=== PATIENT | male | born 1970 | race Caucasian/White ===

== ENCOUNTER 2020-08-22 08:51 | Day surgery (SDC) | payer OTHER ==
[2020-08-20 12:16] VITALS: BMI 21.6
[~2020-08-22 08:51] MED LIST: LACTATED RINGERS 1,000 ML IV SCH
[2020-08-22 09:30] VITALS: TEMP 97.8
[2020-08-22] MEDS ORDERED: LIDOCAINE 1% (10MG/ML) FOR IV START INTRADERMA ONE (09:32)
--- NOTE | 2020-08-22 10:37 | P.GSHP ---
History of Present Illness H&P Date: 08/22/20 Chief Complaint: Change in bowel habits, screening colonoscopy This a 49-year-old male who's had change in bowel habits was increased conservation. He presents today for screening colonoscopy. Past Medical History Past Medical History: Cancer, COPD, CVA/TIA, Seizure Disorder Additional Past Medical History / Comment(s): TIA summer 2019-no residual effects, lung cancer 2019-had radiation & chemo which is finished, immunotherapy every 2 weeks, last seizure approx. 8 months ago History of Any Multi-Drug Resistant Organisms: None Reported Additional Past Surgical History / Comment(s): mediport left side, brain surg. for dermoid cysts >20 yrs. ago Past Anesthesia/Blood Transfusion Reactions: No Reported Reaction Smoking Status: Current every day smoker Past Alcohol Use History: Heavy Additional Past Alcohol Use History / Comment(s): used to drink heavily, hasn't since November 2018, 1ppd down from 3ppd since teens Past Drug Use History: Marijuana Additional Drug Use History / Comment(s): edibles Medications and Allergies Home Medications Medication Instructions Recorded Confirmed Type Aspirin 81 mg PO DAILY 08/20/20 08/20/20 History Atorvastatin [Lipitor] 40 mg PO DAILY 08/20/20 08/20/20 History Cholecalciferol [Vitamin D3 (25 25 mcg PO DAILY 08/20/20 08/20/20 History Mcg = 1000 Iu)] Fluticasone/Salmeterol [Advair 1 inhalation PO BID 08/20/20 08/20/20 History 250-50 Diskus] Lacosamide [Vimpat] 150 mg PO BID 08/20/20 08/20/20 History Multivitamins, Thera [Multivitamin 1 tab PO DAILY 08/20/20 08/20/20 History (formulary)] levETIRAcetam [Keppra] 1,000 mg PO HS 08/20/20 08/20/20 History levETIRAcetam [Keppra] 750 mg PO QAM 08/20/20 08/20/20 History Allergies Allergy/AdvReac Type Severity Reaction Status Date / Time No Known Allergies Allergy Verified 08/20/20 10:45 Surgical - Exam Vital Signs Temp Pulse Resp BP Pulse Ox 97.8 F 78 20 128/70 96 08/22/20 09:29 08/22/20 09:29 08/22/20 09:29 08/22/20 09:29 08/22/20 09:29 - General well developed, well nourished, no distress - Eyes PERRL - ENT normal pinna - Neck no masses - Respiratory normal expansion - Cardiovascular Rhythm: regular - Abdomen Abdomen: soft, non tender Assessment and Plan Assessment: We'll perform screening colonoscopy.
[2020-08-22] MEDS ORDERED: PROPOFOL 10 MG/ML 20 ML VIAL IV ONE (10:46)
--- NOTE | 2020-08-22 10:59 | P.OP ---
Date of Procedure: 08/22/20 Preoperative Diagnosis: Screening colonoscopy Postoperative Diagnosis: Normal colon Procedure(s) Performed: Colonoscopy Anesthesia: MAC Surgeon: Ulises Osborne Pathology: none sent Condition: stable Disposition: PACU Description of Procedure: PROCEDURE: The patient was placed on the endoscopy table in the lateral position. Digital rectal examination was performed which revealed no abnormalities. The prostate was symmetrical without nodules. Flexible colonoscope was then placed in the patient's anus and passed throughout the entire colon. The ileocecal valve was visualized. The cecum, ascending, transverse, descending and sigmoid colon were normal. The rectum was normal as well. There were no masses, polyps or diverticula noted in the entire colon. SUMMARY OF FINDINGS: Normal colonoscopy.
[2020-08-22 11:09] VITALS: RESP 18
[2020-08-22 11:21] VITALS: BP 115/79; PULSE 68
== END 2020-08-22 12:02 | disposition home or self-care (01) ==
LOC: ORWHC2ENDO 08:51
PROVIDERS: ATTEND Surgery
DX: R19.4 Change in bowel habit (principal); J44.9 Chronic obstructive pulmonary disease, unspecified; Z86.73 Personal history of transient ischemic attack (TIA), and cerebral infarction without residual deficits; G40.909 Epilepsy, unspecified, not intractable, without status epilepticus; Z85.118 Personal history of other malignant neoplasm of bronchus and lung; Z92.3 Personal history of irradiation; Z92.21 Personal history of antineoplastic chemotherapy; Z79.899 Other long term (current) drug therapy; Z95.828 Presence of other vascular implants and grafts; Z98.890 Other specified postprocedural states; Z97.2 Presence of dental prosthetic device (complete) (partial); F17.210 Nicotine dependence, cigarettes, uncomplicated; Z79.82 Long term (current) use of aspirin; Z79.51 Long term (current) use of inhaled steroids
CPT/HCPCS: 45378; J2704

== ENCOUNTER 2023-04-16 17:27 | Emergency (ER) | payer OTHER ==
[2023-04-16 17:47] VITALS: RESP 18
[2023-04-16] MEDS ORDERED: levETIRAcetam 500 MG TAB PO STA (18:24)
[2023-04-16] MEDS ORDERED: SODIUM CHLORIDE 0.9% 1,000 ML IV STA (18:24)
[2023-04-16] MEDS ORDERED: LACOSAMIDE 150 MG TABLET PO STA (18:35)
[2023-04-16 19:21] LABS: Basophils % (A) 0 %; Eosinophils # (A) 0.1 k/uL (0-0.7); Eosinophils % (A) 3 %; HCT 31.3 % (39.0-53.0); HGB 10.8 gm/dL (13.0-17.5); Lymphocytes # (A) 0.3 k/uL (1.0-4.8); Lymphocytes % (A) 8 %; MCH 30.2 pg (25.0-35.0); MCHC 34.6 g/dL (31.0-37.0); MCV 87.3 fL (80.0-100.0); Monocytes # (A) 0.3 k/uL (0-1.0); Monocytes % (A) 7 %; Neutrophils # (A) 3.1 k/uL (1.3-7.7); Neutrophils % (A) 80 %; Platelet Count 118 k/uL (150-450); RBC 3.59 m/uL (4.30-5.90); RDW 14.5 % (11.5-15.5); WBC 3.9 k/uL (3.8-10.6)
[2023-04-16 19:27] LABS: ALT 21 U/L (4-49); AST 21 U/L (17-59); African American GFR (CKD) >90 (>60 ml/min/1.73 sqM); Albumin 3.6 g/dL (3.5-5.0); Alcohol <10 mg/dL; Alkaline Phosphatase 71 U/L (38-126); Anion Gap 9 mmol/L; Blood Urea Nitrogen 14 mg/dL (9-20); Calcium 8.7 mg/dL (8.4-10.2); Carbon Dioxide 27 mmol/L (22-30); Chloride 98 mmol/L (98-107); Glucose 89 mg/dL (74-99); Magnesium 1.6 mg/dL (1.6-2.3); Non-African American GFR(CKD) >90 (>60 ml/min/1.73 sqM); Potassium 4.3 mmol/L (3.5-5.1); Sodium 134 mmol/L (137-145); Total Bilirubin 0.5 mg/dL (0.2-1.3); Total Protein 6.4 g/dL (6.3-8.2)
[2023-04-16] MEDS ORDERED: ACETAMINOPHEN TAB 500 MG TAB PO STA (19:55)
--- NOTE | 2023-04-16 19:55 | ED ---
Seizure HPI - General Chief Complaint: Seizure Stated Complaint: seizure Time Seen by Provider: 04/16/23 17:40 Source: patient, EMS Mode of arrival: EMS - History of Present Illness Initial Comments: 52-year-old male with past medical history of seizure disorder, TIA who presents emergency Department after having a seizure. Patient takes Vimpat and Keppra. Apparently the patient did not take his home dose of his medications this morning. Patient ended up having a seizure this morning lasting approximately 90 seconds. He was in a chair and therefore the patient did not sustain any trauma. He reports that he does have breakthrough seizures even on his medications however he has not had one in a while. He does admit to mild headache. He is currently undergoing chemo and radiation for throat and lung cancer. Patient denies any visual changes. No unilateral numbness or weakness. No other alleviating, precipitating or modifying factors - Related Data Home Medications Medication Instructions Recorded Confirmed Aspirin 81 mg PO DAILY 08/20/20 08/20/20 Atorvastatin [Lipitor] 40 mg PO DAILY 08/20/20 08/20/20 Cholecalciferol [Vitamin D3 (25 25 mcg PO DAILY 08/20/20 08/20/20 Mcg = 1000 Iu)] Fluticasone Propion/Salmeterol 1 inhalation PO BID 08/20/20 08/20/20 [Advair 250-50 Diskus] Lacosamide [Vimpat] 150 mg PO BID 08/20/20 08/20/20 Multivitamins, Thera [Multivitamin 1 tab PO DAILY 08/20/20 08/20/20 (formulary)] levETIRAcetam [Keppra] 1,000 mg PO HS 08/20/20 08/20/20 levETIRAcetam [Keppra] 750 mg PO QAM 08/20/20 08/20/20 Allergies Allergy/AdvReac Type Severity Reaction Status Date / Time No Known Allergies Allergy Verified 04/16/23 17:44 Review of Systems ROS Statement: Those systems with pertinent positive or pertinent negative responses have been documented in the HPI. ROS Other: All systems not noted in ROS Statement are negative. Past Medical History Past Medical History: Cancer, COPD, CVA/TIA, Seizure Disorder Additional Past Medical History / Comment(s): TIA summer 2019-no residual effects, lung cancer 2019-had radiation & chemo which is finished, immunotherapy every 2 weeks, last seizure approx. 8 months ago History of Any Multi-Drug Resistant Organisms: None Reported Additional Past Surgical History / Comment(s): mediport left side, brain surg. for dermoid cysts >20 yrs. ago, throat cancer, lung cancer, seizure disorder Past Anesthesia/Blood Transfusion Reactions: No Reported Reaction Smoking Status: Current every day smoker Past Alcohol Use History: Heavy Past Drug Use History: Marijuana General Exam General appearance: alert, in no apparent distress Head exam: Present: atraumatic, normocephalic, normal inspection Eye exam: Present: normal appearance, PERRL, EOMI. Absent: scleral icterus, conjunctival injection, periorbital swelling ENT exam: Present: normal exam, mucous membranes moist Neck exam: Present: normal inspection. Absent: tenderness, meningismus, lymphadenopathy Respiratory exam: Present: normal lung sounds bilaterally. Absent: respiratory distress, wheezes, rales, rhonchi, stridor Cardiovascular Exam: Present: regular rate, normal rhythm, normal heart sounds. Absent: systolic murmur, diastolic murmur, rubs, gallop, clicks GI/Abdominal exam: Present: soft, normal bowel sounds. Absent: distended, tende rness, guarding, rebound, rigid Extremities exam: Present: normal inspection, full ROM, normal capillary refill. Absent: tenderness, pedal edema, joint swelling, calf tenderness Back exam: Present: normal inspection Neurological exam: Present: alert, oriented X3, CN II-XII intact Psychiatric exam: Present: normal affect, normal mood Skin exam: Present: warm, dry, intact, normal color. Absent: rash Course Vital Signs 04/16/23 04/16/23 04/16/23 17:36 19:00 20:00 Temperature 99.1 F Pulse Rate 83 84 80 Respiratory 18 18 18 Rate Blood Pressure 96/69 108/69 105/73 O2 Sat by Pulse 95 95 96 Oximetry 04/16/23 20:50 Temperature 98.4 F Pulse Rate 70 Respiratory 18 Rate Blood Pressure 105/70 O2 Sat by Pulse 95 Oximetry Medical Decision Making - Medical Decision Making Was pt. sent in by a medical professional or institution (, PA, DIRECTOR PRODUCT, urgent care, hospital, or usp...) When possible be specific @ -No Did you speak to anyone other than the patient for history (EMS, parent, family, police, friend...)? What history was obtained from this source @ -EMS Did you review nursing and triage notes (agree or disagree)? Why? @ -I reviewed and agree with nursing and triage notes Were old charts reviewed (outside hosp., previous admission, EMS record, old EKG, old radiological studies, urgent care reports/EKG's, usp records)? Report findings @ -No old charts were reviewed Differential Diagnosis (chest pain, altered mental status, abdominal pain women, abdominal pain men, vaginal bleeding, weakness, fever, dyspnea, syncope, headache, dizziness, GI bleed, back pain, seizure, CVA, palpatations, mental health, musculoskeletal)? @ -Differential Seizure: Recurrent seizure disorder, febrile seizure, alcohol withdrawal, stimulants, meningitis, encephalitis, intercranial hemorrhage, intracranial tumor, stroke, eclampsia, thyrotoxicosis, hypocalcemia, hyponatremia, hypernatremia, hypomagnesemia, psychogenic, this is not meant to be an all-inclusive list. EKG interpreted by me (3pts min.). @ -Yes and demonstrates sinus rhythm with a rate of 75. MS interval 187. QRS 101. QTC 384. No acute ST segment elevations or depressions X-rays interpreted by me (1pt min.). @ -None done CT interpreted by me (1pt min.). @ -None done U/S interpreted by me (1pt. min.). @ -None done What testing was considered but not performed or refused? (CT, X-rays, U/S, labs)? Why? @ -None What meds were considered but not given or refused? Why? @ -None Did you discuss the management of the patient with other professionals (professionals i.e. , PA, DIRECTOR PRODUCT, lab, RT, psych nurse, dialysis social worker, material planning analyst, teacher, business development officer, patient case manager)? Give summary @ -No Was smoking cessation discussed for >3mins.? @ -No Was critical care preformed (if so, how long)? @ -No Were there social determinants of health that impacted care today? How? (Homelessness, low income, unemployed, alcoholism, drug addiction, transportation, low edu. Level, literacy, decrease access to med. care, [facility], rehab)? @ -No Was there de-escalation of care discussed even if they declined (Discuss DNR or withdrawal of care, Hospice)? DNR status @ -No What co-morbidities impacted this encounter? (DM, HTN, Smoking, COPD, CAD, Cancer, CVA, ARF, Chemo, Hep., AIDS, mental health diagnosis, sleep apnea, morbid obesity)? @ -Seizure disorder Was patient admitted / discharged? Hospital course, mention meds given and route, prescriptions, significant lab abnormalities, going to OR and other pertinent info. @ -Discharged. Upon arrival patient was placed into room 25. Thorough history and physical exam was performed. He was dosed his morning medications. Labor atory studies were conducted. Patient is observed in the emergency department for 2 hours of seizure activity. He does feel comfortable being discharged home. He is instructed to continue taking his prescribed medications as directed. Follow up with his neurologist and return for any new or worsening symptoms. Patient agreeable plan he was discharged in stable condition Undiagnosed new problem with uncertain prognosis? @ -No Drug Therapy requiring intensive monitoring for toxicity (Heparin, Nitro, Insulin, Cardizem)? @ -No Were any procedures done? @ -No Diagnosis/symptom? @ -Acute breakthrough seizure, history of seizure disorder Acute, or Chronic, or Acute on Chronic? @ -acute Uncomplicated (without systemic symptoms) or Complicated (systemic symptoms)? @ -Complicated Side effects of treatment? @ -No Exacerbation, Progression, or Severe Exacerbation? @ -No Poses a threat to life or bodily function? How? (Chest pain, [place], [place], pneumonia, PE, COPD, DKA, ARF, appy, cholecystitis, CVA, Diverticulitis, Homicidal, Suicidal, threat to staff... and all critical care pts) @ -No - Lab Data Result diagrams: 04/16/23 19:08 04/16/23 19:08 Lab Results 04/16/23 04/16/23 Range/Units 19:08 19:08 WBC 3.9 (3.8-10.6) k/uL RBC 3.59 L (4.30-5.90) m/uL Hgb 10.8 L (13.0-17.5) gm/dL Hct 31.3 L (39.0-53.0) % MCV 87.3 (80.0-100.0) fL MCH 30.2 (25.0-35.0) pg MCHC 34.6 (31.0-37.0) g/dL RDW 14.5 (11.5-15.5) % Plt Count 118 L (150-450) k/uL MPV 7.0 Neutrophils % 80 % Lymphocytes % 8 % Monocytes % 7 % Eosinophils % 3 % Basophils % 0 % Neutrophils # 3.1 (1.3-7.7) k/uL Lymphocytes # 0.3 L (1.0-4.8) k/uL Monocytes # 0.3 (0-1.0) k/uL Eosinophils # 0.1 (0-0.7) k/uL Basophils # 0.0 (0-0.2) k/uL Sodium 134 L (137-145) mmol/L Potassium 4.3 (3.5-5.1) mmol/L Chloride 98 (98-107) mmol/L Carbon Dioxide 27 (22-30) mmol/L Anion Gap 9 mmol/L BUN 14 (9-20) mg/dL Creatinine 0.57 L (0.66-1.25) mg/dL Est GFR (CKD-EPI)AfAm >90 (>60 ml/min/1.73 sqM) Est GFR (CKD-EPI)NonAf >90 (>60 ml/min/1.73 sqM) Glucose 89 (74-99) mg/dL Calcium 8.7 (8.4-10.2) mg/dL Magnesium 1.6 (1.6-2.3) mg/dL Total Bilirubin 0.5 (0.2-1.3) mg/dL AST 21 (17-59) U/L ALT 21 (4-49) U/L Alkaline Phosphatase 71 (38-126) U/L Total Protein 6.4 (6.3-8.2) g/dL Albumin 3.6 (3.5-5.0) g/dL Serum Alcohol <10 mg/dL Disposition Clinical Impression: Breakthrough seizure Disposition: HOME SELF-CARE Condition: Stable Instructions (If sedation given, give patient instructions): Seizure/Epilepsy Discharge Instructions & Follow-Up, Recurrent Seizures in Adults (ED) Additional Instructions: Follow-up with your neurologist and return for any new or worsening symptoms Is patient prescribed a controlled substance at d/c from ED?: No Referrals: None,Stated [Primary Care Provider] - 1-2 days Time of Disposition: 20:04
[2023-04-16 21:01] VITALS: BP 105/70; PULSE 70; TEMP 98.4
== END 2023-04-16 20:57 | disposition home or self-care (01) ==
LOC: EC 17:27
DX: G40.509 Epileptic seizures related to external causes, not intractable, without status epilepticus (principal); J44.9 Chronic obstructive pulmonary disease, unspecified; F12.90 Cannabis use, unspecified, uncomplicated; F17.200 Nicotine dependence, unspecified, uncomplicated; Z79.51 Long term (current) use of inhaled steroids; Z79.82 Long term (current) use of aspirin; Z79.899 Other long term (current) drug therapy
CPT/HCPCS: 36415; 93005; 80053; 83735; 85025; 99284; 96360; G0480; 80320

== ENCOUNTER 2023-04-28 08:36 | Inpatient (IN) | payer OTHER ==
[2023-04-28] MEDS ORDERED: SODIUM CHLORIDE 0.9% 1,000 ML IV STA (08:59)
[2023-04-28] MEDS ORDERED: ALBUTEROL NEBULIZED 2.5 MG/3 ML INHALATION STA (08:59)
[2023-04-28] MEDS ORDERED: IPRATROPIUM 0.5 MG/2.5 ML NEBU INHALATION STA (08:59)
[2023-04-28] MEDS ORDERED: methylPREDNISolone SOD SUCCI 125 MG/2 ML VIAL IV STA (08:59)
[2023-04-28] MEDS ORDERED: ALBUTEROL HFA INHALER INHALATION STA (09:13)
[2023-04-28] MEDS ORDERED: TIOTROPIUM 2.5 MCG INHALER INHALATION STA (09:14)
[2023-04-28] MEDS ORDERED: LIDOCAINE 2% GLYDO JELLY 11 ML APPL PO ONE (10:27)
--- NOTE | 2023-04-28 10:30 | ED ---
General Adult HPI - General Chief complaint: Shortness of Breath Stated complaint: SOB Time Seen by Provider: 04/28/23 08:40 Source: patient, RN notes reviewed, old records reviewed Mode of arrival: ambulatory Limitations: no limitations - History of Present Illness Initial comments: This is a 52-year-old male with a 35 year pack history of smoking. Patient states continues to smoke. Patient comes to the emergency department today because he said a 4 day history of worsening difficulty breathing. Patient states he is coughing only a little more than his baseline. Patient states occasionally does cough something up. Patient denies any fever chills per patient denies any chest pain or palpitations. Patient denies abdominal pain patient denies any nausea or vomiting. Patient denies being lightheaded. Patient denies any numbness weakness that is focal in nature. Patient does complain of a sore throat. - Related Data Home Medications Medication Instructions Recorded Confirmed Aspirin 81 mg PO DAILY 08/20/20 08/20/20 Atorvastatin [Lipitor] 40 mg PO DAILY 08/20/20 08/20/20 Cholecalciferol [Vitamin D3 (25 25 mcg PO DAILY 08/20/20 08/20/20 Mcg = 1000 Iu)] Fluticasone Propion/Salmeterol 1 inhalation PO BID 08/20/20 08/20/20 [Advair 250-50 Diskus] Lacosamide [Vimpat] 150 mg PO BID 08/20/20 08/20/20 Multivitamins, Thera [Multivitamin 1 tab PO DAILY 08/20/20 08/20/20 (formulary)] levETIRAcetam [Keppra] 1,000 mg PO HS 08/20/20 08/20/20 levETIRAcetam [Keppra] 750 mg PO QAM 08/20/20 08/20/20 Allergies Allergy/AdvReac Type Severity Reaction Status Date / Time No Known Allergies Allergy Verified 04/28/23 08:40 Review of Systems ROS Statement: Those systems with pertinent positive or pertinent negative responses have been documented in the HPI. ROS Other: All systems not noted in ROS Statement are negative. Past Medical History Past Medical History: Cancer, COPD, CVA/TIA, Seizure Disorder Additional Past Medical History / Comment(s): TIA summer 2019-no residual effects, lung cancer 2019-had radiation & chemo which is finished, immunotherapy every 2 weeks, last seizure approx. 8 months ago History of Any Multi-Drug Resistant Organisms: None Reported Additional Past Surgical History / Comment(s): mediport left side, brain surg. for dermoid cysts >20 yrs. ago, throat cancer, lung cancer, seizure disorder Past Anesthesia/Blood Transfusion Reactions: No Reported Reaction Smoking Status: Current every day smoker Past Alcohol Use History: Heavy Past Drug Use History: Marijuana General Exam - General Exam Comments Initial Comments: GENERAL: Patient is well-developed and well-nourished. Patient is nontoxic and well- hydrated and is in mild distress. ENT: Neck is soft and supple. No significant lymphadenopathy is noted. Oropharynx is clear. Moist mucous membranes. Neck has full range of motion without eliciting any pain. EYES: The sclera were anicteric and conjunctiva were pink and moist. Extraocular movements were intact and pupils were equal round and reactive to light. Eyelids were unremarkable. PULMONARY: She has expiratory wheezing diffusely. CARDIOVASCULAR: There is a regular rate and rhythm without any murmurs gallops or rubs. ABDOMEN: Soft and nontender with normal bowel sounds. SKIN: Skin is clear with no lesions or rashes and otherwise unremarkable. NEUROLOGIC: Patient is alert and oriented x3. Cranial nerves II through XII are grossly intact. Motor and sensory are also intact. Normal speech, volume and content. Symmetrical smile. MUSCULOSKELETAL: Normal extremities with adequate strength and full range of motion. No lower extremity swelling or edema. No calf tenderness. LYMPHATICS: No significant lymphadenopathy is noted PSYCHIATRIC: Normal psychiatric evaluation. Limitations: no limitations Course Vital Signs 04/28/23 08:38 Temperature 98 F Pulse Rate 98 Respiratory 20 Rate Blood Pressure 93/68 O2 Sat by Pulse 91 L Oximetry Medical Decision Making - Medical Decision Making EKG is interpreted by myself. EKG shows a sinus rhythm at 99 bpm PA interval 168 QRSs 110 QT interval 344 QTC is 400. Patient's EKG shows no ST segment elevation or depression. Was pt. sent in by a medical professional or institution (, PA, TUMOR REGISTRAR, urgent care, hospital, or [facility]...) When possible be specific @ -No Did you speak to anyone other than the patient for history (EMS, parent, family, police, friend...)? What history was obtained from this source @ -No Did you review nursing and triage notes (agree or disagree)? Why? @ -I reviewed and agree with nursing and triage notes Were old charts reviewed (outside hosp., previous admission, EMS record, old EKG, old radiological studies, urgent care reports/EKG's, [facility] records)? Report findings @ -No old charts were reviewed Differential Diagnosis (chest pain, altered mental status, abdominal pain women, abdominal pain men, vaginal bleeding, weakness, fever, dyspnea, syncope, headache, dizziness, GI bleed, back pain, seizure, CVA, palpatations, mental health, musculoskeletal)? @ -Differential Dyspnea: Coronary syndrome, arrhythmia, tamponade, asthma, COPD, pulmonary embolism, pneumonia, pneumothorax, pulmonary effusion, anaphylaxis, diabetic ketoacidosis, flailed chest, pulmonary contusion, diaphragmatic rupture, anemia, neuromuscular, this is not meant to be an all-inclusive list. EKG interpreted by me (3pts min.). @ -As above X-rays interpreted by me (1pt min.). @ -Chest x-ray shows no acute abnormality CT interpreted by me (1pt min.). @ -None done U/S interpreted by me (1pt. min.). @ -None done What testing was considered but not performed or refused? (CT, X-rays, U/S, labs)? Why? @ -None What meds were considered but not given or refused? Why? @ -None Did you discuss the management of the patient with other professionals (professionals i.e. , PA, TUMOR REGISTRAR, lab, RT, psych nurse, social work nurse, heavy equipment service manager, teacher, sewage reticulation drafting officer, rn case manager)? Give summary @ -I spoke with the [facility] see agreed to admit the patient admitted the patient I wrote admitting orders Was smoking cessation discussed for >3mins.? @ -No Was critical care preformed (if so, how long)? @ -No Were there social determinants of health that impacted care today? How? (Homelessness, low income, unemployed, alcoholism, drug addiction, transportation, low edu. Level, literacy, decrease access to med. care, penitentiary, rehab)? @ -No Was there de-escalation of care discussed even if they declined (Discuss DNR or withdrawal of care, Hospice)? DNR status @ -No What co-morbidities impacted this encounter? (DM, HTN, Smoking, COPD, CAD, Cancer, CVA, ARF, Chemo, Hep., AIDS, mental health diagnosis, sleep apnea, morbid obesity)? @ -None Was patient admitted / discharged? Hospital course, mention meds given and route, prescriptions, significant lab abnormalities, going to OR and other pertinent info. @ -Patient was given a couple breathing treatments and steroids because he was wheezing. He did seem to feel as though that didn't improve things. Patient also was tested positive for cocaine and RSV patient's magnesium was low sodium was low those will be replaced. Patient also had a low white count low hemoglobin and low platelets. Patient will be admitted for all the above. I spoke with [facility] hospitalist and they agreed to admit the patient Undiagnosed new problem with uncertain prognosis? @ -No Drug Therapy requiring intensive monitoring for toxicity (Heparin, Nitro, Insulin, Cardizem)? @ -No Were any procedures done? @ -No Diagnosis/symptom? @ -COVID Acute, or Chronic, or Acute on Chronic? @ -Acute Uncomplicated (without systemic symptoms) or Complicated (systemic symptoms)? @ -Complicated Side effects of treatment? @ -No Exacerbation, Progression, or Severe Exacerbation? @ -No Poses a threat to life or bodily function? How? (Chest pain, USA, VT, pneumonia, PE, COPD, DKA, ARF, appy, cholecystitis, CVA, Diverticulitis, Homicidal, Suicidal, threat to staff... and all critical care pts) @ -No Diagnosis/symptom? @ -Exacerbation of COPD Acute, or Chronic, or Acute on Chronic? @ -Acute Uncomplicated (without systemic symptoms) or Complicated (systemic symptoms)? @ -Complicated Side effects of treatment? @ -none Exacerbation, Progression, or Severe Exacerbation] @ -no Poses a threat to life or bodily function? @ -Yes this could lead to hypoxia and end organ dysfunction Diagnosis/symptom? @ -RSV Acute, or Chronic, or Acute on Chronic? @ -Acute Uncomplicated (without systemic symptoms) or Complicated (systemic symptoms)? @ -Complicated Side effects of treatment? @ -none Exacerbation, Progression, or Severe Exacerbation] @ -no Poses a threat to life or bodily function? @ -Yes this could lead to hypoxia and end organ dysfunction Diagnosis/symptom? @ -Hyponatremia Acute, or Chronic, or Acute on Chronic? @ -Acute Uncomplicated (without systemic symptoms) or Complicated (systemic symptoms)? @ -Complicated Side effects of treatment? @ -none Exacerbation, Progression, or Severe Exacerbation] @ -no Poses a threat to life or bodily function? @ -no Diagnosis/symptom? @ -Pancytopenia Acute, or Chronic, or Acute on Chronic? @ -Acute Uncomplicated (without systemic symptoms) or Complicated (systemic symptoms)? @ -Complicated Side effects of treatment? @ -none Exacerbation, Progression, or Severe Exacerbation] @ -no Poses a threat to life or bodily function? @ -no Diagnosis/symptom? @ -Hypomagnesemia Acute, or Chronic, or Acute on Chronic? @ -Acute Uncomplicated (without systemic symptoms) or Complicated (systemic symptoms)? @ -Uncomplicated Side effects of treatment? @ -none Exacerbation, Progression, or Severe Exacerbation] @ -no Poses a threat to life or bodily function? @ -no - Lab Data Result diagrams: 04/28/23 09:34 04/28/23 09:34 Lab Results 04/28/23 04/28/23 04/28/23 Range/Units 09:34 09:34 09:34 WBC 1.7 L (3.8-10.6) k/uL RBC 3.11 L (4.30-5.90) m/uL Hgb 9.7 L (13.0-17.5) gm/dL Hct 27.1 L (39.0-53.0) % MCV 86.9 (80.0-100.0) fL MCH 31.1 (25.0-35.0) pg MCHC 35.8 (31.0-37.0) g/dL RDW 16.1 H (11.5-15.5) % Plt Count 102 L (150-450) k/uL MPV 7.2 Neutrophils % (Manual) 69 % Band Neuts % (Manual) 2 % Lymphocytes % (Manual) 10 % Monocytes % (Manual) 15 % Eosinophils % (Manual) 3 % Basophils % (Manual) 1 % Neutrophils # (Manual) 1.20 L (1.3-7.7) k/uL Lymphocytes # (Manual) 0.17 L (1.0-4.8) k/uL Monocytes # (Manual) 0.26 (0-1.0) k/uL Eosinophils # (Manual) 0.05 (0-0.7) k/uL Basophils # (Manual) 0.02 (0-0.2) k/uL Nucleated RBCs 0 (0-0) /100 WBC Manual Slide Review Performed Anisocytosis Slight PT 11.0 (10.0-12.5) sec INR 1.0 (<1.2) APTT 31.1 H (22.0-30.0) sec Sodium 127 L (137-145) mmol/L Potassium 3.6 (3.5-5.1) mmol/L Chloride 90 L (98-107) mmol/L Carbon Dioxide 23 (22-30) mmol/L Anion Gap 14 mmol/L BUN 16 (9-20) mg/dL Creatinine 0.59 L (0.66-1.25) mg/dL Est GFR (CKD-EPI)AfAm >90 (>60 ml/min/1.73 sqM) Est GFR (CKD-EPI)NonAf >90 (>60 ml/min/1.73 sqM) Glucose 95 (74-99) mg/dL Plasma Lactic Acid [place] (0.7-2.0) mmol/L Calcium 8.1 L (8.4-10.2) mg/dL Magnesium 1.5 L (1.6-2.3) mg/dL Total Bilirubin 0.6 (0.2-1.3) mg/dL AST 31 (17-59) U/L ALT 22 (4-49) U/L Alkaline Phosphatase 73 (38-126) U/L Troponin I (0.000-0.034) ng/mL Total Protein 6.3 (6.3-8.2) g/dL Albumin 3.3 L (3.5-5.0) g/dL Influenza Type A (PCR) (Not Detectd) Influenza Type B (PCR) (Not Detectd) RSV (PCR) (Not Detectd) SARS-CoV-2 (PCR) (Not Detectd) 04/28/23 04/28/23 04/28/23 Range/Units 09:34 09:34 09:34 WBC (3.8-10.6) k/uL RBC (4.30-5.90) m/uL Hgb (13.0-17.5) gm/dL Hct (39.0-53.0) % MCV (80.0-100.0) fL MCH (25.0-35.0) pg MCHC (31.0-37.0) g/dL RDW (11.5-15.5) % Plt Count (150-450) k/uL MPV Neutrophils % (Manual) % Band Neuts % (Manual) % Lymphocytes % (Manual) % Monocytes % (Manual) % Eosinophils % (Manual) % Basophils % (Manual) % Neutrophils # (Manual) (1.3-7.7) k/uL Lymphocytes # (Manual) (1.0-4.8) k/uL Monocytes # (Manual) (0-1.0) k/uL Eosinophils # (Manual) (0-0.7) k/uL Basophils # (Manual) (0-0.2) k/uL Nucleated RBCs (0-0) /100 WBC Manual Slide Review Anisocytosis PT (10.0-12.5) sec INR (<1.2) APTT (22.0-30.0) sec Sodium (137-145) mmol/L Potassium (3.5-5.1) mmol/L Chloride (98-107) mmol/L Carbon Dioxide (22-30) mmol/L Anion Gap mmol/L BUN (9-20) mg/dL Creatinine (0.66-1.25) mg/dL Est GFR (CKD-EPI)AfAm (>60 ml/min/1.73 sqM) Est GFR (CKD-EPI)NonAf (>60 ml/min/1.73 sqM) Glucose (74-99) mg/dL Plasma Lactic Acid Carlton 0.8 (0.7-2.0) mmol/L Calcium (8.4-10.2) mg/dL Magnesium (1.6-2.3) mg/dL Total Bilirubin (0.2-1.3) mg/dL AST (17-59) U/L ALT (4-49) U/L Alkaline Phosphatase (38-126) U/L Troponin I <0.012 (0.000-0.034) ng/mL Total Protein (6.3-8.2) g/dL Albumin (3.5-5.0) g/dL Influenza Type A (PCR) Not Detected (Not Detectd) Influenza Type B (PCR) Not Detected (Not Detectd) RSV (PCR) Detected A (Not Detectd) SARS-CoV-2 (PCR) Detected A (Not Detectd) Disposition Clinical Impression: Hypomagnesemia, COPD exacerbation, Hyponatremia, COVID, RSV (acute bronchiolitis due to respiratory syncytial virus), Pancytopenia Disposition: ADMITTED IP TO THIS HOSP Referrals: None,Stated [Primary Care Provider] - 1-2 days Time of Disposition: 11:54
[2023-04-28 10:50] LABS: ALT 22 U/L (4-49); AST 31 U/L (17-59); African American GFR (CKD) >90 (>60 ml/min/1.73 sqM); Albumin 3.3 g/dL (3.5-5.0); Alkaline Phosphatase 73 U/L (38-126); Anion Gap 14 mmol/L; Blood Urea Nitrogen 16 mg/dL (9-20); Calcium 8.1 mg/dL (8.4-10.2); Carbon Dioxide 23 mmol/L (22-30); Chloride 90 mmol/L (98-107); Glucose 95 mg/dL (74-99); Magnesium 1.5 mg/dL (1.6-2.3); Non-African American GFR(CKD) >90 (>60 ml/min/1.73 sqM); Potassium 3.6 mmol/L (3.5-5.1); Sodium 127 mmol/L (137-145); Total Bilirubin 0.6 mg/dL (0.2-1.3); Total Protein 6.3 g/dL (6.3-8.2)
[2023-04-28 10:54] LABS: Partial Thromboplastin Time 31.1 sec (22.0-30.0)
[2023-04-28 10:58] LABS: Anisocytosis Slight; HCT 27.1 % (39.0-53.0); HGB 9.7 gm/dL (13.0-17.5); MCH 31.1 pg (25.0-35.0); MCHC 35.8 g/dL (31.0-37.0); MCV 86.9 fL (80.0-100.0); Mean Platelet Volume 7.2; Platelet Count 102 k/uL (150-450); RBC 3.11 m/uL (4.30-5.90); RDW 16.1 % (11.5-15.5); WBC 1.7 k/uL (3.8-10.6)
[2023-04-28 11:41] LABS: Band Neutrophils % 2 %; Basophils # (M) 0.02 k/uL (0-0.2); Eosinophils # (M) 0.05 k/uL (0-0.7); Lymphocytes # (M) 0.17 k/uL (1.0-4.8); Monocytes # (M) 0.26 k/uL (0-1.0); Neutrophils % (M) 69 %; Nucleated Red Blood Cells 0 /100 WBC (0-0); Total Cells Counted 100
--- NOTE | 2023-04-28 11:48 | XR ---
EXAMINATION TYPE: XR chest 2V DATE OF EXAM: 04/28/2023 COMPARISON: Correlation PET/CT 02/02/2023 HISTORY: 52 year-old male shortness of breath, difficulty breathing TECHNIQUE: AP and lateral views FINDINGS: Heart and lungs are normal in size. Left anterior chest wall injection port with subclavian access an d catheter tip at the expected brachiocephalic vein confluence. Suspect previous right-sided thoracot kelin. Hyperinflation. Diffuse interstitial density. Patchy interstitial changes mid and lower lungs. IMPRESSION: COPD with suggestion of patchy interstitial infiltrates mid and lower lungs. Correlate for possible a spiration or atypical pneumonias.
[2023-04-28] MEDS ORDERED: NALOXONE 0.4 MG/ML 1 ML VIAL IVP PRN (11:55)
[2023-04-28] MEDS ORDERED: MAGNESIUM SULFATE-D5W PMX 1 GM in DEXTROSE/WATER 1 100ML.BAG IVPB ONE (11:56)
[2023-04-28] MEDS ORDERED: IPRATROPIUM-ALBUTEROL 3 ML NEB INHALATION SCH (12:00)
[2023-04-28] MEDS ORDERED: cefTRIAXone IN SWFI 1,000 MG/10 ML SYRINGE IVP STA (13:21)
[2023-04-28] MEDS: methylPREDNISolone SOD SUCCI 125 MG/2 ML VIAL IV SCH ×3 (13:46→23:31)
[2023-04-28] MEDS: SODIUM CHLORIDE 0.9% 1,000 ML IV SCH ×2 (14:11→23:32)
[2023-04-28] MEDS ORDERED: HYDROcodone/APAP 10-325MG 1 EACH TAB PO PRN (15:55)
[2023-04-28] MEDS ORDERED: FLUTICASONE 50MCG/SPRAY NASAL 16GM EA NOSTRIL PRN (15:55)
[2023-04-28] MEDS ORDERED: DEXTROSE 50% SYRINGE 50 ML IVP PRN ×2 (16:03)
[2023-04-28] MEDS: ALBUTEROL HFA INHALER INHALATION SCH ×2 (16:16→19:38)
[2023-04-28] MEDS: INSULIN ASPART (NovoLOG) 100 UNIT/ML VIAL SQ SCH ×2 (17:48→21:46)
[2023-04-28 17:49] LABS: Glucose,Whole Blood 139 mg/dL (70-110)
[2023-04-28 17:54] LABS: C Reactive Protein 32.9 mg/dL (<1.0)
[2023-04-28] MEDS: SYMBICORT 160-4.5 MCG INHALER INHALATION SCH (21:04)
[2023-04-28] MEDS: levETIRAcetam 500 MG TAB PO SCH (21:05)
--- NOTE | 2023-04-28 22:20 | P.HPIM ---
History of Present Illness H&P Date: 04/28/23 This is a 52 year old male with medical history of lung cancer s/p chemoradiation, hypertension, COPD and current smoker. Presents with 3 day history of shortness of breath. Denies any fever or chills at home. No chest pain. He does not wear home oxygen. Admits to smoking about 1 pack per day. No PCP but does follow with Dr. Rehman and Dr. Moore for the lung cancer. Chest xray done reveals COPD with suggestion of patchy interstitial infiltrates mid and lower lungs. Correlate for possible aspiration or atypical pneumonias. EKG on admission showing sinus rhythm with heart rate of 99. No ST or T wave changes. Initial blood work reveals white blood cell count of 1.7, hemoglobin 9.7, platelet count 102, sodium 127, potassium 3.6, BUN 16, creatinine 0.59. Magnesium 1.5. Troponin negative. Was found to be positive for RSV and covid by PCR. Influenza negative. Patient was admitted to the hospital under medicine. He has been started on IV solumedrol as well as IV fluids and supportive care. REVIEW OF SYSTEMS: CONSTITUTIONAL: No fever, no malaise, no fatigue. HEENT: No recent visual problems or hearing problems. Denied any sore throat. CARDIOVASCULAR: No chest pain, orthopnea, PND, no palpitations, no syncope. PULMONARY: Reports shortness of breath and cough, no hemoptysis. GASTROINTESTINAL: No diarrhea, no nausea, no vomiting, no abdominal pain. NEUROLOGICAL: No headaches, no weakness, no numbness. HEMATOLOGICAL: Denies any bleeding or petechiae. GENITOURINARY: Denies any burning micturition, frequency, or urgency. MUSCULOSKELETAL/RHEUMATOLOGICAL: Denies any joint pain, swelling, or any muscle pain. ENDOCRINE: Denies any polyuria or polydipsia. The rest of the 14-point review of systems is negative. PHYSICAL EXAMINATION: GENERAL: The patient is alert and oriented x3, not in any acute distress. Well developed, well nourished. On 3L of oxygen. HEENT: Pupils are round and equally reacting to light. EOMI. No scleral icterus. No conjunctival pallor. Normocephalic, atraumatic. No pharyngeal erythema. No thyromegaly. CARDIOVASCULAR: S1 and S2 present. No murmurs, rubs, or gallops. PULMONARY: Diminished ABDOMEN: Soft, nontender, nondistended, normoactive bowel sounds. No palpable organomegaly. MUSCULOSKELETAL: No joint swelling or deformity. EXTREMITIES: No cyanosis, clubbing, or pedal edema. NEUROLOGICAL: Gross neurological examination did not reveal any focal deficits. SKIN: No rashes. Assessment and Plan -Acute hypoxemic respiratory failure secondary to acute COPD exacerbation and acute covid/rsv infection with sepsis -Hyponatremia hypovolemic due to poor oral intake patient will be started on IV normal saline at 75 mls/hr recommend to repeat sodium level in the AM -Acute covid and RSV infection check procalcitonin level rule out underlying bacterial infection. -Hypomagnesemia will be supplemented and repeat level in the AM -Pancytopenia with white count of 1.7, hgb 9.7, platelet count 102. Neutropenia appears new will repeat CBC in the AM and consider hematology consultation. This could be due to underlying infection vs. MDS. -Hx of lung cancer with chemoradiation per patient in remission. Follows with oncology -Hx of seizure disorder maintained on keppra and vimpat which have been resumed -Hx of COPD with acute exacerbation on IV steroids and resumed on trelegy in [facility] [place] -Hx of alcohol abuse quit back in 2019 -Chronic and ongoing nicotine use counseled on cessation and offered nicotine patch patient has refused at this time. GI prophylaxis DVT prophylaxis The impression and plan of care has been dictated by Marva Mcghee, Nurse Practitioner as directed. Dr. Betina MD I have performed a history and physical examination and medical decision making of this patient, discussed the same with the dictator, and agree with the dictators assessment and plan as written, documented as a scribe. Based on total visit time, I have performed more than 50% of this visit. Past Medical History Past Medical History: Cancer, COPD, CVA/TIA, Seizure Disorder Additional Past Medical History / Comment(s): TIA summer 2019-no residual effects, lung cancer 2019-had radiation & chemo which is finished, immunotherapy every 2 weeks, last seizure approx. 8 months ago History of Any Multi-Drug Resistant Organisms: None Reported Additional Past Surgical History / Comment(s): mediport left side, brain surg. for dermoid cysts >20 yrs. ago, throat cancer, lung cancer, seizure disorder Past Anesthesia/Blood Transfusion Reactions: No Reported Reaction Smoking Status: Current every day smoker Past Alcohol Use History: Heavy Past Drug Use History: Marijuana Medications and Allergies Home Medications Medication Instructions Recorded Confirmed Type Lacosamide [Vimpat] 150 mg PO BID 08/20/20 04/28/23 History levETIRAcetam [Keppra] 1,000 mg PO HS 08/20/20 04/28/23 History levETIRAcetam [Keppra] 750 mg PO DAILY 08/20/20 04/28/23 History Atorvastatin Calcium [Lipitor] 40 mg PO DAILY 04/28/23 04/28/23 History Fluticasone Nasal [place] [Flonase 1 spray EA NOSTRIL BID PRN 04/28/23 04/28/23 History Nasal [place]] Fluticasone/Umeclidin/Vilanter 1 puff INHALATION RT-DAILY 04/28/23 04/28/23 History [Trelegy Ellipta 100-62.5-25] HYDROcodone/APAP 10-325MG [[place] 1 tab PO Q4HR PRN 04/28/23 04/28/23 History 10-325] Ibuprofen [Motrin] 800 mg PO BID PRN 04/28/23 04/28/23 History Allergies Allergy/AdvReac Type Severity Reaction Status Date / Time No Known Allergies Allergy Verified 04/28/23 08:40 Physical Exam Vitals: Vital Signs Temp Pulse Resp BP Pulse Ox 04/28/23 12:40 95 20 108/70 98 04/28/23 08:38 98 F 98 20 93/68 91 L Intake and Output 04/28/23 04/28/23 04/28/23 06:59 14:59 22:59 Other: Weight 65.771 kg Results CBC & Chem 7: 04/28/23 09:34 04/28/23 09:34 Labs: Abnormal Lab Results - Last 24 Hours (Table) 04/28/23 04/28/23 04/28/23 Range/Units 09:34 09:34 09:34 WBC 1.7 L (3.8-10.6) k/uL RBC 3.11 L (4.30-5.90) m/uL Hgb 9.7 L (13.0-17.5) gm/dL Hct 27.1 L (39.0-53.0) % RDW 16.1 H (11.5-15.5) % Plt Count 102 L (150-450) k/uL Neutrophils # (Manual) 1.20 L (1.3-7.7) k/uL Lymphocytes # (Manual) 0.17 L (1.0-4.8) k/uL APTT 31.1 H (22.0-30.0) sec Sodium 127 L (137-145) mmol/L Chloride 90 L (98-107) mmol/L Creatinine 0.59 L (0.66-1.25) mg/dL Calcium 8.1 L (8.4-10.2) mg/dL Magnesium 1.5 L (1.6-2.3) mg/dL Albumin 3.3 L (3.5-5.0) g/dL RSV (PCR) (Not Detectd) SARS-CoV-2 (PCR) (Not Detectd) 04/28/23 Range/Units 09:34 WBC (3.8-10.6) k/uL RBC (4.30-5.90) m/uL Hgb (13.0-17.5) gm/dL Hct (39.0-53.0) % RDW (11.5-15.5) % Plt Count (150-450) k/uL Neutrophils # (Manual) (1.3-7.7) k/uL Lymphocytes # (Manual) (1.0-4.8) k/uL APTT (22.0-30.0) sec Sodium (137-145) mmol/L Chloride (98-107) mmol/L Creatinine (0.66-1.25) mg/dL Calcium (8.4-10.2) mg/dL Magnesium (1.6-2.3) mg/dL Albumin (3.5-5.0) g/dL RSV (PCR) Detected A (Not Detectd) SARS-CoV-2 (PCR) Detected A (Not Detectd) Assessment and Plan Time with Patient: Less than 30
[2023-04-28] MEDS: LACOSAMIDE 150 MG TABLET PO SCH (23:30)
[2023-04-29] MEDS: methylPREDNISolone SOD SUCCI 125 MG/2 ML VIAL IV SCH ×3 (06:06→17:42)
[2023-04-29 06:10] LABS: Glucose,Whole Blood 153 mg/dL (70-110)
[2023-04-29] MEDS: INSULIN ASPART (NovoLOG) 100 UNIT/ML VIAL SQ SCH ×4 (06:24→21:32)
[2023-04-29] MEDS: SODIUM CHLORIDE 0.9% 1,000 ML IV SCH (07:52)
[2023-04-29] MEDS: ATORVASTATIN 40 MG TAB PO SCH (07:53)
[2023-04-29] MEDS: LACOSAMIDE 150 MG TABLET PO SCH ×2 (07:53→21:33)
[2023-04-29] MEDS: SYMBICORT 160-4.5 MCG INHALER INHALATION SCH ×2 (09:17→21:27)
[2023-04-29] MEDS: TIOTROPIUM 2.5 MCG INHALER INHALATION SCH (09:17)
[2023-04-29] MEDS: ALBUTEROL HFA INHALER INHALATION SCH ×4 (09:17→21:27)
[2023-04-29 11:35] LABS: Glucose,Whole Blood 187 mg/dL (70-110)
[2023-04-29 11:46] LABS: Blood Urea Nitrogen 13.5 mg/dL (9.0-27.0); Calcium 8.7 mg/dL (8.7-10.3); Carbon Dioxide 25.4 mmol/L (21.6-31.8); Chloride 96 mmol/L (96-109); Glucose 140 mg/dL (70-110); Magnesium 1.8 mg/dL (1.5-2.4); Potassium 4.2 mmol/L (3.5-5.5); Sodium 132 mmol/L (135-145)
--- NOTE | 2023-04-29 15:33 | P.CNPUL ---
History of Present Illness Consult date: 04/29/23 Requesting physician: Josiane Moffett Reason for consult: dyspnea, abnormal CXR/CT Chief complaint: Shortness of breath History of present illness: This is a very pleasant 52-year-old male patient with a known history of hyperlipidemia, seizure disorder, chronic obstructive pulmonary disease, previous heavy alcohol use quit in 2018, marijuana use, chronic and ongoing tobacco dependence, lung cancer in 2020 with previous chemoradiation and subsequent throat cancer currently undergoing radiation therapy. He has a three-day history of increasing shortness of breath, cough and congestion. He presented to the emergency room yesterday. Chest x-ray shows evidence of COPD with patchy interstitial infiltrates in the mid and lower lungs. Possible aspiration or atypical pneumonias. White count 1.7. Hemoglobin 9.7. Platelets 102. Sodium 132. Potassium 4.2. Bicarb 25. BUN 14. Creatinine 0.6. Glucose 140. Pro-calcitonin 0.42. C-reactive protein 32.9. RSV screen positive. COVI D-19 screen positive. Influenza screen negative. He is seen today in consultation on the regular medical floor. He is up ambulating in his room. Awake and alert in no acute distress. Feeling a bit better today compared to yesterday. He didn't initiated on albuterol, Symbicort, Spiriva, Solu-Medrol. Normal saline at 75 ML's per hour. Antibiotics in the form of ceftriaxone. Review of Systems REVIEW OF SYSTEMS: CONSTITUTIONAL: Denies any recent significant weight loss or weight gain. EYES: Denies change in vision. EARS, NOSE, MOUTH, THROAT: Denies headaches, denies sore throat. CARDIOVASCULAR: Denies chest pain, palpitations or syncopal episodes. RESPIRATORY: Positive for shortness of breath, cough, congestion no hemoptysis. GASTROINTESTINAL: Denies change in appetite, denies abdominal pain GENITOURINARY: Denies hematuria, denies infections. MUSKULOSKELETAL: Denies pain, denies swelling. INTEGUMENTARY: Denies rash, denies eczema. NEUROLOGICAL: Denies recent memory loss, no recent seizure activity. PSYCHIATRIC: Denies anxiety, denies depression. HEMATOLOGIC/LYMPHATIC: Denies anemia, denies enlarged lymph nodes. Past Medical History Past Medical History: Cancer, COPD, CVA/TIA, Seizure Disorder Additional Past Medical History / Comment(s): TIA summer 2019-no residual effects, lung cancer 2019-had radiation & chemo which is finished, immunotherapy every 2 weeks, last seizure approx. 8 months ago History of Any Multi-Drug Resistant Organisms: None Reported Additional Past Surgical History / Comment(s): mediport left side, brain surg. for dermoid cysts >20 yrs. ago, throat cancer, lung cancer, seizure disorder Past Anesthesia/Blood Transfusion Reactions: No Reported Reaction Smoking Status: Current every day smoker Past Alcohol Use History: Heavy Past Drug Use History: Marijuana Medications and Allergies Home Medications Medication Instructions Recorded Confirmed Type Lacosamide [Vimpat] 150 mg PO BID 08/20/20 04/28/23 History levETIRAcetam [Keppra] 1,000 mg PO HS 08/20/20 04/28/23 History levETIRAcetam [Keppra] 750 mg PO DAILY 08/20/20 04/28/23 History Atorvastatin Calcium [Lipitor] 40 mg PO DAILY 04/28/23 04/28/23 History Fluticasone Nasal [place] [Flonase 1 spray EA NOSTRIL BID PRN 04/28/23 04/28/23 History Nasal [place]] Fluticasone/Umeclidin/Vilanter 1 puff INHALATION RT-DAILY 04/28/23 04/28/23 History [Trelegy Ellipta 100-62.5-25] HYDROcodone/APAP 10-325MG [[place] 1 tab PO Q4HR PRN 04/28/23 04/28/23 History 10-325] Ibuprofen [Motrin] 800 mg PO BID PRN 04/28/23 04/28/23 History Allergies Allergy/AdvReac Type Severity Reaction Status Date / Time No Known Allergies Allergy Verified 04/28/23 08:40 Physical Exam Vitals: Vital Signs Temp Pulse Pulse Resp BP BP Pulse Ox 04/29/23 08:00 97.6 F 78 18 112/73 93 L 04/29/23 00:00 98.0 F 80 18 97/61 92 L 04/28/23 19:36 84 16 103/79 96 04/28/23 19:00 98.1 F 84 18 100/65 95 04/28/23 17:56 91 18 106/72 96 Intake and Output 04/29/23 04/29/23 04/29/23 06:59 14:59 22:59 Intake Total 200 Balance 200 Intake: Oral 200 Other: # Voids 0 GENERAL EXAM: Alert, thin 52-year-old male, appears older than stated age, 2 L nasal cannula, comfortable in no apparent distress. HEAD: Normocephalic. EYES: Normal reaction of pupils, equal size. NOSE: Clear with pink turbinates. THROAT: No erythema or exudates. NECK: No masses, no JVD. CHEST: No chest wall deformity. Left subclavian MediPort in place LUNGS: Equal air entry with scattered rhonchi, end expiratory wheeze, diminished. CVS: S1 and S2 normal with no audible murmur, regular rhythm. ABDOMEN: No hepatosplenomegaly, normal bowel sounds, no guarding or rigidity. SPINE: No scoliosis or deformity SKIN: No rashes CENTRAL NERVOUS SYSTEM: No focal deficits, tone is normal in all 4 extremities. EXTREMITIES: There is no peripheral edema. No clubbing, no cyanosis. Peripheral pulses are intact. Results - Laboratory Findings CBC and BMP: 04/28/23 09:34 04/29/23 06:02 PT/INR, D-dimer PT 11.0 sec (10.0-12.5) 04/28/23 09:34 INR 1.0 (<1.2) 04/28/23 09:34 Abnormal lab findings: Abnormal Labs 04/28/23 04/28/23 04/28/23 09:34 09:34 09:34 WBC 1.7 L RBC 3.11 L Hgb 9.7 L Hct 27.1 L RDW 16.1 H Plt Count 102 L Neutrophils # (Manual) 1.20 L Lymphocytes # (Manual) 0.17 L APTT 31.1 H Sodium 127 L Chloride 90 L Creatinine 0.59 L BUN/Creatinine Ratio Glucose POC Glucose (mg/dL) Hemoglobin A1c Calcium 8.1 L Magnesium 1.5 L C-Reactive Protein Albumin 3.3 L Procalcitonin RSV (PCR) SARS-CoV-2 (PCR) 04/28/23 04/28/23 04/28/23 09:34 09:34 09:34 WBC RBC Hgb Hct RDW Plt Count Neutrophils # (Manual) Lymphocytes # (Manual) APTT Sodium Chloride Creatinine BUN/Creatinine Ratio Glucose POC Glucose (mg/dL) Hemoglobin A1c Calcium Magnesium C-Reactive Protein 32.9 H Albumin Procalcitonin 0.42 H RSV (PCR) Detected A SARS-CoV-2 (PCR) Detected A 04/28/23 04/29/23 04/29/23 17:48 06:02 06:02 WBC RBC Hgb Hct RDW Plt Count Neutrophils # (Manual) Lymphocytes # (Manual) APTT Sodium 132 L Chloride Creatinine BUN/Creatinine Ratio 22.50 H Glucose 140 H POC Glucose (mg/dL) 139 H Hemoglobin A1c 6.4 H Calcium Magnesium C-Reactive Protein Albumin Procalcitonin RSV (PCR) SARS-CoV-2 (PCR) 04/29/23 04/29/23 06:09 11:33 WBC RBC Hgb Hct RDW Plt Count Neutrophils # (Manual) Lymphocytes # (Manual) APTT Sodium Chloride Creatinine BUN/Creatinine Ratio Glucose POC Glucose (mg/dL) 153 H 187 H Hemoglobin A1c Calcium Magnesium C-Reactive Protein Albumin Procalcitonin RSV (PCR) SARS-CoV-2 (PCR) - Diagnostic Findings Chest x-ray: image reviewed Assessment and Plan Assessment: Acute hypoxemic respiratory failure secondary to an acute exacerbation of chronic obstructive pulmonary disease complicated by RSV and COVID-19 infection, cannot rule out aspiration. Pro-calcitonin 0.42 RSV infection COVID-19 infection, symptoms began 3 days prior to arrival, initiated on Re mdesivir Laryngeal cancer currently receiving radiation History of lung cancer in 2020 with previous chemoradiation Chronic and ongoing tobacco dependence Seizure disorder History of TIA Previous history of heavy alcohol use Hyperlipidemia Plan: The patient was seen and evaluated Chest x-ray, labs and medications reviewed Continue bronchodilators, steroids We will initiate Remdesivir Continue antibiotics Titrate the FiO2 as tolerated Educated regarding the importance of complete smoking cessation NicoDerm patch was offered We will continue to follow and make further recommendations based on his clinical status I have personally seen and examined the patient, performed the documentation and the assessment and plan as written. Number of minutes spent on the visit: 20.
[2023-04-29] MEDS ORDERED: REMDESIVIR 200 MG in SODIUM CHLORIDE 0.9% 250 ML IVPB ONE (16:00)
[2023-04-29 16:35] LABS: Glucose,Whole Blood 154 mg/dL (70-110)
[2023-04-29 21:17] LABS: Glucose,Whole Blood 173 mg/dL (70-110)
[2023-04-29] MEDS: INSULIN DETEMIR (LEVEMIR) 100 UNIT/ML SYR SQ SCH (21:32)
[2023-04-29] MEDS: levETIRAcetam 500 MG TAB PO SCH (21:33)
--- NOTE | 2023-04-29 22:38 | P.PN ---
Subjective Progress Note Date: 04/29/23 This is a 52 year old male with medical history of lung cancer s/p chemoradiation, hypertension, COPD and current smoker. Presents with 3 day history of shortness of breath. Denies any fever or chills at home. No chest pain. He does not wear home oxygen. Admits to smoking about 1 pack per day. No PCP but does follow with Dr. Rehman and Dr. Moore for the lung cancer. Chest xray done reveals COPD with suggestion of patchy interstitial infiltrates mid and lower lungs. Correlate for possible aspiration or atypical pneumonias. EKG on admission showing sinus rhythm with heart rate of 99. No ST or T wave changes. Initial blood work reveals white blood cell count of 1.7, hemoglobin 9.7, platelet count 102, sodium 127, potassium 3.6, BUN 16, creatinine 0.59. Magnesium 1.5. Troponin negative. Was found to be positive for RSV and covid by PCR. Influenza negative. Patient was admitted to the hospital under medicine. He has been started on IV solumedrol as well as IV fluids and supportive care. 04/29/2023 Patient evaluated today on the medical floor. Remains on oxygen support. Less wheezy today and feels less short of breath with activity however states that he does continue to have a hard time recovering after activity. He remains on inhaled and systemic steroids. Pulmonary will be consulted. REVIEW OF SYSTEMS: CONSTITUTIONAL: No fever, no malaise, no fatigue. HEENT: No recent visual problems or hearing problems. Denied any sore throat. CARDIOVASCULAR: No chest pain, orthopnea, PND, no palpitations, no syncope. PULMONARY: Reports shortness of breath and cough, no hemoptysis. GASTROINTESTINAL: No diarrhea, no nausea, no vomiting, no abdominal pain. NEUROLOGICAL: No headaches, no weakness, no numbness. PHYSICAL EXAMINATION: GENERAL: The patient is alert and oriented x3, not in any acute distress. Well developed, well nourished. On 3L of oxygen. HEENT: Pupils are round and equally reacting to light. EOMI. No scleral icterus. No conjunctival pallor. Normocephalic, atraumatic. No pharyngeal erythema. No thyromegaly. CARDIOVASCULAR: S1 and S2 present. No murmurs, rubs, or gallops. PULMONARY: Diminished ABDOMEN: Soft, nontender, nondistended, normoactive bowel sounds. No palpable organomegaly. MUSCULOSKELETAL: No joint swelling or deformity. EXTREMITIES: No cyanosis, clubbing, or pedal edema. NEUROLOGICAL: Gross neurological examination did not reveal any focal deficits. SKIN: No rashes. Assessment and Plan -Acute hypoxemic respiratory failure secondary to acute COPD exacerbation and acute covid/rsv infection with sepsis; continues on inhaled and systemic steroids and pulmonary will be consulted for evaluation. -Hyponatremia hypovolemic due to poor oral intake continue on normal saline sodium has improved to 132 and will repeat BMP In the AM. -Acute covid and RSV infection mild elevation in procalcitonin will continue on IV ceftriaxone empirically. -Hypomagnesemia will be supplemented and repeat level in the AM -Pancytopenia with white count of 1.7, hgb 9.7, platelet count 102. Neutropenia appears new will repeat CBC in the AM and consider hematology consultation. This could be due to underlying infection vs. MDS. -Hx of lung cancer with chemoradiation per patient in remission. Follows with oncology -Hx of seizure disorder maintained on keppra and vimpat -Hx of COPD with acute exacerbation on IV steroids and resumed on trelegy in [place] -Hx of alcohol abuse quit back in 2019 -Chronic and ongoing nicotine use counseled on cessation and offered nicotine patch patient has refused at this time. GI prophylaxis DVT prophylaxis The impression and plan of care has been dictated by Marva Mcghee, Nurse Practitioner as directed. Dr. Betina MD I have performed a history and physical examination and medical decision making of this patient, discussed the same with the dictator, and agree with the dictators assessment and plan as written, documented as a scribe. Based on total visit time, I have performed more than 50% of this visit. Objective - Vital Signs Vital signs: Vital Signs Temp 97.6 F 04/29/23 08:00 Pulse 78 04/29/23 08:00 Resp 18 04/29/23 08:00 BP 112/73 04/29/23 08:00 Pulse Ox 93 L 04/29/23 08:00 FiO2 Intake & Output 04/28/23 04/29/23 04/29/23 18:59 06:59 18:59 Intake Total 200 Balance 200 Weight 65.771 kg 65.771 kg Intake: Oral 200 Other: # Voids 0 - Labs CBC & Chem 7: 04/28/23 09:34 04/29/23 06:02 Labs: Abnormal Lab Results - Last 24 Hours (Table) 04/28/23 04/28/23 04/28/23 Range/Units 09:34 09:34 17:48 Sodium (135-145) mmol/L BUN/Creatinine Ratio (12.00-20.00) Ratio Glucose (70-110) mg/dL POC Glucose (mg/dL) 139 H (70-110) mg/dL Hemoglobin A1c (<=6.0) % C-Reactive Protein 32.9 H (<1.0) mg/dL Procalcitonin 0.42 H (0.02-0.09) ng/mL 04/29/23 04/29/23 04/29/23 Range/Units 06:02 06:02 06:09 Sodium 132 L (135-145) mmol/L BUN/Creatinine Ratio 22.50 H (12.00-20.00) Ratio Glucose 140 H (70-110) mg/dL POC Glucose (mg/dL) 153 H (70-110) mg/dL Hemoglobin A1c 6.4 H (<=6.0) % C-Reactive Protein (<1.0) mg/dL Procalcitonin (0.02-0.09) ng/mL 04/29/23 Range/Units 11:33 Sodium (135-145) mmol/L BUN/Creatinine Ratio (12.00-20.00) Ratio Glucose (70-110) mg/dL POC Glucose (mg/dL) 187 H (70-110) mg/dL Hemoglobin A1c (<=6.0) % C-Reactive Protein (<1.0) mg/dL Procalcitonin (0.02-0.09) ng/mL Assessment and Plan Time with Patient: Less than 30
[2023-04-30] MEDS: methylPREDNISolone SOD SUCCI 125 MG/2 ML VIAL IV SCH ×4 (00:53→17:48)
[2023-04-30 05:09] LABS: Glucose,Whole Blood 126 mg/dL (70-110)
[2023-04-30] MEDS: SODIUM CHLORIDE 0.9% 1,000 ML IV SCH ×2 (05:39→17:55)
[2023-04-30] MEDS: INSULIN ASPART (NovoLOG) 100 UNIT/ML VIAL SQ SCH ×4 (06:38→20:34)
[2023-04-30] MEDS: ALBUTEROL HFA INHALER INHALATION SCH ×4 (08:21→21:18)
[2023-04-30] MEDS: TIOTROPIUM 2.5 MCG INHALER INHALATION SCH (08:21)
[2023-04-30] MEDS: SYMBICORT 160-4.5 MCG INHALER INHALATION SCH ×2 (08:21→21:19)
[2023-04-30] MEDS: ATORVASTATIN 40 MG TAB PO SCH (08:27)
[2023-04-30] MEDS: LACOSAMIDE 150 MG TABLET PO SCH ×2 (08:27→20:42)
[2023-04-30] MEDS: MAGNESIUM OXIDE 400 MG TAB PO SCH (08:27)
[2023-04-30] MEDS: ENOXAPARIN 40 MG/0.4 ML SYRINGE SQ SCH (08:27)
[2023-04-30 10:17] LABS: HCT 24.9 % (39.6-50.0); HGB 8.6 g/dL (13.0-17.0); MCH 29.8 pg (27.0-32.0); MCHC 34.5 g/dL (32.0-37.0); MCV 86.2 FL (80.0-97.0); Mean Platelet Volume 9.7 FL (9.5-12.2); NRBC Per 100 WBC 0 X 10*3/uL (0.00-0.01); Platelet Count 115 X 10*3/uL (140-440); RBC 2.89 X 10*6/uL (4.40-5.60); RDW 15.9 % (11.5-14.5); WBC 2.45 X 10*3/uL (4.50-10.00)
[2023-04-30 10:19] LABS: Blood Urea Nitrogen 16.6 mg/dL (9.0-27.0); Glucose 120 mg/dL (70-110)
[2023-04-30 10:20] LABS: Calcium 8.6 mg/dL (8.7-10.3); Carbon Dioxide 25.3 mmol/L (21.6-31.8); Chloride 100 mmol/L (96-109); Potassium 3.7 mmol/L (3.5-5.5); Sodium 136 mmol/L (135-145)
[2023-04-30 11:08] LABS: Basophils # (A) 0 X 10*3/uL (0.00-0.10); Basophils % (A) 0 %; Eosinophils # (A) 0 X 10*3/uL (0.04-0.35); Eosinophils % (A) 0 %; Lymphocytes # (A) 0.21 X 10*3/uL (0.90-5.00); Lymphocytes % (A) 8.6 %; Monocytes # (A) 0.23 X 10*3/uL (0.20-1.00); Monocytes % (A) 9.4 %; Neutrophils # (A) 1.99 X 10*3/uL (1.80-7.70); Neutrophils % (A) 81.2 %; RBC Morphology Normal (Normal)
[2023-04-30 12:28] LABS: Glucose,Whole Blood 131 mg/dL (70-110)
--- NOTE | 2023-04-30 12:31 | P.PN ---
Subjective Progress Note Date: 04/30/23 This is a very pleasant 52-year-old male patient with a known history of hyperlipidemia, seizure disorder, chronic obstructive pulmonary disease, previous heavy alcohol use quit in 2018, marijuana use, chronic and ongoing tobacco dependence, lung cancer in 2020 with previous chemoradiation and subsequent throat cancer currently undergoing radiation therapy. He has a three-day history of increasing shortness of breath, cough and congestion. He presented to the emergency room yesterday. Chest x-ray shows evidence of COPD with patchy interstitial infiltrates in the mid and lower lungs. Possible asp iration or atypical pneumonias. White count 1.7. Hemoglobin 9.7. Platelets 102. Sodium 132. Potassium 4.2. Bicarb 25. BUN 14. Creatinine 0.6. Glucose 140. Pro-calcitonin 0.42. C-reactive protein 32.9. RSV screen positive. COVID-19 screen positive. Influenza screen negative. He is seen today in consultation on the regular medical floor. He is up ambulating in his room. Awake and alert in no acute distress. Feeling a bit better today compared to yesterday. He didn't initiated on albuterol, Symbicort, Spiriva, Solu-Medrol. Normal saline at 75 ML's per hour. Antibiotics in the form of ceftriaxone. The patient is seen today 04/30/2023 in follow-up on the regular medical floor. He is currently resting comfortably in bed. Awake and alert in no acute distress. Breathing a bit easier today compared to yesterday. Currently maintaining O2 saturations in the 90s on room air. He has normal saline at 75 ML's per hour. His pro calcitonin was 0.42. He is continued on Symbicort, albuterol, Spiriva. Antibody eczema form of ceftriaxone. This is day #2 of Remdesivir. White count 2.45. Hemoglobin 8.6. Platelets 115. Sodium 136. Potassium 3.7. Bicarb 25. BUN 17. Creatinine 0.5. Glucose 120. Objective - Vital Signs Vital signs: Vital Signs Temp 98 F 04/30/23 07:35 Pulse 74 04/30/23 07:35 Resp 16 04/30/23 07:35 BP 104/76 04/30/23 07:35 Pulse Ox 93 L 04/30/23 08:22 FiO2 Intake & Output 04/29/23 04/30/23 04/30/23 18:59 06:59 18:59 Intake Total 200 Balance 200 Intake: Oral 200 Other: # Voids 2 2 - Exam GENERAL EXAM: Alert, thin 52-year-old male, on room air, comfortable in no apparent distress. HEAD: Normocephalic. EYES: Normal reaction of pupils, equal size. NOSE: Clear with pink turbinates. THROAT: No erythema or exudates. NECK: No masses, no JVD. CHEST: No chest wall deformity. Left subclavian MediPort in place LUNGS: Equal air entry with scattered rhonchi, end expiratory wheeze, d iminished. CVS: S1 and S2 normal with no audible murmur, regular rhythm. ABDOMEN: No hepatosplenomegaly, normal bowel sounds, no guarding or rigidity. SPINE: No scoliosis or deformity SKIN: No rashes CENTRAL NERVOUS SYSTEM: No focal deficits, tone is normal in all 4 extremities. EXTREMITIES: There is no peripheral edema. No clubbing, no cyanosis. Peripheral pulses are intact. - Labs CBC & Chem 7: 04/30/23 05:44 04/30/23 05:44 Labs: Abnormal Lab Results - Last 24 Hours (Table) 04/29/23 04/29/23 04/30/23 Range/Units 16:34 21:16 05:07 WBC (4.50-10.00) X 10*3/uL RBC (4.40-5.60) X 10*6/uL Hgb (13.0-17.0) g/dL Hct (39.6-50.0) % RDW (11.5-14.5) % Plt Count (140-440) X 10*3/uL Lymphocytes # (0.90-5.00) X 10*3/uL Eosinophils # (0.04-0.35) X 10*3/uL Creatinine (0.6-1.5) mg/dL BUN/Creatinine Ratio (12.00-20.00) Ratio Glucose (70-110) mg/dL POC Glucose (mg/dL) 154 H 173 H 126 H (70-110) mg/dL Calcium (8.7-10.3) mg/dL 04/30/23 04/30/23 Range/Units 05:44 05:44 WBC 2.45 L (4.50-10.00) X 10*3/uL RBC 2.89 L (4.40-5.60) X 10*6/uL Hgb 8.6 L (13.0-17.0) g/dL Hct 24.9 L (39.6-50.0) % RDW 15.9 H (11.5-14.5) % Plt Count 115 L (140-440) X 10*3/uL Lymphocytes # 0.21 L (0.90-5.00) X 10*3/uL Eosinophils # 0 L (0.04-0.35) X 10*3/uL Creatinine 0.5 L (0.6-1.5) mg/dL BUN/Creatinine Ratio 33.20 H (12.00-20.00) Ratio Glucose 120 H (70-110) mg/dL POC Glucose (mg/dL) (70-110) mg/dL Calcium 8.6 L (8.7-10.3) mg/dL Microbiology - Last 24 Hours (Table) 04/28/23 10:00 Blood Culture - Preliminary Blood 04/28/23 09:45 Blood Culture - Preliminary Blood Assessment and Plan Assessment: Acute hypoxemic respiratory failure secondary to an acute exacerbation of chronic obstructive pulmonary disease complicated by RSV and COVID-19 infection, cannot rule out aspiration. Pro-calcitonin 0.42 RSV infection COVID-19 infection, symptoms began 3 days prior to arrival, initiated on Remdesivir Laryngeal cancer currently receiving radiation History of lung cancer in 2019 with previous chemoradiation Chronic and ongoing tobacco dependence Seizure disorder History of TIA Previous history of heavy alcohol use Hyperlipidemia Plan: The patient was seen and evaluated Labs and medications reviewed Improved today compared to yesterday Continue the current treatment plan Follow-up chest x-ray in a.m. We will continue to follow I have personally seen and examined the patient, performed the documentation and the assessment and plan as written. Number of minutes spent on the visit: 10.
--- NOTE | 2023-04-30 14:44 | P.PN ---
Subjective Progress Note Date: 04/30/23 52 year old male with medical history of lung cancer s/p chemoradiation, hypertension, COPD and current smoker. Presents with 3 day history of shortness of breath. Denies any fever or chills at home. No chest pain. He does not wear home oxygen. Admits to smoking about 1 pack per day. No PCP but does follow with Dr. Rehman and Dr. Moore for the lung cancer. Chest xray done reveals COPD with suggestion of patchy interstitial infiltrates mid and lower lungs. Correlate for possible aspiration or atypical pneumonias. EKG on admission showing sinus rhythm with heart rate of 99. No ST or T wave changes. Initial blood work reveals white blood cell count of 1.7, hemoglobin 9.7, platelet count 102, sodium 127, potassium 3.6, BUN 16, creatinine 0.59. Magnesium 1.5. Troponin negative. Was found to be positive for RSV and covid by PCR. Influenza negative. Patient was admitted to the hospital under medicine. He has been started on IV solumedrol as well as IV fluids and supportive care. 04/29/2023 Patient evaluated today on the medical floor. Remains on oxygen support. Less wheezy today and feels less short of breath with activity however states that he does continue to have a hard time recovering after activity. He remains on inhaled and systemic steroids. Pulmonary will be consulted. 04/30/2023: Patient seen and evaluated bedside, patient says his breathing has improved, cough is improved as well. Pulmonary medicine following appreciate recommendations, denies fever, chills, chest pain PHYSICAL EXAMINATION: GENERAL: The patient is alert and oriented x3, ill appearance, pale HEENT: Pupils are round and equally reacting to light. EOMI. CARDIOVASCULAR: S1 and S2 present. No murmurs, rubs, or gallops. PULMONARY: Chest is clear to auscultation, no wheezing or crackles. ABDOMEN: Soft, nontender, nondistended, normoactive bowel sounds. No palpable organomegaly. MUSCULOSKELETAL: No joint swelling or deformity. EXTREMITIES: No cyanosis, clubbing, or pedal edema. NEUROLOGICAL: Gross neurological examination did not reveal any focal deficits. SKIN: No rashes. Objective - Vital Signs Vital signs: Vital Signs Temp 98 F 04/30/23 07:35 Pulse 74 04/30/23 07:35 Resp 16 04/30/23 07:35 BP 104/76 04/30/23 07:35 Pulse Ox 93 L 04/30/23 08:22 FiO2 Intake & Output 04/29/23 04/30/23 04/30/23 18:59 06:59 18:59 Intake Total 200 Balance 200 Intake: Oral 200 Other: # Voids 2 2 - Labs CBC & Chem 7: 04/30/23 05:44 04/30/23 05:44 Labs: Abnormal Lab Results - Last 24 Hours (Table) 04/29/23 04/29/23 04/30/23 Range/Units 16:34 21:16 05:07 WBC (4.50-10.00) X 10*3/uL RBC (4.40-5.60) X 10*6/uL Hgb (13.0-17.0) g/dL Hct (39.6-50.0) % RDW (11.5-14.5) % Plt Count (140-440) X 10*3/uL Lymphocytes # (0.90-5.00) X 10*3/uL Eosinophils # (0.04-0.35) X 10*3/uL Creatinine (0.6-1.5) mg/dL BUN/Creatinine Ratio (12.00-20.00) Ratio Glucose (70-110) mg/dL POC Glucose (mg/dL) 154 H 173 H 126 H (70-110) mg/dL Calcium (8.7-10.3) mg/dL 04/30/23 04/30/23 04/30/23 Range/Units 05:44 05:44 12:26 WBC 2.45 L (4.50-10.00) X 10*3/uL RBC 2.89 L (4.40-5.60) X 10*6/uL Hgb 8.6 L (13.0-17.0) g/dL Hct 24.9 L (39.6-50.0) % RDW 15.9 H (11.5-14.5) % Plt Count 115 L (140-440) X 10*3/uL Lymphocytes # 0.21 L (0.90-5.00) X 10*3/uL Eosinophils # 0 L (0.04-0.35) X 10*3/uL Creatinine 0.5 L (0.6-1.5) mg/dL BUN/Creatinine Ratio 33.20 H (12.00-20.00) Ratio Glucose 120 H (70-110) mg/dL POC Glucose (mg/dL) 131 H (70-110) mg/dL Calcium 8.6 L (8.7-10.3) mg/dL Microbiology - Last 24 Hours (Table) 04/28/23 10:00 Blood Culture - Preliminary Blood 04/28/23 09:45 Blood Culture - Preliminary Blood Assessment and Plan Assessment: Assessment and Plan * Acute hypoxemic respiratory failure secondary to acute COPD exacerbation and acute covid/rsv infection with sepsis * Acute covid and RSV infection * Superimposed bacterial pneumonia * Pancytopenia * Hx of lung cancer with chemoradiation per patient in remission. Follows with oncology * Hx of seizure disorder maintained on keppra and vimpat * Hx of COPD with acute exacerbation on IV steroids and resumed on trelegy in [facility] * Hx of alcohol abuse quit back in 2018 * In regards to respiratory failure continue patient on current medical regimen, receiving albuterol, Symbicort, Flonase, IV Solu-Medrol and MGUS severe * In regards to his superimposed bacterial infection pro-calcitonin elevated at 0.4 to continue IV Rocephin * In regards to pancytopenia multifactorial underlying viral infection causing bone marrow suppression continue to monitor cell count * In regards to history of seizure disorder, continue patient on Keppra and Vimpat * In regards to COPD exacerbation continue steroids and breathing treatment * Appreciate input from pulmonary medicine Time with Patient: Greater than 30
[2023-04-30] MEDS: REMDESIVIR 100 MG in SODIUM CHLORIDE 0.9% 250 ML IVPB SCH (16:44)
[2023-04-30 16:57] LABS: Glucose,Whole Blood 173 mg/dL (70-110)
[2023-04-30 20:04] LABS: Glucose,Whole Blood 140 mg/dL (70-110)
[2023-04-30] MEDS: levETIRAcetam 500 MG TAB PO SCH (20:42)
[2023-04-30] MEDS: INSULIN DETEMIR (LEVEMIR) 100 UNIT/ML SYR SQ SCH (20:42)
[2023-05-01 05:04] LABS: Glucose,Whole Blood 125 mg/dL (70-110)
[2023-05-01] MEDS: methylPREDNISolone SOD SUCCI 125 MG/2 ML VIAL IV SCH ×5 (05:17→23:36)
[2023-05-01] MEDS: INSULIN ASPART (NovoLOG) 100 UNIT/ML VIAL SQ SCH ×4 (06:50→20:41)
[2023-05-01] MEDS: SODIUM CHLORIDE 0.9% 1,000 ML IV SCH ×2 (06:50→22:55)
--- NOTE | 2023-05-01 07:53 | XR ---
EXAMINATION TYPE: XR chest 1V portable DATE OF EXAM: 05/01/2023 COMPARISON: 04/28/2023 INDICATION: Covid, RSV TECHNIQUE: Single frontal view of the chest is obtained. FINDINGS: The heart size is normal. The pulmonary vasculature is normal. Minimal left pleural effusion is present. Port is present on the left tip in the superior vena cava region. Medullary infarct in the right proximal diaphyseal humerus is present IMPRESSION: 1. Minimal left pleural effusion.
[2023-05-01] MEDS: ALBUTEROL HFA INHALER INHALATION SCH ×4 (08:23→18:21)
[2023-05-01] MEDS: SYMBICORT 160-4.5 MCG INHALER INHALATION SCH ×2 (08:23→18:22)
[2023-05-01] MEDS: TIOTROPIUM 2.5 MCG INHALER INHALATION SCH (08:23)
[2023-05-01] MEDS: MAGNESIUM OXIDE 400 MG TAB PO SCH (08:35)
[2023-05-01] MEDS: LACOSAMIDE 150 MG TABLET PO SCH ×2 (08:35→20:42)
[2023-05-01] MEDS: ENOXAPARIN 40 MG/0.4 ML SYRINGE SQ SCH (08:35)
[2023-05-01] MEDS: ATORVASTATIN 40 MG TAB PO SCH (08:35)
[2023-05-01 10:05] LABS: HCT 25.7 % (39.6-50.0); HGB 8.8 g/dL (13.0-17.0); MCH 29.4 pg (27.0-32.0); MCHC 34.2 g/dL (32.0-37.0); Mean Platelet Volume 9.3 FL (9.5-12.2); NRBC Per 100 WBC 0 X 10*3/uL (0.00-0.01); Platelet Count 126 X 10*3/uL (140-440); RBC 2.99 X 10*6/uL (4.40-5.60); RDW 15.8 % (11.5-14.5); WBC 1.82 X 10*3/uL (4.50-10.00)
[2023-05-01 10:13] LABS: BUN/Creat Ratio 25.67 Ratio (12.00-20.00); Blood Urea Nitrogen 15.4 mg/dL (9.0-27.0); Calcium 8.7 mg/dL (8.7-10.3); Carbon Dioxide 26.3 mmol/L (21.6-31.8); Chloride 100 mmol/L (96-109); Glucose 123 mg/dL (70-110); Potassium 3.7 mmol/L (3.5-5.5); Sodium 136 mmol/L (135-145)
[2023-05-01 11:35] LABS: Glucose,Whole Blood 146 mg/dL (70-110)
--- NOTE | 2023-05-01 14:04 | P.PN ---
Subjective Progress Note Date: 05/01/23 52 year old male with medical history of lung cancer s/p chemoradiation, hypertension, COPD and current smoker. Presents with 3 day history of shortness of breath. Denies any fever or chills at home. No chest pain. He does not wear home oxygen. Admits to smoking about 1 pack per day. No PCP but does follow with Dr. Rehman and Dr. Moore for the lung cancer. Chest xray done reveals COPD with suggestion of patchy interstitial infiltrates mid and lower lungs. Correlate for possible aspiration or atypical pneumonias. EKG on admission showing sinus rhythm with heart rate of 99. No ST or T wave changes. Initial blood work reveals white blood cell count of 1.7, hemoglobin 9.7, platelet count 102, sodium 127, potassium 3.6, BUN 16, creatinine 0.59. Magnesium 1.5. Troponin negative. Was found to be positive for RSV and covid by PCR. Influenza negative. Patient was admitted to the hospital under medicine. He has been started on IV solumedrol as well as IV fluids and supportive care. 04/29/2023 Patient evaluated today on the medical floor. Remains on oxygen support. Less wheezy today and feels less short of breath with activity however states that he does continue to have a hard time recovering after activity. He remains on inhaled and systemic steroids. Pulmonary will be consulted. 04/30/2023: Patient seen and evaluated bedside, patient says his breathing has improved, cough is improved as well. Pulmonary medicine following appreciate recommendations, denies fever, chills, chest pain 05/01/2023: Patient seen and evaluated bedside, patient remains on room air, CRP trending down around 5, been treated for both RSV and Covid. Significant improvement noted a little bit for pulmonary medicine clearance. Continue patient on IV antibiotic receiving Rocephin day 3, continue breathing treatments and Solu-Medrol PHYSICAL EXAMINATION: GENERAL: The patient is alert and oriented x3, ill appearance, pale HEENT: Pupils are round and equally reacting to light. EOMI. CARDIOVASCULAR: S1 and S2 present. No murmurs, rubs, or gallops. PULMONARY: Chest is clear to auscultation, no wheezing or crackles. ABDOMEN: Soft, nontender, nondistended, normoactive bowel sounds. No palpable organomegaly. MUSCULOSKELETAL: No joint swelling or deformity. EXTREMITIES: No cyanosis, clubbing, or pedal edema. NEUROLOGICAL: Gross neurological examination did not reveal any focal deficits. SKIN: No rashes. Objective - Vital Signs Vital signs: Vital Signs Temp 97.4 F L 05/01/23 14:00 Pulse 71 05/01/23 14:00 Resp 20 05/01/23 14:00 BP 111/70 05/01/23 14:00 Pulse Ox 99 05/01/23 14:00 FiO2 Intake & Output 04/30/23 05/01/23 05/01/23 18:59 06:59 18:59 Output Total 2 Balance -2 Output: Urine 2 Other: # Voids 2 - Labs CBC & Chem 7: 05/01/23 05:38 05/01/23 05:38 Labs: Abnormal Lab Results - Last 24 Hours (Table) 04/30/23 04/30/23 05/01/23 Range/Units 16:55 20:03 05:03 WBC (4.50-10.00) X 10*3/uL RBC (4.40-5.60) X 10*6/uL Hgb (13.0-17.0) g/dL Hct (39.6-50.0) % RDW (11.5-14.5) % Plt Count (140-440) X 10*3/uL MPV (9.5-12.2) FL BUN/Creatinine Ratio (12.00-20.00) Ratio Glucose (70-110) mg/dL POC Glucose (mg/dL) 173 H 140 H 125 H (70-110) mg/dL C-Reactive Protein (0.00-0.80) mg/dL 05/01/23 05/01/23 05/01/23 Range/Units 05:38 05:38 11:34 WBC 1.82 L (4.50-10.00) X 10*3/uL RBC 2.99 L (4.40-5.60) X 10*6/uL Hgb 8.8 L (13.0-17.0) g/dL Hct 25.7 L (39.6-50.0) % RDW 15.8 H (11.5-14.5) % Plt Count 126 L (140-440) X 10*3/uL MPV 9.3 L (9.5-12.2) FL BUN/Creatinine Ratio 25.67 H (12.00-20.00) Ratio Glucose 123 H (70-110) mg/dL POC Glucose (mg/dL) 146 H (70-110) mg/dL C-Reactive Protein 5.40 H (0.00-0.80) mg/dL Microbiology - Last 24 Hours (Table) 04/28/23 10:00 Blood Culture - Preliminary Blood 04/28/23 09:45 Blood Culture - Preliminary Blood Assessment and Plan Assessment: Assessment and Plan * Acute hypoxemic respiratory failure secondary to acute COPD exacerbation and acute covid/rsv infection with sepsis * Acute covid and RSV infection * Superimposed bacterial pneumonia * Pancytopenia * Hx of lung cancer with chemoradiation per patient in remission. Follows with oncology * Hx of seizure disorder maintained on keppra and vimpat * Hx of COPD with acute exacerbation on IV steroids and resumed on trelegy in [facility] * Hx of alcohol abuse quit back in 2018 * In regards to respiratory failure continue patient on current medical regimen, receiving albuterol, Symbicort, Flonase, IV Solu-Medrol * In regards to his superimposed bacterial infection pro-calcitonin elevated at 0.4 to continue IV Rocephin 3 * In regards to pancytopenia multifactorial underlying viral infection causing bone marrow suppression continue to monitor cell count * In regards to history of seizure disorder, continue patient on Keppra and Vimpat * In regards to COPD exacerbation continue steroids and breathing treatment * Appreciate input from pulmonary medicine
--- NOTE | 2023-05-01 14:26 | P.PN ---
Subjective Progress Note Date: 05/01/23 This is a very pleasant 52-year-old male patient with a known history of hyperlipidemia, seizure disorder, chronic obstructive pulmonary disease, previous heavy alcohol use quit in 2019, marijuana use, chronic and ongoing tobacco dependence, lung cancer in 2020 with previous chemoradiation and subsequent throat cancer currently undergoing radiation therapy. He has a three-day history of increasing shortness of breath, cough and congestion. He presented to the emergency room yesterday. Chest x-ray shows evidence of COPD with patchy interstitial infiltrates in the mid and lower lungs. Possible asp iration or atypical pneumonias. White count 1.7. Hemoglobin 9.7. Platelets 102. Sodium 132. Potassium 4.2. Bicarb 25. BUN 14. Creatinine 0.6. Glucose 140. Pro-calcitonin 0.42. C-reactive protein 32.9. RSV screen positive. COVID-19 screen positive. Influenza screen negative. He is seen today in consultation on the regular medical floor. He is up ambulating in his room. Awake and alert in no acute distress. Feeling a bit better today compared to yesterday. He didn't initiated on albuterol, Symbicort, Spiriva, Solu-Medrol. Normal saline at 75 ML's per hour. Antibiotics in the form of ceftriaxone. The patient is seen today 04/30/2023 in follow-up on the regular medical floor. He is currently resting comfortably in bed. Awake and alert in no acute distress. Breathing a bit easier today compared to yesterday. Currently maintaining O2 saturations in the 90s on room air. He has normal saline at 75 ML's per hour. His pro calcitonin was 0.42. He is continued on Symbicort, albuterol, Spiriva. Antibody eczema form of ceftriaxone. This is day #2 of Remdesivir. White count 2.45. Hemoglobin 8.6. Platelets 115. Sodium 136. Potassium 3.7. Bicarb 25. BUN 17. Creatinine 0.5. Glucose 120. The patient is seen today 05/01/2023 in follow-up on the regular medical floor. He is currently laying flat in bed. Awake and alert in no acute distress. He states he is breathing easier today compared to yesterday. He is maintaining O2 saturations in the 90s on 3 L/m per nasal cannula. He is on normal saline at 75 ML's per hour. This is Remdesivir day #3. He is on Symbicort, Spiriva, Medrol, albuterol. Remains on antibiotics in the form of ceftriaxone. Lonox for DVT prophylaxis. Follow up chest x-ray today reveals minimal left pleural effusion. Blood cultures revealed no growth. White count 1.82. Hemoglobin 8.8. Platelets 126. Sodium 136. Potassium 3.7. Bicarb 26. BUN 15. Creatinine 0.6. Glucose 123. Objective - Vital Signs Vital signs: Vital Signs Temp 97.4 F L 05/01/23 14:00 Pulse 71 05/01/23 14:00 Resp 20 05/01/23 14:00 BP 111/70 05/01/23 14:00 Pulse Ox 99 05/01/23 14:00 FiO2 Intake & Output 04/30/23 05/01/23 05/01/23 18:59 06:59 18:59 Output Total 2 Balance -2 Output: Urine 2 Other: # Voids 2 - Exam GENERAL EXAM: Alert, pleasant 52-year-old male, on room air, comfortable in no apparent distress. HEAD: Normocephalic. EYES: Normal reaction of pupils, equal size. NOSE: Clear with pink turbinates. THROAT: No erythema or exudates. NECK: No masses, no JVD. CHEST: No chest wall deformity. Left subclavian MediPort in place LUNGS: Equal air entry with scattered rhonchi, end expiratory wheeze, diminished. CVS: S1 and S2 normal with no audible murmur, regular rhythm. ABDOMEN: No hepatosplenomegaly, normal bowel sounds, no guarding or rigidity. SPINE: No scoliosis or deformity SKIN: No rashes CENTRAL NERVOUS SYSTEM: No focal deficits, tone is normal in all 4 extremities. EXTREMITIES: There is no peripheral edema. No clubbing, no cyanosis. Peripheral pulses are intact. - Labs CBC & Chem 7: 05/01/23 05:38 05/01/23 05:38 Labs: Abnormal Lab Results - Last 24 Hours (Table) 04/30/23 04/30/23 05/01/23 Range/Units 16:55 20:03 05:03 WBC (4.50-10.00) X 10*3/uL RBC (4.40-5.60) X 10*6/uL Hgb (13.0-17.0) g/dL Hct (39.6-50.0) % RDW (11.5-14.5) % Plt Count (140-440) X 10*3/uL MPV (9.5-12.2) FL BUN/Creatinine Ratio (12.00-20.00) Ratio Glucose (70-110) mg/dL POC Glucose (mg/dL) 173 H 140 H 125 H (70-110) mg/dL C-Reactive Protein (0.00-0.80) mg/dL 05/01/23 05/01/23 05/01/23 Range/Units 05:38 05:38 11:34 WBC 1.82 L (4.50-10.00) X 10*3/uL RBC 2.99 L (4.40-5.60) X 10*6/uL Hgb 8.8 L (13.0-17.0) g/dL Hct 25.7 L (39.6-50.0) % RDW 15.8 H (11.5-14.5) % Plt Count 126 L (140-440) X 10*3/uL MPV 9.3 L (9.5-12.2) FL BUN/Creatinine Ratio 25.67 H (12.00-20.00) Ratio Glucose 123 H (70-110) mg/dL POC Glucose (mg/dL) 146 H (70-110) mg/dL C-Reactive Protein 5.40 H (0.00-0.80) mg/dL Microbiology - Last 24 Hours (Table) 04/28/23 10:00 Blood Culture - Preliminary Blood 04/28/23 09:45 Blood Culture - Preliminary Blood Assessment and Plan Assessment: Acute hypoxemic respiratory failure secondary to an acute exacerbation of chronic obstructive pulmonary disease complicated by RSV and COVID-19 infection, cannot rule out aspiration. Pro-calcitonin 0.42 RSV infection COVID-19 infection, symptoms began 3 days prior to arrival, initiated on R emdesivir Laryngeal cancer currently receiving radiation History of lung cancer in 2019 with previous chemoradiation Chronic and ongoing tobacco dependence Seizure disorder History of TIA Previous history of heavy alcohol use Hyperlipidemia Plan: The patient was seen and evaluated Chest x-ray, labs and medications reviewed Remdesivir day #3 Continue bronchodilators, steroids Continue ceftriaxone Lovenox for DVT prophylaxis We will continue to follow I have personally seen and examined the patient, performed the documentation and the assessment and plan as written. Number of minutes spent on the visit: 10.
[2023-05-01 16:21] LABS: Glucose,Whole Blood 198 mg/dL (70-110)
[2023-05-01] MEDS: REMDESIVIR 100 MG in SODIUM CHLORIDE 0.9% 250 ML IVPB SCH (16:28)
[2023-05-01 19:55] LABS: Glucose,Whole Blood 177 mg/dL (70-110)
[2023-05-01] MEDS: INSULIN DETEMIR (LEVEMIR) 100 UNIT/ML SYR SQ SCH (20:41)
[2023-05-01] MEDS: levETIRAcetam 500 MG TAB PO SCH (20:42)
[2023-05-02 05:45] LABS: Glucose,Whole Blood 115 mg/dL (70-110)
[2023-05-02] MEDS: INSULIN ASPART (NovoLOG) 100 UNIT/ML VIAL SQ SCH ×4 (06:11→21:20)
[2023-05-02] MEDS: methylPREDNISolone SOD SUCCI 125 MG/2 ML VIAL IV SCH ×3 (06:46→17:03)
[2023-05-02] MEDS: ATORVASTATIN 40 MG TAB PO SCH (08:20)
[2023-05-02] MEDS: MAGNESIUM OXIDE 400 MG TAB PO SCH (08:20)
[2023-05-02] MEDS: ENOXAPARIN 40 MG/0.4 ML SYRINGE SQ SCH (08:20)
[2023-05-02] MEDS: LACOSAMIDE 150 MG TABLET PO SCH ×2 (08:20→21:20)
[2023-05-02] MEDS: SODIUM CHLORIDE 0.9% 1,000 ML IV SCH ×2 (08:26→21:21)
[2023-05-02 08:54] LABS: Blood Urea Nitrogen 13.7 mg/dL (9.0-27.0); Calcium 8.4 mg/dL (8.7-10.3); Carbon Dioxide 26.8 mmol/L (21.6-31.8); Chloride 98 mmol/L (96-109); Glucose 112 mg/dL (70-110); Potassium 3.7 mmol/L (3.5-5.5); Sodium 135 mmol/L (135-145)
[2023-05-02] MEDS: TIOTROPIUM 2.5 MCG INHALER INHALATION SCH (09:07)
[2023-05-02] MEDS: ALBUTEROL HFA INHALER INHALATION SCH ×4 (09:07→20:42)
[2023-05-02] MEDS: SYMBICORT 160-4.5 MCG INHALER INHALATION SCH ×2 (09:07→20:42)
[2023-05-02 09:30] LABS: HGB 9.5 g/dL (13.0-17.0); MCH 29.2 pg (27.0-32.0); MCHC 33.9 g/dL (32.0-37.0); MCV 86.2 FL (80.0-97.0); Mean Platelet Volume 9.5 FL (9.5-12.2); NRBC Per 100 WBC 0 X 10*3/uL (0.00-0.01); Platelet Count 165 X 10*3/uL (140-440); RBC 3.25 X 10*6/uL (4.40-5.60); RDW 15.9 % (11.5-14.5); WBC 1.76 X 10*3/uL (4.50-10.00)
[2023-05-02 11:43] LABS: Glucose,Whole Blood 157 mg/dL (70-110)
--- NOTE | 2023-05-02 11:55 | P.PN ---
Subjective Progress Note Date: 05/02/23 On 05/02/2023, I am seeing the patient for a follow-up. Patient was hospitalized for an acute hypoxic respiratory failure secondary to COPD exacerbation complicated by infection, RSV and COVID-19. Procalcitonin level was at 0.42. The patient has history of laryngeal cancer receiving radiation therapy and he has a previous history of lung cancer. He is a chronic smoker and has multiple other comorbidities. The patient including seizure disorder, hyperlipidemia. Patient presented to us with worsening shortness of breath. Chest x-ray shows a small left-sided pleural effusion. Otherwise no other acute cardiopulmonary abnormalities. Labs were noted. The patient has pancytopenia, normal renal function, CRP was at 5.4. Renal function was stable. Patient is currently on empiric antibiotics with IV Rocephin. The patient is on IV Solu-Medrol and remdesivir was also added per protocol regarding COVID-19 infection. The patient is on normal saline at rate of 75 cc an hour. In terms of inhalers, the patient on a combination of Spiriva and Symbicort and albuterol HFA as needed. Patient is currently on room air oxygen. Patient states that he is gradually improving. He has no other new complaints otherwise for now. No nausea. No vomiting. No altered mentation. He remains on room air oxygen. His leukopenia and his white cell count. Objective - Vital Signs Vital signs: Vital Signs Temp 97.8 F 05/02/23 08:00 Pulse 56 L 05/02/23 08:00 Resp 17 05/02/23 08:20 BP 111/73 05/02/23 08:00 Pulse Ox 97 05/02/23 00:45 FiO2 Intake & Output 05/01/23 05/02/23 05/02/23 18:59 06:59 18:59 Other: # Voids 4 2 - Exam GENERAL EXAM: Alert, pleasant 52-year-old male, on room air, comfortable in no apparent distress. HEAD: Normocephalic. EYES: Normal reaction of pupils, equal size. NOSE: Clear with pink turbinates. THROAT: No erythema or exudates. NECK: No masses, no JVD. CHEST: No chest wall deformity. Left subclavian MediPort in place LUNGS: Equal air entry with scattered rhonchi, end expiratory wheeze, diminished. CVS: S1 and S2 normal with no audible murmur, regular rhythm. ABDOMEN: No hepatosplenomegaly, normal bowel sounds, no guarding or rigidity. SPINE: No scoliosis or deformity SKIN: No rashes CENTRAL NERVOUS SYSTEM: No focal deficits, tone is normal in all 4 extremities. EXTREMITIES: There is no peripheral edema. No clubbing, no cyanosis. Peripheral pulses are intact. - Labs CBC & Chem 7: 05/02/23 04:50 05/02/23 04:50 Labs: Abnormal Lab Results - Last 24 Hours (Table) 05/01/23 05/01/23 05/02/23 Range/Units 16:20 19:54 04:50 WBC 1.76 L (4.50-10.00) X 10*3/uL RBC 3.25 L (4.40-5.60) X 10*6/uL Hgb 9.5 L (13.0-17.0) g/dL Hct 28.0 L (39.6-50.0) % RDW 15.9 H (11.5-14.5) % Creatinine (0.6-1.5) mg/dL BUN/Creatinine Ratio (12.00-20.00) Ratio Glucose (70-110) mg/dL POC Glucose (mg/dL) 198 H 177 H (70-110) mg/dL Calcium (8.7-10.3) mg/dL 05/02/23 05/02/23 05/02/23 Range/Units 04:50 05:43 11:39 WBC (4.50-10.00) X 10*3/uL RBC (4.40-5.60) X 10*6/uL Hgb (13.0-17.0) g/dL Hct (39.6-50.0) % RDW (11.5-14.5) % Creatinine 0.5 L (0.6-1.5) mg/dL BUN/Creatinine Ratio 27.40 H (12.00-20.00) Ratio Glucose 112 H (70-110) mg/dL POC Glucose (mg/dL) 115 H 157 H (70-110) mg/dL Calcium 8.4 L (8.7-10.3) mg/dL Microbiology - Last 24 Hours (Table) 04/28/23 10:00 Blood Culture - Preliminary Blood 04/28/23 09:45 Blood Culture - Preliminary Blood Assessment and Plan Plan: Assessment Acute hypoxic respiratory failure improved currently on room air oxygen. Acute COVID-19 infection, currently on day 4 of remdesivir and the patient is also on IV Solu-Medrol, clinically improving Acute RSV, infection, improving Laryngeal cancer, postradiation therapy is in progress for now. The patient completed his chemotherapy. History of lung cancer 2019, post chemotherapy and radiation therapy history no was so [facility] in [facility]. Chronic smoker Seizure disorder Previous history of alcoholism Hyperlipidemia Pancytopenia Plan Continue IV Solu-Medrol Continue remdesivir day #4 Continue Spiriva and Symbicort and albuterol HFA [id number] Oxygenation is improving and the patient is currently on oxygen
--- NOTE | 2023-05-02 13:17 | P.PN ---
Subjective Progress Note Date: 05/02/23 52 year old male with medical history of lung cancer s/p chemoradiation, hypertension, COPD and current smoker. Presents with 3 day history of shortness of breath. Denies any fever or chills at home. No chest pain. He does not wear home oxygen. Admits to smoking about 1 pack per day. No PCP but does follow with Dr. Rehman and Dr. Moore for the lung cancer. Chest xray done reveals COPD with suggestion of patchy interstitial infiltrates mid and lower lungs. Correlate for possible aspiration or atypical pneumonias. EKG on admission showing sinus rhythm with heart rate of 99. No ST or T wave changes. Initial blood work reveals white blood cell count of 1.7, hemoglobin 9.7, platelet count 102, sodium 127, potassium 3.6, BUN 16, creatinine 0.59. Magnesium 1.5. Troponin negative. Was found to be positive for RSV and covid by PCR. Influenza negative. Patient was admitted to the hospital under medicine. He has been started on IV solumedrol as well as IV fluids and supportive care. 04/29/2023 Patient evaluated today on the medical floor. Remains on oxygen support. Less wheezy today and feels less short of breath with activity however states that he does continue to have a hard time recovering after activity. He remains on inhaled and systemic steroids. Pulmonary will be consulted. 04/30/2023: Patient seen and evaluated bedside, patient says his breathing has improved, cough is improved as well. Pulmonary medicine following appreciate recommendations, denies fever, chills, chest pain 05/01/2023: Patient seen and evaluated bedside, patient remains on room air, CRP trending down around 5, been treated for both RSV and Covid. Significant improvement noted a little bit for pulmonary medicine clearance. Continue patient on IV antibiotic receiving Rocephin day 3, continue breathing treatments and Solu-Medrol 05/02/2023: Patient seen and evaluated bedside, patient says breathing has improved. Patient would like to stay another 24 hours before patient discharged home. Only medicine following. Patient is receiving Solu-Medrol and lambda 7, day 4 of from the severe will need dressing walking pulse ox meter prior to discharge potential discharge in the next 24 hours PHYSICAL EXAMINATION: GENERAL: The patient is alert and oriented x3, ill appearance, pale HEENT: Pupils are round and equally reacting to light. EOMI. CARDIOVASCULAR: S1 and S2 present. No murmurs, rubs, or gallops. PULMONARY: Chest is clear to auscultation, no wheezing or crackles. ABDOMEN: Soft, nontender, nondistended, normoactive bowel sounds. No palpable organomegaly. MUSCULOSKELETAL: No joint swelling or deformity. EXTREMITIES: No cyanosis, clubbing, or pedal edema. NEUROLOGICAL: Gross neurological examination did not reveal any focal deficits. SKIN: No rashes. Objective - Vital Signs Vital signs: Vital Signs Temp 97.8 F 05/02/23 08:00 Pulse 56 L 05/02/23 08:00 Resp 17 05/02/23 08:20 BP 111/73 05/02/23 08:00 Pulse Ox 97 05/02/23 00:45 FiO2 Intake & Output 05/01/23 05/02/23 05/02/23 18:59 06:59 18:59 Other: # Voids 4 2 - Labs CBC & Chem 7: 05/02/23 04:50 05/02/23 04:50 Labs: Abnormal Lab Results - Last 24 Hours (Table) 05/01/23 05/01/23 05/02/23 Range/Units 16:20 19:54 04:50 WBC 1.76 L (4.50-10.00) X 10*3/uL RBC 3.25 L (4.40-5.60) X 10*6/uL Hgb 9.5 L (13.0-17.0) g/dL Hct 28.0 L (39.6-50.0) % RDW 15.9 H (11.5-14.5) % Creatinine (0.6-1.5) mg/dL BUN/Creatinine Ratio (12.00-20.00) Ratio Glucose (70-110) mg/dL POC Glucose (mg/dL) 198 H 177 H (70-110) mg/dL Calcium (8.7-10.3) mg/dL 05/02/23 05/02/23 05/02/23 Range/Units 04:50 05:43 11:39 WBC (4.50-10.00) X 10*3/uL RBC (4.40-5.60) X 10*6/uL Hgb (13.0-17.0) g/dL Hct (39.6-50.0) % RDW (11.5-14.5) % Creatinine 0.5 L (0.6-1.5) mg/dL BUN/Creatinine Ratio 27.40 H (12.00-20.00) Ratio Glucose 112 H (70-110) mg/dL POC Glucose (mg/dL) 115 H 157 H (70-110) mg/dL Calcium 8.4 L (8.7-10.3) mg/dL Microbiology - Last 24 Hours (Table) 04/28/23 10:00 Blood Culture - Preliminary Blood 04/28/23 09:45 Blood Culture - Preliminary Blood Assessment and Plan Assessment: Assessment and Plan * Acute hypoxemic respiratory failure secondary to acute COPD exacerbation and acute covid/rsv infection with sepsis * Acute covid and RSV infection * Superimposed bacterial pneumonia * Pancytopenia * Hx of lung cancer with chemoradiation per patient in remission. Follows with oncology * Hx of seizure disorder maintained on keppra and vimpat * Hx of COPD with acute exacerbation on IV steroids and resumed on trelegy in [facility] * Hx of alcohol abuse quit back in 2018 * In regards to respiratory failure continue patient on current medical regimen, receiving albuterol, Symbicort, Flonase, IV Solu-Medrol , Remdisivir * In regards to his superimposed bacterial infection pro-calcitonin elevated at 0.4 to continue IV Rocephin /5, * In regards to pancytopenia multifactorial underlying viral infection causing bone marrow suppression continue to monitor cell count * In regards to history of seizure disorder, continue patient on Keppra and Vimpat * In regards to COPD exacerbation continue steroids and breathing treatment * Appreciate input from pulmonary medicine Time with Patient: Greater than 30
[2023-05-02] MEDS: REMDESIVIR 100 MG in SODIUM CHLORIDE 0.9% 250 ML IVPB SCH (16:21)
[2023-05-02 16:42] LABS: Glucose,Whole Blood 208 mg/dL (70-110)
[2023-05-02 20:42] LABS: Glucose,Whole Blood 171 mg/dL (70-110)
[2023-05-02] MEDS: levETIRAcetam 500 MG TAB PO SCH (21:20)
[2023-05-02] MEDS: INSULIN DETEMIR (LEVEMIR) 100 UNIT/ML SYR SQ SCH (21:21)
[2023-05-03] MEDS: methylPREDNISolone SOD SUCCI 125 MG/2 ML VIAL IV SCH ×3 (00:12→12:16)
[2023-05-03 06:10] LABS: Glucose,Whole Blood 108 mg/dL (70-110)
[2023-05-03] MEDS: INSULIN ASPART (NovoLOG) 100 UNIT/ML VIAL SQ SCH ×2 (06:24→13:58)
[2023-05-03] MEDS: LACOSAMIDE 150 MG TABLET PO SCH (08:05)
[2023-05-03] MEDS: ATORVASTATIN 40 MG TAB PO SCH (08:05)
[2023-05-03] MEDS: ENOXAPARIN 40 MG/0.4 ML SYRINGE SQ SCH (08:05)
[2023-05-03] MEDS: MAGNESIUM OXIDE 400 MG TAB PO SCH (08:05)
[2023-05-03] MEDS ORDERED: AMOXIC-POT CLAV 875-125MG 1 EACH TAB PO SCH (09:30)
[2023-05-03] MEDS: SYMBICORT 160-4.5 MCG INHALER INHALATION SCH (09:32)
[2023-05-03] MEDS: ALBUTEROL HFA INHALER INHALATION SCH ×3 (09:32→16:17)
[2023-05-03] MEDS: TIOTROPIUM 2.5 MCG INHALER INHALATION SCH (09:32)
[2023-05-03 11:40] LABS: Glucose,Whole Blood 114 mg/dL (70-110)
--- NOTE | 2023-05-03 12:44 | P.DS ---
Providers Date of admission: 04/28/23 11:55 Expected date of discharge: 05/03/23 Attending physician: Josiane Moffett Consults: 04/29/23 11:52 Consult Physician Routine Consulting Provider: Alan Fowler Reason/Comments: resp. fx, covid and rsv pos Do you want consulting provider notified?: Yes Primary care physician: Stated None Hospital Course: * 52 year old male with medical history of lung cancer s/p chemoradiation, hypertension, COPD and current smoker. Presents with 3 day history of shortness of breath. Denies any fever or chills at home. No chest pain. He does not wear home oxygen. Admits to smoking about 1 pack per day. No PCP but does follow with Dr. Rehman and Dr. Moore for the lung cancer. Chest xray done reveals COPD with suggestion of patchy interstitial infiltrates mid and lower lungs. Correlate for possible aspiration or atypical pneumonias. EKG on admission showing sinus rhythm with heart rate of 99. No ST or T wave changes. Initial blood work reveals white blood cell count of 1.7, hemoglobin 9.7, platelet count 102, sodium 127, potassium 3.6, BUN 16, creatinine 0.59. Magnesium 1.5. Troponin negative. Was found to be positive for RSV and covid by PCR. Influenza negative. Patient was admitted to the hospital under medicine. He has been started on IV solumedrol as well as IV fluids and supportive care. 04/29/2023 Patient evaluated today on the medical floor. Remains on oxygen support. Less wheezy today and feels less short of breath with activity however states that he does continue to have a hard time recovering after activity. He remains on inhaled and systemic steroids. Pulmonary will be consulted. 04/30/2023: Patient seen and evaluated bedside, patient says his breathing has improved, cough is improved as well. Pulmonary medicine following appreciate recommendations, denies fever, chills, chest pain 05/01/2023: Patient seen and evaluated bedside, patient remains on room air, CRP trending down around 5, been treated for both RSV and Covid. Significant improvement noted a little bit for pulmonary medicine clearance. Continue patient on IV antibiotic receiving Rocephin day 3, continue breathing treatments and Solu-Medrol 05/02/2023: Patient seen and evaluated bedside, patient says breathing has improved. Patient would like to stay another 24 hours before patient discharged home. Only medicine following. Patient is receiving Solu-Medrol and lambda 7, day 4 of from the severe will need dressing walking pulse ox meter prior to discharge potential discharge in the next 24 hours 05/03/2023: Patient seen and evaluated bedside, patient seen by pulm Medicine, resting walking pulse ox meter and reactive. Patient transitioned to oral prednisone, discharge home on inhalers. Patient remains stable on room air hemodynamically stable for discharge PHYSICAL EXAMINATION: GENERAL: The patient is alert and oriented x3, HEENT: Pupils are round and equally reacting to light. EOMI. CARDIOVASCULAR: S1 and S2 present. No murmurs, rubs, or gallops. PULMONARY: Chest is clear to auscultation, no wheezing or crackles. ABDOMEN: Soft, nontender, nondistended, normoactive bowel sounds. No palpable organomegaly. MUSCULOSKELETAL: No joint swelling or deformity. EXTREMITIES: No cyanosis, clubbing, or pedal edema. NEUROLOGICAL: Gross neurological examination did not reveal any focal deficits. SKIN: No rashes. Assessment: Assessment and Plan * Acute hypoxemic respiratory failure secondary to acute COPD exacerbation and acute covid/rsv infection with sepsis * Acute covid and RSV infection * Superimposed bacterial pneumonia * Pancytopenia * Hx of lung cancer with chemoradiation per patient in remission. Follows with oncology * Hx of seizure disorder maintained on keppra and vimpat * Hx of COPD with acute exacerbation on IV steroids and resumed on trelegy in [facility] * Hx of alcohol abuse quit back in 2018 * In regards to respiratory failure, on prednisone, albuterol, Symbicort, Spiriva, oxygen * In regards to his superimposed bacterial infection pro-calcitonin elevated at 0.4 , patient was receiving Rocephin inpatient transition to oral Augmentin * In regards to pancytopenia multifactorial underlying viral infection causing bone marrow suppression continue to monitor cell count * In regards to history of seizure disorder, continue patient on Keppra and Vimpat * In regards to COPD exacerbation continue steroids and breathing treatment, upon discharge as ordered * Appreciate input from pulmonary medicine Patient Condition at Discharge: Fair Plan - Discharge Summary New Discharge Prescriptions: New predniSONE [Deltasone] 20 mg PO DAILY 3 Days #3 tab Budesonide-Formot 160-4.5 Mcg [Symbicort 160-4.5 Mcg Inhaler] 2 puff INHALATION RT-BID 30 Days #1 each Albuterol Inhaler [Ventolin Hfa Inhaler] 2 puff INHALATION RT-QID 30 Days #1 each Amoxic-Pot Clav 875-125Mg [Augmentin 875-125] 1 each PO Q12HR 3 Days #6 tab Tiotropium 2.5 Mcg/Puff [Spiriva Respimat 2.5 Mcg] 2 puff INHALATION DAILY 30 Days #1 each Continue Lacosamide [Vimpat] 150 mg PO BID Ibuprofen [Motrin] 800 mg PO BID PRN PRN Reason: Pain HYDROcodone/APAP 10-325MG [[place] 10-325] 1 tab PO Q4HR PRN PRN Reason: Pain Fluticasone/Umeclidin/Vilanter [Trelegy Ellipta 100-62.5-25] 1 puff INHALATION RT-DAILY levETIRAcetam [Keppra] 1,000 mg PO HS levETIRAcetam [Keppra] 750 mg PO DAILY Fluticasone Nasal [place] [Flonase Nasal [place]] 1 spray EA NOSTRIL BID PRN PRN Reason: Allergy Symptoms Atorvastatin Calcium [Lipitor] 40 mg PO DAILY Discharge Medication List Lacosamide [Vimpat] 150 mg PO BID 08/20/20 [History] levETIRAcetam [Keppra] 1,000 mg PO HS 08/20/20 [History] levETIRAcetam [Keppra] 750 mg PO DAILY 08/20/20 [History] Atorvastatin Calcium [Lipitor] 40 mg PO DAILY 04/28/23 [History] Fluticasone Nasal [place] [Flonase Nasal [place]] 1 spray EA NOSTRIL BID PRN 04/28/23 [History] Fluticasone/Umeclidin/Vilanter [Trelegy Ellipta 100-62.5-25] 1 puff INHALATION RT-DAILY 04/28/23 [History] HYDROcodone/APAP 10-325MG [[place] 10-325] 1 tab PO Q4HR PRN 04/28/23 [History] Ibuprofen [Motrin] 800 mg PO BID PRN 04/28/23 [History] Albuterol Inhaler [Ventolin Hfa Inhaler] 2 puff INHALATION RT-QID 30 Days #1 each 05/03/23 [Rx] Amoxic-Pot Clav 875-125Mg [Augmentin 875-125] 1 each PO Q12HR 3 Days #6 tab 05/03/23 [Rx] Budesonide-Formot 160-4.5 Mcg [Symbicort 160-4.5 Mcg Inhaler] 2 puff INHALATION RT-BID 30 Days #1 each 05/03/23 [Rx] Tiotropium 2.5 Mcg/Puff [Spiriva Respimat 2.5 Mcg] 2 puff INHALATION DAILY 30 Days #1 each 05/03/23 [Rx] predniSONE [Deltasone] 20 mg PO DAILY 3 Days #3 tab 05/03/23 [Rx] Follow up Appointment(s)/Referral(s): [facility] [NON-STAFF] - 1 Week (Call [facility] when you get home and they will deliver your concentratior. ) Alan Fowler DO [Doctor of Osteopathic Medicine] - 2 Weeks None,Stated [Primary Care Provider] - 1-2 days Discharge/Stand Alone Forms: Area PCPs Discharge Disposition: HOME WITH HOME HEALTH SERVICES
--- NOTE | 2023-05-03 13:10 | P.PN ---
Subjective Progress Note Date: 05/03/23 On 05/02/2023, I am seeing the patient for a follow-up. Patient was hospitalized for an acute hypoxic respiratory failure secondary to COPD exacerbation complicated by infection, RSV and COVID-19. Procalcitonin level was at 0.42. The patient has history of laryngeal cancer receiving radiation therapy and he has a previous history of lung cancer. He is a chronic smoker and has multiple other comorbidities. The patient including seizure disorder, hyperlipidemia. Patient presented to us with worsening shortness of breath. Chest x-ray shows a small left-sided pleural effusion. Otherwise no other acute cardiopulmonary abnormalities. Labs were noted. The patient has pancytopenia, normal renal function, CRP was at 5.4. Renal function was stable. Patient is currently on empiric antibiotics with IV Rocephin. The patient is on IV Solu-Medrol and remdesivir was also added per protocol regarding COVID-19 infection. The patient is on normal saline at rate of 75 cc an hour. In terms of inhalers, the patient on a combination of Spiriva and Symbicort and albuterol HFA as needed. Patient is currently on room air oxygen. Patient states that he is gradually improving. He has no other new complaints otherwise for now. No nausea. No vomiting. No altered mentation. He remains on room air oxygen. His leukopenia and his white cell count. On today's evaluation of 05/03/2023, the patient is being seen for a follow-up. Patient is doing better as is recovering from his acute COPD exacerbation. Noted the patient a combination of RSV and Covid 19 infection. Home O2 evaluation was done and the patient will likely need home O2 as the patient is desaturating with activity. Note that the patient has completed a course of Remdesivir and he received a total of 5 day course. He remains on steroids and the patient remains on IV Solu Medrol 60 mg daily 6 hours. He is on Symbicort a nd is also completing course of Augmentin. Albuterol HFA on an as-needed basis. No other significant events overnight. Objective - Vital Signs Vital signs: Vital Signs Temp 97.8 F 05/03/23 07:19 Pulse 60 05/03/23 07:19 Resp 18 05/03/23 07:19 BP 112/71 05/03/23 07:19 Pulse Ox 94 L 05/03/23 07:19 FiO2 Intake & Output 05/02/23 05/03/23 05/03/23 18:59 06:59 18:59 Other: # Voids 3 - Exam GENERAL EXAM: Alert, pleasant 52-year-old male, on room air, comfortable in no apparent distress. HEAD: Normocephalic. EYES: Normal reaction of pupils, equal size. NOSE: Clear with pink turbinates. THROAT: No erythema or exudates. NECK: No masses, no JVD. CHEST: No chest wall deformity. Left subclavian MediPort in place LUNGS: Equal air entry with scattered rhonchi, end expiratory wheeze, diminished. CVS: S1 and S2 normal with no audible murmur, regular rhythm. ABDOMEN: No hepatosplenomegaly, normal bowel sounds, no guarding or rigidity. SPINE: No scoliosis or deformity SKIN: No rashes CENTRAL NERVOUS SYSTEM: No focal deficits, tone is normal in all 4 extremities. EXTREMITIES: There is no peripheral edema. No clubbing, no cyanosis. Peripheral pulses are intact. - Labs CBC & Chem 7: 05/02/23 04:50 05/02/23 04:50 Labs: Abnormal Lab Results - Last 24 Hours (Table) 05/02/23 05/02/23 05/02/23 Range/Units 11:39 16:41 20:40 POC Glucose (mg/dL) 157 H 208 H 171 H (70-110) mg/dL Assessment and Plan Plan: Assessment Acute hypoxic respiratory failure improved currently on room air oxygen. Nevertheless, the patient continues to demonstrate exertional desaturation and the patient would benefit from home O2. Acute COVID-19 infection, currently on day #5 of remdesivir and the patient is also on IV Solu-Medrol, clinically improving Acute RSV, infection, improving Laryngeal cancer, postradiation therapy is in progress for now. The patient completed his chemotherapy. History of lung cancer 2020, post chemotherapy and radiation therapy history no was [facility] in [facility]. Chronic smoker Seizure disorder Previous history of alcoholism Hyperlipidemia Pancytopenia Plan The patient will be switched to prednisone burst taper Arrange home O2 Completed remdesivir day # 5 Continue Spiriva and Symbicort and albuterol HFA [id number] Completed a course of Augmentin no patient basis Likely will get discharged home to be followed up on outpatient basis.
[2023-05-03] MEDS ORDERED: HEPARIN SODIUM 1,000 UN/ML (10ML VL) IVP ONE (14:32)
[2023-05-03 14:35] VITALS: BP 115/78; PULSE 74; RESP 19; TEMP 97.6
[2023-05-03] MEDS ORDERED: HEPARIN SODIUM,PORCINE 100 UNIT/ML 5 ML VIAL IV STA (14:37)
[2023-05-03] MEDS: REMDESIVIR 100 MG in SODIUM CHLORIDE 0.9% 250 ML IVPB SCH (16:02)
[2023-05-03] MEDS: SODIUM CHLORIDE 0.9% 1,000 ML IV SCH (16:02)
== END 2023-05-03 16:10 | disposition home health service (06) | DRG 720 ==
LOC: EC 08:36 → 4SSUR 11:55
PROVIDERS: ADMIT Internal Medicine; ATTEND Internal Medicine
PROC: XW043E5 Introduction of Remdesivir Anti-infective into Central Vein, Percutaneous Approach, New Technology Group 5 (ICD-10-PCS; principal; 2023-04-29)
DX: A41.9 Sepsis, unspecified organism (principal); C32.9 Malignant neoplasm of larynx, unspecified; D61.818 Other pancytopenia; E78.5 Hyperlipidemia, unspecified; E83.42 Hypomagnesemia; E86.1 Hypovolemia; E87.1 Hypo-osmolality and hyponatremia; F17.210 Nicotine dependence, cigarettes, uncomplicated; Z71.6 Tobacco abuse counseling; F10.11 Alcohol abuse, in remission; D47.2 Monoclonal gammopathy; G40.909 Epilepsy, unspecified, not intractable, without status epilepticus; I10 Essential (primary) hypertension; U07.1 COVID-19; J15.9 Unspecified bacterial pneumonia; J96.01 Acute respiratory failure with hypoxia; J21.0 Acute bronchiolitis due to respiratory syncytial virus; J44.0 Chronic obstructive pulmonary disease with (acute) lower respiratory infection; J44.1 Chronic obstructive pulmonary disease with (acute) exacerbation; L30.9 Dermatitis, unspecified; Z79.52 Long term (current) use of systemic steroids; Z79.82 Long term (current) use of aspirin; Z79.899 Other long term (current) drug therapy; Z85.118 Personal history of other malignant neoplasm of bronchus and lung; Z86.73 Personal history of transient ischemic attack (TIA), and cerebral infarction without residual deficits; Z92.21 Personal history of antineoplastic chemotherapy; Z92.3 Personal history of irradiation; Z28.311 Partially vaccinated for COVID-19; Z28.21 Immunization not carried out because of patient refusal
CPT/HCPCS: 36415; 71045; 71046; 80048; 80053; 83036; 83605; 83615; 83735; 84145; 84484; 85025; 85027; 85610; 85730; 86140; 87040; 87636; 93005; 94640; 94760; 96361; 96365; 96366; 96375; 96376; 99285

== ENCOUNTER 2024-01-04 16:51 | Inpatient (IN) | payer OTHER ==
[2024-01-04] MEDS: ALBUTEROL NEBULIZED 2.5 MG/3 ML INHALATION STA (17:06)
[2024-01-04] MEDS: IPRATROPIUM-ALBUTEROL 3 ML NEB INHALATION STA (17:06)
--- NOTE | 2024-01-04 17:27 | XR ---
EXAMINATION TYPE: XR chest 1V portable DATE OF EXAM: 01/04/2024 COMPARISON: 05/01/2023 INDICATION: Difficulty in breathing TECHNIQUE: Single frontal view of the chest is obtained. FINDINGS: The heart size is normal. The pulmonary vasculature is normal. Right lower lobe infiltrate is present. Some minimal infiltrate is at the left base. Hyperinflation m ay be present. Correlate for COPD. Port is present on the left tip in the proximal superior vena cava region. IMPRESSION: 1. Right lower lobe and minimal left lower lobe infiltrates. Correlate for atelectasis and pneumonia. 2 findings suggest persistent the [facility], , 01/04/2024 5:25 PM
--- NOTE | 2024-01-04 17:49 | ED ---
General Adult HPI - General Chief complaint: Shortness of Breath Stated complaint: Resp distress Time Seen by Provider: 01/04/24 16:59 Source: patient, EMS, RN notes reviewed, old records reviewed Mode of arrival: EMS Limitations: no limitations - History of Present Illness Initial comments: 53-year-old male presenting with respiratory distress, increased cough and dyspnea. History of COPD, lung CA. History is somewhat limited due to respiratory distress. Patient denies fever. He denies chest pain. Patient placed on BiPAP for respiratory support for significant hypoxia in the 70s. - Related Data Home Medications Medication Instructions Recorded Confirmed Lacosamide [Vimpat] 150 mg PO BID 08/20/20 01/04/24 levETIRAcetam [Keppra] 1,000 mg PO HS 08/20/20 01/04/24 levETIRAcetam [Keppra] 750 mg PO DAILY 08/20/20 01/04/24 Atorvastatin Calcium [Lipitor] 40 mg PO HS 04/28/23 01/04/24 Fluticasone/Umeclidin/Vilanter 1 puff INHALATION RT-DAILY 04/28/23 01/04/24 [Trelegy Ellipta 100-62.5-25] Ibuprofen [Motrin] 800 mg PO TID PRN 04/28/23 01/04/24 Baclofen [Lioresal] 10 mg PO TID PRN 01/04/24 01/04/24 HYDROcodone/APAP 5-325MG [[place] 1 tab PO Q6H PRN 01/04/24 01/04/24 5-325] Lidocaine Viscous 2% [Xylocaine 10 - 15 ml MUCOUS MEM ACHS 01/04/24 01/04/24 Viscous] Omeprazole [PriLOSEC] 20 mg PO DAILY 01/04/24 01/04/24 Allergies Allergy/AdvReac Type Severity Reaction Status Date / Time No Known Allergies Allergy Verified 01/04/24 17:20 Review of Systems ROS Statement: Those systems with pertinent positive or pertinent negative responses have been documented in the HPI. ROS Other: All systems not noted in ROS Statement are negative. Past Medical History Past Medical History: Cancer, COPD, CVA/TIA, Seizure Disorder Additional Past Medical History / Comment(s): TIA summer 2019-no residual effects, lung cancer 2019-had radiation & chemo which is finished, immunotherapy every 2 weeks, last seizure approx. 8 months ago History of Any Multi-Drug Resistant Organisms: None Reported Additional Past Surgical History / Comment(s): mediport left side, brain surg. for dermoid cysts >20 yrs. ago, throat cancer, lung cancer, seizure disorder Past Anesthesia/Blood Transfusion Reactions: No Reported Reaction Smoking Status: Current every day smoker Past Alcohol Use History: Heavy Past Drug Use History: Marijuana General Exam Limitations: no limitations General appearance: alert, in distress Head exam: Present: atraumatic, normocephalic Eye exam: Present: normal appearance, PERRL Neck exam: Present: normal inspection. Absent: tenderness, meningismus Respiratory exam: Present: respiratory distress, wheezes, rhonchi, accessory muscle use, decreased breath sounds Cardiovascular Exam: Present: normal rhythm, tachycardia GI/Abdominal exam: Present: soft. Absent: distended, tenderness Extremities exam: Present: normal inspection, normal capillary refill. Absent: pedal edema Neurological exam: Present: alert Skin exam: Present: warm, dry, cyanosis Course Vital Signs 01/04/24 01/04/24 01/04/24 16:55 16:59 17:06 Temperature Pulse Rate 148 H Respiratory 30 H 30 H Rate Blood Pressure 131/102 O2 Sat by Pulse 93 L Oximetry Fraction of 100 Inspired Oxygen (FIO2) 01/04/24 01/04/24 01/04/24 17:07 17:08 17:09 Temperature Pulse Rate 151 H Respiratory Rate Blood Pressure O2 Sat by Pulse Oximetry Fraction of 100 100 Inspired Oxygen (FIO2) 01/04/24 01/04/24 01/04/24 17:22 19:40 20:00 Temperature 97.8 F Pulse Rate 149 H 118 H 121 H Respiratory 22 20 Rate Blood Pressure 108/99 100/85 O2 Sat by Pulse 99 99 Oximetry Fraction of Inspired Oxygen (FIO2) 01/04/24 20:28 Temperature Pulse Rate Respiratory Rate Blood Pressure O2 Sat by Pulse Oximetry Fraction of 65 Inspired Oxygen (FIO2) Medical Decision Making - Medical Decision Making Was pt. sent in by a medical professional or institution (, PA, TRANSLATION DIRECTOR, urgent care, hospital, or intermediate...) When possible be specific @ -No Did you speak to anyone other than the patient for history (EMS, parent, family, police, friend...)? What history was obtained from this source @ -No Did you review nursing and triage notes (agree or disagree)? Why? @ -I reviewed and agree with nursing and triage notes Were old charts reviewed (outside hosp., previous admission, EMS record, old EKG, old radiological studies, urgent care reports/EKG's, intermediate records)? Report findings @ -No old charts were reviewed Differential Dyspnea: Coronary syndrome, arrhythmia, tamponade, asthma, COPD, pulmonary embolism, pneumonia, pneumothorax, pulmonary effusion, anaphylaxis, diabetic ketoacidosis, flailed chest, pulmonary contusion, diaphragmatic rupture, anemia, neuromuscular, this is not meant to be an all-inclusive list. EKG interpreted by me (3pts min.). @Narrow complex tachycardia rate of 150, sinus tachycardia versus atrial flutter, AR interval 132, QRS duration 102, QTc 429 X-rays interpreted by me (1pt min.). @ -Chest x-ray shows hyperinflation, bilateral lower lobe infiltrate worse on the right. No pneumothorax. Normal cardiac silhouette. CT interpreted by me (1pt min.). @ -None done U/S interpreted by me (1pt. min.). @ -None done What testing was considered but not performed or refused? (CT, X-rays, U/S, labs)? Why? @ -None What meds were considered but not given or refused? Why? @ -None Did you discuss the management of the patient with other professionals (professionals i.e. , PA, TRANSLATION DIRECTOR, lab, RT, psych nurse, psychosocial rehabilitation counselor, divorce lawyer, teacher, credit administration officer, behavioral health case manager)? Give summary @ -YESENIA Garcia Was smoking cessation discussed for >3mins.? @ -No Was critical care preformed (if so, how long)? @Yes, 35 minutes Were there social determinants of health that impacted care today? How? (Homelessness, low income, unemployed, alcoholism, drug addiction, transportation, low edu. Level, literacy, decrease access to med. care, correction, rehab)? @ -No Was there de-escalation of care discussed even if they declined (Discuss DNR or withdrawal of care, Hospice)? DNR status @ -No What co-morbidities impacted this encounter? (DM, HTN, Smoking, COPD, CAD, Cancer, CVA, ARF, Chemo, Hep., AIDS, mental health diagnosis, sleep apnea, morbid obesity)? @ -[COPD. Previous lung CA Was patient admitted / discharged? Hospital course, mention meds given and route, prescriptions, significant lab abnormalities, going to OR and other pertinent info. @ -53-year-old male presenting with significant respiratory distress requiring BiPAP for respiratory support. Patient is tachycardic and hypoxic. Patient has decreased air entry with wheezing bilaterally. X-ray shows predominantly right lower lobe infiltrate with hyperinflation, no pneumothorax, normal cardiac silhouette. Patient has a leukocytosis of 19. He has a magnesium of 0.8 which is replaced in the emergency department. His heart rate does improve with f luids and symptomatic treatment. He is continued on BiPAP for respiratory support. He has an elevated troponin at 0.5. I suspect this is from hypoxia and demand but the patient will be treated with heparin at this time awaiting trended cardiac enzymes. He is admitted to internal medicine, case discussed with [facility] and pulmonology and cardiology are placed on consult. Undiagnosed new problem with uncertain prognosis? @ -[No Drug Therapy requiring intensive monitoring for toxicity (Heparin, Nitro, Insulin, Cardizem)? @ -No Were any procedures done? @ -No Diagnosis/symptom? @Respiratory failure secondary to COPD and pneumonia Acute, or Chronic, or Acute on Chronic? @ -Acute on chronic Uncomplicated (without systemic symptoms) or Complicated (systemic symptoms)? @ -Default Side effects of treatment? @ -No Exacerbation, Progression, or Severe Exacerbation? @ -No Poses a threat to life or bodily function? How? (Chest pain, [place], [place], pneumonia, PE, COPD, DKA, ARF, appy, cholecystitis, CVA, Diverticulitis, Homicidal, Suicidal, threat to staff... and all critical care pts) @ -Yes, respiratory failure - Lab Data Result diagrams: 01/04/24 17:25 01/04/24 19:47 Lab Results 01/04/24 01/04/24 01/04/24 Range/Units 17:25 17:25 17:25 WBC 19.1 H (3.8-10.6) k/uL RBC 5.15 (4.30-5.90) m/uL Hgb 15.7 (13.0-17.5) gm/dL Hct 45.8 (39.0-53.0) % MCV 88.8 (80.0-100.0) fL MCH 30.5 (25.0-35.0) pg MCHC 34.3 (31.0-37.0) g/dL RDW 13.3 (11.5-15.5) % Plt Count 315 (150-450) k/uL MPV 10.4 Neutrophils % 94 % Lymphocytes % 3 % Monocytes % 2 % Eosinophils % 0 % Basophils % 1 % Neutrophils # 17.9 H (1.3-7.7) k/uL Lymphocytes # 0.5 L (1.0-4.8) k/uL Monocytes # 0.4 (0-1.0) k/uL Eosinophils # 0.1 (0-0.7) k/uL Basophils # 0.2 (0-0.2) k/uL Manual Slide Review Performed Hypochromasia Slight Poikilocytosis Slight PT 11.4 (10.0-12.5) sec INR 1.0 (<1.2) APTT 24.8 (22.0-30.0) sec VBG pH (7.31-7.41) VBG pCO2 (37-51) mmHg VBG HCO3 (24-28) mmol/L Sodium (137-145) mmol/L Potassium (3.5-5.1) mmol/L Chloride (98-107) mmol/L Carbon Dioxide (22-30) mmol/L Anion Gap mmol/L BUN (9-20) mg/dL Creatinine (0.66-1.25) mg/dL Est GFR (CKD-EPI)AfAm (>60 ml/min/1.73 sqM) Est GFR (CKD-EPI)NonAf (>60 ml/min/1.73 sqM) Glucose (74-99) mg/dL Plasma Lactic Acid Carlton 4.8 H* (0.7-2.0) mmol/L Calcium (8.4-10.2) mg/dL Magnesium (1.6-2.3) mg/dL Total Bilirubin (0.2-1.3) mg/dL AST (17-59) U/L ALT (4-49) U/L Alkaline Phosphatase (38-126) U/L Troponin I (0.000-0.034) ng/mL Total Protein (6.3-8.2) g/dL Albumin (3.5-5.0) g/dL Influenza Type A (PCR) (Not Detectd) Influenza Type B (PCR) (Not Detectd) RSV (PCR) (Not Detectd) SARS-CoV-2 (PCR) (Not Detectd) 01/04/24 01/04/24 01/04/24 Range/Units 17:25 17:25 19:47 WBC (3.8-10.6) k/uL RBC (4.30-5.90) m/uL Hgb (13.0-17.5) gm/dL Hct (39.0-53.0) % MCV (80.0-100.0) fL MCH (25.0-35.0) pg MCHC (31.0-37.0) g/dL RDW (11.5-15.5) % Plt Count (150-450) k/uL MPV Neutrophils % % Lymphocytes % % Monocytes % % Eosinophils % % Basophils % % Neutrophils # (1.3-7.7) k/uL Lymphocytes # (1.0-4.8) k/uL Monocytes # (0-1.0) k/uL Eosinophils # (0-0.7) k/uL Basophils # (0-0.2) k/uL Manual Slide Review Hypochromasia Poikilocytosis PT (10.0-12.5) sec INR (<1.2) APTT (22.0-30.0) sec VBG pH 7.23 L (7.31-7.41) VBG pCO2 61 H (37-51) mmHg VBG HCO3 25 (24-28) mmol/L Sodium 125 L (137-145) mmol/L Potassium 4.0 (3.5-5.1) mmol/L Chloride 90 L (98-107) mmol/L Carbon Dioxide 21 L (22-30) mmol/L Anion Gap 14 mmol/L BUN 13 (9-20) mg/dL Creatinine 0.78 (0.66-1.25) mg/dL Est GFR (CKD-EPI)AfAm >90 (>60 ml/min/1.73 sqM) Est GFR (CKD-EPI)NonAf >90 (>60 ml/min/1.73 sqM) Glucose 115 H (74-99) mg/dL Plasma Lactic Acid Carlton (0.7-2.0) mmol/L Calcium 8.8 (8.4-10.2) mg/dL Magnesium 0.8 L* (1.6-2.3) mg/dL Total Bilirubin 0.7 (0.2-1.3) mg/dL AST 34 (17-59) U/L ALT 20 (4-49) U/L Alkaline Phosphatase 71 (38-126) U/L Troponin I (0.000-0.034) ng/mL Total Protein 6.4 (6.3-8.2) g/dL Albumin 3.9 (3.5-5.0) g/dL Influenza Type A (PCR) Not Detected (Not Detectd) Influenza Type B (PCR) Not Detected (Not Detectd) RSV (PCR) Not Detected (Not Detectd) SARS-CoV-2 (PCR) Not Detected (Not Detectd) 01/04/24 Range/Units 19:47 WBC (3.8-10.6) k/uL RBC (4.30-5.90) m/uL Hgb (13.0-17.5) gm/dL Hct (39.0-53.0) % MCV (80.0-100.0) fL MCH (25.0-35.0) pg MCHC (31.0-37.0) g/dL RDW (11.5-15.5) % Plt Count (150-450) k/uL MPV Neutrophils % % Lymphocytes % % Monocytes % % Eosinophils % % Basophils % % Neutrophils # (1.3-7.7) k/uL Lymphocytes # (1.0-4.8) k/uL Monocytes # (0-1.0) k/uL Eosinophils # (0-0.7) k/uL Basophils # (0-0.2) k/uL Manual Slide Review Hypochromasia Poikilocytosis PT (10.0-12.5) sec INR (<1.2) APTT (22.0-30.0) sec VBG pH (7.31-7.41) VBG pCO2 (37-51) mmHg VBG HCO3 (24-28) mmol/L Sodium (137-145) mmol/L Potassium (3.5-5.1) mmol/L Chloride (98-107) mmol/L Carbon Dioxide (22-30) mmol/L Anion Gap mmol/L BUN (9-20) mg/dL Creatinine (0.66-1.25) mg/dL Est GFR (CKD-EPI)AfAm (>60 ml/min/1.73 sqM) Est GFR (CKD-EPI)NonAf (>60 ml/min/1.73 sqM) Glucose (74-99) mg/dL Plasma Lactic Acid Carlton (0.7-2.0) mmol/L Calcium (8.4-10.2) mg/dL Magnesium (1.6-2.3) mg/dL Total Bilirubin (0.2-1.3) mg/dL AST (17-59) U/L ALT (4-49) U/L Alkaline Phosphatase (38-126) U/L Troponin I 0.507 H* (0.000-0.034) ng/mL Total Protein (6.3-8.2) g/dL Albumin (3.5-5.0) g/dL Influenza Type A (PCR) (Not Detectd) Influenza Type B (PCR) (Not Detectd) RSV (PCR) (Not Detectd) SARS-CoV-2 (PCR) (Not Detectd) Critical Care Time Critical Care Time: Yes Total Critical Care Time: 35 Disposition Clinical Impression: COPD exacerbation, Hypomagnesemia, Community acquired pneumonia Disposition: ADMITTED IP TO THIS HOSP Condition: Stable Is patient prescribed a controlled substance at d/c from ED?: No Time of Disposition: 21:11
[2024-01-04] MEDS: LORazepam 2 MG/ML INJ IV STA (17:55)
[2024-01-04] MEDS: SODIUM CHLORIDE 0.9% 500 ML 500 ML IV ONE (17:57)
[2024-01-04] MEDS: SODIUM CHLORIDE 0.9% 1,000 ML IV SCH (17:59)
[2024-01-04] MEDS: methylPREDNISolone SOD SUCCI 125 MG/2 ML VIAL IV SCH (18:13)
[2024-01-04 18:17] LABS: Basophils # (A) 0.2 k/uL (0-0.2); Basophils % (A) 1 %; Eosinophils # (A) 0.1 k/uL (0-0.7); Eosinophils % (A) 0 %; HCT 45.8 % (39.0-53.0); HGB 15.7 gm/dL (13.0-17.5); Hypochromasia Slight; Lymphocytes # (A) 0.5 k/uL (1.0-4.8); Lymphocytes % (A) 3 %; MCH 30.5 pg (25.0-35.0); MCHC 34.3 g/dL (31.0-37.0); MCV 88.8 fL (80.0-100.0); Mean Platelet Volume 10.4; Monocytes # (A) 0.4 k/uL (0-1.0); Monocytes % (A) 2 %; Neutrophils # (A) 17.9 k/uL (1.3-7.7); Neutrophils % (A) 94 %; Platelet Count 315 k/uL (150-450); Poikilocytosis Slight; RBC 5.15 m/uL (4.30-5.90); RDW 13.3 % (11.5-15.5); WBC 19.1 k/uL (3.8-10.6)
[2024-01-04 18:22] LABS: VBG PH 7.23 (7.31-7.41)
[2024-01-04] MEDS: AZITHROMYCIN 500 MG in SODIUM CHLORIDE 0.9% 250 ML IVPB STA (18:51)
[2024-01-04 19:02] LABS: Partial Thromboplastin Time 24.8 sec (22.0-30.0); Prothrombin Time 11.4 sec (10.0-12.5)
[2024-01-04 20:26] LABS: ALT 20 U/L (4-49); AST 34 U/L (17-59); African American GFR (CKD) >90 (>60 ml/min/1.73 sqM); Albumin 3.9 g/dL (3.5-5.0); Alkaline Phosphatase 71 U/L (38-126); Anion Gap 14 mmol/L; Blood Urea Nitrogen 13 mg/dL (9-20); Calcium 8.8 mg/dL (8.4-10.2); Carbon Dioxide 21 mmol/L (22-30); Chloride 90 mmol/L (98-107); Glucose 115 mg/dL (74-99); Non-African American GFR(CKD) >90 (>60 ml/min/1.73 sqM); Sodium 125 mmol/L (137-145); Total Bilirubin 0.7 mg/dL (0.2-1.3); Total Protein 6.4 g/dL (6.3-8.2)
[2024-01-04 20:43] LABS: Magnesium 0.8 mg/dL (1.6-2.3)
[2024-01-04] MEDS: MAGNESIUM SULFATE-D5W PMX 1 GM in DEXTROSE/WATER 1 100ML.BAG IVPB SCH (20:52)
[2024-01-04] MEDS ORDERED: ACETAMINOPHEN TAB 325 MG TAB PO PRN (21:04)
[2024-01-04] MEDS ORDERED: NALOXONE 0.4 MG/ML 1 ML VIAL IVP PRN (21:04)
[2024-01-04] MEDS: HEPARIN SODIUM 1,000 UN/ML (10ML VL) IV ONE (21:09)
[2024-01-04] MEDS: HEPARIN SOD,PORK IN 0.45% NACL 25,000 UNIT in 0.45% NACL 1 250ML.BAG IV SCH (21:10)
[2024-01-04] MEDS ORDERED: LORazepam 2 MG/ML INJ IV PRN ×3 (21:13)
[2024-01-05] MEDS: IPRATROPIUM-ALBUTEROL 3 ML NEB INHALATION PRN (00:08)
[2024-01-05 00:12] LABS: ABG Base Excess 1.4 mmol/L; ABG HCO3 26 mmol/L (21-25); ABG Oxygen Saturation 97.9 % (94-97); ABG PCO2 41 mmHg (35-45); ABG PH 7.41 (7.35-7.45); ABG PO2 99 mmHg (83-108); ABG TCO2 27 mmol/L (19-24); Allen Test Performed? Yes
[2024-01-05] MEDS ORDERED: Magnesium Replacement Protocol 1 EACH MISC MISCELLANE PRN (02:46)
[2024-01-05 02:56] LABS: INR 1.1 (<1.2); Partial Thromboplastin Time 38.2 sec (22.0-30.0); Prothrombin Time 11.6 sec (10.0-12.5)
--- NOTE | 2024-01-05 03:22 | P.CNPUL ---
History of Present Illness Consult date: 01/05/24 Requesting physician: Alan August Reason for consult: pneumonia Chief complaint: Shortness of breath History of present illness: Patient is a 53-year-old white male with past medical history significant for COPD, chronic ongoing tobacco dependence, previous history of lung cancer, laryn geal cancer, seizure disorder, hyperlipidemia, TIA/CVA. His primary care provider is Dr. Alberto. He does follow in the pulmonary office with Dr. Fowler. Patient has severe COPD with an FEV1 36% of predicted. Utilizes Trelegy maintenance inhaler. Continues to smoke cigarettes. Patient also has history of lung cancer which was diagnosed back in 2019, and is status post chemoradiation. Subsequently, found to have laryngeal cancer, underwent radiation. Patient is not a good historian. He reports that he is not on any treatment at this time. I am unsure of who his established oncologist is. Most recent PET scan done 11/24/2023 consistent with progression of disease with new scattered metastatic disease throughout the thorax. Decrease in size of the oropharynx uptake along the right lateral tongue compared to prior; however, there is increasing right lateral neck activity with increasing lymph node size. Patient reportedly presented to the emergency department yesterday afternoon in acute respiratory distress. He was hypoxic. He was placed on BiPAP. Chest x- ray demonstrating new bibasilar opacities, right greater than left. Chronic hyperinflation consistent with COPD. CBC: WBC count 19.1, hemoglobin 15.7, hematocrit 45.8, platelets 315. CMP: Sodium 125, potassium 4, chloride 90, serum bicarb 20, BUN 13, creatinine 0.78, glucose 115. Lactic 4.8 and down to 3.1. Magnesium critically low at 0.8. EKG consistent with regular, rapid narrow complex tachycardia with a rate of 150 bpm. Serial troponins elevated at 0.51 and 0.47 respectively. Patient was started on heparin infusion per protocol. D-dimer also elevated. Given patient's history of malignancy, would recommend ruling out PE. Patient is currently being evaluated on the cardiac floor. He is on BiPAP with settings 14/6 and FiO2 of 50%. Respiratory rate is 19. Tidal volumes in the 600s. He is lethargic. I did order an ABG which has a PaO2 of 99, pCO2 of 41, pH of 7.41. He is a poor historian, and does not offer much information for HPI. Reporting some substernal chest pain nonradiating. Will not elaborate further. No particular coughing. No stridor. No significant adventitious lung sounds. Afebrile. He was negative for influenza A/B, RSV, COVID. He is empirically started on azithromycin and Rocephin for community- acquired pneumonia. Normal saline infusing at 130 mL/h. IV heparin continues per protocol. Prognosis certainly guarded. Review of Systems Constitutional: Reports fatigue, Reports weight loss, Denies chills, Denies fever Ears, nose, mouth and throat: Denies dysphagia, Denies nasal discharge, Denies odynophagia, Denies post-nasal drip, Denies sinus pressure, Denies sore throat, Denies voice changes Cardiovascular: Reports chest pain, Denies leg edema, Denies orthopnea, Denies palpitations, Denies paroxysmal nocturnal dyspnea, Denies syncope Respiratory: Reports cough, Reports dyspnea, Denies excessive sputum, Denies hemoptysis, Denies wheezing Gastrointestinal: Denies abdominal pain, Denies change in bowel habits, Denies constipation, Denies diarrhea, Denies nausea, Denies vomiting Genitourinary: Denies dysuria Musculoskeletal: Reports muscle weakness, Denies arm numbness/tingling, Denies leg numbness/tingling, Denies limitation of motion Integumentary: Denies rash Neurological: Denies headaches, Denies seizures, Denies syncope, Denies visual changes Psychiatric: Denies anxiety, Denies depression Past Medical History Past Medical History: Cancer, COPD, CVA/TIA, Seizure Disorder Additional Past Medical History / Comment(s): TIA summer 2019-no residual effects, lung cancer 2019-had radiation & chemo which is finished, immunotherapy every 2 weeks, last seizure approx. 8 months ago History of Any Multi-Drug Resistant Organisms: None Reported Additional Past Surgical History / Comment(s): mediport left side, brain surg. for dermoid cysts >20 yrs. ago, throat cancer, lung cancer, seizure disorder Past Anesthesia/Blood Transfusion Reactions: No Reported Reaction Smoking Status: Current every day smoker Past Alcohol Use History: Heavy Additional Past Alcohol Use History / Comment(s): used to drink heavily, hasn't since November 2018, 1ppd down from 3ppd since teens Past Drug Use History: Marijuana Additional Drug Use History / Comment(s): edibles Medications and Allergies Home Medications Medication Instructions Recorded Confirmed Type Lacosamide [Vimpat] 150 mg PO BID 08/20/20 01/04/24 History levETIRAcetam [Keppra] 1,000 mg PO HS 08/20/20 01/04/24 History levETIRAcetam [Keppra] 750 mg PO DAILY 08/20/20 01/04/24 History Atorvastatin Calcium [Lipitor] 40 mg PO HS 04/28/23 01/04/24 History Fluticasone/Umeclidin/Vilanter 1 puff INHALATION RT-DAILY 04/28/23 01/04/24 History [Trelegy Ellipta 100-62.5-25] Ibuprofen [Motrin] 800 mg PO TID PRN 04/28/23 01/04/24 History Baclofen [Lioresal] 10 mg PO TID PRN 01/04/24 01/04/24 History HYDROcodone/APAP 5-325MG [[place] 1 tab PO Q6H PRN 01/04/24 01/04/24 History 5-325] Lidocaine Viscous 2% [Xylocaine 10 - 15 ml MUCOUS MEM ACHS 01/04/24 01/04/24 History Viscous] Omeprazole [PriLOSEC] 20 mg PO DAILY 01/04/24 01/04/24 History Allergies Allergy/AdvReac Type Severity Reaction Status Date / Time No Known Allergies Allergy Verified 01/04/24 17:20 Physical Exam Vitals: Vital Signs Temp Pulse Pulse Resp BP BP Pulse Ox 01/05/24 01:58 97 18 01/05/24 00:18 83 01/05/24 00:08 85 01/04/24 23:33 97.7 F 96 18 136/94 99 01/04/24 22:43 98 18 109/83 97 01/04/24 22:00 90 18 131/88 96 01/04/24 21:51 01/04/24 21:12 112 H 20 131/88 97 01/04/24 20:28 01/04/24 20:00 121 H 20 100/85 99 01/04/24 19:40 97.8 F 118 H 22 108/99 99 01/04/24 17:22 149 H 01/04/24 17:09 01/04/24 17:08 01/04/24 17:07 151 H 01/04/24 17:06 01/04/24 16:59 148 H 30 H 131/102 93 L 01/04/24 16:55 30 H FiO2 01/05/24 01:58 01/05/24 00:18 01/05/24 00:08 50 01/04/24 23:33 01/04/24 22:43 01/04/24 22:00 01/04/24 21:51 50 01/04/24 21:12 01/04/24 20:28 65 01/04/24 20:00 01/04/24 19:40 01/04/24 17:22 01/04/24 17:09 100 01/04/24 17:08 100 01/04/24 17:07 01/04/24 17:06 100 01/04/24 16:59 01/04/24 16:55 Intake and Output 01/04/24 01/04/24 01/05/24 14:59 22:59 06:59 Other: Weight 62.142 kg 62.142 kg GENERAL EXAM: Lethargic, 53-year-old white male, on BiPAP, not in obvious acute distress. HEAD: Normocephalic and atraumatic EYES: Normal reaction of pupils, equal size. NOSE: Clear with pink turbinates. THROAT: No erythema or exudates. No stridor. NECK: No masses, no JVD. CHEST: No chest wall deformity. LUNGS: Equal air entry with no crackles, wheeze, rhonchi or dullness. On BiPAP with settings 14/6 and FiO2 of 50%. Respiratory rate in the mid teens. Average tidal volumes of 600 mL. CVS: S1 and S2 normal with no audible murmur, regular rhythm. No extra heart sounds ABDOMEN: No hepatosplenomegaly, active bowel sounds, no guarding or rigidity. SPINE: No scoliosis or deformity SKIN: No rashes CENTRAL NERVOUS SYSTEM: No focal deficits, tone is normal in all 4 extremities. EXTREMITIES: There is no peripheral edema, clubbing, or cyanosis. Peripheral pulses are intact. Results - Laboratory Findings CBC and BMP: 01/04/24 17:25 01/04/24 19:47 ABG ABG pH 7.41 (7.35-7.45) 01/04/24 23:56 ABG pCO2 41 mmHg (35-45) 01/04/24 23:56 ABG pO2 99 mmHg (83-108) 01/04/24 23:56 ABG O2 Saturation 97.9 % (94-97) H 01/04/24 23:56 PT/INR, D-dimer PT 11.4 sec (10.0-12.5) 01/04/24 17:25 INR 1.0 (<1.2) 01/04/24 17:25 D-Dimer 1.79 mg/L FEU (<0.60) H 01/05/24 00:34 Abnormal lab findings: Abnormal Labs 01/04/24 01/04/24 01/04/24 17:25 17:25 17:25 WBC 19.1 H Neutrophils # 17.9 H Lymphocytes # 0.5 L D-Dimer ABG HCO3 ABG Total CO2 ABG O2 Saturation VBG pH 7.23 L VBG pCO2 61 H Hemoglobin Sodium Chloride Carbon Dioxide Glucose Plasma Lactic Acid Carlton 4.8 H* Magnesium Troponin I 01/04/24 01/04/24 01/04/24 19:47 19:47 21:36 WBC Neutrophils # Lymphocytes # D-Dimer ABG HCO3 ABG Total CO2 ABG O2 Saturation VBG pH VBG pCO2 Hemoglobin Sodium 125 L Chloride 90 L Carbon Dioxide 21 L Glucose 115 H Plasma Lactic Acid Carlton 2.9 H* Magnesium 0.8 L* Troponin I 0.507 H* 01/04/24 01/04/24 01/05/24 23:11 23:56 00:34 WBC Neutrophils # Lymphocytes # D-Dimer 1.79 H ABG HCO3 26 H ABG Total CO2 27 H ABG O2 Saturation 97.9 H VBG pH VBG pCO2 Hemoglobin 12.9 L Sodium Chloride Carbon Dioxide Glucose Plasma Lactic Acid Carlton Magnesium Troponin I 0.466 H* 01/05/24 00:42 WBC Neutrophils # Lymphocytes # D-Dimer ABG HCO3 ABG Total CO2 ABG O2 Saturation VBG pH VBG pCO2 Hemoglobin Sodium Chloride Carbon Dioxide Glucose Plasma Lactic Acid Carlton 3.1 H* Magnesium Troponin I - Diagnostic Findings Chest x-ray: image reviewed Assessment and Plan Assessment: Acute hypoxemic respiratory failure, currently on BiPAP, chest x-ray demonstrating bibasilar airspace opacities, right greater than left, concerning for community-acquired pneumonia. Acute leukocytosis Elevated troponins, rule out non-ST elevation TN, currently on heparin infusion per protocol Elevated D-dimer, obtain chest CTA Severe hypomagnesemia, will replace per protocol Hyponatremia, possible SIADH Laryngeal cancer, unsure if patient currently undergoing any treatment. Most recent PET scan concerning for disease progression and metastasis to the lungs and pulmonary hilum. History of lung cancer, previously diagnosed back in 2019, status post chemo/radiation Severe chronic obstructive pulmonary disease, with an FEV1 36% of predicted, manolo ntained on Trelegy maintenance inhaler Chronic ongoing tobacco dependence History of alcoholism History of COVID/RSV, hospitalized back in April, Seizure disorder History of hyperlipidemia History of CVA/TIA Plan: Patient medications, labs, chest x-ray reviewed Continue on BiPAP with current settings Combination of bronchodilators [id number], formoterol inhalation, budeson prabha inhalation, and IV Solu-Medrol Continue empiric antibiotics Check procalcitonin level Blood cultures pending Negative for influenza, RSV, COVID Obtain chest CT angio Continue IV maintenance fluids. Cardiology evaluating patient for elevated troponins Patient currently on a high intensity heparin infusion per protocol Monitor and replace electrolytes per protocol Consult oncology GI prophylaxis: Protonix Pharmacological DVT prophylaxis: Deferred as patient is on heparin infusion Code status will need to be addressed We will continue to follow, additional recommendations forthcoming I have personally seen and examined the patient, performed the documentation and the assessment and plan as written. Number of minutes spent on the visit:20 Time with Patient: Greater than 30
--- NOTE | 2024-01-05 03:28 | CT ---
EXAM: CT Angiography Chest With Intravenous Contrast CLINICAL HISTORY: ITS.REASON CT Reason: rule out PE TECHNIQUE: Axial computed tomographic angiography images of the chest with intravenous contrast. CTDI is 13.07 mGy and DLP is 314.8 mGy-cm. This CT exam was performed using one or more of the following dose reduction techniques: automated exposure control, adjustment of the mA and/or kV according to patient size, and/or use of iterative reconstruction technique. MIP reconstructed images were created and reviewed. COMPARISON: No relevant prior studies available. FINDINGS: Pulmonary arteries: Unremarkable. No pulmonary embolism. Aorta: Atherosclerotic changes of the aorta. No thoracic aortic aneurysm. Lungs: Aspiration pneumonia at the RIGHT lung base, with debris in the RIGHT mainstem bronchus. Moderate centrilobular emphysema. Thickening throughout the RIGHT hilar region, likely underlying neoplasm. PET/CT scan should be considered for further evaluation. No mass. Pleural space: Small RIGHT pleural effusion. No pneumothorax. Heart: Unremarkable. No cardiomegaly. No significant pericardial effusion. No evidence of RV dysfunction. Bones/joints: Degenerative changes of the spine. No acute fracture. No dislocation. Soft tissues: Unremarkable. Lymph nodes: Unremarkable. No enlarged lymph nodes. IMPRESSION: 1. Aspiration pneumonia at the RIGHT lung base, with debris in the RIGHT mainstem bronchus. 2. Moderate centrilobular emphysema. 3. Small RIGHT pleural effusion. 4. Thickening throughout the RIGHT hilar region, likely underlying neoplasm. PET/CT scan should be considered for further evaluation.
[2024-01-05] MEDS: MAGNESIUM SULFATE-D5W PMX 1 GM in DEXTROSE/WATER 1 100ML.BAG IVPB SCH (04:02)
[2024-01-05] MEDS: HEPARIN SODIUM 1,000 UN/ML (10ML VL) IV PRN (05:06)
[2024-01-05 05:13] LABS: Basophils % (A) 0 %; Eosinophils # (A) 0.1 k/uL (0-0.7); Eosinophils % (A) 1 %; HCT 37.4 % (39.0-53.0); Lymphocytes # (A) 0.1 k/uL (1.0-4.8); Lymphocytes % (A) 1 %; MCH 30.6 pg (25.0-35.0); MCHC 34.8 g/dL (31.0-37.0); MCV 87.8 fL (80.0-100.0); Mean Platelet Volume 7.6; Monocytes # (A) 0.3 k/uL (0-1.0); Monocytes % (A) 2 %; Neutrophils # (A) 16.1 k/uL (1.3-7.7); Neutrophils % (A) 97 %; Platelet Count 218 k/uL (150-450); RBC 4.26 m/uL (4.30-5.90); WBC 16.7 k/uL (3.8-10.6)
[2024-01-05 05:14] LABS: African American GFR (CKD) >90 (>60 ml/min/1.73 sqM); Anion Gap 6 mmol/L; Blood Urea Nitrogen 11 mg/dL (9-20); Calcium 8.9 mg/dL (8.4-10.2); Carbon Dioxide 28 mmol/L (22-30); Chloride 92 mmol/L (98-107); Glucose 148 mg/dL (74-99); Non-African American GFR(CKD) >90 (>60 ml/min/1.73 sqM); Potassium 3.9 mmol/L (3.5-5.1); Sodium 126 mmol/L (137-145)
[2024-01-05] MEDS: IPRATROPIUM-ALBUTEROL 3 ML NEB INHALATION SCH (07:21)
[2024-01-05] MEDS: FORMOTEROL FUMARATE 20 MCG/2 ML NEBU INHALATION SCH (07:21)
[2024-01-05] MEDS: BUDESONIDE 1 MG/2 ML NEBU INHALATION SCH (07:21)
[2024-01-05] MEDS: ASPIRIN 81 MG PO SCH (08:31)
[2024-01-05] MEDS: PANTOPRAZOLE 40 MG/10 ML VIAL IVP SCH (08:33)
[2024-01-05] MEDS: AZITHROMYCIN 500 MG in SODIUM CHLORIDE 0.9% 250 ML IVPB SCH (09:52)
[2024-01-05] MEDS: LACOSAMIDE 150 MG TABLET PO SCH (09:52)
--- NOTE | 2024-01-05 10:59 | P.CRDCN ---
History of Present Illness History of present illness: HISTORY OF PRESENT ILLNESS: This is a 53-year-old male with a past medical history significant for nicotine dependence, lung cancer with chemo and radiation treatment, laryngeal cancer, h yperlipidemia, CVA/TIA, alcohol abuse, and nicotine dependence. 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 We have been asked to see the patient in consultation for elevated troponins. Patient examined at the bedside. Patient reports he has been feeling SOB for the past day. He denies cough. Reports fever at home. He denies chest pain or pressure. He continues to smoke. Denies etoh. DIAGNOSTICS: - EKG reveals tachycardia with nonspecific ST-T wave changes. - Chest xray right lower lobe and minimal left lower lobe infiltrates. Correlate for atelectasis and pneumonia. - Laboratory data: WBC 16.7. Hemoglobin 13.0. Platelet count 218. D-dimer 1.79. Sodium 126. Potassium 3.9. BUN 11. Creatinine 0.52. Troponin 0.507. 0.466. 0.415. - Current home cardiac medications include Lipitor 40 mg at night. -No previous echocardiogram, stress test, or cardiac catheterization available for review REVIEW OF SYSTEMS: At the time of my exam: CONSTITUTIONAL: Denies fever or chills. HEENT: Denies blurred vision, vision changes, or eye pain. Denies hemoptysis CARDIOVASCULAR: Denies chest pain. Denies orthopnea. Denies PND. Denies palpitations RESPIRATORY: Denies shortness of breath. GASTROINTESTINAL: Denies abdominal pain. Denies nausea or vomiting. HEMATOLOGIC: Denies bleeding disorders. GENITOURINARY: Denies any blood in urine. SKIN: Denies pruitis. Denies rash. PHYSICAL EXAM: VITAL SIGNS: Reviewed. GENERAL: Well-developed in no acute distress. HEENT: Head is normocephalic. Pupils are equal, round. Sclerae anicteric. Mucous membranes of the mouth are moist. Neck supple. No JVD or thyromegaly LUNGS: Respirations even and unlabored. Lungs essentially clear to auscultation bilaterally. HEART: Regular rate and rhythm. S1 and S2 heard. ABDOMEN: Soft. Nondistended. Nontender. EXTREMITIES: Normal range of motion. No clubbing or cyanosis. Peripheral pulses intact. No lower extremity edema NEUROLOGIC: Awake and alert. Oriented x 3. ASSESSMENT: Shortness of breath Acute hypoxic respiratory failure Pneumonia Elevated troponins, likely type II CA History of lung cancer with previous chemotherapy/radiation Laryngeal cancer COPD History of alcohol abuse History of CVA/TIA Hyperlipidemia History of seizure disorder Nicotine dependence PLAN: Obtain 2D echo to assess cardiac structure and function Continue statin therapy. Add aspirin 81 mg daily Continue IV heparin for 24-48 hours Eventual ischemic workup recommended Further recommendations pending patient course Nurse practitioner note has been reviewed by physician. Signing provider agrees with the documented findings, assessment, and plan of care documented by MACHINE BOOKKEEPER as a scribe. Past Medical History Past Medical History: Cancer, COPD, CVA/TIA, Seizure Disorder Additional Past Medical History / Comment(s): TIA summer 2019-no residual eff ects, lung cancer 2019-had radiation & chemo which is finished, immunotherapy every 2 weeks, last seizure approx. 8 months ago History of Any Multi-Drug Resistant Organisms: None Reported Additional Past Surgical History / Comment(s): mediport left side, brain surg. for dermoid cysts >20 yrs. ago, throat cancer, lung cancer, seizure disorder Past Anesthesia/Blood Transfusion Reactions: No Reported Reaction Smoking Status: Current every day smoker Past Alcohol Use History: Heavy Additional Past Alcohol Use History / Comment(s): used to drink heavily, hasn't since November 2018, 1ppd down from 3ppd since teens Past Drug Use History: Marijuana Additional Drug Use History / Comment(s): edibles Medications and Allergies Home Medications Medication Instructions Recorded Confirmed Type Lacosamide [Vimpat] 150 mg PO BID 08/20/20 01/04/24 History levETIRAcetam [Keppra] 1,000 mg PO HS 08/20/20 01/04/24 History levETIRAcetam [Keppra] 750 mg PO DAILY 08/20/20 01/04/24 History Atorvastatin Calcium [Lipitor] 40 mg PO HS 04/28/23 01/04/24 History Fluticasone/Umeclidin/Vilanter 1 puff INHALATION RT-DAILY 04/28/23 01/04/24 History [Trelegy Ellipta 100-62.5-25] Ibuprofen [Motrin] 800 mg PO TID PRN 04/28/23 01/04/24 History Baclofen [Lioresal] 10 mg PO TID PRN 01/04/24 01/04/24 History HYDROcodone/APAP 5-325MG [[place] 1 tab PO Q6H PRN 01/04/24 01/04/24 History 5-325] Lidocaine Viscous 2% [Xylocaine 10 - 15 ml MUCOUS MEM ACHS 01/04/24 01/04/24 History Viscous] Omeprazole [PriLOSEC] 20 mg PO DAILY 01/04/24 01/04/24 History Allergies Allergy/AdvReac Type Severity Reaction Status Date / Time No Known Allergies Allergy Verified 01/04/24 17:20 Physical Exam Vitals: Vital Signs Temp Pulse Pulse Resp BP BP Pulse Ox 01/05/24 07:42 98.2 F 85 16 126/83 96 01/05/24 07:31 85 01/05/24 07:22 90 98 01/05/24 04:07 85 01/05/24 04:00 82 16 155/92 98 01/05/24 03:57 84 01/05/24 01:58 97 18 01/05/24 00:18 83 01/05/24 00:08 85 01/04/24 23:33 97.7 F 96 18 136/94 99 01/04/24 22:43 98 18 109/83 97 01/04/24 22:00 90 18 131/88 96 01/04/24 21:51 01/04/24 21:12 112 H 20 131/88 97 01/04/24 20:28 01/04/24 20:00 121 H 20 100/85 99 01/04/24 19:40 97.8 F 118 H 22 108/99 99 01/04/24 17:22 149 H 01/04/24 17:09 01/04/24 17:08 01/04/24 17:07 151 H 01/04/24 17:06 01/04/24 16:59 148 H 30 H 131/102 93 L 01/04/24 16:55 30 H FiO2 01/05/24 07:42 01/05/24 07:31 01/05/24 07:22 01/05/24 04:07 01/05/24 04:00 01/05/24 03:57 01/05/24 01:58 01/05/24 00:18 01/05/24 00:08 50 01/04/24 23:33 01/04/24 22:43 01/04/24 22:00 01/04/24 21:51 50 01/04/24 21:12 01/04/24 20:28 65 01/04/24 20:00 01/04/24 19:40 01/04/24 17:22 01/04/24 17:09 100 01/04/24 17:08 100 01/04/24 17:07 01/04/24 17:06 100 01/04/24 16:59 01/04/24 16:55 Intake and Output 01/04/24 01/05/24 01/05/24 22:59 06:59 14:59 Intake Total 58.662 Output Total 1500 Balance -1441.338 Intake: Intake, IV Titration 58.662 Amount Heparin Sod,Pork in 0.45% 58.662 NaCl 25,000 unit In 0.45 % NaCl 1 250ml.bag @ 12 UNITS/KG/HR 7.457 mls/hr IV .Q24H [facility] Rx#: [id number] Output: Urine 1500 Other: Weight 62.142 kg 60.5 kg Results 01/05/24 04:06 01/05/24 04:06 Cardiac Enzymes 01/04/24 01/04/24 01/04/24 Range/Units 19:47 19:47 23:11 AST 34 (17-59) U/L Troponin I 0.507 H* 0.466 H* (0.000-0.034) ng/mL 01/05/24 Range/Units 02:17 AST (17-59) U/L Troponin I 0.415 H* (0.000-0.034) ng/mL Coagulation 01/04/24 01/05/24 Range/Units 17:25 02:17 PT 11.4 11.6 (10.0-12.5) sec APTT 24.8 38.2 H (22.0-30.0) sec CBC 01/04/24 01/05/24 Range/Units 17:25 04:06 WBC 19.1 H 16.7 H (3.8-10.6) k/uL RBC 5.15 4.26 L (4.30-5.90) m/uL Hgb 15.7 13.0 (13.0-17.5) gm/dL Hct 45.8 37.4 L (39.0-53.0) % Plt Count 315 218 (150-450) k/uL Comprehensive Metabolic Panel 01/04/24 01/05/24 Range/Units 19:47 04:06 Sodium 125 L 126 L (137-145) mmol/L Potassium 4.0 3.9 (3.5-5.1) mmol/L Chloride 90 L 92 L (98-107) mmol/L Carbon Dioxide 21 L 28 (22-30) mmol/L BUN 13 11 (9-20) mg/dL Creatinine 0.78 0.51 L (0.66-1.25) mg/dL Glucose 115 H 148 H (74-99) mg/dL Calcium 8.8 8.9 (8.4-10.2) mg/dL AST 34 (17-59) U/L ALT 20 (4-49) U/L Alkaline Phosphatase 71 (38-126) U/L Total Protein 6.4 (6.3-8.2) g/dL Albumin 3.9 (3.5-5.0) g/dL Current Medications Generic Name Dose Route Start Last Admin Trade Name Freq PRN Reason Stop Dose Admin Acetaminophen 650 mg 01/04/24 21:04 Acetaminophen Tab 325 Mg Tab PO Q4HR PRN Mild Pain or Fever > 100.5 Albuterol/Ipratropium 3 ml 01/04/24 21:04 01/05/24 03:57 Ipratropium-Albuterol 3 Ml Neb INHALATION 3 ml RT-Q2H PRN Administration Shortness Of Breath Or Wheezing Albuterol/Ipratropium 3 ml 01/05/24 08:00 01/05/24 07:21 Ipratropium-Albuterol 3 Ml Neb INHALATION 3 ml RT-QID HEATHER Administration Atorvastatin Calcium 40 mg 01/05/24 21:00 Atorvastatin 40 Mg Tab PO HS HEATHER Budesonide 1 mg 01/05/24 08:00 01/05/24 07:21 Budesonide 1 Mg/2 Ml Nebu INHALATION 1 mg RT-BID HEATHER Administration Formoterol Fumarate 20 mcg 01/05/24 08:00 01/05/24 07:21 Formoterol Fumarate 20 Mcg/2 Ml Nebu INHALATION 20 mcg RT-BID HEATHER Administration Heparin Sodium (Porcine) 0 unit 01/04/24 21:04 01/05/24 05:06 Heparin Sodium 1,000 Un/Ml (10ml Vl) IV 1,500 unit PER PROTOCOL PRN Administration Low PTT Protocol Sodium Chloride 1,000 mls @ 75 mls/hr 01/04/24 18:00 01/05/24 02:43 Saline 0.9% IV 130 mls/hr .[id number] HEATHER Administration Heparin Sodium/Sodium Chloride 250 mls @ 7.457 mls/hr 01/04/24 21:15 01/05/24 05:02 25,000 unit/ Sodium Chloride IV 14 units/kg/hr .Q24H [facility] 8.7 mls/hr Titration Protocol 12 UNITS/KG/HR Azithromycin 500 mg/ Sodium 250 mls @ 250 mls/hr 01/05/24 09:00 Chloride IVPB 01/07/24 09:59 DAILY HEATHER Protocol Ceftriaxone Sodium 1 gm/ 50 mls @ 100 mls/hr 01/05/24 09:00 Sodium Chloride IVPB Q24HR HEATHER Protocol Lacosamide 150 mg 01/05/24 09:00 Lacosamide 150 Mg Tablet PO BID HEATHER Levetiracetam 1,000 mg 01/05/24 21:00 Levetiracetam 500 Mg Tab PO HS HEATHER Levetiracetam 750 mg 01/05/24 09:00 Levetiracetam 750 Mg Tab PO DAILY HEATHER Lorazepam 1 mg 01/04/24 21:13 Lorazepam 2 Mg/Ml Inj IV Q1HR PRN CIWA 10 to 15 Lorazepam 1 mg 01/04/24 21:13 Lorazepam 2 Mg/Ml Inj IV Q2HR PRN CIWA 8 or 9 Lorazepam 2 mg 01/04/24 21:13 Lorazepam 2 Mg/Ml Inj IV 01/06/24 21:13 Q10M PRN CIWA 16 or higher Methylprednisolone Sodium Succinate 60 mg 01/04/24 18:00 01/05/24 06:03 Methylprednisolone Sod Succi 125 Mg/2 Ml Vial IV 60 mg Q6HR HEATHER Administration Miscellaneous Information 1 each 01/05/24 02:46 Magnesium Replacement Protocol 1 Each Misc MISCELLANE DAILY PRN Per Protocol Protocol Naloxone HCl 0.2 mg 01/04/24 21:04 Naloxone 0.4 Mg/Ml 1 Ml Vial IVP Q2M PRN Opioid Reversal Pantoprazole Sodium 40 mg 01/05/24 09:00 Pantoprazole 40 Mg/10 Ml Vial IVP DAILY HEATHER Intake and Output 01/04/24 01/05/24 01/05/24 22:59 06:59 14:59 Intake Total 58.662 Output Total 1500 Balance -1441.338 Intake: Intake, IV Titration 58.662 Amount Heparin Sod,Pork in 0.45% 58.662 NaCl 25,000 unit In 0.45 % NaCl 1 250ml.bag @ 12 UNITS/KG/HR 7.457 mls/hr IV .Q24H [facility] Rx#: [id number] Output: Urine 1500 Other: Weight 62.142 kg 60.5 kg 01/05/24 04:06 01/05/24 04:06
[2024-01-05 11:48] LABS: Glucose,Whole Blood 152 mg/dL (70-110)
--- NOTE | 2024-01-05 12:09 | P.HPIM ---
History of Present Illness H&P Date: 01/05/24 Patient is a 53-year-old male with past medical history of COPD, current tobacco use, and previous history of lung and laryngeal cancer presented to the emergency department for shortness of breath for a few hours. He states that he uses oxygen at home inconsistently and does not know how much. He states that this is the first time he has had significant shortness of breath like this. He has not seen his oncologist or truck mechanic apprentice for a while now. While in the ED he had hypoxia in the 70s and was placed on BiPAP. Additionally his D-dimer was noted to be elevated and was given heparin and a chest x-ray was performed. States that he has been having difficulty swallowing. He endorses chest pain at the time but attributed it to the shallow breathing and says he does not think it was heart related, abdominal pain due to the rapid breathing, he states that he loses about 5 pounds per week and tries really hard to put it back on. He denies palpitations, fever, chills, nausea, vomiting. Pulmonary was consulted. Cardiology consulted for elevated troponin. Chest x-ray shows right lower lobe and minimal left lower lobe infiltrates. EKG showed sinus tachycardia with a rate of 150 bpm. Chest CTA revealed: Aspiration pneumonia at the right lung base with debris in the right mainstem bronchus, moderate centrilobular emphysema, small right pleural effusion, thickening throughout the right hilar regionlikely underlying neoplasm. Initial labs: WBCs 19.1, hemoglobin 15.7, platelets 315, sodium 125, potassium 4, CO2 21, creatinine 0.70, lactic acid 4.8, calcium 8.8, magnesium 0.8, D-dimer 1.79, troponin 0.507. Troponin trend: 0.507, 0.466, 0.415. Afebrile, normotensive, tachycardic in the [id number], tachypneicrespiratory rate of 30labored with accessory muscle use. ED documentation reviewed. Review of systems: Pertinent positives and negatives as discussed in HPI, a complete review of systems was performed and all other systems are negative. Social history: Tobacco: Current everyday smoker 1.5ppd Alcohol: Denies current-sober for 8 years Recreational drugs: Marijuana daily 10 mg Travel: Denies Occupation: Unemployed Physical examination: Vital signs are reviewed. General: No acute distress. AOx3. HEENT: Head exam is unremarkable. EOMI bilaterally. ACs patent. Nares patent. Lungs: Bilateral decreased breath sounds present; no rhonchi, wheezes, or rales. Heart: Rate and rhythm are regular. S1-S2 present. No murmur/rub/gallops. Abdomen: Soft, nontender, nondistended. Bowel sounds present. Extremities: No edema present. Symmetric movement. Psych: Normal affect and mood. Cooperative. Assessment/Plan: Sepsis secondary to suspected pneumonia Continue Zithromax Continue Rocephin Dysphagia Bedside swallow evaluation failed Pending barium swallow tomorrow Acute on chronic hypoxic respiratory failure COPD exacerbation Continue nasal cannula 4 L Continue DuoNebs Continue Solu-Medrol Continue Perforomist Continue Pulmicort Hyponatremia Continue IV normal saline at 75 cc/hr Hypomagnesemia Repleted per protocol Repeat BMP DVT prophylaxis: heparin Chronic conditions: COPD, hyperlipidemia, seizure disorder, previous history of lung cancer, laryngeal cancer The patient is admitted with an anticipated more than 2 midnight stay for evaluation of shortness of breath. Discussed with: Patient Anticipated discharge place: Home with home care Attestation I have seen and examined this patient with my resident , discussed the same with the resident/KOBI, and agree with the dictator's assessment and plan as written Dr. Gustavo coates Past Medical History Past Medical History: Cancer, COPD, CVA/TIA, Seizure Disorder Additional Past Medical History / Comment(s): TIA summer 2019-no residual effects, lung cancer 2019-had radiation & chemo which is finished, immunotherapy every 2 weeks, last seizure approx. 8 months ago History of Any Multi-Drug Resistant Organisms: None Reported Additional Past Surgical History / Comment(s): mediport left side, brain surg. for dermoid cysts >20 yrs. ago, throat cancer, lung cancer, seizure disorder Past Anesthesia/Blood Transfusion Reactions: No Reported Reaction Smoking Status: Current every day smoker Past Alcohol Use History: Heavy Additional Past Alcohol Use History / Comment(s): used to drink heavily, hasn't since November 2018, 1ppd down from 3ppd since teens Past Drug Use History: Marijuana Additional Drug Use History / Comment(s): edibles Medications and Allergies Home Medications Medication Instructions Recorded Confirmed Type Lacosamide [Vimpat] 150 mg PO BID 08/20/20 01/04/24 History levETIRAcetam [Keppra] 1,000 mg PO HS 08/20/20 01/04/24 History levETIRAcetam [Keppra] 750 mg PO DAILY 08/20/20 01/04/24 History Atorvastatin Calcium [Lipitor] 40 mg PO HS 04/28/23 01/04/24 History Fluticasone/Umeclidin/Vilanter 1 puff INHALATION RT-DAILY 04/28/23 01/04/24 History [Trelegy Ellipta 100-62.5-25] Ibuprofen [Motrin] 800 mg PO TID PRN 04/28/23 01/04/24 History Baclofen [Lioresal] 10 mg PO TID PRN 01/04/24 01/04/24 History HYDROcodone/APAP 5-325MG [[place] 1 tab PO Q6H PRN 01/04/24 01/04/24 History 5-325] Lidocaine Viscous 2% [Xylocaine 10 - 15 ml MUCOUS MEM ACHS 01/04/24 01/04/24 History Viscous] Omeprazole [PriLOSEC] 20 mg PO DAILY 01/04/24 01/04/24 History Allergies Allergy/AdvReac Type Severity Reaction Status Date / Time No Known Allergies Allergy Verified 01/04/24 17:20 Physical Exam Vitals: Vital Signs Temp Pulse Pulse Resp BP BP Pulse Ox 01/05/24 04:07 85 01/05/24 04:00 82 16 155/92 98 01/05/24 03:57 84 01/05/24 01:58 97 18 01/05/24 00:18 83 01/05/24 00:08 85 01/04/24 23:33 97.7 F 96 18 136/94 99 01/04/24 22:43 98 18 109/83 97 01/04/24 22:00 90 18 131/88 96 01/04/24 21:51 01/04/24 21:12 112 H 20 131/88 97 01/04/24 20:28 01/04/24 20:00 121 H 20 100/85 99 01/04/24 19:40 97.8 F 118 H 22 108/99 99 01/04/24 17:22 149 H 01/04/24 17:09 01/04/24 17:08 01/04/24 17:07 151 H 01/04/24 17:06 01/04/24 16:59 148 H 30 H 131/102 93 L 01/04/24 16:55 30 H FiO2 01/05/24 04:07 01/05/24 04:00 01/05/24 03:57 01/05/24 01:58 01/05/24 00:18 01/05/24 00:08 50 01/04/24 23:33 01/04/24 22:43 01/04/24 22:00 01/04/24 21:51 50 01/04/24 21:12 01/04/24 20:28 65 01/04/24 20:00 01/04/24 19:40 01/04/24 17:22 01/04/24 17:09 100 01/04/24 17:08 100 01/04/24 17:07 01/04/24 17:06 100 01/04/24 16:59 01/04/24 16:55 Intake and Output 01/04/24 01/04/24 01/05/24 14:59 22:59 06:59 Intake Total 58.662 Output Total 1500 Balance -1441.338 Intake: Intake, IV Titration 58.662 Amount Heparin Sod,Pork in 0.45% 58.662 NaCl 25,000 unit In 0.45 % NaCl 1 250ml.bag @ 12 UNITS/KG/HR 7.457 mls/hr IV .Q24H [facility] Rx#: [id number] Output: Urine 1500 Other: Weight 62.142 kg 60.5 kg Results CBC & Chem 7: 01/06/24 07:52 01/06/24 06:52 Labs: Abnormal Lab Results - Last 24 Hours (Table) 01/04/24 01/04/24 01/04/24 Range/Units 17:25 17:25 17:25 WBC 19.1 H (3.8-10.6) k/uL RBC (4.30-5.90) m/uL Hct (39.0-53.0) % Neutrophils # 17.9 H (1.3-7.7) k/uL Lymphocytes # 0.5 L (1.0-4.8) k/uL APTT (22.0-30.0) sec D-Dimer (<0.60) mg/L FEU ABG HCO3 (21-25) mmol/L ABG Total CO2 (19-24) mmol/L ABG O2 Saturation (94-97) % VBG pH 7.23 L (7.31-7.41) VBG pCO2 61 H (37-51) mmHg Hemoglobin (13.0-17.5) gm/dL Sodium (137-145) mmol/L Chloride (98-107) mmol/L Carbon Dioxide (22-30) mmol/L Creatinine (0.66-1.25) mg/dL Glucose (74-99) mg/dL Plasma Lactic Acid [place] 4.8 H* (0.7-2.0) mmol/L Magnesium (1.6-2.3) mg/dL Troponin I (0.000-0.034) ng/mL 01/04/24 01/04/24 01/04/24 Range/Units 19:47 19:47 21:36 WBC (3.8-10.6) k/uL RBC (4.30-5.90) m/uL Hct (39.0-53.0) % Neutrophils # (1.3-7.7) k/uL Lymphocytes # (1.0-4.8) k/uL APTT (22.0-30.0) sec D-Dimer (<0.60) mg/L FEU ABG HCO3 (21-25) mmol/L ABG Total CO2 (19-24) mmol/L ABG O2 Saturation (94-97) % VBG pH (7.31-7.41) VBG pCO2 (37-51) mmHg Hemoglobin (13.0-17.5) gm/dL Sodium 125 L (137-145) mmol/L Chloride 90 L (98-107) mmol/L Carbon Dioxide 21 L (22-30) mmol/L Creatinine (0.66-1.25) mg/dL Glucose 115 H (74-99) mg/dL Plasma Lactic Acid [place] 2.9 H* (0.7-2.0) mmol/L Magnesium 0.8 L* (1.6-2.3) mg/dL Troponin I 0.507 H* (0.000-0.034) ng/mL 01/04/24 01/04/24 01/05/24 Range/Units 23:11 23:56 00:34 WBC (3.8-10.6) k/uL RBC (4.30-5.90) m/uL Hct (39.0-53.0) % Neutrophils # (1.3-7.7) k/uL Lymphocytes # (1.0-4.8) k/uL APTT (22.0-30.0) sec D-Dimer 1.79 H (<0.60) mg/L FEU ABG HCO3 26 H (21-25) mmol/L ABG Total CO2 27 H (19-24) mmol/L ABG O2 Saturation 97.9 H (94-97) % VBG pH (7.31-7.41) VBG pCO2 (37-51) mmHg Hemoglobin 12.9 L (13.0-17.5) gm/dL Sodium (137-145) mmol/L Chloride (98-107) mmol/L Carbon Dioxide (22-30) mmol/L Creatinine (0.66-1.25) mg/dL Glucose (74-99) mg/dL Plasma Lactic Acid [place] (0.7-2.0) mmol/L Magnesium (1.6-2.3) mg/dL Troponin I 0.466 H* (0.000-0.034) ng/mL 01/05/24 01/05/24 01/05/24 Range/Units 00:42 02:17 02:17 WBC (3.8-10.6) k/uL RBC (4.30-5.90) m/uL Hct (39.0-53.0) % Neutrophils # (1.3-7.7) k/uL Lymphocytes # (1.0-4.8) k/uL APTT 38.2 H (22.0-30.0) sec D-Dimer (<0.60) mg/L FEU ABG HCO3 (21-25) mmol/L ABG Total CO2 (19-24) mmol/L ABG O2 Saturation (94-97) % VBG pH (7.31-7.41) VBG pCO2 (37-51) mmHg Hemoglobin (13.0-17.5) gm/dL Sodium (137-145) mmol/L Chloride (98-107) mmol/L Carbon Dioxide (22-30) mmol/L Creatinine (0.66-1.25) mg/dL Glucose (74-99) mg/dL Plasma Lactic Acid [place] 3.1 H* (0.7-2.0) mmol/L Magnesium (1.6-2.3) mg/dL Troponin I 0.415 H* (0.000-0.034) ng/mL 01/05/24 01/05/24 01/05/24 Range/Units 04:06 04:06 04:06 WBC 16.7 H (3.8-10.6) k/uL RBC 4.26 L (4.30-5.90) m/uL Hct 37.4 L (39.0-53.0) % Neutrophils # 16.1 H (1.3-7.7) k/uL Lymphocytes # 0.1 L (1.0-4.8) k/uL APTT (22.0-30.0) sec D-Dimer (<0.60) mg/L FEU ABG HCO3 (21-25) mmol/L ABG Total CO2 (19-24) mmol/L ABG O2 Saturation (94-97) % VBG pH (7.31-7.41) VBG pCO2 (37-51) mmHg Hemoglobin (13.0-17.5) gm/dL Sodium 126 L (137-145) mmol/L Chloride 92 L (98-107) mmol/L Carbon Dioxide (22-30) mmol/L Creatinine 0.51 L (0.66-1.25) mg/dL Glucose 148 H (74-99) mg/dL Plasma Lactic Acid [place] 2.1 H* (0.7-2.0) mmol/L Magnesium (1.6-2.3) mg/dL Troponin I (0.000-0.034) ng/mL
--- NOTE | 2024-01-05 13:52 | CA ---
Transthoracic Echo Report Name: Carlos Parry Age: 53 Gender: M : 1970 Exam Date: 01/05/2024 09:42 Exam Location: [facility] Ht (in): 72 Wt (lb): 133 Ordering Physician: Ritika Miller Attending/Referring Phys: [id number], Paul [employer] Operator Yudy Alvarez, JUAN CARLOS Procedure CPT: Indications: Elevated troponins, LV function Cardiac Hx: COPD Technical Quality: Fair Contrast 1: Total Dose (mL): Contrast 2: Total Dose (mL): MEASUREMENTS (Male / Female) Normal Values 2D ECHO LV Diastolic Diameter PLAX 5.4 cm 4.2 - 5.9 / 3.9 - 5.3 cm LV Systolic Diameter PLAX 3.5 cm IVS Diastolic Thickness 0.9 cm 0.6 - 1.0 / 0.6 - 0.9 cm LVPW Diastolic Thickness 0.7 cm 0.6 - 1.0 / 0.6 - 0.9 cm LV Relative Wall Thickness 0.3 RV Internal Dim ED PLAX 1.6 cm LA Systolic Diameter LX 3.1 cm 3.0 - 4.0 / 2.7 - 3.8 cm LV Diastolic Volume MOD 4C 75.1 cm??? LV Systolic Volume MOD 4C 26.9 cm??? LV Ejection Fraction MOD 4C 64.2 % LV Cardiac Index MOD 4C 2529.2 cm???/min???m??? LV Diastolic Length 4C 7.3 cm LV Systolic Length 4C 6.2 cm M-MODE Aortic Root Diameter MM 3.7 cm LA Systolic Diameter MM 3.6 cm LA Ao Ratio MM 1.0 AV Cusp Separation MM 2.3 cm DOPPLER Mitral E Point Velocity 81.0 cm/s Mitral A Point Velocity 74.0 cm/s Mitral E to A Ratio 1.1 MV Deceleration Time 237.3 ms MV E' Velocity 13.1 cm/s Mitral E to MV E' Ratio 6.2 TR Peak Velocity 337.8 cm/s TR Peak Gradient 45.6 mmHg Right Ventricular Systolic Press 65.8 mmHg FINDINGS Left Ventricle Left ventricular ejection fraction is estimated at 55-60%. Normal left ventricular systolic function with no obvious regional wall motion abnormalities. Left ventricular cavity size normal. Left ventricular wall thickness normal. Right Ventricle Severe right ventricular dilatation. Severe pulmonary hypertension. Right Atrium Mild right atrial dilatation. Left Atrium Mild left atrial dilatation. Mitral Valve Structurally normal mitral valve. Mild mitral regurgitation. No mitral stenosis. Aortic Valve Trileaflet aortic valve. No aortic stenosis. No aortic regurgitation. Tricuspid Valve Structurally normal tricuspid valve. Mild tricuspid regurgitation. No tricuspid stenosis. Pulmonic Valve Structurally normal pulmonic valve. Trace pulmonic regurgitation. Pericardium No pericardial or pleural effusion. Aorta Aorta at upper limits of normal. CONCLUSIONS Diagnosis: Acute myocardial injury, abnormal troponins Enlarged right ventricle with elevated RVSP Biatrial enlargement Left ventricular systolic function at the lower limits of normal of 55% Dilated IVC Previewed by: Dr. Frederick Kaur MD (Electronically Signed) Final Date: 05 January 2024 13:51
--- NOTE | 2024-01-05 15:41 | P.CONS ---
History of Present Illness - Reason for Consult Consult date: 01/05/24 hx lug cancer and SCC tongue Requesting physician: Vasyl Charles - Chief Complaint SOB - History of Present Illness Mr. Parry is a 53-year-old gentleman with a past medical history significant for stage III lung cancer diagnosed in October 2019 status post concurrent chemo radiotherapy followed by durvalumab along with cigarette smoking and previous alcohol abuse who presented to our clinic for a new diagnosis of squamous cell carcinoma of the base of the tongue. Patient follows with Dr. Luis Fernando Moore. He had been receiving maintenance durvalumab since completion of concurrent chemoradiotherapy in January 2020. He began to develop increased soreness and pain in the mouth with progressive odynophagia. This led to progressive difficulty and painful swallowing of both solids and liquids. He was initially referred to urgent care and received antibiotics, which did not relieve the pain. He was eventually referred to Dr. 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 I do not have pathology report of this biopsy at the time of initial consultation. He did have a PET/CT performed on 02/02/2023, which noted 2.6 x 3.7 cm right base of tongue lesion involving the right tongue, right glossotonsillar sulcus and thickening along the midline tongue and lingual surface of the epiglottis. The mass was FDG avid at 21.6 with the thickening of the epiglottis noted to be FDG avid with SUV 12.9. Right cervical lymph nodes at levels 2 3 and 4 were noted to be FDG avid, with the largest at level 2 with an SUV of 8.5 measuring 2.3 cm. Left cervical lymphadenopathy at levels 2 3 and 4 were also noted with the largest being at le dafne 2 measuring 1.4 cm with an SUV of 3.6. There was subtle nodularity within the right lung base with surrounding groundglass opacification measuring up to 5 mm and SUV of 2.8. Of note, there was FDG uptake within the ascending colon/cecum with an SUV of 15.5. He has been evaluated by Dr. Cardenas of ENT, who recommended concurrent chemoradiotherapy. He completed 6 cycles of cisplatin on 04/20/2023 and RT on 05/24/2023. At his last clinic f/u patient reported he has been experiencing progressive right jaw pain when chewing along with swelling in the right neck over the last 2 months. PET/CT on 12/08/2023 noted small focus of uptake in the right submental region along with right cervical lymphadenopathy, bilateral subcentimeter lung nodules, and bilateral hilar lymphadenopathy concerning for disease recurrence. Given his prior history with stage III lung cancer, it is not clear if the lung nodules and hilar lymphadenopathy represent recurrence of his squamous cell carcinoma of the tongue or previous lung cancer. He has been referred to pulmonology for EBUS. We discussed that this is a recurrence of his head and neck cancer, this will be treated with combination of chemotherapy with immunotherapy versus immunotherapy alone Patient presented emergency room with complaints of shortness of breath and cough. He also reports he has been experiencing dysphagia. Denies nausea vomiting diarrhea. HPI is somewhat limited as patient is lethargic at today's visit. On admit chest x-ray showed right lower lobe and minimal left lower lobe infiltrates. D-dimer elevated at 1.79. CTA chest was subsequently obtained which was negative for pulmonary embolism. Noting aspiration pneumonia at the right lung base with debris's in the right main stem bronchus. Moderate emphysema and small right pleural effusion. Thickening throughout the right hilar region with no lung masses noted. Troponins elevated. Procalcitonin 7.91. IV antibiotics started. Pulmonary following. Consult placed to speech therapy. WBC 16.7, hemoglobin 13.0, platelets 218,000. Patient is afebrile, SpO2 97% on 4L. Review of Systems 10 point ROS is negative except as stated in the HPI Past Medical History Past Medical History: Cancer, COPD, CVA/TIA, Seizure Disorder Additional Past Medical History / Comment(s): TIA summer 2019-no residual effects, lung cancer 2019-had radiation & chemo which is finished, immunotherapy every 2 weeks, last seizure approx. 8 months ago History of Any Multi-Drug Resistant Organisms: None Reported Additional Past Surgical History / Comment(s): mediport left side, brain surg. for dermoid cysts >20 yrs. ago, throat cancer, lung cancer, seizure disorder Past Anesthesia/Blood Transfusion Reactions: No Reported Reaction Smoking Status: Current every day smoker Past Alcohol Use History: Heavy Additional Past Alcohol Use History / Comment(s): used to drink heavily, hasn't since November 2018, 1ppd down from 3ppd since teens Past Drug Use History: Marijuana Additional Drug Use History / Comment(s): edibles Medications and Allergies Home Medications Medication Instructions Recorded Confirmed Type Lacosamide [Vimpat] 150 mg PO BID 08/20/20 01/04/24 History levETIRAcetam [Keppra] 1,000 mg PO HS 08/20/20 01/04/24 History levETIRAcetam [Keppra] 750 mg PO DAILY 08/20/20 01/04/24 History Atorvastatin Calcium [Lipitor] 40 mg PO HS 04/28/23 01/04/24 History Fluticasone/Umeclidin/Vilanter 1 puff INHALATION RT-DAILY 04/28/23 01/04/24 History [Trelegy Ellipta 100-62.5-25] Ibuprofen [Motrin] 800 mg PO TID PRN 04/28/23 01/04/24 History Baclofen [Lioresal] 10 mg PO TID PRN 01/04/24 01/04/24 History HYDROcodone/APAP 5-325MG [[place] 1 tab PO Q6H PRN 01/04/24 01/04/24 History 5-325] Lidocaine Viscous 2% [Xylocaine 10 - 15 ml MUCOUS MEM ACHS 01/04/24 01/04/24 History Viscous] Omeprazole [PriLOSEC] 20 mg PO DAILY 01/04/24 01/04/24 History Allergies Allergy/AdvReac Type Severity Reaction Status Date / Time No Known Allergies Allergy Verified 01/04/24 17:20 Physical Exam Vitals: Vital Signs Temp Pulse Pulse Resp BP BP Pulse Ox 01/05/24 07:43 88 01/05/24 07:42 98.2 F 85 16 126/83 96 01/05/24 07:31 85 01/05/24 07:22 90 98 01/05/24 04:07 85 01/05/24 04:00 82 16 155/92 98 01/05/24 03:57 84 01/05/24 01:58 97 18 01/05/24 00:18 83 01/05/24 00:08 85 01/04/24 23:33 97.7 F 96 18 136/94 99 01/04/24 22:43 98 18 109/83 97 01/04/24 22:00 90 18 131/88 96 01/04/24 21:51 01/04/24 21:12 112 H 20 131/88 97 01/04/24 20:28 01/04/24 20:00 121 H 20 100/85 99 01/04/24 19:40 97.8 F 118 H 22 108/99 99 01/04/24 17:22 149 H 01/04/24 17:09 01/04/24 17:08 01/04/24 17:07 151 H 01/04/24 17:06 01/04/24 16:59 148 H 30 H 131/102 93 L 01/04/24 16:55 30 H FiO2 01/05/24 07:43 01/05/24 07:42 01/05/24 07:31 01/05/24 07:22 01/05/24 04:07 01/05/24 04:00 01/05/24 03:57 01/05/24 01:58 01/05/24 00:18 01/05/24 00:08 50 01/04/24 23:33 01/04/24 22:43 01/04/24 22:00 01/04/24 21:51 50 01/04/24 21:12 01/04/24 20:28 65 01/04/24 20:00 01/04/24 19:40 01/04/24 17:22 01/04/24 17:09 100 01/04/24 17:08 100 01/04/24 17:07 01/04/24 17:06 100 01/04/24 16:59 01/04/24 16:55 Intake and Output 01/04/24 01/05/24 01/05/24 22:59 06:59 14:59 Intake Total 58.662 Output Total 1500 1100 Balance -1441.338 -1100 Intake: Intake, IV Titration 58.662 Amount Heparin Sod,Pork in 0.45% 58.662 NaCl 25,000 unit In 0.45 % NaCl 1 250ml.bag @ 12 UNITS/KG/HR 7.457 mls/hr IV .Q24H [facility] Rx#: [id number] Output: Urine 1500 1100 Other: Weight 62.142 kg 60.5 kg - Constitutional General appearance: average body habitus, no acute distress - EENT Eyes: anicteric sclerae, EOMI - Neck shotty palpable cervical lymph nodes - Respiratory Respiratory: right: rales - Cardiovascular Rhythm: regular - Gastrointestinal General gastrointestinal: soft, no tenderness - Integumentary Integumentary: no cyanotic, no jaundiced - Musculoskeletal Musculoskeletal: generalized weakness - Psychiatric lethargic Results CBC & Chem 7: 01/05/24 04:06 01/05/24 04:06 Labs: Abnormal Lab Results - Last 24 Hours (Table) 01/04/24 01/04/24 01/04/24 Range/Units 17:25 17:25 17:25 WBC 19.1 H (3.8-10.6) k/uL RBC (4.30-5.90) m/uL Hct (39.0-53.0) % Neutrophils # 17.9 H (1.3-7.7) k/uL Lymphocytes # 0.5 L (1.0-4.8) k/uL APTT (22.0-30.0) sec D-Dimer (<0.60) mg/L FEU ABG HCO3 (21-25) mmol/L ABG Total CO2 (19-24) mmol/L ABG O2 Saturation (94-97) % VBG pH 7.23 L (7.31-7.41) VBG pCO2 61 H (37-51) mmHg Hemoglobin (13.0-17.5) gm/dL Sodium (137-145) mmol/L Chloride (98-107) mmol/L Carbon Dioxide (22-30) mmol/L Creatinine (0.66-1.25) mg/dL Glucose (74-99) mg/dL Plasma Lactic Acid Carlton 4.8 H* (0.7-2.0) mmol/L Magnesium (1.6-2.3) mg/dL Troponin I (0.000-0.034) ng/mL 01/04/24 01/04/24 01/04/24 Range/Units 19:47 19:47 21:36 WBC (3.8-10.6) k/uL RBC (4.30-5.90) m/uL Hct (39.0-53.0) % Neutrophils # (1.3-7.7) k/uL Lymphocytes # (1.0-4.8) k/uL APTT (22.0-30.0) sec D-Dimer (<0.60) mg/L FEU ABG HCO3 (21-25) mmol/L ABG Total CO2 (19-24) mmol/L ABG O2 Saturation (94-97) % VBG pH (7.31-7.41) VBG pCO2 (37-51) mmHg Hemoglobin (13.0-17.5) gm/dL Sodium 125 L (137-145) mmol/L Chloride 90 L (98-107) mmol/L Carbon Dioxide 21 L (22-30) mmol/L Creatinine (0.66-1.25) mg/dL Glucose 115 H (74-99) mg/dL Plasma Lactic Acid Carlton 2.9 H* (0.7-2.0) mmol/L Magnesium 0.8 L* (1.6-2.3) mg/dL Troponin I 0.507 H* (0.000-0.034) ng/mL 01/04/24 01/04/24 01/05/24 Range/Units 23:11 23:56 00:34 WBC (3.8-10.6) k/uL RBC (4.30-5.90) m/uL Hct (39.0-53.0) % Neutrophils # (1.3-7.7) k/uL Lymphocytes # (1.0-4.8) k/uL APTT (22.0-30.0) sec D-Dimer 1.79 H (<0.60) mg/L FEU ABG HCO3 26 H (21-25) mmol/L ABG Total CO2 27 H (19-24) mmol/L ABG O2 Saturation 97.9 H (94-97) % VBG pH (7.31-7.41) VBG pCO2 (37-51) mmHg Hemoglobin 12.9 L (13.0-17.5) gm/dL Sodium (137-145) mmol/L Chloride (98-107) mmol/L Carbon Dioxide (22-30) mmol/L Creatinine (0.66-1.25) mg/dL Glucose (74-99) mg/dL Plasma Lactic Acid Carlton (0.7-2.0) mmol/L Magnesium (1.6-2.3) mg/dL Troponin I 0.466 H* (0.000-0.034) ng/mL 01/05/24 01/05/24 01/05/24 Range/Units 00:42 02:17 02:17 WBC (3.8-10.6) k/uL RBC (4.30-5.90) m/uL Hct (39.0-53.0) % Neutrophils # (1.3-7.7) k/uL Lymphocytes # (1.0-4.8) k/uL APTT 38.2 H (22.0-30.0) sec D-Dimer (<0.60) mg/L FEU ABG HCO3 (21-25) mmol/L ABG Total CO2 (19-24) mmol/L ABG O2 Saturation (94-97) % VBG pH (7.31-7.41) VBG pCO2 (37-51) mmHg Hemoglobin (13.0-17.5) gm/dL Sodium (137-145) mmol/L Chloride (98-107) mmol/L Carbon Dioxide (22-30) mmol/L Creatinine (0.66-1.25) mg/dL Glucose (74-99) mg/dL Plasma Lactic Acid Carlton 3.1 H* (0.7-2.0) mmol/L Magnesium (1.6-2.3) mg/dL Troponin I 0.415 H* (0.000-0.034) ng/mL 01/05/24 01/05/24 01/05/24 Range/Units 04:06 04:06 04:06 WBC 16.7 H (3.8-10.6) k/uL RBC 4.26 L (4.30-5.90) m/uL Hct 37.4 L (39.0-53.0) % Neutrophils # 16.1 H (1.3-7.7) k/uL Lymphocytes # 0.1 L (1.0-4.8) k/uL APTT (22.0-30.0) sec D-Dimer (<0.60) mg/L FEU ABG HCO3 (21-25) mmol/L ABG Total CO2 (19-24) mmol/L ABG O2 Saturation (94-97) % VBG pH (7.31-7.41) VBG pCO2 (37-51) mmHg Hemoglobin (13.0-17.5) gm/dL Sodium 126 L (137-145) mmol/L Chloride 92 L (98-107) mmol/L Carbon Dioxide (22-30) mmol/L Creatinine 0.51 L (0.66-1.25) mg/dL Glucose 148 H (74-99) mg/dL Plasma Lactic Acid Carlton 2.1 H* (0.7-2.0) mmol/L Magnesium (1.6-2.3) mg/dL Troponin I (0.000-0.034) ng/mL Chest x-ray: report reviewed CT scan - chest: report reviewed Assessment and Plan (1) Dyspnea Current Visit: Yes Status: Acute Priority: High Code(s): R06.00 - DYSPNEA, UNSPECIFIED SNOMED Code(s): 399844703 (2) COPD exacerbation Current Visit: Yes Status: Acute Priority: High Code(s): J44.1 - CHRONIC OBSTRUCTIVE PULMONARY DISEASE W (ACUTE) EXACERBATION SNOMED Code(s): 805998658 (3) Community acquired pneumonia Current Visit: Yes Status: Acute Priority: High Code(s): J18.9 - PNEUMONIA, UNSPECIFIED ORGANISM SNOMED Code(s): 180385865 Plan: Dyspnea, Pneumonia: -Patient presented emergency room with complaints of shortness of breath and cough. He also reports he has been experiencing dysphagia. -On admit chest x-ray showed right lower lobe and minimal left lower lobe infiltrates. -D-dimer elevated at 1.79. CTA chest was subsequently obtained which was negative for pulmonary embolism. Noting aspiration pneumonia at the right lung base with debris's in the right main stem bronchus. Moderate emphysema and small right pleural effusion. Thickening throughout the right hilar region with no lung masses noted. -Procalcitonin 7.91. IV antibiotics started. Pulmonary following. -Consult placed to speech therapy Hx lung cancer and SCC of tongue: -Oncology history and plan as dictated in HPI -Completed 6 cycles of cisplatin on 04/20/2023 and RT on 05/24/2023 for SCC of tongue. -At his last clinic f/u on 12/26/23, patient reported he has been experiencing progressive right jaw pain when chewing along with swelling in the right neck over the last 2 months. -PET/CT on 12/08/2023 noted small focus of uptake in the right submental region a long with right cervical lymphadenopathy, bilateral subcentimeter lung nodules, and bilateral hilar lymphadenopathy concerning for disease recurrence. Given his prior history with stage III lung cancer, it is not clear if the lung nodules and hilar lymphadenopathy represent recurrence of his squamous cell carcinoma of the tongue or previous lung cancer. However, CTA chest obtained during current admission does not note pulmonary masses, making possible PET CT findings of pulmonary nodules to be infectious/inflammatory in nature? -He has been referred to pulmonology for EBUS -We discussed that this is a recurrence of his head and neck cancer, this will be treated with combination of chemotherapy with immunotherapy versus immunotherapy alone -Clinic f/u scheduled for 01/[address] Luis Fernando Moore Dr. attests: I have seen and examined patient, performed H&P, developed impression and plan of care. Discussed with dictator. Agree with documentation, dictated as a scribe
[2024-01-05 16:40] LABS: Glucose,Whole Blood 136 mg/dL (70-110)
[2024-01-05 20:04] LABS: Glucose,Whole Blood 134 mg/dL (70-110)
[2024-01-05] MEDS: HYDROcodone/APAP 5-325MG 1 EACH TAB PO PRN (20:41)
[2024-01-05] MEDS: ATORVASTATIN 40 MG TAB PO SCH (20:41)
[2024-01-05] MEDS: levETIRAcetam 500 MG TAB PO SCH (20:41)
[2024-01-05] MEDS: LIDOCAINE VISCOUS 2% 15 ML CUP MUCOUS MEM SCH (20:42)
[2024-01-05] MEDS ORDERED: ATORVASTATIN 40 MG TAB PO SCH (21:00)
[2024-01-06 06:11] LABS: Glucose,Whole Blood 125 mg/dL (70-110)
[2024-01-06 08:23] LABS: Basophils % (A) 0 %; Eosinophils % (A) 0 %; HCT 32.3 % (39.0-53.0); HGB 10.7 gm/dL (13.0-17.5); Lymphocytes # (A) 0.2 k/uL (1.0-4.8); Lymphocytes % (A) 1 %; MCH 29.8 pg (25.0-35.0); MCHC 33.1 g/dL (31.0-37.0); Mean Platelet Volume 7.3; Monocytes # (A) 0.3 k/uL (0-1.0); Monocytes % (A) 3 %; Neutrophils # (A) 13.2 k/uL (1.3-7.7); Neutrophils % (A) 96 %; Platelet Count 214 k/uL (150-450); RBC 3.59 m/uL (4.30-5.90); RDW 12.8 % (11.5-15.5); WBC 13.8 k/uL (3.8-10.6)
[2024-01-06 08:27] LABS: African American GFR (CKD) >90 (>60 ml/min/1.73 sqM); Anion Gap 5 mmol/L; Blood Urea Nitrogen 13 mg/dL (9-20); Carbon Dioxide 29 mmol/L (22-30); Chloride 97 mmol/L (98-107); Glucose 106 mg/dL (74-99); Magnesium 1.7 mg/dL (1.6-2.3); Non-African American GFR(CKD) >90 (>60 ml/min/1.73 sqM); Potassium 4.5 mmol/L (3.5-5.1); Sodium 131 mmol/L (137-145)
--- NOTE | 2024-01-06 10:18 | FL ---
Exam Date: 01/06/2024 9:39 AM. Modified barium swallow for dysphagia. Consistencies administered: Various consistency of barium. Fluoro time: FL TIME 2:49 No images were sent to PACS. Please see speech pathology report. DAP: Not recorded mGym2 Gycm2 DYSPHAGIA FL TIME 2:49 THIN, PUDDING, HONEY, NECTAR USED [facility], , 01/06/2024 10:15 AM
--- NOTE | 2024-01-06 11:18 | P.PN ---
Subjective Progress Note Date: 01/06/24 Principal diagnosis: Shortness of breath. Patient is a 53-year-old white male with past medical history significant for COPD, chronic ongoing tobacco dependence, previous history of lung cancer, laryngeal cancer, seizure disorder, hyperlipidemia, TIA/CVA. His primary care provider is Dr. Alberto. He does follow in the pulmonary office with Dr. Fowler. Patient has severe COPD with an FEV1 36% of predicted. Utilizes Trelegy maintenance inhaler. Continues to smoke cigarettes. Patient also has history of lung cancer which was diagnosed back in 2019, and is status post lorenzo moradiation. Subsequently, found to have laryngeal cancer, underwent radiation. Patient is not a good historian. He reports that he is not on any treatment at this time. I am unsure of who his established oncologist is. Most recent PET scan done 11/24/2023 consistent with progression of disease with new scattered metastatic disease throughout the thorax. Decrease in size of the oropharynx up take along the right lateral tongue compared to prior; however, there is increasing right lateral neck activity with increasing lymph node size. Patient reportedly presented to the emergency department yesterday afternoon in acute respiratory distress. He was hypoxic. He was placed on BiPAP. Chest x-ray demonstrating new bibasilar opacities, right greater than left. Chronic hyperinflation consistent with COPD. CBC: WBC count 19.1, hemoglobin 15.7, hematocrit 45.8, platelets 315. CMP: Sodium 125, potassium 4, chloride 90, serum bicarb 20, BUN 13, creatinine 0.78, glucose 115. Lactic 4.8 and down to 3.1. Magnesium critically low at 0.8. EKG consistent with regular, rapid narrow complex tachycardia with a rate of 150 bpm. Serial troponins elevated at 0.51 and 0.47 respectively. Patient was started on heparin infusion per protocol. D-dimer also elevated. Given patient's history of malignancy, would recommend ruling out PE. Patient is currently being evaluated on the cardiac floor. He is on BiPAP with settings 14/6 and FiO2 of 50%. Respiratory rate is 19. Tidal volumes in the 600s. He is lethargic. I did order an ABG which has a PaO2 of 99, pCO2 of 41, pH of 7.41. He is a poor historian, and does not offer much information for HPI. Reporting some substernal chest pain nonradiating. Will not elaborate further. No particular coughing. No stridor. No significant adventitious lung sounds. Afebrile. He was negative for influenza A/B, RSV, COVID. He is empirically started on azithromycin and Rocephin for community- acquired pneumonia. Normal saline infusing at 130 mL/h. IV heparin continues per protocol. Prognosis certainly guarded. Progress note dated January 06, 2024. 53-year-old male with history of severe COPD. FEV1 is 36% of predicted. The patient was seen in consultation yesterday, with acute hypoxemic respiratory failure, being maintained on BiPAP. Chest x-ray suggested bibasilar airspace opacities, possibly consistent with underlying pneumonia. He has a history of other medical problems including laryngeal carcinoma, lung cancer, chronic and ongoing tobacco dependence, and alcoholism, to name a few. Currently, the patient is on nasal oxygen. He is at 4 L. He feels like his breathing is improved. Laboratory data includes a white count 13.8, hemoglobin 10.7, hematocrit 32.3, and a platelet count of 214,000. Sodium 131, potassium 4.5, chlorides 97, CO2 29, BUN 13, creatinine 0.46. Glucose is 106. Magnesium is 1.7. Objective - Vital Signs Vital signs: Vital Signs Temp 97.6 F 01/06/24 08:08 Pulse 82 01/06/24 08:23 Resp 17 01/06/24 08:08 BP 123/80 01/06/24 08:08 Pulse Ox 97 01/06/24 03:33 FiO2 50 01/05/24 00:08 Intake & Output 01/05/24 01/06/24 01/06/24 18:59 06:59 18:59 Intake Total 127.663 77.235 Output Total 2400 1450 Balance -2272.337 -1372.765 Weight 60.5 kg 58.1 kg Intake: IV 20 Invasive Line 1 20 Intake, IV Titration 127.663 57.235 Amount Heparin Sod,Pork in 0.45% 127.663 57.235 NaCl 25,000 unit In 0.45 % NaCl 1 250ml.bag @ 12 UNITS/KG/HR 7.457 mls/hr IV .Q24H COUNTS INCLUDE 234 BEDS AT THE [facility] Rx#: [id number] Output: Urine 2400 1450 Other: Voiding Method External Catheter External Catheter External Catheter # Voids 1 - Exam No acute distress, oriented 3. Currently on 4 L nasal cannula. HEENT examination is grossly unremarkable. Mucous membranes are moist. No oral lesions. Neck supple. Full range of motion. No adenopathy thyromegaly or neck vein distention. Cardiovascular examination reveals regular rhythm rate. S1-S2 normal. No S3 or S4. No discernible murmur noted. Lungs reveal scattered rhonchi. No expiratory wheezes or crackles. Breath sounds equal. Breath sounds are diminished throughout. Abdomen soft bowel sounds are heard. No masses or tenderness. Extremities are intact. No cyanosis clubbing or edema. Skin is without rash or lesion. Neurologic examination is brief but nonfocal. - Labs CBC & Chem 7: 01/06/24 07:52 01/06/24 06:52 Labs: Abnormal Lab Results - Last 24 Hours (Table) 01/05/24 01/05/24 01/05/24 Range/Units 10:58 11:46 16:38 WBC (3.8-10.6) k/uL RBC (4.30-5.90) m/uL Hgb (13.0-17.5) gm/dL Hct (39.0-53.0) % Neutrophils # (1.3-7.7) k/uL Lymphocytes # (1.0-4.8) k/uL APTT 37.2 H (22.0-30.0) sec Sodium (137-145) mmol/L Chloride (98-107) mmol/L Creatinine (0.66-1.25) mg/dL Glucose (74-99) mg/dL POC Glucose (mg/dL) 152 H 136 H (70-110) mg/dL 01/05/24 01/05/24 01/06/24 Range/Units 17:45 20:03 01:40 WBC (3.8-10.6) k/uL RBC (4.30-5.90) m/uL Hgb (13.0-17.5) gm/dL Hct (39.0-53.0) % Neutrophils # (1.3-7.7) k/uL Lymphocytes # (1.0-4.8) k/uL APTT 38.6 H 46.2 H (22.0-30.0) sec Sodium (137-145) mmol/L Chloride (98-107) mmol/L Creatinine (0.66-1.25) mg/dL Glucose (74-99) mg/dL POC Glucose (mg/dL) 134 H (70-110) mg/dL 01/06/24 01/06/24 01/06/24 Range/Units 06:10 06:52 07:52 WBC 13.8 H (3.8-10.6) k/uL RBC 3.59 L (4.30-5.90) m/uL Hgb 10.7 L (13.0-17.5) gm/dL Hct 32.3 L (39.0-53.0) % Neutrophils # 13.2 H (1.3-7.7) k/uL Lymphocytes # 0.2 L (1.0-4.8) k/uL APTT (22.0-30.0) sec Sodium 131 L (137-145) mmol/L Chloride 97 L (98-107) mmol/L Creatinine 0.46 L (0.66-1.25) mg/dL Glucose 106 H (74-99) mg/dL POC Glucose (mg/dL) 125 H (70-110) mg/dL 01/06/24 Range/Units 08:58 WBC (3.8-10.6) k/uL RBC (4.30-5.90) m/uL Hgb (13.0-17.5) gm/dL Hct (39.0-53.0) % Neutrophils # (1.3-7.7) k/uL Lymphocytes # (1.0-4.8) k/uL APTT 41.7 H (22.0-30.0) sec Sodium (137-145) mmol/L Chloride (98-107) mmol/L Creatinine (0.66-1.25) mg/dL Glucose (74-99) mg/dL POC Glucose (mg/dL) (70-110) mg/dL Microbiology - Last 24 Hours (Table) 01/04/24 17:53 Blood Culture - Preliminary Blood Assessment and Plan Assessment: Acute hypoxemic respiratory failure, with bibasilar airspace opacities, right greater than left, concerning for community-acquired pneumonia. Elevated troponins, rule out non-ST elevation [place]. Severe hypomagnesemia. Hyponatremia, possible SIADH. Laryngeal cancer. Most recent PET scan concerning for disease progression and metastasis to the lungs and pulmonary hilum. History of lung cancer, previously diagnosed back in 2019, status post chemo/radiation. Severe chronic obstructive pulmonary disease, with an FEV1 36% of predicted. Chronic ongoing tobacco dependence. History of alcoholism. History of COVID/RSV. Seizure disorder. History of hyperlipidemia. History of CVA/TIA. Plan: Plan dated January 06, 2024. The patient is seen in room 350. The patient continues on oxygen, at 4 L by nasal cannula. The patient continues on azithromycin, and ceftriaxone for community-acquired pneumonia. In addition, the patient continues on Pulmicort 1 mg twice a day, mixed with formoterol 20 mcg twice a day. The patient is also receiving DuoNebs, 4 times daily and as needed. Finally, the patient is getting Solu-Medrol 60 mg every 6 hours. Labs, x-rays, and medications are reviewed. We will continue to follow the patient, and make recommendations. Time with Patient: Less than 30
[2024-01-06 11:43] LABS: Glucose,Whole Blood 186 mg/dL (70-110)
--- NOTE | 2024-01-06 13:54 | P.PN ---
Subjective HISTORY OF PRESENT ILLNESS: This is a 53-year-old male with a past medical history significant for nicotine dependence, lung cancer with chemo and radiation treatment, laryngeal cancer, hyperlipidemia, CVA/TIA, alcohol abuse, and nicotine dependence. Patient does not follow with a engagement quality consultant. We have been asked to see the patient in consultation for elevated troponins. Patient examined at the bedside. Patient reports he has been feeling SOB for the past day. He denies cough. Reports fever at home. He denies chest pain or pressure. He continues to smoke. Denies etoh. DIAGNOSTICS: - EKG reveals tachycardia with nonspecific ST-T wave changes. - Chest xray right lower lobe and minimal left lower lobe infiltrates. Correlate for atelectasis and pneumonia. - Laboratory data: WBC 16.7. Hemoglobin 13.0. Platelet count 218. D-dimer 1.7 9. Sodium 126. Potassium 3.9. BUN 11. Creatinine 0.52. Troponin 0.507. 0.466. 0.415. - Current home cardiac medications include Lipitor 40 mg at night. -No previous echocardiogram, stress test, or cardiac catheterization available for review 01/06/2024 Patient examined this morning at the bedside. Patient denies chest pain or pressure. Denies SOB. Patient remains on IV heparin. Remains on IV steroids. Echo reveals EF 55-60% with severe pulmonary hypertension. PHYSICAL EXAM: VITAL SIGNS: Reviewed. GENERAL: Well-developed in no acute distress. HEENT: Head is normocephalic. Pupils are equal, round. Sclerae anicteric. Mucous membranes of the mouth are moist. Neck supple. No JVD or thyromegaly LUNGS: Respirations even and unlabored. Lungs essentially clear to auscultation bilaterally. HEART: Regular rate and rhythm. S1 and S2 heard. ABDOMEN: Soft. Nondistended. Nontender. EXTREMITIES: Normal range of motion. No clubbing or cyanosis. Peripheral pulses intact. No lower extremity edema NEUROLOGIC: Awake and alert. Oriented x 3. ASSESSMENT: Shortness of breath Acute hypoxic respiratory failure Pneumonia Elevated troponins, type II IL secondary to oxygen supply/demand mismatch History of lung cancer with previous chemotherapy/radiation Laryngeal cancer COPD History of alcohol abuse History of CVA/TIA Hyperlipidemia History of seizure disorder Nicotine dependence Severe pulmonary hypertension PLAN: Continue current cardiac medications Discontinue heparin tonight after 48 hours Patient scheduled for EGD with PEG tube placement on 01/07/2024 with general surgery Eventual outpatient ischemic workup recommended Further recommendations pending patient course Nurse practitioner note has been reviewed by physician. Signing provider agrees with the documented findings, assessment, and plan of care documented by CONSTRUCTION TRENCH DIGGER as a scribe. Objective - Vital Signs Vital signs: Vital Signs Temp 97.6 F 01/06/24 08:08 Pulse 84 01/06/24 08:08 Resp 17 01/06/24 08:08 BP 123/80 01/06/24 08:08 Pulse Ox 97 01/06/24 03:33 FiO2 50 01/05/24 00:08 Intake & Output 01/05/24 01/06/24 01/06/24 18:59 06:59 18:59 Intake Total 127.663 77.235 Output Total 2400 1450 Balance -2272.337 -1372.765 Weight 60.5 kg 58.1 kg Intake: IV 20 Invasive Line 1 20 Intake, IV Titration 127.663 57.235 Amount Heparin Sod,Pork in 0.45% 127.663 57.235 NaCl 25,000 unit In 0.45 % NaCl 1 250ml.bag @ 12 UNITS/KG/HR 7.457 mls/hr IV .Q24H [facility] Rx#: [id number] Output: Urine 2400 1450 Other: Voiding Method External Catheter External Catheter # Voids 1 - Labs CBC & Chem 7: 01/06/24 07:52 01/06/24 06:52 Labs: Abnormal Lab Results - Last 24 Hours (Table) 01/05/24 01/05/24 01/05/24 Range/Units 00:42 10:58 11:46 APTT 37.2 H (22.0-30.0) sec POC Glucose (mg/dL) 152 H (70-110) mg/dL Procalcitonin 7.91 H (0.02-0.50) ng/mL 01/05/24 01/05/24 01/05/24 Range/Units 16:38 17:45 20:03 APTT 38.6 H (22.0-30.0) sec POC Glucose (mg/dL) 136 H 134 H (70-110) mg/dL Procalcitonin (0.02-0.50) ng/mL 01/06/24 01/06/24 Range/Units 01:40 06:10 APTT 46.2 H (22.0-30.0) sec POC Glucose (mg/dL) 125 H (70-110) mg/dL Procalcitonin (0.02-0.50) ng/mL Microbiology - Last 24 Hours (Table) 01/04/24 17:53 Blood Culture - Preliminary Blood
--- NOTE | 2024-01-06 13:57 | P.GSCN ---
History of Present Illness Consult date: 01/06/24 History of present illness: CHIEF COMPLAINT: Shortness of breath HISTORY OF PRESENT ILLNESS: This is a 53-year-old male who presented to the hospital with evidence of shortness of breath. He is being treated for pneumonia. Patient has history of lung cancer status post chemo and radiation treatment in 2020. Patient has squamous cell carcinoma of the tongue and is followed by oncology service. He is a smoker and prior history of alcohol use. Patient does have elevated troponins being followed by cardiology and currently on IV heparin. Per nursing staff cardiology is planning on stopping the heparin at 9:00 tonight. Patient has been having dysphagia for a while. He failed his swallow eval. There are concerns of possible aspiration. Surgical service has been consulted for possible PEG tube placement. PAST MEDICAL HISTORY: See below and Severe COPD PAST SURGICAL HISTORY: See below MEDICATIONS: See below ALLERGIES: See below SOCIAL HISTORY: No illicit drug use. Nicotine dependence. Used to drink heavily. REVIEW OF SYSTEMS: CONSTITUTIONAL: Denies fever or chills. HEENT: Denies blurred vision, vision changes, or eye pain. Denies hemoptysis CARDIOVASCULAR: Denies chest pain or pressure. RESPIRATORY: No shortness of breath. GASTROINTESTINAL: See HPI for pertinent findings HEMATOLOGIC: Denies bleeding disorders. GENITOURINARY: Denies any blood in urine or increased urinary frequency. SKIN: Denies pruitis. Denies rash. PHYSICAL EXAM: VITAL SIGNS: Reviewed GENERAL: Well-developed in no acute distress. HEENT: No sclera icterus. Extraocular movements grossly intact. Moist buccal mucosa. Head is atraumatic, normocephalic. No nasal drainage. ABDOMEN: Soft. Nondistended. Nontender NEUROLOGIC: Alert and oriented. Cranial nerves II through XII grossly intact. LABORATORY DATA: WBC 16.7 down to 13.8 Hgb 10.7 platelets 214 Sodium 131 potassium 4.5 creatinine 0.46 Elevated troponins Albumin 3.9 IMAGING: ASSESSMENT: 1. Squamous cell carcinoma of the tongue/larynx 2. Dysphagia 3. Failed swallow eval 4. Severe protein calorie malnutrition PLAN: -Patient scheduled for PEG tube placement tomorrow, 01/07/24 with Thank you for this consultation Physician Film Maker note has been reviewed by physician. Signing provider agrees with the documented findings, assessment, and plan of care. Past Medical History Past Medical History: Cancer, COPD, CVA/TIA, Seizure Disorder Additional Past Medical History / Comment(s): TIA summer 2019-no residual effects, lung cancer 2019-had radiation & chemo which is finished, immunotherapy every 2 weeks, last seizure approx. 8 months ago History of Any Multi-Drug Resistant Organisms: None Reported Additional Past Surgical History / Comment(s): mediport left side, brain surg. for dermoid cysts >20 yrs. ago, throat cancer, lung cancer, seizure disorder Past Anesthesia/Blood Transfusion Reactions: No Reported Reaction Smoking Status: Current every day smoker Past Alcohol Use History: Heavy Additional Past Alcohol Use History / Comment(s): used to drink heavily, hasn't since November 2018, 1ppd down from 3ppd since teens Past Drug Use History: Marijuana Additional Drug Use History / Comment(s): edibles Medications and Allergies Home Medications Medication Instructions Recorded Confirmed Type Lacosamide [Vimpat] 150 mg PO BID 08/20/20 01/04/24 History levETIRAcetam [Keppra] 1,000 mg PO HS 08/20/20 01/04/24 History levETIRAcetam [Keppra] 750 mg PO DAILY 08/20/20 01/04/24 History Atorvastatin Calcium [Lipitor] 40 mg PO HS 04/28/23 01/04/24 History Fluticasone/Umeclidin/Vilanter 1 puff INHALATION RT-DAILY 04/28/23 01/04/24 History [Trelegy Ellipta 100-62.5-25] Ibuprofen [Motrin] 800 mg PO TID PRN 04/28/23 01/04/24 History Baclofen [Lioresal] 10 mg PO TID PRN 01/04/24 01/04/24 History HYDROcodone/APAP 5-325MG [Banco 1 tab PO Q6H PRN 01/04/24 01/04/24 History 5-325] Lidocaine Viscous 2% [Xylocaine 10 - 15 ml MUCOUS MEM ACHS 01/04/24 01/04/24 History Viscous] Omeprazole [PriLOSEC] 20 mg PO DAILY 01/04/24 01/04/24 History Allergies Allergy/AdvReac Type Severity Reaction Status Date / Time No Known Allergies Allergy Verified 01/04/24 17:20 Surgical - Exam Vital Signs Resp 30 H 09/18/24 16:55 Results - Labs 01/06/24 07:52 01/06/24 06:52 Abnormal Lab Results - Last 24 Hours (Table) 01/05/24 01/05/24 01/05/24 Range/Units 16:38 17:45 20:03 WBC (3.8-10.6) k/uL RBC (4.30-5.90) m/uL Hgb (13.0-17.5) gm/dL Hct (39.0-53.0) % Neutrophils # (1.3-7.7) k/uL Lymphocytes # (1.0-4.8) k/uL APTT 38.6 H (22.0-30.0) sec Sodium (137-145) mmol/L Chloride (98-107) mmol/L Creatinine (0.66-1.25) mg/dL Glucose (74-99) mg/dL POC Glucose (mg/dL) 136 H 134 H (70-110) mg/dL 01/06/24 01/06/24 01/06/24 Range/Units 01:40 06:10 06:52 WBC (3.8-10.6) k/uL RBC (4.30-5.90) m/uL Hgb (13.0-17.5) gm/dL Hct (39.0-53.0) % Neutrophils # (1.3-7.7) k/uL Lymphocytes # (1.0-4.8) k/uL APTT 46.2 H (22.0-30.0) sec Sodium 131 L (137-145) mmol/L Chloride 97 L (98-107) mmol/L Creatinine 0.46 L (0.66-1.25) mg/dL Glucose 106 H (74-99) mg/dL POC Glucose (mg/dL) 125 H (70-110) mg/dL 01/06/24 01/06/24 01/06/24 Range/Units 07:52 08:58 11:40 WBC 13.8 H (3.8-10.6) k/uL RBC 3.59 L (4.30-5.90) m/uL Hgb 10.7 L (13.0-17.5) gm/dL Hct 32.3 L (39.0-53.0) % Neutrophils # 13.2 H (1.3-7.7) k/uL Lymphocytes # 0.2 L (1.0-4.8) k/uL APTT 41.7 H (22.0-30.0) sec Sodium (137-145) mmol/L Chloride (98-107) mmol/L Creatinine (0.66-1.25) mg/dL Glucose (74-99) mg/dL POC Glucose (mg/dL) 186 H (70-110) mg/dL Microbiology - Last 24 Hours (Table) 01/04/24 17:53 Blood Culture - Preliminary Blood Diabetes panel 01/06/24 Range/Units 06:52 Sodium 131 L (137-145) mmol/L Potassium 4.5 (3.5-5.1) mmol/L Chloride 97 L (98-107) mmol/L Carbon Dioxide 29 (22-30) mmol/L BUN 13 (9-20) mg/dL Creatinine 0.46 L (0.66-1.25) mg/dL Glucose 106 H (74-99) mg/dL Calcium 9.0 (8.4-10.2) mg/dL Calcium panel 01/06/24 Range/Units 06:52 Calcium 9.0 (8.4-10.2) mg/dL Pituitary panel 01/06/24 Range/Units 06:52 Sodium 131 L (137-145) mmol/L Potassium 4.5 (3.5-5.1) mmol/L Chloride 97 L (98-107) mmol/L Carbon Dioxide 29 (22-30) mmol/L BUN 13 (9-20) mg/dL Creatinine 0.46 L (0.66-1.25) mg/dL Glucose 106 H (74-99) mg/dL Calcium 9.0 (8.4-10.2) mg/dL Adrenal panel 01/06/24 Range/Units 06:52 Sodium 131 L (137-145) mmol/L Potassium 4.5 (3.5-5.1) mmol/L Chloride 97 L (98-107) mmol/L Carbon Dioxide 29 (22-30) mmol/L BUN 13 (9-20) mg/dL Creatinine 0.46 L (0.66-1.25) mg/dL Glucose 106 H (74-99) mg/dL Calcium 9.0 (8.4-10.2) mg/dL
--- NOTE | 2024-01-06 14:47 | P.PN ---
Subjective Progress Note Date: 01/06/24 Patient is a 53-year-old male with past medical history of COPD, current tobacco use, and previous history of lung and laryngeal cancer presented to the emergency department for shortness of breath for a few hours. He states that he uses oxygen at home inconsistently and does not know how much. He states that this is the first time he has had significant shortness of breath like this. He has not seen his oncologist or manager market development for a while now. While in the ED he had hypoxia in the 70s and was placed on BiPAP. Additionally his D-dimer was noted to be elevated and was given heparin and a chest x-ray was performed. States that he has been having difficulty swallowing. He endorses chest pain at the time but attributed it to the shallow breathing and says he does not think it was heart related, abdominal pain due to the rapid breathing, he states that he loses about 5 pounds per week and tries really hard to put it back on. He denies palpitations, fever, chills, nausea, vomiting. Pulmonary was consulted. Cardiology consulted for elevated troponin. Chest x-ray shows right lower lobe and minimal left lower lobe infiltrates. EKG showed sinus tachycardia with a rate of 150 bpm. Chest CTA revealed: Aspiration pneumonia at the right lung base with debris in the right mainstem bronchus, moderate centrilobular emphysema, small right pleural effusion, thickening throughout the right hilar regionlikely underlying neoplasm. Initial labs: WBCs 19.1, hemoglobin 15.7, platelets 315, sodium 125, potassium 4, CO2 21, creatinine 0.70, lactic acid 4.8, calcium 8.8, magnesium 0.8, D-dimer 1.79, troponin 0.507. Troponin trend: 0.507, 0.466, 0.415. Afebrile, normotensive, tachycardic in the [id number], tachypneicrespiratory rate of 30labored with accessory muscle use. 01/05. Patient seen and examined in bed. He endorses mild shortness of breath. Denies chest pain, palpitations, abdominal pain. WBCs 13.8, hemoglobin 10.7, sodium 131, magnesium 1.7, procalcitonin 7.91. ROS reviewed. Pertinent positives. Swallow evaluation revealed aspiration into the lungs and negatives discussed above, a complete review of systems was performed and all the other systems were negative. Vital signs are stable. General: No acute distress. AOx4. HEENT: Head exam is unremarkable. EOMI bilaterally. ACs patent. Nares patent. Lungs: Bilateral decreased breath sounds; no rhonchi, wheezes, or rales. Heart: Rate and rhythm are regular. S1-S2 present. No murmur/rub/gallops. Abdomen: Soft, nontender, nondistended. Bowel sounds present. Extremities: No edema present. Symmetric movement. Psych: Normal affect and mood. Cooperative. Assessment/Plan: Pneumonia, likely aspiration due to dysphagia Continue Zithromax Continue Rocephin Dysphagia Bedside swallow evaluation failed Barium swallow evaluation failed Recommend PEG tube-surgery consultedd Acute on chronic hypoxic respiratory failure COPD exacerbation Pulmonolgy consulted Continue nasal cannula 4 L Continue DuoNebs Continue Solu-Medrol Continue Perforomist Continue Pulmicort History of lung cancer and squamous cell carcinoma of the tongue Likely recurrence Heme/onc consultedrecommendations: Treatment with combination of chemotherapy with immunotherapy versus immunotherapy alone; scheduled for 01/15 follow-up Hyponatremia, possibly secondary to SIADH Discontinue IV fluids Fluid restriction of 1800 cc DVT prophylaxis: heparin Chronic conditions: COPD, hyperlipidemia, seizure disorder, previous history of lung cancer, laryngeal cancer Attestation I have seen and examined this patient with my resident , discussed the same with the resident/OKBI, and agree with the dictator's assessment and plan as written Dr. Gustavo coates [ ] Objective - Vital Signs Vital signs: Vital Signs Temp 97.9 F 01/06/24 03:33 Pulse 98 01/06/24 03:33 Resp 20 01/06/24 03:33 BP 122/76 01/06/24 03:33 Pulse Ox 97 01/06/24 03:33 FiO2 50 01/05/24 00:08 Intake & Output 01/05/24 01/06/24 01/06/24 18:59 06:59 18:59 Intake Total 127.663 77.235 Output Total 2400 1450 Balance -2272.337 -1372.765 Weight 60.5 kg 58.1 kg Intake: IV 20 Invasive Line 1 20 Intake, IV Titration 127.663 57.235 Amount Heparin Sod,Pork in 0.45% 127.663 57.235 NaCl 25,000 unit In 0.45 % NaCl 1 250ml.bag @ 12 UNITS/KG/HR 7.457 mls/hr IV .Q24H [facility] Rx#: [id number] Output: Urine 2400 1450 Other: Voiding Method External Catheter External Catheter # Voids 1 - Labs CBC & Chem 7: 01/07/24 05:46 01/07/24 05:46 Labs: Abnormal Lab Results - Last 24 Hours (Table) 01/05/24 01/05/24 01/05/24 Range/Units 00:42 10:58 11:46 APTT 37.2 H (22.0-30.0) sec POC Glucose (mg/dL) 152 H (70-110) mg/dL Procalcitonin 7.91 H (0.02-0.50) ng/mL 01/05/24 01/05/24 01/05/24 Range/Units 16:38 17:45 20:03 APTT 38.6 H (22.0-30.0) sec POC Glucose (mg/dL) 136 H 134 H (70-110) mg/dL Procalcitonin (0.02-0.50) ng/mL 01/06/24 01/06/24 Range/Units 01:40 06:10 APTT 46.2 H (22.0-30.0) sec POC Glucose (mg/dL) 125 H (70-110) mg/dL Procalcitonin (0.02-0.50) ng/mL Microbiology - Last 24 Hours (Table) 01/04/24 17:53 Blood Culture - Preliminary Blood
[2024-01-06 16:11] LABS: Glucose,Whole Blood 248 mg/dL (70-110)
[2024-01-06] MEDS: HYDROcodone/APAP 5-325MG 1 EACH TAB PO PRN (18:21)
[2024-01-06 19:59] LABS: Glucose,Whole Blood 178 mg/dL (70-110)
[2024-01-07 06:10] LABS: Glucose,Whole Blood 122 mg/dL (70-110)
[2024-01-07 07:08] LABS: Basophils % (A) 0 %; Eosinophils % (A) 0 %; HCT 33.9 % (39.0-53.0); HGB 11.1 gm/dL (13.0-17.5); Lymphocytes # (A) 0.2 k/uL (1.0-4.8); Lymphocytes % (A) 2 %; MCH 29.8 pg (25.0-35.0); MCHC 32.8 g/dL (31.0-37.0); MCV 90.7 fL (80.0-100.0); Mean Platelet Volume 6.9; Monocytes # (A) 0.3 k/uL (0-1.0); Monocytes % (A) 4 %; Neutrophils # (A) 8.9 k/uL (1.3-7.7); Neutrophils % (A) 94 %; Platelet Count 244 k/uL (150-450); RBC 3.73 m/uL (4.30-5.90); RDW 12.9 % (11.5-15.5); WBC 9.5 k/uL (3.8-10.6)
[2024-01-07 07:21] LABS: African American GFR (CKD) >90 (>60 ml/min/1.73 sqM); Anion Gap 5 mmol/L; Blood Urea Nitrogen 15 mg/dL (9-20); Calcium 9.6 mg/dL (8.4-10.2); Carbon Dioxide 31 mmol/L (22-30); Chloride 96 mmol/L (98-107); Glucose 106 mg/dL (74-99); Non-African American GFR(CKD) >90 (>60 ml/min/1.73 sqM); Potassium 4.1 mmol/L (3.5-5.1); Sodium 132 mmol/L (137-145)
--- NOTE | 2024-01-07 07:22 | P.PN ---
Progress Note - Text Progress Note Date: 01/07/24 DEEPALIEO. Resting comfortable PHYSICAL EXAM: VSS GENERAL: Well-developed in no acute distress. HEENT: No sclera icterus. Extraocular movements grossly intact. Moist buccal mucosa. Head is atraumatic, normocephalic. No nasal drainage. ABDOMEN: Soft. Nondistended. Nontender NEUROLOGIC: Alert and oriented. Cranial nerves II through XII grossly intact. ASSESSMENT: 1. Squamous cell carcinoma of the tongue/larynx 2. Dysphagia 3. Failed swallow eval 4. Severe protein calorie malnutrition PLAN: -EGD with PEG Placement this AM Rio Pierce [facility] [phone]
[2024-01-07] MEDS ORDERED: PROPOFOL 10 MG/ML 20 ML VIAL IV ONE (07:31)
[2024-01-07] MEDS: LACTATED RINGERS 1,000 ML IV ONE (07:49)
[2024-01-07] MEDS: predniSONE 10 MG TAB PO SCH (08:32)
--- NOTE | 2024-01-07 09:41 | P.OP ---
Date of Procedure: 01/07/24 Preoperative Diagnosis: SCC of Tongue Postoperative Diagnosis: SCC of Tongue Procedure(s) Performed: EGD with PEG Tube Placement Anesthesia: other (Sedation) Surgeon: Rio Pierce Pathology: none sent Condition: stable Disposition: PACU Description of Procedure: The patient was taken to the endoscopy suite. He was placed in 30 degrees head- up position. A time-out was performed, and the patient and the planned procedure were confirmed with all those present. He was placed on pulse oximetry and a mon itor as well as nasal cannula oxygen. He was sedated with propofol. Once an adequate level of sedation was reached, a bite block was placed, and his esophagus was intubated. We then passed the GE junction and entered the stomach. We continued the endoscopy out to the first portion of the duodenum. There were no ulcers present. A retroflexed view of the GE junction revealed no hiatal hernia. The light from the endoscope was readily visible through the patient's anterior abdominal wall, 2 cm inferior to the left costal margin. This transilluminated quite easily. A single finger impulse was seen briskly through the gastroscope as well. The patient's epigastrium was then prepped with Betadine and draped in a standard sterile fashion. We used a local needle to infiltrate the skin over the proposed PEG site first. This was infiltrated with a wheal of lidocaine. The local needle was then used to enter the stomach. Suction was held on this as it was used to enter the stomach, and we saw no air or succus or stool prior to entering the gastric lumen. Local was then infiltrated as we withdrew the needle along the path of this. A small stab incision was then made, and the introducer needle was then placed while aspirating into the gastric lumen. Again, no air, succus or stool was noted prior to visualizing the tip of the needle in the gastric lumen. The guidewire was then placed through the introducer needle. This was grasped and was withdrawn through the patient's mouth. This was then attached to a #20 Ponsky PEG tube, which was then pulled in an antegrade manner into the stomach a nd out the anterior abdominal wall. The esophagus was reentered better with the gastroscope, and this was advanced into the stomach. The tube at 2 cm was noted to be not too tight or not too loose but to appear just right without any blanching of the gastric mucosa. It appeared it spun easily as well. It was secured at this depth, then cut to size, and placed to gravity drainage. The stomach was then desufflated, and the endoscope was then withdrawn along the length of the esophagus. The patient tolerated the procedure well, and with supplemental oxygen, remained with saturations greater than 95% throughout the procedure. There were no complications. The patient was then taken to the recovery room in stable condition.
--- NOTE | 2024-01-07 09:51 | P.PN ---
Subjective Progress Note Date: 01/07/24 Principal diagnosis: Shortness of breath. Patient is a 53-year-old white male with past medical history significant for COPD, chronic ongoing tobacco dependence, previous history of lung cancer, laryngeal cancer, seizure disorder, hyperlipidemia, TIA/CVA. His primary care provider is Dr. Alberto. He does follow in the pulmonary office with Dr. Fowler. Patient has severe COPD with an FEV1 36% of predicted. Utilizes Trelegy maintenance inhaler. Continues to smoke cigarettes. Patient also has history of lung cancer which was diagnosed back in 2019, and is status post lorenzo moradiation. Subsequently, found to have laryngeal cancer, underwent radiation. Patient is not a good historian. He reports that he is not on any treatment at this time. I am unsure of who his established oncologist is. Most recent PET scan done 11/24/2023 consistent with progression of disease with new scattered metastatic disease throughout the thorax. Decrease in size of the oropharynx up take along the right lateral tongue compared to prior; however, there is increasing right lateral neck activity with increasing lymph node size. Patient reportedly presented to the emergency department yesterday afternoon in acute respiratory distress. He was hypoxic. He was placed on BiPAP. Chest x-ray demonstrating new bibasilar opacities, right greater than left. Chronic hyperinflation consistent with COPD. CBC: WBC count 19.1, hemoglobin 15.7, hematocrit 45.8, platelets 315. CMP: Sodium 125, potassium 4, chloride 90, serum bicarb 20, BUN 13, creatinine 0.78, glucose 115. Lactic 4.8 and down to 3.1. Magnesium critically low at 0.8. EKG consistent with regular, rapid narrow complex tachycardia with a rate of 150 bpm. Serial troponins elevated at 0.51 and 0.47 respectively. Patient was started on heparin infusion per protocol. D-dimer also elevated. Given patient's history of malignancy, would recommend ruling out PE. Patient is currently being evaluated on the cardiac floor. He is on BiPAP with settings 14/6 and FiO2 of 50%. Respiratory rate is 19. Tidal volumes in the 600s. He is lethargic. I did order an ABG which has a PaO2 of 99, pCO2 of 41, pH of 7.41. He is a poor historian, and does not offer much information for HPI. Reporting some substernal chest pain nonradiating. Will not elaborate further. No particular coughing. No stridor. No significant adventitious lung sounds. Afebrile. He was negative for influenza A/B, RSV, COVID. He is empirically started on azithromycin and Rocephin for community- acquired pneumonia. Normal saline infusing at 130 mL/h. IV heparin continues per protocol. Prognosis certainly guarded. Progress note dated January 06, 2024. 53-year-old male with history of severe COPD. FEV1 is 36% of predicted. The patient was seen in consultation yesterday, with acute hypoxemic respiratory failure, being maintained on BiPAP. Chest x-ray suggested bibasilar airspace opacities, possibly consistent with underlying pneumonia. He has a history of other medical problems including laryngeal carcinoma, lung cancer, chronic and ongoing tobacco dependence, and alcoholism, to name a few. Currently, the patient is on nasal oxygen. He is at 4 L. He feels like his breathing is improved. Laboratory data includes a white count 13.8, hemoglobin 10.7, hematocrit 32.3, and a platelet count of 214,000. Sodium 131, potassium 4.5, chlorides 97, CO2 29, BUN 13, creatinine 0.46. Glucose is 106. Magnesium is 1.7. Progress note dated January 07, 2024. 53-year-old male seen today in room 350. Currently, the patient is on O2, by nasal cannula at 4 L. Saturations are 99%. He did use a BiPAP on and off last night, with settings of 10/6, and 50%. He is not receiving any IV fluids. He is currently on azithromycin, and Rocephin. His Solu-Medrol is changed to prednisone, and his formoterol and budesonide, are switched to Symbicort. Microbiology is currently negative. Objective - Vital Signs Vital signs: Vital Signs Temp 98.1 F 01/07/24 04:00 Pulse 76 01/07/24 04:00 Resp 16 01/07/24 04:00 BP 142/78 01/07/24 04:00 Pulse Ox 95 01/07/24 04:00 FiO2 50 01/05/24 00:08 Intake & Output 01/06/24 01/07/24 01/07/24 18:59 06:59 18:59 Intake Total 184.400 200 Output Total 300 Balance -115.600 200 Weight 58.4 kg Intake: IV 200 Intake, IV Titration 184.400 Amount Heparin Sod,Pork in 0.45% 184.400 NaCl 25,000 unit In 0.45 % NaCl 1 250ml.bag @ 12 UNITS/KG/HR 7.457 mls/hr IV .Q24H [facility] Rx#: [id number] Output: Urine 300 Other: Voiding Method External Catheter External Catheter - Exam No acute distress, oriented 3. Currently on 4 L nasal cannula. Saturations are 95%. HEENT examination is grossly unremarkable. Mucous membranes are moist. No oral lesions. Neck supple. Full range of motion. No adenopathy thyromegaly or neck vein distention. Cardiovascular examination reveals regular rhythm rate. S1-S2 normal. No S3 or S4. No discernible murmur noted. Heart rate is 80 bpm. Lungs reveal scattered rhonchi. No expiratory wheezes or crackles. Breath sounds equal. Breath sounds are diminished throughout. Abdomen soft bowel sounds are heard. No masses or tenderness. Extremities are intact. No cyanosis clubbing or edema. Skin is without rash or lesion. Neurologic examination is brief but nonfocal. - Labs CBC & Chem 7: 01/07/24 05:46 01/07/24 05:46 Labs: Abnormal Lab Results - Last 24 Hours (Table) 01/06/24 01/06/24 01/06/24 Range/Units 11:40 14:55 16:09 RBC (4.30-5.90) m/uL Hgb (13.0-17.5) gm/dL Hct (39.0-53.0) % Neutrophils # (1.3-7.7) k/uL Lymphocytes # (1.0-4.8) k/uL APTT 38.3 H (22.0-30.0) sec Sodium (137-145) mmol/L Chloride (98-107) mmol/L Carbon Dioxide (22-30) mmol/L Creatinine (0.66-1.25) mg/dL Glucose (74-99) mg/dL POC Glucose (mg/dL) 186 H 248 H (70-110) mg/dL 01/06/24 01/07/24 01/07/24 Range/Units 19:58 05:46 05:46 RBC 3.73 L (4.30-5.90) m/uL Hgb 11.1 L (13.0-17.5) gm/dL Hct 33.9 L (39.0-53.0) % Neutrophils # 8.9 H (1.3-7.7) k/uL Lymphocytes # 0.2 L (1.0-4.8) k/uL APTT (22.0-30.0) sec Sodium 132 L (137-145) mmol/L Chloride 96 L (98-107) mmol/L Carbon Dioxide 31 H (22-30) mmol/L Creatinine 0.56 L (0.66-1.25) mg/dL Glucose 106 H (74-99) mg/dL POC Glucose (mg/dL) 178 H (70-110) mg/dL 01/07/24 Range/Units 06:08 RBC (4.30-5.90) m/uL Hgb (13.0-17.5) gm/dL Hct (39.0-53.0) % Neutrophils # (1.3-7.7) k/uL Lymphocytes # (1.0-4.8) k/uL APTT (22.0-30.0) sec Sodium (137-145) mmol/L Chloride (98-107) mmol/L Carbon Dioxide (22-30) mmol/L Creatinine (0.66-1.25) mg/dL Glucose (74-99) mg/dL POC Glucose (mg/dL) 122 H (70-110) mg/dL Microbiology - Last 24 Hours (Table) 01/04/24 17:53 Blood Culture - Preliminary Blood Assessment and Plan Assessment: Acute hypoxemic respiratory failure, with bibasilar airspace opacities, right greater than left, concerning for community-acquired pneumonia. Elevated troponins, rule out non-ST elevation [place]. Severe hypomagnesemia. Hyponatremia, possible SIADH. Laryngeal cancer, with disease progression and metastasis to the lungs and pulmonary hilum. History of lung cancer, previously diagnosed back in 2019, status post chemo/radiation. Severe chronic obstructive pulmonary disease, with an FEV1 36% of predicted. Chronic ongoing tobacco dependence. History of alcoholism. History of COVID/RSV. Seizure disorder. History of hyperlipidemia. History of CVA/TIA. Plan: Plan dated January 06, 2024. The patient is seen in room 350. The patient continues on oxygen, at 4 L by nasal cannula. The patient continues on azithromycin, and ceftriaxone for community-acquired pneumonia. In addition, the patient continues on Pulmicort 1 mg twice a day, mixed with formoterol 20 mcg twice a day. The patient is also receiving DuoNebs, 4 times daily and as needed. Finally, the patient is getting Solu-Medrol 60 mg every 6 hours. Labs, x-rays, and medications are reviewed. We will continue to follow the patient, and make recommendations. Plan dated January 07, 2024. The patient appears relatively stable. His saturations on 4 L are 99%. The FiO2 could be titrated down. He did spend some time on BiPAP last night, with settings of 10/6, 50%. He is not receiving any IV fluids. He continues on both azithromycin or Rocephin. The Solu-Medrol was converted to prednisone. Formoterol and budesonide is converted to Symbicort. We will continue to follow make recommendations along the way. Prognosis is guarded. Time with Patient: Less than 30
[2024-01-07] MEDS: HYDROmorphone 0.5 MG/0.5 ML SYRINGE IVP PRN (09:59)
[2024-01-07 11:17] LABS: Glucose,Whole Blood 125 mg/dL (70-110)
--- NOTE | 2024-01-07 13:26 | P.PN ---
Subjective Progress Note Date: 01/07/24 Patient is a 53-year-old male with past medical history of COPD, current tobacco use, and previous history of lung and laryngeal cancer presented to the emergency department for shortness of breath for a few hours. He states that he uses oxygen at home inconsistently and does not know how much. He states that this is the first time he has had significant shortness of breath like this. He has not seen his oncologist or technology coach for a while now. While in the ED he had hypoxia in the 70s and was placed on BiPAP. Additionally his D-dimer was noted to be elevated and was given heparin and a chest x-ray was performed. States that he has been having difficulty swallowing. He endorses chest pain at the time but attributed it to the shallow breathing and says he does not think it was heart related, abdominal pain due to the rapid breathing, he states that he loses about 5 pounds per week and tries really hard to put it back on. He denies palpitations, fever, chills, nausea, vomiting. Pulmonary was consulted. Cardiology consulted for elevated troponin. Chest x-ray shows right lower lobe and minimal left lower lobe infiltrates. EKG showed sinus tachycardia with a rate of 150 bpm. Chest CTA revealed: Aspiration pneumonia at the right lung base with debris in the right mainstem bronchus, moderate centrilobular emphysema, small right pleural effusion, thickening throughout the right hilar regionlikely underlying neoplasm. Initial labs: WBCs 19.1, hemoglobin 15.7, platelets 315, sodium 125, potassium 4, CO2 21, creatinine 0.70, lactic acid 4.8, calcium 8.8, magnesium 0.8, D-dimer 1.79, troponin 0.507. Troponin trend: 0.507, 0.466, 0.415. Afebrile, normotensive, tachycardic in the [id number], tachypneicrespiratory rate of 30labored with accessory muscle use. 01/05. Patient seen and examined in bed. He endorses mild shortness of breath. Denies chest pain, palpitations, abdominal pain. WBCs 13.8, hemoglobin 10.7, sodium 131, magnesium 1.7, procalcitonin 7.91. 01/06. Patient seen laying comfortably in bed. He had PEG tube placement this morning. Used BiPAP 10/650% last night. Endorses pain at the surgical site. WBCs 9.5, hemoglobin 11.1, sodium 132. Patient is continually asking for water PO as his throat is very dry. He states that he understands the risk of aspiration and would like water. ROS reviewed. Pertinent positives and negatives discussed above, a complete review of systems was performed and all the other systems were negative. Vital signs are stable. General: No acute distress. AOx4. HEENT: Head exam is unremarkable. EOMI bilaterally. ACs patent. Nares patent. Lungs: Bilateral decreased breath sounds; no rhonchi, wheezes, or rales. Heart: Rate and rhythm are regular. S1-S2 present. No murmur/rub/gallops. Abdomen: Soft, tender due to PEG tube placement, nondistended. Bowel sounds present. Extremities: No edema present. Symmetric movement. Psych: Normal affect and mood. Cooperative. Assessment/Plan: Pneumonia, likely aspiration due to dysphagia Continue Zithromax Continue Rocephin Dysphagia Bedside swallow evaluation failed Barium swallow evaluation failed PEG tube placed today Maintain NPO Can begin medications through PEG tube today per surgery On 01/07 can begin trickle feeds at 10 cc/hour per surgery Acute on chronic hypoxic respiratory failure COPD exacerbation Pulmonolgy consulted: Symbicort, prednisone, DuoNebs per recommendations Continue nasal cannula 4 L History of lung cancer and squamous cell carcinoma of the tongue Likely recurrence Heme/onc consultedrecommendations: Treatment with combination of chemotherapy with immunotherapy versus immunotherapy alone; scheduled for 01/15 follow-up Hyponatremia, possibly secondary to SIADH Discontinue IV fluids Fluid restriction of 1800 cc DVT prophylaxis: heparin Chronic conditions: COPD, hyperlipidemia, seizure disorder, previous history of lung cancer, laryngeal cancer Attestation I have seen and examined this patient with my resident , discussed the same with the resident/KOBI, and agree with the dictator's assessment and plan as written Dr. Gustavo coates Objective - Vital Signs Vital signs: Vital Signs Temp 98.1 F 01/07/24 04:00 Pulse 76 01/07/24 04:00 Resp 16 01/07/24 04:00 BP 142/78 01/07/24 04:00 Pulse Ox 95 01/07/24 04:00 FiO2 50 01/05/24 00:08 Intake & Output 01/06/24 01/07/24 01/07/24 18:59 06:59 18:59 Intake Total 184.400 200 Output Total 300 Balance -115.600 200 Weight 58.4 kg Intake: IV 200 Intake, IV Titration 184.400 Amount Heparin Sod,Pork in 0.45% 184.400 NaCl 25,000 unit In 0.45 % NaCl 1 250ml.bag @ 12 UNITS/KG/HR 7.457 mls/hr IV .Q24H [facility] Rx#: [id number] Output: Urine 300 Other: Voiding Method External Catheter External Catheter - Labs CBC & Chem 7: 01/09/24 05:21 01/09/24 05:32 Labs: Abnormal Lab Results - Last 24 Hours (Table) 01/06/24 01/06/24 01/06/24 Range/Units 11:40 14:55 16:09 RBC (4.30-5.90) m/uL Hgb (13.0-17.5) gm/dL Hct (39.0-53.0) % Neutrophils # (1.3-7.7) k/uL Lymphocytes # (1.0-4.8) k/uL APTT 38.3 H (22.0-30.0) sec Sodium (137-145) mmol/L Chloride (98-107) mmol/L Carbon Dioxide (22-30) mmol/L Creatinine (0.66-1.25) mg/dL Glucose (74-99) mg/dL POC Glucose (mg/dL) 186 H 248 H (70-110) mg/dL 01/06/24 01/07/24 01/07/24 Range/Units 19:58 05:46 05:46 RBC 3.73 L (4.30-5.90) m/uL Hgb 11.1 L (13.0-17.5) gm/dL Hct 33.9 L (39.0-53.0) % Neutrophils # 8.9 H (1.3-7.7) k/uL Lymphocytes # 0.2 L (1.0-4.8) k/uL APTT (22.0-30.0) sec Sodium 132 L (137-145) mmol/L Chloride 96 L (98-107) mmol/L Carbon Dioxide 31 H (22-30) mmol/L Creatinine 0.56 L (0.66-1.25) mg/dL Glucose 106 H (74-99) mg/dL POC Glucose (mg/dL) 178 H (70-110) mg/dL 01/07/24 Range/Units 06:08 RBC (4.30-5.90) m/uL Hgb (13.0-17.5) gm/dL Hct (39.0-53.0) % Neutrophils # (1.3-7.7) k/uL Lymphocytes # (1.0-4.8) k/uL APTT (22.0-30.0) sec Sodium (137-145) mmol/L Chloride (98-107) mmol/L Carbon Dioxide (22-30) mmol/L Creatinine (0.66-1.25) mg/dL Glucose (74-99) mg/dL POC Glucose (mg/dL) 122 H (70-110) mg/dL Microbiology - Last 24 Hours (Table) 01/04/24 17:53 Blood Culture - Preliminary Blood
--- NOTE | 2024-01-07 14:07 | P.PN ---
Subjective Progress Note Date: 01/07/24 This is Alfredo Montejo NP, I'm dictating on behalf of Dr. Kaur's H&P and A&P. Patient was interviewed and examined. Patient is a pleasant 53-year-old male who presented to the hospital with COPD and acute respiratory failure, with elevated troponins. Patient reports that he is tired, exhausted, and not feeling well today. His vital signs are okay. His labs are within reasonable limits. He is denying chest pain or pressure at this time. He is denying shortness of breath. GENERAL: Well-appearing, well-nourished and in no acute distress. NECK: Supple without JVD or thyromegaly. LUNGS: Breath sounds clear to auscultation bilaterally. Respiration equal and unlabored. No wheezes, rales or rhonchi. HEART: Regular rate and rhythm without murmurs, rubs or gallops. S1 and S2 heard. EXTREMITIES: Normal range of motion, no edema. No clubbing or cyanosis. Peripheral pulses intact and strong. VITALS: Temp 98.0, pulse 82, respirations 16, blood pressure 130/84, O2 saturation 95% on 4 L TELEMETRY: Sinus mechanism LABS: White count 9.5, hemoglobin 11.1, platelets 244, sodium 132, potassium 4.1, BUN 15, creatinine 0.56, calcium 9.6 IMPRESSION: 1. Elevated troponins, type II MS secondary to oxygen supply/demand mismatch 2. COPD 3. Shortness of breath 4. Acute hypoxic respiratory failure 5. Pneumonia 6. Hyperlipidemia 7. Severe pulmonary hypertension PLAN: Continue current medical management as ordered. Patient scheduled for EGD with PEG tube placement today with general surgery. Eventual outpatient ischemic workup recommended. Further recommendations based on patient's clinical course. Objective - Vital Signs Vital signs: Vital Signs Temp 98 F 01/07/24 11:35 Pulse 80 01/07/24 12:55 Resp 16 01/07/24 11:35 BP 130/84 01/07/24 11:35 Pulse Ox 95 01/07/24 11:35 FiO2 50 01/05/24 00:08 Intake & Output 01/06/24 01/07/24 01/07/24 18:59 06:59 18:59 Intake Total 184.400 200 Output Total 300 Balance -115.600 200 Weight 58.4 kg Intake: IV 200 Intake, IV Titration 184.400 Amount Heparin Sod,Pork in 0.45% 184.400 NaCl 25,000 unit In 0.45 % NaCl 1 250ml.bag @ 12 UNITS/KG/HR 7.457 mls/hr IV .Q24H [facility] Rx#: [id number] Output: Urine 300 Other: Voiding Method External Catheter External Catheter External Catheter # Voids 1 - Labs CBC & Chem 7: 01/07/24 05:46 01/07/24 05:46 Labs: Abnormal Lab Results - Last 24 Hours (Table) 01/06/24 01/06/24 01/06/24 Range/Units 14:55 16:09 19:58 RBC (4.30-5.90) m/uL Hgb (13.0-17.5) gm/dL Hct (39.0-53.0) % Neutrophils # (1.3-7.7) k/uL Lymphocytes # (1.0-4.8) k/uL APTT 38.3 H (22.0-30.0) sec Sodium (137-145) mmol/L Chloride (98-107) mmol/L Carbon Dioxide (22-30) mmol/L Creatinine (0.66-1.25) mg/dL Glucose (74-99) mg/dL POC Glucose (mg/dL) 248 H 178 H (70-110) mg/dL 01/07/24 01/07/24 01/07/24 Range/Units 05:46 05:46 06:08 RBC 3.73 L (4.30-5.90) m/uL Hgb 11.1 L (13.0-17.5) gm/dL Hct 33.9 L (39.0-53.0) % Neutrophils # 8.9 H (1.3-7.7) k/uL Lymphocytes # 0.2 L (1.0-4.8) k/uL APTT (22.0-30.0) sec Sodium 132 L (137-145) mmol/L Chloride 96 L (98-107) mmol/L Carbon Dioxide 31 H (22-30) mmol/L Creatinine 0.56 L (0.66-1.25) mg/dL Glucose 106 H (74-99) mg/dL POC Glucose (mg/dL) 122 H (70-110) mg/dL 01/07/24 Range/Units 11:16 RBC (4.30-5.90) m/uL Hgb (13.0-17.5) gm/dL Hct (39.0-53.0) % Neutrophils # (1.3-7.7) k/uL Lymphocytes # (1.0-4.8) k/uL APTT (22.0-30.0) sec Sodium (137-145) mmol/L Chloride (98-107) mmol/L Carbon Dioxide (22-30) mmol/L Creatinine (0.66-1.25) mg/dL Glucose (74-99) mg/dL POC Glucose (mg/dL) 125 H (70-110) mg/dL Microbiology - Last 24 Hours (Table) 01/04/24 17:53 Blood Culture - Preliminary Blood
[2024-01-07 16:42] LABS: Glucose,Whole Blood 123 mg/dL (70-110)
[2024-01-07 20:36] LABS: Glucose,Whole Blood 115 mg/dL (70-110)
[2024-01-07] MEDS: SYMBICORT 160-4.5 MCG INHALER INHALATION SCH (20:40)
--- NOTE | 2024-01-08 04:46 | P.PN ---
Progress Note - Text Progress Note Date: 01/08/24 LANDON. Patient is resting in bed comfortable. PHYSICAL EXAM: VSS GENERAL: Well-developed in no acute distress. HEENT: No sclera icterus. Extraocular movements grossly intact. Moist buccal mucosa. Head is atraumatic, normocephalic. No nasal drainage. ABDOMEN: Soft. Nondistended. Nontender, feeding tube in place NEUROLOGIC: Alert and oriented. Cranial nerves II through XII grossly intact. ASSESSMENT: 1. Squamous cell carcinoma of the tongue/larynx s/p EGD with PEG Tube Placement 2. Dysphagia 3. Failed swallow eval 4. Severe protein calorie malnutrition PLAN: -Ok to start Trickle Feeds at 10 cc/hr via PEG today. Do not advance over 10 cc/hr today -Ok for Meds via PEG -Pain Control Rio Pierce DO [facility] [phone]
[2024-01-08 06:08] LABS: Glucose,Whole Blood 87 mg/dL (70-110)
--- NOTE | 2024-01-08 10:47 | P.PN ---
Subjective Progress Note Date: 01/08/24 Principal diagnosis: Shortness of breath. Patient is a 53-year-old white male with past medical history significant for COPD, chronic ongoing tobacco dependence, previous history of lung cancer, laryngeal cancer, seizure disorder, hyperlipidemia, TIA/CVA. His primary care provider is Dr. Alberto. He does follow in the pulmonary office with Dr. Fowler. Patient has severe COPD with an FEV1 36% of predicted. Utilizes Trelegy maintenance inhaler. Continues to smoke cigarettes. Patient also has history of lung cancer which was diagnosed back in 2019, and is status post lorenzo moradiation. Subsequently, found to have laryngeal cancer, underwent radiation. Patient is not a good historian. He reports that he is not on any treatment at this time. I am unsure of who his established oncologist is. Most recent PET scan done 11/24/2023 consistent with progression of disease with new scattered metastatic disease throughout the thorax. Decrease in size of the oropharynx up take along the right lateral tongue compared to prior; however, there is increasing right lateral neck activity with increasing lymph node size. Patient reportedly presented to the emergency department yesterday afternoon in acute respiratory distress. He was hypoxic. He was placed on BiPAP. Chest x-ray demonstrating new bibasilar opacities, right greater than left. Chronic hyperinflation consistent with COPD. CBC: WBC count 19.1, hemoglobin 15.7, hematocrit 45.8, platelets 315. CMP: Sodium 125, potassium 4, chloride 90, serum bicarb 20, BUN 13, creatinine 0.78, glucose 115. Lactic 4.8 and down to 3.1. Magnesium critically low at 0.8. EKG consistent with regular, rapid narrow complex tachycardia with a rate of 150 bpm. Serial troponins elevated at 0.51 and 0.47 respectively. Patient was started on heparin infusion per protocol. D-dimer also elevated. Given patient's history of malignancy, would recommend ruling out PE. Patient is currently being evaluated on the cardiac floor. He is on BiPAP with settings 14/6 and FiO2 of 50%. Respiratory rate is 19. Tidal volumes in the 600s. He is lethargic. I did order an ABG which has a PaO2 of 99, pCO2 of 41, pH of 7.41. He is a poor historian, and does not offer much information for HPI. Reporting some substernal chest pain nonradiating. Will not elaborate further. No particular coughing. No stridor. No significant adventitious lung sounds. Afebrile. He was negative for influenza A/B, RSV, COVID. He is empirically started on azithromycin and Rocephin for community- acquired pneumonia. Normal saline infusing at 130 mL/h. IV heparin continues per protocol. Prognosis certainly guarded. Progress note dated January 06, 2024. 53-year-old male with history of severe COPD. FEV1 is 36% of predicted. The patient was seen in consultation yesterday, with acute hypoxemic respiratory failure, being maintained on BiPAP. Chest x-ray suggested bibasilar airspace opacities, possibly consistent with underlying pneumonia. He has a history of other medical problems including laryngeal carcinoma, lung cancer, chronic and ongoing tobacco dependence, and alcoholism, to name a few. Currently, the patient is on nasal oxygen. He is at 4 L. He feels like his breathing is improved. Laboratory data includes a white count 13.8, hemoglobin 10.7, hematocrit 32.3, and a platelet count of 214,000. Sodium 131, potassium 4.5, chlorides 97, CO2 29, BUN 13, creatinine 0.46. Glucose is 106. Magnesium is 1.7. Progress note dated January 07, 2024. 53-year-old male seen today in room 350. Currently, the patient is on O2, by nasal cannula at 4 L. Saturations are 99%. He did use a BiPAP on and off last night, with settings of 10/6, and 50%. He is not receiving any IV fluids. He is currently on azithromycin, and Rocephin. His Solu-Medrol is changed to prednisone, and his formoterol and budesonide, are switched to Symbicort. Microbiology is currently negative. Progress note dated January 08, 2024. The patient is seen in room 350. He continues on O2 at 4 L. He is getting saline at 20 cc an hour. He continues on Rocephin. All in all, the patient is doing reasonably well. Previously he was on azithromycin and Rocephin. No new labs today. Objective - Vital Signs Vital signs: Vital Signs Temp 97.5 F L 01/08/24 08:30 Pulse 67 01/08/24 08:44 Resp 16 01/08/24 08:30 BP 116/72 01/08/24 08:30 Pulse Ox 97 01/08/24 08:34 FiO2 50 01/05/24 00:08 Intake & Output 01/07/24 01/08/24 01/08/24 18:59 06:59 18:59 Intake Total 550 Output Total 1000 1075 Balance -450 -1075 Weight 57 kg Intake: IV 200 Intake, IV Titration 350 Amount Azithromycin 500 mg In 250 Sodium Chloride 0.9% 250 ml @ 250 mls/hr IVPB DAILY [facility] Rx#:[id number] cefTRIAXone 1 gm In 100 Sodium Chloride 0.9% 50 ml @ 100 mls/hr IVPB Q24HR [facility] Rx#:[id number] Output: Urine 1000 1075 Other: Voiding Method External Catheter Toilet Toilet Urinal Urinal # Voids 1 - Exam No acute distress, oriented 3. Currently on 4 L nasal cannula. Saturations are 95%. HEENT examination is grossly unremarkable. Mucous membranes are moist. No oral lesions. Neck supple. Full range of motion. No adenopathy thyromegaly or neck vein distention. Cardiovascular examination reveals regular rhythm rate. S1-S2 normal. No S3 or S4. No discernible murmur noted. Heart rate is 67 bpm. Lungs reveal scattered rhonchi. No expiratory wheezes or crackles. Breath sounds equal. Breath sounds are diminished throughout. Abdomen soft bowel sounds are heard. No masses or tenderness. Extremities are intact. No cyanosis clubbing or edema. Skin is without rash or lesion. Neurologic examination is brief but nonfocal. - Labs CBC & Chem 7: 01/07/24 05:46 01/07/24 05:46 Labs: Abnormal Lab Results - Last 24 Hours (Table) 01/07/24 01/07/24 01/07/24 Range/Units 11:16 16:41 20:13 POC Glucose (mg/dL) 125 H 123 H 115 H (70-110) mg/dL Microbiology - Last 24 Hours (Table) 01/04/24 17:53 Blood Culture - Preliminary Blood Assessment and Plan Assessment: Acute hypoxemic respiratory failure, with bibasilar airspace opacities, right greater than left, concerning for community-acquired pneumonia. Elevated troponins, rule out non-ST elevation AR. Severe hypomagnesemia. Hyponatremia, possible SIADH. Laryngeal cancer, with disease progression and metastasis to the lungs and pulmonary hilum. History of lung cancer, previously diagnosed back in 2019, status post chemo/radiation. Severe chronic obstructive pulmonary disease, with an FEV1 36% of predicted. Chronic ongoing tobacco dependence. History of alcoholism. History of COVID/RSV. Seizure disorder. History of hyperlipidemia. History of CVA/TIA. Plan: Plan dated January 06, 2024. The patient is seen in room 350. The patient continues on oxygen, at 4 L by nasal cannula. The patient continues on azithromycin, and ceftriaxone for community-acquired pneumonia. In addition, the patient continues on Pulmicort 1 mg twice a day, mixed with formoterol 20 mcg twice a day. The patient is also receiving DuoNebs, 4 times daily and as needed. Finally, the patient is getting Solu-Medrol 60 mg every 6 hours. Labs, x-rays, and medications are reviewed. We will continue to follow the patient, and make recommendations. Plan dated January 07, 2024. The patient appears relatively stable. His saturations on 4 L are 99%. The FiO2 could be titrated down. He did spend some time on BiPAP last night, with settings of 10/6, 50%. He is not receiving any IV fluids. He continues on both azithromycin or Rocephin. The Solu-Medrol was converted to prednisone. Formoterol and budesonide is converted to Symbicort. We will continue to follow make recommendations along the way. Prognosis is guarded. Plan dated January 08, 2024. The patient appears to be improving. He continues on O2 at 4 L. He continues on Rocephin. Labs, x-rays, medications are reviewed. The patient is feeling less short of breath. He is coughing less. He is producing less phlegm. Labs, x-rays, and all medications are reviewed. Prognosis is guarded. Time with Patient: Less than 30
[2024-01-08 11:49] LABS: Glucose,Whole Blood 89 mg/dL (70-110)
--- NOTE | 2024-01-08 12:57 | P.PN ---
Subjective Progress Note Date: 01/08/24 This is Alfredo Montejo NP, I'm dictating on behalf of Dr. Kaur's H&P and A&P. Patient was interviewed and examined. The patient is a pleasant 53-year-old male who presented to the hospital with COPD with acute respiratory failure, and had subsequent elevation of troponin secondary to demand ischemia. Patient this morning reports that he is feeling okay. He is denying chest pain and heart palpitations. Patient had a PEG tube placed yesterday due to significant difficulty swallowing. He is not ap preciating any other cardiac symptoms at this time. GENERAL: Well-appearing, well-nourished and in no acute distress. NECK: Supple without JVD or thyromegaly. LUNGS: Breath sounds clear to auscultation bilaterally. Respiration equal and unlabored. No wheezes, rales or rhonchi. HEART: Regular rate and rhythm without murmurs, rubs or gallops. S1 and S2 heard. EXTREMITIES: Normal range of motion, no edema. No clubbing or cyanosis. Peripheral pulses intact and strong. VITALS: Temp 97.5, pulse 70, respirations 16, blood pressure 116/72, O2 saturation 100% on 4 L nasal cannula TELEMETRY: Sinus mechanism LABS: No new labs since 01/07/2024 IMPRESSION: 1. Elevated troponins, type II IN secondary to oxygen supply/demand mismatch 2. COPD 3. Shortness of breath 4. Acute hypoxic respiratory failure 5. Pneumonia 6. Hyperlipidemia 7. Severe pulmonary hypertension PLAN: Continue current medical management as ordered. Patient received PEG tube placement yesterday, and reports he is doing well. Eventual outpatient ischemic workup is recommended. No further recommendations from a cardiology standpoint. Thank you for allowing us to participate in the care of this patient. Objective - Vital Signs Vital signs: Vital Signs Temp 97.9 F 01/07/24 19:35 Pulse 67 01/08/24 08:44 Resp 16 01/08/24 03:56 BP 124/70 01/08/24 03:56 Pulse Ox 97 01/08/24 08:34 FiO2 50 01/05/24 00:08 Intake & Output 01/07/24 01/08/24 01/08/24 18:59 06:59 18:59 Intake Total 550 Output Total 1000 1075 Balance -450 -1075 Weight 57 kg Intake: IV 200 Intake, IV Titration 350 Amount Azithromycin 500 mg In 250 Sodium Chloride 0.9% 250 ml @ 250 mls/hr IVPB DAILY [facility] Rx#:[id number] cefTRIAXone 1 gm In 100 Sodium Chloride 0.9% 50 ml @ 100 mls/hr IVPB Q24HR [facility] Rx#:[id number] Output: Urine 1000 1075 Other: Voiding Method External Catheter Toilet Urinal # Voids 1 - Labs CBC & Chem 7: 01/07/24 05:46 01/07/24 05:46 Labs: Abnormal Lab Results - Last 24 Hours (Table) 01/07/24 01/07/24 01/07/24 Range/Units 11:16 16:41 20:13 POC Glucose (mg/dL) 125 H 123 H 115 H (70-110) mg/dL Microbiology - Last 24 Hours (Table) 01/04/24 17:53 Blood Culture - Preliminary Blood
--- NOTE | 2024-01-08 13:34 | P.PN ---
Subjective Progress Note Date: 01/08/24 Patient is a 53-year-old male with past medical history of COPD, current tobacco use, and previous history of lung and laryngeal cancer presented to the emergency department for shortness of breath for a few hours. He states that he uses oxygen at home inconsistently and does not know how much. He states that this is the first time he has had significant shortness of breath like this. 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 While in the ED he had hypoxia in the 70s and was placed on BiPAP. Additionally his D-dimer was noted to be elevated and was given heparin and a chest x-ray was performed. States that he has been having difficulty swallowing. He endorses chest pain at the time but attributed it to the shallow breathing and says he does not think it was heart related, abdominal pain due to the rapid breathing, he states that he loses about 5 pounds per week and tries really hard to put it back on. He denies palpitations, fever, chills, nausea, vomiting. Pulmonary was consulted. Cardiology consulted for elevated troponin. Chest x-ray shows right lower lobe and minimal left lower lobe infiltrates. EKG showed sinus tachycardia with a rate of 150 bpm. Chest CTA revealed: Aspiration pneumonia at the right lung base with debris in the right mainstem bronchus, moderate centrilobular emphysema, small right pleural effusion, thickening throughout the right hilar regionlikely underlying neoplasm. Initial labs: WBCs 19.1, hemoglobin 15.7, platelets 315, sodium 125, potassium 4, CO2 21, creatinine 0.70, lactic acid 4.8, calcium 8.8, magnesium 0.8, D-dimer 1.79, troponin 0.507. Troponin trend: 0.507, 0.466, 0.415. Afebrile, normotensive, tachycardic in the [id number], tachypneicrespiratory rate of 30labored with accessory muscle use. 01/05. Patient seen and examined in bed. He endorses mild shortness of breath. Denies chest pain, palpitations, abdominal pain. WBCs 13.8, hemoglobin 10.7, sodium 131, magnesium 1.7, procalcitonin 7.91. 01/07. Patient seen and examined. Patient PEG tube placed yesterday, started on tube feeding today ROS reviewed. Pertinent positives. Swallow evaluation revealed aspiration into the lungs and negatives discussed above, a complete review of systems was performed and all the other systems were negative. Vital signs are stable. General: No acute distress. AOx4. HEENT: Head exam is unremarkable. EOMI bilaterally. ACs patent. Nares patent. Lungs: Bilateral decreased breath sounds; no rhonchi, wheezes, or rales. Heart: Rate and rhythm are regular. S1-S2 present. No murmur/rub/gallops. Abdomen: Soft, nontender, nondistended. Bowel sounds present. PEG tube seen Extremities: No edema present. Symmetric movement. Psych: Normal affect and mood. Cooperative. Assessment/Plan: Pneumonia, likely aspiration due to dysphagia Completed Zithromax Continue Rocephin Dysphagia Bedside swallow evaluation failed Barium swallow evaluation failed PEG tube placed PEG tube placed, started on tube feeding Acute on chronic hypoxic respiratory failure COPD exacerbation Continue nasal cannula 4 L Continue DuoNebs Continue Solu-Medrol Continue Perforomist Continue Pulmicort History of lung cancer and squamous cell carcinoma of the tongue Likely recurrence Heme/onc consultedrecommendations: Treatment with combination of chemotherapy with immunotherapy versus immunotherapy alone; scheduled for 01/15 follow-up Hyponatremia, possibly secondary to SIADH Fluid restriction of 1800 cc DVT prophylaxis: heparin Chronic conditions: COPD, hyperlipidemia, seizure disorder, previous history of lung cancer, laryngeal cancer [ ] Objective - Vital Signs Vital signs: Vital Signs Temp 97.5 F L 01/08/24 08:30 Pulse 72 01/08/24 12:47 Resp 16 01/08/24 08:30 BP 116/72 01/08/24 08:30 Pulse Ox 97 01/08/24 08:34 FiO2 50 01/05/24 00:08 Intake & Output 01/07/24 01/08/24 01/08/24 18:59 06:59 18:59 Intake Total 550 Output Total 1000 1075 Balance -450 -1075 Weight 57 kg Intake: IV 200 Intake, IV Titration 350 Amount Azithromycin 500 mg In 250 Sodium Chloride 0.9% 250 ml @ 250 mls/hr IVPB DAILY [facility] Rx#:[id number] cefTRIAXone 1 gm In 100 Sodium Chloride 0.9% 50 ml @ 100 mls/hr IVPB Q24HR [facility] Rx#:[id number] Output: Urine 1000 1075 Other: Voiding Method External Catheter Toilet Toilet Urinal Urinal # Voids 1 - Labs CBC & Chem 7: 01/07/24 05:46 01/07/24 05:46 Labs: Abnormal Lab Results - Last 24 Hours (Table) 01/07/24 01/07/24 Range/Units 16:41 20:13 POC Glucose (mg/dL) 123 H 115 H (70-110) mg/dL Microbiology - Last 24 Hours (Table) 01/04/24 17:53 Blood Culture - Preliminary Blood
[2024-01-08 16:19] LABS: Glucose,Whole Blood 105 mg/dL (70-110)
[2024-01-08] MEDS: FLUTICASONE NASAL 50MCG/SPRAY 16GM BTL EA NOSTRIL SCH (16:27)
[2024-01-08 20:03] LABS: Glucose,Whole Blood 112 mg/dL (70-110)
[2024-01-09 05:44] LABS: Basophils % (A) 0 %; Eosinophils # (A) 0.1 k/uL (0-0.7); Eosinophils % (A) 1 %; HCT 37.9 % (39.0-53.0); HGB 12.9 gm/dL (13.0-17.5); Lymphocytes # (A) 0.4 k/uL (1.0-4.8); Lymphocytes % (A) 6 %; MCH 30.1 pg (25.0-35.0); MCV 88.5 fL (80.0-100.0); Mean Platelet Volume 7.2; Monocytes # (A) 0.6 k/uL (0-1.0); Monocytes % (A) 9 %; Neutrophils # (A) 5.4 k/uL (1.3-7.7); Neutrophils % (A) 83 %; Platelet Count 233 k/uL (150-450); RBC 4.28 m/uL (4.30-5.90); RDW 13.2 % (11.5-15.5); WBC 6.5 k/uL (3.8-10.6)
[2024-01-09 05:54] LABS: ALT 40 U/L (4-49); AST 40 U/L (17-59); African American GFR (CKD) >90 (>60 ml/min/1.73 sqM); Albumin 3.5 g/dL (3.5-5.0); Alkaline Phosphatase 65 U/L (38-126); Anion Gap 3 mmol/L; Blood Urea Nitrogen 15 mg/dL (9-20); Calcium 9.5 mg/dL (8.4-10.2); Carbon Dioxide 34 mmol/L (22-30); Chloride 96 mmol/L (98-107); Glucose 87 mg/dL (74-99); Non-African American GFR(CKD) >90 (>60 ml/min/1.73 sqM); Potassium 3.7 mmol/L (3.5-5.1); Sodium 133 mmol/L (137-145); Total Bilirubin 0.6 mg/dL (0.2-1.3)
[2024-01-09 06:02] LABS: Glucose,Whole Blood 90 mg/dL (70-110)
--- NOTE | 2024-01-09 12:55 | P.PN ---
Subjective Progress Note Date: 01/09/24 Patient is a 53-year-old male with past medical history of COPD, current tobacco use, and previous history of lung and laryngeal cancer presented to the emergency department for shortness of breath for a few hours. He states that he uses oxygen at home inconsistently and does not know how much. He states that this is the first time he has had significant shortness of breath like this. 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 While in the ED he had hypoxia in the 70s and was placed on BiPAP. Additionally his D-dimer was noted to be elevated and was given heparin and a chest x-ray was performed. States that he has been having difficulty swallowing. He endorses chest pain at the time but attributed it to the shallow breathing and says he does not think it was heart related, abdominal pain due to the rapid breathing, he states that he loses about 5 pounds per week and tries really hard to put it back on. He denies palpitations, fever, chills, nausea, vomiting. Pulmonary was consulted. Cardiology consulted for elevated troponin. Chest x-ray shows right lower lobe and minimal left lower lobe infiltrates. EKG showed sinus tachycardia with a rate of 150 bpm. Chest CTA revealed: Aspiration pneumonia at the right lung base with debris in the right mainstem bronchus, moderate centrilobular emphysema, small right pleural effusion, thickening throughout the right hilar regionlikely underlying neoplasm. Initial labs: WBCs 19.1, hemoglobin 15.7, platelets 315, sodium 125, potassium 4, CO2 21, creatinine 0.70, lactic acid 4.8, calcium 8.8, magnesium 0.8, D-dimer 1.79, troponin 0.507. Troponin trend: 0.507, 0.466, 0.415. Afebrile, normotensive, tachycardic in the [id number], tachypneicrespiratory rate of 30labored with accessory muscle use. 01/05. Patient seen and examined in bed. He endorses mild shortness of breath. Denies chest pain, palpitations, abdominal pain. WBCs 13.8, hemoglobin 10.7, sodium 131, magnesium 1.7, procalcitonin 7.91. 01/06. Patient seen laying comfortably in bed. He had PEG tube placement this morning. Used BiPAP 10/650% last night. Endorses pain at the surgical site. WBCs 9.5, hemoglobin 11.1, sodium 132. Patient is continually asking for water PO as his throat is very dry. He states that he understands the risk of aspiration and would like water. 01/07. Patient seen and examined. Patient PEG tube placed yesterday, started on tube feeding today. 01/08. Patient seen and examined today. States he is having 7.5/10 pain that increasing at PEG tube site with movement. He has been receiving trickle feeds of 10 cc/h. WBC 6.5, hemoglobin 12.9, sodium 133, potassium 3.7, creatinine 0.61. ROS reviewed. Pertinent positives. Swallow evaluation revealed aspiration into the lungs and negatives discussed above, a complete review of systems was performed and all the other systems were negative. Vital signs are stable. General: No acute distress. AOx4. HEENT: Head exam is unremarkable. EOMI bilaterally. ACs patent. Nares patent. Lungs: Bilateral decreased breath sounds; no rhonchi, wheezes, or rales. Heart: Rate and rhythm are regular. S1-S2 present. No murmur/rub/gallops. Abdomen: Soft, nontender, nondistended. Bowel sounds present. PEG tube seen Extremities: No edema present. Symmetric movement. Psych: Normal affect and mood. Cooperative. Assessment/Plan: Pneumonia, likely aspiration due to dysphagia Completed Zithromax Continue Rocephin Dysphagia Bedside swallow evaluation failed Barium swallow evaluation failed PEG tube placed, started on tube feeding like Acute on chronic hypoxic respiratory failure COPD exacerbation Continue nasal cannula 4 L Continue DuoNebs Continue Solu-Medrol Continue Perforomist Continue Pulmicort History of lung cancer and squamous cell carcinoma of the tongue Likely recurrence Heme/onc consultedrecommendations: Treatment with combination of chemotherapy with immunotherapy versus immunotherapy alone; scheduled for 01/15 follow-up Hyponatremia, possibly secondary to SIADH Fluid restriction of 1800 cc DVT prophylaxis: heparin Chronic conditions: COPD, hyperlipidemia, seizure disorder, previous history of lung cancer, laryngeal cancer Attestation I have seen and examined this patient with my resident , discussed the same with the resident/KOBI, and agree with the dictator's assessment and plan as written Dr. Gustavo coates Objective - Vital Signs Vital signs: Vital Signs Temp 97.5 F L 01/09/24 03:24 Pulse 73 01/09/24 03:24 Resp 18 01/09/24 03:24 BP 124/79 01/09/24 03:24 Pulse Ox 96 01/09/24 03:24 FiO2 50 01/05/24 00:08 Intake & Output 01/08/24 01/08/24 01/09/24 06:59 18:59 06:59 Output Total 1075 100 Balance -1075 -100 Weight 57 kg 55.3 kg Output: Urine 1075 100 Other: Voiding Method Toilet Toilet Toilet Urinal Urinal Urinal - Labs CBC & Chem 7: 01/09/24 05:21 01/09/24 05:32 Labs: Abnormal Lab Results - Last 24 Hours (Table) 01/08/24 01/09/24 01/09/24 Range/Units 20:01 05:21 05:32 RBC 4.28 L (4.30-5.90) m/uL Hgb 12.9 L (13.0-17.5) gm/dL Hct 37.9 L (39.0-53.0) % Lymphocytes # 0.4 L (1.0-4.8) k/uL Sodium 133 L (137-145) mmol/L Chloride 96 L (98-107) mmol/L Carbon Dioxide 34 H (22-30) mmol/L Creatinine 0.61 L (0.66-1.25) mg/dL POC Glucose (mg/dL) 112 H (70-110) mg/dL Total Protein 6.0 L (6.3-8.2) g/dL Microbiology - Last 24 Hours (Table) 01/04/24 17:53 Blood Culture - Preliminary Blood
--- NOTE | 2024-01-09 13:30 | P.PN ---
Subjective Progress Note Date: 01/09/24 CHIEF COMPLAINT: Squamous cell carcinoma of the tongue HISTORY OF PRESENT ILLNESS: Status post PEG tube placement. Patient tolerating tube feeds. Tube feeds currently at 20 mL/h does report minimal pain around the tube. Denies any nausea or vomiting. Reports no bowel movement. Afebrile. WBC 6.5 PHYSICAL EXAM: VITAL SIGNS: Reviewed. GENERAL: no acute distress. ABDOMEN: Soft. Nondistended. PEG tube site clean dry and intact NEUROLOGIC: Alert and oriented. Cranial nerves II through XII grossly intact. ASSESSMENT: 1. Squamous cell carcinoma of the tongue/larynx s/p EGD with PEG Tube Placement 2. Dysphagia 3. Failed swallow eval 4. Severe protein calorie malnutrition PLAN: -Continue to titrate tube feeds slowly -Okay for meds via PEG tube Physician Nuclear Waste Process Operator note has been reviewed by physician. Signing provider agrees with the documented findings, assessment, and plan of care. Objective - Vital Signs Vital signs: Vital Signs Temp 97.9 F 01/09/24 08:50 Pulse 84 01/09/24 11:50 Resp 17 01/09/24 11:50 BP 130/76 01/09/24 11:50 Pulse Ox 93 L 01/09/24 11:50 FiO2 50 01/05/24 00:08 Intake & Output 01/08/24 01/09/24 01/09/24 18:59 06:59 18:59 Output Total 100 Balance -100 Weight 55.3 kg Output: Urine 100 Other: Voiding Method Toilet Toilet Toilet Urinal Urinal Urinal - Labs CBC & Chem 7: 01/09/24 05:21 01/09/24 05:32 Labs: Abnormal Lab Results - Last 24 Hours (Table) 01/08/24 01/09/24 01/09/24 Range/Units 20:01 05:21 05:32 RBC 4.28 L (4.30-5.90) m/uL Hgb 12.9 L (13.0-17.5) gm/dL Hct 37.9 L (39.0-53.0) % Lymphocytes # 0.4 L (1.0-4.8) k/uL Sodium 133 L (137-145) mmol/L Chloride 96 L (98-107) mmol/L Carbon Dioxide 34 H (22-30) mmol/L Creatinine 0.61 L (0.66-1.25) mg/dL POC Glucose (mg/dL) 112 H (70-110) mg/dL Total Protein 6.0 L (6.3-8.2) g/dL
[2024-01-09 14:59] VITALS: BMI 16.5
--- NOTE | 2024-01-09 16:44 | P.PN ---
Subjective Progress Note Date: 01/09/24 Shortness of breath. Patient is a 53-year-old white male with past medical history significant for COPD, chronic ongoing tobacco dependence, previous history of lung cancer, laryngeal cancer, seizure disorder, hyperlipidemia, TIA/CVA. His primary care provider is Dr. Alberto. He does follow in the pulmonary office with Dr. Fowler. Patient has severe COPD with an FEV1 36% of predicted. Utilizes Trelegy maintenance inhaler. Continues to smoke cigarettes. Patient also has history of lung cancer which was diagnosed back in 2019, and is status post chemoradiation. Subsequently, found to have laryngeal cancer, underwent radiation. Patient is not a good historian. He reports that he is not on any treatment at this time. I am unsure of who his established oncologist is. Most recent PET scan done 11/24/2023 consistent with progression of disease with new scattered metastatic disease throughout the thorax. Decrease in size of the oropharynx uptake along the right lateral tongue compared to prior; however, there is increasing right lateral neck activity with increasing lymph node size. Patient reportedly presented to the emergency department yesterday afternoon in acute respiratory distress. He was hypoxic. He was placed on BiPAP. Chest x- ray demonstrating new bibasilar opacities, right greater than left. Chronic hyperinflation consistent with COPD. CBC: WBC count 19.1, hemoglobin 15.7, hematocrit 45.8, platelets 315. CMP: Sodium 125, potassium 4, chloride 90, serum bicarb 20, BUN 13, creatinine 0.78, glucose 115. Lactic 4.8 and down to 3.1. Magnesium critically low at 0.8. EKG consistent with regular, rapid narrow complex tachycardia with a rate of 150 bpm. Serial troponins elevated at 0.51 and 0.47 respectively. Patient was started on heparin infusion per protocol. D-dimer also elevated. Given patient's history of malignancy, would recommend ruling out PE. Patient is currently being evaluated on the cardiac floor. He is on BiPAP with settings 14/6 and FiO2 of 50%. Respiratory rate is 19. Tidal volumes in the 600s. He is lethargic. I did order an ABG which has a PaO2 of 99, pCO2 of 41, pH of 7.41. He is a poor historian, and does not offer much in formation for HPI. Reporting some substernal chest pain nonradiating. Will not elaborate further. No particular coughing. No stridor. No significant adventitious lung sounds. Afebrile. He was negative for influenza A/B, RSV, COVID. He is empirically started on azithromycin and Rocephin for community- acquired pneumonia. Normal saline infusing at 130 mL/h. IV heparin continues per protocol. Prognosis certainly guarded. Progress note dated January 06, 2024. 53-year-old male with history of severe COPD. FEV1 is 36% of predicted. The patient was seen in consultation yesterday, with acute hypoxemic respiratory failure, being maintained on BiPAP. Chest x-ray suggested bibasilar airspace opacities, possibly consistent with underlying pneumonia. He has a history of other medical problems including laryngeal carcinoma, lung cancer, chronic and ongoing tobacco dependence, and alcoholism, to name a few. Currently, the patient is on nasal oxygen. He is at 4 L. He feels like his breathing is improved. Laboratory data includes a white count 13.8, hemoglobin 10.7, hematocrit 32.3, and a platelet count of 214,000. Sodium 131, potassium 4.5, chlorides 97, CO2 29, BUN 13, creatinine 0.46. Glucose is 106. Magnesium is 1.7. Progress note dated January 07, 2024. 53-year-old male seen today in room 350. Currently, the patient is on O2, by nasal cannula at 4 L. Saturations are 99%. He did use a BiPAP on and off last night, with settings of 10/6, and 50%. He is not receiving any IV fluids. He is currently on azithromycin, and Rocephin. His Solu-Medrol is changed to prednisone, and his formoterol and budesonide, are switched to Symbicort. Microbiology is currently negative. Progress note dated January 08, 2024. The patient is seen in room 350. He continues on O2 at 4 L. He is getting saline at 20 cc an hour. He continues on Rocephin. All in all, the patient is doing reasonably well. Previously he was on azithromycin and Rocephin. No new labs today. 01/09/2024, I am seeing the patient for a follow-up. The patient is resting comfortably in bed. No significant respiratory distress. He remains on oxygen 4 L of oxygen by nasal cannula. The patient is known to have advanced COPD 36% predicted. Was being treated for lower lobe pneumonia/bilateral. The patient is also known to have stage III non-small cell lung cancer treated with concurre nt chemoradiation therapy followed by durvalumab. He began to develop increased soreness and pain in the mouth with progressive odynophagia. This led to progressive difficulty and painful swallowing of both solids and liquids. He was initially referred to urgent care and received antibiotics, which did not relieve the pain. He was eventually referred to Dr. 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 He did have a PET/CT performed on 02/02/2023, which noted 2.6 x 3.7 cm right base of tongue lesion involving the right tongue, right glossotonsillar sulcus and thickening along the midline tongue and lingual surface of the epiglottis. The mass was FDG avid at 21.6 with the thickening of the epiglottis noted to be FDG avid with SUV 12.9. Right cervical lymph nodes at levels 2 3 and 4 were noted to be FDG avid, with the largest at level 2 with an SUV of 8.5 measuring 2.3 cm. Left cervical lymphadenopathy at levels 2 3 and 4 were also noted with the largest being at level 2 measuring 1.4 cm with an SUV of 3.6. There was subtle nodularity within the right lung base with surrounding groundglass opacification measuring up to 5 mm and SUV of 2.8. He completed 6 cycles of cisplatin on 04/20/2023 and RT on 05/24/2023. At his last clinic f/u patient reported he has been experiencing progressive right jaw pain when chewing along with swelling in the right neck over the last 2 months. PET/CT on 12/08/2023 noted small focus of uptake in the right submental region along with right cervical lymphadenopathy, bilateral subcentimeter lung nodules, and bilateral hilar lymphadenopathy concerning for disease recurrence. Given his prior history with stage III lung cancer, it is not clear if the lung nodules and hilar lymphadenopathy represent recurrence of his squamous cell carcinoma of the tongue or previous lung cancer. Noted the CTA during this current admission showed no evidence of any pulmonary embolism. There was debris's in the right mainstem bronchus concerning for aspiration. He remains on broad-spectrum antibiotics. Procalcitonin level at time of admission was quite elevated. The patient also has a PEG tube for enteral feeding and nutritional support. On today's blood work, his white cell count is at 6.5 with a hemoglobin 12.9 and platelet count of 232. BUN is 15 with a creatinine of 0.6 and a sodium levels at 133. Rest of the LFTs are all within normal limits. He looks quite cachectic. He carries a body mass index of 16.5. Objective - Vital Signs Vital signs: Vital Signs Temp 97.5 F L 01/09/24 03:24 Pulse 70 01/09/24 07:47 Resp 18 01/09/24 03:24 BP 124/79 01/09/24 03:24 Pulse Ox 96 01/09/24 03:24 FiO2 50 01/05/24 00:08 Intake & Output 01/08/24 01/09/24 01/09/24 18:59 06:59 18:59 Output Total 100 Balance -100 Weight 55.3 kg Output: Urine 100 Other: Voiding Method Toilet Toilet Urinal Urinal - Exam No acute distress, oriented 3. Currently on 2 L nasal cannula. HEENT examination is grossly unremarkable. Mucous membranes are moist. No oral lesions. Neck supple. Full range of motion. No adenopathy thyromegaly or neck vein distention. Cardiovascular examination reveals regular rhythm rate. S1-S2 normal. No S3 or S4. No discernible murmur noted. Lungs reveal scattered rhonchi. No expiratory wheezes or crackles. Breath sounds equal. Breath sounds are diminished throughout. Abdomen soft bowel sounds are heard. No masses or tenderness. The patient has a PEG tube in place for enteral feeding and nutritional support. Extremities are intact. No cyanosis clubbing or edema. Skin is without rash or lesion. Neurologic examination is brief but nonfocal. - Labs CBC & Chem 7: 01/09/24 05:21 01/09/24 05:32 Labs: Abnormal Lab Results - Last 24 Hours (Table) 01/08/24 01/09/24 01/09/24 Range/Units 20:01 05:21 05:32 RBC 4.28 L (4.30-5.90) m/uL Hgb 12.9 L (13.0-17.5) gm/dL Hct 37.9 L (39.0-53.0) % Lymphocytes # 0.4 L (1.0-4.8) k/uL Sodium 133 L (137-145) mmol/L Chloride 96 L (98-107) mmol/L Carbon Dioxide 34 H (22-30) mmol/L Creatinine 0.61 L (0.66-1.25) mg/dL POC Glucose (mg/dL) 112 H (70-110) mg/dL Total Protein 6.0 L (6.3-8.2) g/dL Assessment and Plan Plan: Acute hypoxemic respiratory failure, with bibasilar airspace opacities, right greater than left, concerning for community-acquired/aspiration pneumonia. Note that his CT of the chest also shows small right-sided pleural effusion, moderate emphysema and due to the presence of debris's in the right mainstem bronchus, aspiration pneumonia suspected. There is also thickening through the right hilum which could potentially represent posttreatment changes versus persistent/recurrent neoplasm. Elevated troponins, rule out non-ST elevation ID. Severe hypomagnesemia, Treated Hyponatremia, possible SIADH, treated Laryngeal cancer, with disease progression and metastasis to the lungs and pulmonary hilum. History of lung cancer, previously diagnosed back in 2019, status post chemo/radiation. Severe chronic obstructive pulmonary disease, with an FEV1 36% of predicted. Chronic ongoing tobacco dependence. History of alcoholism. History of COVID/RSV. Seizure disorder. History of hyperlipidemia. History of CVA/TIA. Plan: Titrate oxygen flow to maintain saturation above 90% currently on 2 L Aspiration precautions Swallow evaluation Continue IV Rocephin Repeat procalcitonin level in a.m. Repeat chest x-ray Continue enteral feeding for nutritional support Oncology on the case Will continue to follow
[2024-01-09 18:29] LABS: Glucose,Whole Blood 121 mg/dL (70-110)
[2024-01-10 00:35] LABS: Glucose,Whole Blood 135 mg/dL (70-110)
[2024-01-10 06:11] LABS: Glucose,Whole Blood 148 mg/dL (70-110)
--- NOTE | 2024-01-10 07:38 | XR ---
EXAMINATION TYPE: XR chest 1V DATE OF EXAM: 01/10/2024 COMPARISON: 01/04/2024 HISTORY: Pneumonia TECHNIQUE: Single frontal view of the chest is obtained. FINDINGS: Diffuse emphysematous changes with bilateral subsegmental consolidation. Coarsened interst itium. A Port-A-Cath is seen and there is right hilar prominence likely representing mass or adenopat hy. Osseous structures stable. Heart size normal. IMPRESSION: Stable COPD and right hilar mass. Bilateral lower lobe atelectasis or pneumonia correlat e clinically. [facility], , 01/10/2024 7:36 AM
[2024-01-10 11:34] LABS: Glucose,Whole Blood 144 mg/dL (70-110)
--- NOTE | 2024-01-10 13:31 | P.PN ---
Subjective Progress Note Date: 01/10/24 Shortness of breath. Patient is a 53-year-old white male with past medical history significant for COPD, chronic ongoing tobacco dependence, previous history of lung cancer, laryngeal cancer, seizure disorder, hyperlipidemia, TIA/CVA. His primary care provider is Dr. Alberto. He does follow in the pulmonary office with Dr. Fowler. Patient has severe COPD with an FEV1 36% of predicted. Utilizes Trelegy maintenance inhaler. Continues to smoke cigarettes. Patient also has history of lung cancer which was diagnosed back in 2019, and is status post chemoradiation. Subsequently, found to have laryngeal cancer, underwent radiation. Patient is not a good historian. He reports that he is not on any treatment at this time. I am unsure of who his established oncologist is. Most recent PET scan done 11/24/2023 consistent with progression of disease with new scattered metastatic disease throughout the thorax. Decrease in size of the oropharynx uptake along the right lateral tongue compared to prior; however, there is increasing right lateral neck activity with increasing lymph node size. Patient reportedly presented to the emergency department yesterday afternoon in acute respiratory distress. He was hypoxic. He was placed on BiPAP. Chest x- ray demonstrating new bibasilar opacities, right greater than left. Chronic hyperinflation consistent with COPD. CBC: WBC count 19.1, hemoglobin 15.7, hematocrit 45.8, platelets 315. CMP: Sodium 125, potassium 4, chloride 90, serum bicarb 20, BUN 13, creatinine 0.78, glucose 115. Lactic 4.8 and down to 3.1. Magnesium critically low at 0.8. EKG consistent with regular, rapid narrow complex tachycardia with a rate of 150 bpm. Serial troponins elevated at 0.51 and 0.47 respectively. Patient was started on heparin infusion per protocol. D-dimer also elevated. Given patient's history of malignancy, would recommend ruling out PE. Patient is currently being evaluated on the cardiac floor. He is on BiPAP with settings 14/6 and FiO2 of 50%. Respiratory rate is 19. Tidal volumes in the 600s. He is lethargic. I did order an ABG which has a PaO2 of 99, pCO2 of 41, pH of 7.41. He is a poor historian, and does not offer much in formation for HPI. Reporting some substernal chest pain nonradiating. Will not elaborate further. No particular coughing. No stridor. No significant adventitious lung sounds. Afebrile. He was negative for influenza A/B, RSV, COVID. He is empirically started on azithromycin and Rocephin for community- acquired pneumonia. Normal saline infusing at 130 mL/h. IV heparin continues per protocol. Prognosis certainly guarded. Progress note dated January 06, 2024. 53-year-old male with history of severe COPD. FEV1 is 36% of predicted. The patient was seen in consultation yesterday, with acute hypoxemic respiratory failure, being maintained on BiPAP. Chest x-ray suggested bibasilar airspace opacities, possibly consistent with underlying pneumonia. He has a history of other medical problems including laryngeal carcinoma, lung cancer, chronic and ongoing tobacco dependence, and alcoholism, to name a few. Currently, the patient is on nasal oxygen. He is at 4 L. He feels like his breathing is improved. Laboratory data includes a white count 13.8, hemoglobin 10.7, hematocrit 32.3, and a platelet count of 214,000. Sodium 131, potassium 4.5, chlorides 97, CO2 29, BUN 13, creatinine 0.46. Glucose is 106. Magnesium is 1.7. Progress note dated January 07, 2024. 53-year-old male seen today in room 350. Currently, the patient is on O2, by nasal cannula at 4 L. Saturations are 99%. He did use a BiPAP on and off last night, with settings of 10/6, and 50%. He is not receiving any IV fluids. He is currently on azithromycin, and Rocephin. His Solu-Medrol is changed to prednisone, and his formoterol and budesonide, are switched to Symbicort. Microbiology is currently negative. Progress note dated January 08, 2024. The patient is seen in room 350. He continues on O2 at 4 L. He is getting saline at 20 cc an hour. He continues on Rocephin. All in all, the patient is doing reasonably well. Previously he was on azithromycin and Rocephin. No new labs today. 01/09/2024, I am seeing the patient for a follow-up. The patient is resting comfortably in bed. No significant respiratory distress. He remains on oxygen 4 L of oxygen by nasal cannula. The patient is known to have advanced COPD 36% predicted. Was being treated for lower lobe pneumonia/bilateral. The patient is also known to have stage III non-small cell lung cancer treated with concurre nt chemoradiation therapy followed by durvalumab. He began to develop increased soreness and pain in the mouth with progressive odynophagia. This led to progressive difficulty and painful swallowing of both solids and liquids. He was initially referred to urgent care and received antibiotics, which did not relieve the pain. He was eventually referred to Dr. 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 He did have a PET/CT performed on 02/02/2023, which noted 2.6 x 3.7 cm right base of tongue lesion involving the right tongue, right glossotonsillar sulcus and thickening along the midline tongue and lingual surface of the epiglottis. The mass was FDG avid at 21.6 with the thickening of the epiglottis noted to be FDG avid with SUV 12.9. Right cervical lymph nodes at levels 2 3 and 4 were noted to be FDG avid, with the largest at level 2 with an SUV of 8.5 measuring 2.3 cm. Left cervical lymphadenopathy at levels 2 3 and 4 were also noted with the largest being at level 2 measuring 1.4 cm with an SUV of 3.6. There was subtle nodularity within the right lung base with surrounding groundglass opacification measuring up to 5 mm and SUV of 2.8. He completed 6 cycles of cisplatin on 04/20/2023 and RT on 05/24/2023. At his last clinic f/u patient reported he has been experiencing progressive right jaw pain when chewing along with swelling in the right neck over the last 2 months. PET/CT on 12/08/2023 noted small focus of uptake in the right submental region along with right cervical lymphadenopathy, bilateral subcentimeter lung nodules, and bilateral hilar lymphadenopathy concerning for disease recurrence. Given his prior history with stage III lung cancer, it is not clear if the lung nodules and hilar lymphadenopathy represent recurrence of his squamous cell carcinoma of the tongue or previous lung cancer. Noted the CTA during this current admission showed no evidence of any pulmonary embolism. There was debris's in the right mainstem bronchus concerning for aspiration. He remains on broad-spectrum antibiotics. Procalcitonin level at time of admission was quite elevated. The patient also has a PEG tube for enteral feeding and nutritional support. On today's blood work, his white cell count is at 6.5 with a hemoglobin 12.9 and platelet count of 232. BUN is 15 with a creatinine of 0.6 and a sodium levels at 133. Rest of the LFTs are all within normal limits. He looks quite cachectic. He carries a body mass index of 16.5. 01/10/2024, the patient is being seen for a follow-up. The patient is doing well with no specific complaints. Remains on 4 L of oxygen by nasal cannula. Repeat chest x-ray was done today and the chest x-ray shows some stable bilateral lower lobe pulm infiltrates although some interval improvement in aeration of the lung bases was noted specially on the right. He continues to be on enteral feeding for nutritional support. He is n.p.o. for now. Obvious causative 6.5 with a hemoglobin 12.9. The patient completed a course of IV Rocephin and is currently on no antibiotic coverage. He is on Symbicort. Is also on DuoNeb the regimen is on the clock. Limited cough and congestion is present. No other significant events overnight. Objective - Vital Signs Vital signs: Vital Signs Temp 98.1 F 01/10/24 03:12 Pulse 76 01/10/24 08:04 Resp 18 01/10/24 03:12 BP 129/81 01/10/24 03:12 Pulse Ox 94 L 01/10/24 03:12 FiO2 50 01/05/24 00:08 Intake & Output 01/09/24 01/10/24 01/10/24 18:59 06:59 18:59 Output Total 700 Balance -700 Weight 55.3 kg 55.3 kg Output: Urine 700 Other: Voiding Method Toilet Toilet Urinal Urinal - Exam No acute distress, oriented 3. Currently on 4 L nasal cannula. HEENT examination is grossly unremarkable. Mucous membranes are moist. No oral lesions. Neck supple. Full range of motion. No adenopathy thyromegaly or neck vein distention. Cardiovascular examination reveals regular rhythm rate. S1-S2 normal. No S3 or S4. No discernible murmur noted. Lungs reveal scattered rhonchi. No expiratory wheezes or crackles. Breath sounds equal. Breath sounds are diminished throughout. Abdomen soft bowel sounds are heard. No masses or tenderness. The patient has a PEG tube in place for enteral feeding and nutritional support. Extremities are intact. No cyanosis clubbing or edema. Skin is without rash or lesion. Neurologic examination is brief but nonfocal. - Labs CBC & Chem 7: 01/09/24 05:21 01/09/24 05:32 Labs: Abnormal Lab Results - Last 24 Hours (Table) 01/09/24 01/09/24 01/10/24 Range/Units 05:32 18:27 00:33 POC Glucose (mg/dL) 121 H 135 H (70-110) mg/dL Procalcitonin 0.63 H (0.02-0.50) ng/mL 01/10/24 Range/Units 06:09 POC Glucose (mg/dL) 148 H (70-110) mg/dL Procalcitonin (0.02-0.50) ng/mL Microbiology - Last 24 Hours (Table) 01/04/24 17:53 Blood Culture - Final Blood Assessment and Plan Plan: Acute hypoxemic respiratory failure, with bibasilar airspace opacities, right greater than left, concerning for community-acquired/aspiration pneumonia. Note that his CT of the chest also shows small right-sided pleural effusion, moderate emphysema and due to the presence of debris's in the right mainstem bronchus, aspiration pneumonia suspected. There is also thickening through the right hilum which could potentially represent posttreatment changes versus persistent/recurrent neoplasm. Repeat chest x-ray was done today and the p atient's chest x-ray shows stable/improved infiltration of the lung bases. The patient completed the course of antibiotics. Currently on 4 L of O2 nasal cannula. Also, the procalcitonin level is improving. Elevated troponins, rule out non-ST elevation [place]. Severe hypomagnesemia, Treated Hyponatremia, possible SIADH, treated Laryngeal cancer, with disease progression and metastasis to the lungs and pulmonary hilum. History of lung cancer, previously diagnosed back in 2019, status post lorenzo mo/radiation. Severe chronic obstructive pulmonary disease, with an FEV1 36% of predicted. Chronic ongoing tobacco dependence. History of alcoholism. History of COVID/RSV. Seizure disorder. History of hyperlipidemia. History of CVA/TIA. Plan: Titrate oxygen flow to maintain saturation above 90% currently on 4 L Aspiration precautions Swallow evaluation, high risk for aspiration Continue IV Rocephin Repeat procalcitonin level in a.m. shows that the level is improving Repeat chest x-ray shows stable, improving infiltrates in the lung base bilaterally and the patient completed antibiotic course. Continue enteral feeding for nutritional support Oncology on the case Will continue to follow
--- NOTE | 2024-01-10 13:56 | P.PN ---
Subjective Progress Note Date: 01/10/24 Patient is a 53-year-old male with past medical history of COPD, current tobacco use, and previous history of lung and laryngeal cancer presented to the emergency department for shortness of breath for a few hours. He states that he uses oxygen at home inconsistently and does not know how much. He states that this is the first time he has had significant shortness of breath like this. He has not seen his oncologist or master cosmetologist for a while now. While in the ED he had hypoxia in the 70s and was placed on BiPAP. Additionally his D-dimer was noted to be elevated and was given heparin and a chest x-ray was performed. States that he has been having difficulty swallowing. He endorses chest pain at the time but attributed it to the shallow breathing and says he does not think it was heart related, abdominal pain due to the rapid breathing, he states that he loses about 5 pounds per week and tries really hard to put it back on. He denies palpitations, fever, chills, nausea, vomiting. Pulmonary was consulted. Cardiology consulted for elevated troponin. Chest x-ray shows right lower lobe and minimal left lower lobe infiltrates. EKG showed sinus tachycardia with a rate of 150 bpm. Chest CTA revealed: Aspiration pneumonia at the right lung base with debris in the right mainstem bronchus, moderate centrilobular emphysema, small right pleural effusion, thickening throughout the right hilar regionlikely underlying neoplasm. Initial labs: WBCs 19.1, hemoglobin 15.7, platelets 315, sodium 125, potassium 4, CO2 21, creatinine 0.70, lactic acid 4.8, calcium 8.8, magnesium 0.8, D-dimer 1.79, troponin 0.507. Troponin trend: 0.507, 0.466, 0.415. Afebrile, normotensive, tachycardic in the [id number], tachypneicrespiratory rate of 30labored with accessory muscle use. 01/05. Patient seen and examined in bed. He endorses mild shortness of breath. Denies chest pain, palpitations, abdominal pain. WBCs 13.8, hemoglobin 10.7, sodium 131, magnesium 1.7, procalcitonin 7.91. 01/06. Patient seen laying comfortably in bed. He had PEG tube placement this morning. Used BiPAP 10/650% last night. Endorses pain at the surgical site. WBCs 9.5, hemoglobin 11.1, sodium 132. Patient is continually asking for water PO as his throat is very dry. He states that he understands the risk of aspiration and would like water. 01/07. Patient seen and examined. Patient PEG tube placed yesterday, started on tube feeding today. 01/08. Patient seen and examined today. States he is having 7.5/10 pain that increasing at PEG tube site with movement. He has been receiving trickle feeds of 10 cc/h. WBC 6.5, hemoglobin 12.9, sodium 133, potassium 3.7, creatinine 0.61. 01/09. Patient seen and examined. Tolerating tube feeding. Denies any nausea or vomiting. ROS reviewed. Pertinent positives. Swallow evaluation revealed aspiration into the lungs and negatives discussed above, a complete review of systems was performed and all the other systems were negative. Vital signs are stable. General: No acute distress. AOx4. HEENT: Head exam is unremarkable. EOMI bilaterally. ACs patent. Nares patent. Lungs: Bilateral decreased breath sounds; no rhonchi, wheezes, or rales. Heart: Rate and rhythm are regular. S1-S2 present. No murmur/rub/gallops. Abdomen: Soft, nontender, nondistended. Bowel sounds present. PEG tube seen Extremities: No edema present. Symmetric movement. Psych: Normal affect and mood. Cooperative. Assessment/Plan: Pneumonia, likely aspiration due to dysphagia Completed Zithromax Completed course of antibiotic Dysphagia Bedside swallow evaluation failed Barium swallow evaluation failed PEG tube placed, continue tube feeding Acute on chronic hypoxic respiratory failure COPD exacerbation Continue nasal cannula 4 L Continue DuoNebs Continue Solu-Medrol Continue Perforomist Continue Pulmicort History of lung cancer and squamous cell carcinoma of the tongue Likely recurrence Heme/onc consultedrecommendations: Treatment with combination of chemotherapy with immunotherapy versus immunotherapy alone; scheduled for 01/15 follow-up Hyponatremia, possibly secondary to SIADH Fluid restriction of 1800 cc DVT prophylaxis: heparin Chronic conditions: COPD, hyperlipidemia, seizure disorder, previous history of lung cancer, laryngeal cancer Objective - Vital Signs Vital signs: Vital Signs Temp 98 F 01/10/24 08:00 Pulse 89 01/10/24 12:00 Resp 16 01/10/24 12:00 BP 130/83 01/10/24 12:00 Pulse Ox 96 01/10/24 12:00 FiO2 50 01/05/24 00:08 Intake & Output 01/09/24 01/10/24 01/10/24 18:59 06:59 18:59 Output Total 700 Balance -700 Weight 55.3 kg 55.3 kg Output: Urine 700 Other: Voiding Method Toilet Toilet Toilet Urinal Urinal Urinal - Labs CBC & Chem 7: 01/09/24 05:21 01/09/24 05:32 Labs: Abnormal Lab Results - Last 24 Hours (Table) 01/09/24 01/09/24 01/10/24 Range/Units 05:32 18:27 00:33 POC Glucose (mg/dL) 121 H 135 H (70-110) mg/dL Procalcitonin 0.63 H (0.02-0.50) ng/mL 01/10/24 01/10/24 Range/Units 06:09 11:33 POC Glucose (mg/dL) 148 H 144 H (70-110) mg/dL Procalcitonin (0.02-0.50) ng/mL Microbiology - Last 24 Hours (Table) 01/04/24 17:53 Blood Culture - Final Blood
[2024-01-10] MEDS: LORATADINE 10 MG TAB PO PRN (15:17)
--- NOTE | 2024-01-10 15:21 | P.PN ---
Subjective Progress Note Date: 01/10/24 Patient seen and examined at bedside. No complaints. Patient receiving PEG tube feedings. Denies nausea or vomiting. Objective - Vital Signs Vital signs: Vital Signs Temp 98 F 01/10/24 08:00 Pulse 89 01/10/24 12:00 Resp 16 01/10/24 12:00 BP 130/83 01/10/24 12:00 Pulse Ox 96 01/10/24 12:00 FiO2 50 01/05/24 00:08 Intake & Output 01/09/24 01/10/24 01/10/24 18:59 06:59 18:59 Output Total 700 Balance -700 Weight 55.3 kg 55.3 kg Output: Urine 700 Other: Voiding Method Toilet Toilet Toilet Urinal Urinal Urinal - Constitutional General appearance: Present: cooperative, no acute distress - Gastrointestinal Gastrointestinal Comment(s): Soft, nontender, nondistended, PEG tube appears in place with no drainage around site - Labs CBC & Chem 7: 01/09/24 05:21 01/09/24 05:32 Labs: Abnormal Lab Results - Last 24 Hours (Table) 01/09/24 01/09/24 01/10/24 Range/Units 05:32 18:27 00:33 POC Glucose (mg/dL) 121 H 135 H (70-110) mg/dL Procalcitonin 0.63 H (0.02-0.50) ng/mL 01/10/24 01/10/24 Range/Units 06:09 11:33 POC Glucose (mg/dL) 148 H 144 H (70-110) mg/dL Procalcitonin (0.02-0.50) ng/mL Microbiology - Last 24 Hours (Table) 01/04/24 17:53 Blood Culture - Final Blood Assessment and Plan Plan: Status post PEG tube placement. Patient tolerating tube feeding. Wound care instructions were provided. Surgically stable for discharge with home care for initial tube feeding.
[2024-01-10 16:49] LABS: Glucose,Whole Blood 144 mg/dL (70-110)
[2024-01-10 23:04] LABS: Glucose,Whole Blood 133 mg/dL (70-110)
[2024-01-11 05:45] LABS: Glucose,Whole Blood 112 mg/dL (70-110)
[2024-01-11 07:19] LABS: Basophils % (A) 0 %; Eosinophils # (A) 0.1 k/uL (0-0.7); Eosinophils % (A) 1 %; HCT 39.4 % (39.0-53.0); HGB 13.3 gm/dL (13.0-17.5); Lymphocytes # (A) 0.4 k/uL (1.0-4.8); Lymphocytes % (A) 5 %; MCH 29.9 pg (25.0-35.0); MCHC 33.8 g/dL (31.0-37.0); MCV 88.4 fL (80.0-100.0); Mean Platelet Volume 7.2; Monocytes # (A) 0.6 k/uL (0-1.0); Monocytes % (A) 8 %; Neutrophils # (A) 6.7 k/uL (1.3-7.7); Neutrophils % (A) 86 %; Platelet Count 267 k/uL (150-450); RBC 4.46 m/uL (4.30-5.90); RDW 13.3 % (11.5-15.5); WBC 7.8 k/uL (3.8-10.6)
[2024-01-11 07:35] LABS: ALT 34 U/L (4-49); AST 25 U/L (17-59); African American GFR (CKD) >90 (>60 ml/min/1.73 sqM); Albumin 3.6 g/dL (3.5-5.0); Alkaline Phosphatase 77 U/L (38-126); Anion Gap 5 mmol/L; Blood Urea Nitrogen 15 mg/dL (9-20); Calcium 9.7 mg/dL (8.4-10.2); Carbon Dioxide 37 mmol/L (22-30); Chloride 93 mmol/L (98-107); Glucose 97 mg/dL (74-99); Non-African American GFR(CKD) >90 (>60 ml/min/1.73 sqM); Potassium 3.3 mmol/L (3.5-5.1); Sodium 135 mmol/L (137-145); Total Bilirubin 0.4 mg/dL (0.2-1.3)
[2024-01-11 09:11] VITALS: TEMP 98.2
--- NOTE | 2024-01-11 09:45 | P.PN ---
Subjective Progress Note Date: 01/11/24 Patient seen and examined at bedside. Tube feeds running appropriately. Denies any abdominal pain or distention. No nausea or vomiting. Objective - Vital Signs Vital signs: Vital Signs Temp 98.2 F 01/11/24 08:00 Pulse 82 01/11/24 08:00 Resp 18 01/11/24 08:00 BP 108/72 01/11/24 08:00 Pulse Ox 95 01/11/24 08:00 FiO2 50 01/05/24 00:08 Intake & Output 01/10/24 01/11/24 01/11/24 18:59 06:59 18:59 Output Total 1750 Balance -1750 Weight 56.2 kg Output: Urine 1750 Other: Voiding Method Toilet Toilet Toilet Urinal Urinal Urinal - Constitutional General appearance: Present: cooperative - Gastrointestinal Gastrointestinal Comment(s): Soft, nontender, nondistended, PEG tube site is clean with no drainage - Labs CBC & Chem 7: 01/11/24 06:12 01/11/24 06:12 Labs: Abnormal Lab Results - Last 24 Hours (Table) 01/10/24 01/10/24 01/10/24 Range/Units 11:33 16:47 23:02 Lymphocytes # (1.0-4.8) k/uL Sodium (137-145) mmol/L Potassium (3.5-5.1) mmol/L Chloride (98-107) mmol/L Carbon Dioxide (22-30) mmol/L Creatinine (0.66-1.25) mg/dL POC Glucose (mg/dL) 144 H 144 H 133 H (70-110) mg/dL Total Protein (6.3-8.2) g/dL 01/11/24 01/11/24 01/11/24 Range/Units 05:43 06:12 06:12 Lymphocytes # 0.4 L (1.0-4.8) k/uL Sodium 135 L (137-145) mmol/L Potassium 3.3 L (3.5-5.1) mmol/L Chloride 93 L (98-107) mmol/L Carbon Dioxide 37 H (22-30) mmol/L Creatinine 0.57 L (0.66-1.25) mg/dL POC Glucose (mg/dL) 112 H (70-110) mg/dL Total Protein 6.0 L (6.3-8.2) g/dL Assessment and Plan Plan: Status post PEG tube placement. Continue PEG tube feeding per nutrition. Patient surgically stable for discharge.
[2024-01-11 11:19] LABS: Glucose,Whole Blood 154 mg/dL (70-110)
[2024-01-11] MEDS: POTASSIUM BICARBONATE/CIT AC 20 MEQ TABLET.EFF PO ONE (11:25)
[2024-01-11 11:46] VITALS: BP 125/80; RESP 17
--- NOTE | 2024-01-11 12:01 | P.DS ---
Providers Date of admission: 01/04/24 21:06 Attending physician: Sofiya Cantu Consults: 01/04/24 21:04 Consult Physician Routine Consulting Provider: You Burgess Consult Reason/Comments: trop elevated Do you want consulting provider notified?: Yes Consult Physician Routine Consulting Provider: Alan Fowler Consult Reason/Comments: COPD, PNA, resp failure Do you want consulting provider notified?: Yes 01/05/24 03:08 Consult Physician Routine Consulting Provider: Jorge Ty Consult Reason/Comments: Known mailgnancy; laryngeal ca Do you want consulting provider notified?: Yes, Notify in am 01/06/24 12:09 Consult Physician Routine Consulting Provider: Boo Gu Consult Reason/Comments: dysphagia, sqaumous cell carcinoma of tongue, needs PEG tube Do you want consulting provider notified?: Yes Primary care physician: Ambika Barragan Hospital Course: Discharge Diagnosis: Aspiration pneumonia, improved Dysphagia Acute on chronic hypoxic respiratory failure COPD exacerbation History of lung and laryngeal cancer Hyponatremia, possibly secondary to SIADH Hospital Course: Patient is a 53-year-old male with past medical history of COPD, current tobacco use, and previous history of lung and laryngeal cancer presented to the emergency department for shortness of breath for a few hours. He states that he uses oxygen at home inconsistently and does not know how much. He states that this is the first time he has had significant shortness of breath like this. He has not seen his oncologist or interventional technologist for a while now. While in the ED he had hypoxia in the 70s and was placed on BiPAP. Additionally his D-dimer was noted to be elevated and was given heparin and a chest x-ray was performed. States that he has been having difficulty swallowing. He endorses chest pain at the time but attributed it to the shallow breathing and says he does not think it was heart related, abdominal pain due to the rapid breathing, he states that he loses about 5 pounds per week and tries really hard to put it back on. He denies palpitations, fever, chills, nausea, vomiting. Pulmonary was consulted. Cardiology consulted for elevated troponin. Chest x-ray shows right lower lobe and minimal left lower lobe infiltrates. EKG showed sinus tachycardia with a rate of 150 bpm. Chest CTA revealed: Aspiration pneumonia at the right lung base with debris in the right mainstem bronchus, moderate centrilobular emphysema, small right pleural effusion, thickening throughout the right hilar regionlikely underlying neoplasm. Initial labs: WBCs 19.1, hemoglobin 15.7, platelets 315, sodium 125, potassium 4, CO2 21, creatinine 0.70, lactic acid 4.8, calcium 8.8, magnesium 0.8, D-dimer 1.79, troponin 0.507. Troponin trend: 0.507, 0.466, 0.415. Afebrile, normotensive, tachycardic in the [id number], tachypneicrespiratory rate of 30labored with accessory muscle use. 01/05. Patient seen and examined in bed. He endorses mild shortness of breath. Denies chest pain, palpitations, abdominal pain. WBCs 13.8, hemoglobin 10.7, sodium 131, magnesium 1.7, procalcitonin 7.91. 01/06. Patient seen laying comfortably in bed. He had PEG tube placement this morning. Used BiPAP 10/650% last night. Endorses pain at the surgical site. WBCs 9.5, hemoglobin 11.1, sodium 132. Patient is continually asking for water PO as his throat is very dry. He states that he understands the risk of aspiration and would like water. 01/07. Patient seen and examined. Patient PEG tube placed yesterday, started on tube feeding today. 01/08. Patient seen and examined today. States he is having 7.5/10 pain that increasing at PEG tube site with movement. He has been receiving trickle feeds of 10 cc/h. WBC 6.5, hemoglobin 12.9, sodium 133, potassium 3.7, creatinine 0.61. 01/09. Patient seen and examined. Tolerating tube feeding. Denies any nausea or vomiting. 01/10. Patient seen at bedside. Tolerating tube feeds. Patient surgically and medically stable for discharge. All medications to be given through PEG tube. Physical examination: Vital signs are stable. General: No acute distress. AOx4. HEENT: Head exam is unremarkable. EOMI bilaterally. ACs patent. Nares patent. Lungs: Bilateral decreased breath sounds; no rhonchi, wheezes, or rales. Heart: Rate and rhythm are regular. S1-S2 present. No murmur/rub/gallops. Abdomen: Soft, nontender, nondistended. Bowel sounds present. PEG tube seen Extremities: No edema present. Symmetric movement. Psych: Normal affect and mood. Cooperative. Patient Condition at Discharge: Stable Plan - Discharge Summary Discharge Rx Participant: Yes New Discharge Prescriptions: Continue Lacosamide [Vimpat] 150 mg PO BID Ibuprofen [Motrin] 800 mg PO TID PRN PRN Reason: Pain Fluticasone/Umeclidin/Vilanter [Trelegy Ellipta 100-62.5-25] 1 puff INHALATION RT-DAILY Lidocaine Viscous 2% [Xylocaine Viscous] 10 - 15 ml MUCOUS MEM ACHS Baclofen [Lioresal] 10 mg PO TID PRN PRN Reason: Muscle Spasm levETIRAcetam [Keppra] 1,000 mg PO HS levETIRAcetam [Keppra] 750 mg PO DAILY Atorvastatin Calcium [Lipitor] 40 mg PO HS HYDROcodone/APAP 5-325MG [[place] 5-325] 1 tab PO Q6H PRN PRN Reason: Pain Omeprazole [PriLOSEC] 20 mg PO DAILY Discharge Medication List Lacosamide [Vimpat] 150 mg PO BID 08/20/20 [History] levETIRAcetam [Keppra] 1,000 mg PO HS 08/20/20 [History] levETIRAcetam [Keppra] 750 mg PO DAILY 08/20/20 [History] Atorvastatin Calcium [Lipitor] 40 mg PO HS 04/28/23 [History] Fluticasone/Umeclidin/Vilanter [Trelegy Ellipta 100-62.5-25] 1 puff INHALATION RT-DAILY 04/28/23 [History] Ibuprofen [Motrin] 800 mg PO TID PRN 04/28/23 [History] Baclofen [Lioresal] 10 mg PO TID PRN 01/04/24 [History] HYDROcodone/APAP 5-325MG [[place] 5-325] 1 tab PO Q6H PRN 01/04/24 [History] Lidocaine Viscous 2% [Xylocaine Viscous] 10 - 15 ml MUCOUS MEM ACHS 01/04/24 [H istory] Omeprazole [PriLOSEC] 20 mg PO DAILY 01/04/24 [History] Follow up Appointment(s)/Referral(s): You Burgess MD [Medical Doctor] - 1 Week Rodriguez Moore MD [STAFF PHYSICIAN] - 01/16/24 Ambika Barragan DO [Primary Care Provider] - 1-2 days [facility], [NON-STAFF] - 01/12/24 () Rio Pierce DO [Medical Doctor] - 1 Week Activity/Diet/Wound Care/Special Instructions: Tube feeding orders: Jevity 1.5 or equivalent at 61cc/hr - flush with 30 ml water every 4hrs. Keep head elevated greater than 45 degrees at all times - use wedge pillow provided Tube feeding and supplies - [facility] ([phone]) they will delivery equipment and supplies between 6pm and 8pm Home Care nurse will contact you to set up visit for tomorrow (01/12/24) and will assist with set up of tube feedings Discharge Disposition: HOME WITH HOME HEALTH SERVICES
--- NOTE | 2024-01-11 12:55 | P.PN ---
Subjective Progress Note Date: 01/11/24 Principal diagnosis: Hx lung adenocarcinoma, SCC head/neck. Dysphagia In f/u today pt reports that he is tolerating PEG feedings well, no fevers, N,V. Objective - Vital Signs Vital signs: Vital Signs Temp 98.2 F 01/11/24 08:00 Pulse 69 01/11/24 11:45 Resp 17 01/11/24 11:45 BP 125/80 01/11/24 11:45 Pulse Ox 98 01/11/24 11:45 FiO2 50 01/05/24 00:08 Intake & Output 01/10/24 01/11/24 01/11/24 18:59 06:59 18:59 Output Total 1750 Balance -1750 Weight 56.2 kg Output: Urine 1750 Other: Voiding Method Toilet Toilet Toilet Urinal Urinal Urinal - Constitutional General appearance: Present: cooperative, no acute distress, thin - EENT Eyes: Present: anicteric sclerae ENT: Present: hearing grossly normal - Respiratory Details: resp unlabored at rest - Cardiovascular Details: skin warm, well perfused - Peripheral edema leg Peripheral Edema: bilateral: None - Gastrointestinal General gastrointestinal: Present: soft - Psychiatric Psychiatric: Present: A&O x's 3, appropriate affect, intact judgment & insight - Labs CBC & Chem 7: 01/11/24 06:12 01/11/24 06:12 Labs: Abnormal Lab Results - Last 24 Hours (Table) 01/10/24 01/10/24 01/11/24 Range/Units 16:47 23:02 05:43 Lymphocytes # (1.0-4.8) k/uL Sodium (137-145) mmol/L Potassium (3.5-5.1) mmol/L Chloride (98-107) mmol/L Carbon Dioxide (22-30) mmol/L Creatinine (0.66-1.25) mg/dL POC Glucose (mg/dL) 144 H 133 H 112 H (70-110) mg/dL Total Protein (6.3-8.2) g/dL 01/11/24 01/11/24 01/11/24 Range/Units 06:12 06:12 11:17 Lymphocytes # 0.4 L (1.0-4.8) k/uL Sodium 135 L (137-145) mmol/L Potassium 3.3 L (3.5-5.1) mmol/L Chloride 93 L (98-107) mmol/L Carbon Dioxide 37 H (22-30) mmol/L Creatinine 0.57 L (0.66-1.25) mg/dL POC Glucose (mg/dL) 154 H (70-110) mg/dL Total Protein 6.0 L (6.3-8.2) g/dL Assessment and Plan (1) Dysphagia Current Visit: Yes Status: Acute Priority: High Code(s): R13.10 - DYSPHAGIA, UNSPECIFIED SNOMED Code(s): 16868255 (2) Non-small cell lung cancer (NSCLC) Current Visit: Yes Status: Acute Code(s): C34.90 - MALIGNANT NEOPLASM OF UNSP PART OF UNSP BRONCHUS OR LUNG SNOMED Code(s): 398491804 (3) Squamous cell carcinoma of head and neck Current Visit: Yes Status: Acute Code(s): C44.42 - SQUAMOUS CELL CARCINOMA OF SKIN OF SCALP AND NECK SNOMED Code(s): 008405197 Plan: Dysphagia -Secondary to suspect progressive malignancy, lymphadenopathy. -Status post PEG tube placement. Patient tolerated procedure well. He is tolerating tube feeds well at this time. Squamous cell carcinoma of the head and neck. Non-small cell lung cancer -Most recent recurrence of squamous cell was April/May 2023. Durvalumab for stage III lung cancer, diagnosed in 2019, unclear last dose. -November PET scan unfortunately positive for lymphadenopathy, hilar adenopathy. Pending biopsy. Patient did not know who his biopsy was scheduled to be with so, will clarify and contact his sister with appointment dates and times.
--- NOTE | 2024-01-11 13:20 | P.PN ---
Subjective Progress Note Date: 01/11/24 Shortness of breath. Patient is a 53-year-old white male with past medical history significant for COPD, chronic ongoing tobacco dependence, previous history of lung cancer, laryngeal cancer, seizure disorder, hyperlipidemia, TIA/CVA. His primary care provider is Dr. Alberto. He does follow in the pulmonary office with Dr. Fowler. Patient has severe COPD with an FEV1 36% of predicted. Utilizes Trelegy maintenance inhaler. Continues to smoke cigarettes. Patient also has history of lung cancer which was diagnosed back in 2019, and is status post chemoradiation. Subsequently, found to have laryngeal cancer, underwent radiation. Patient is not a good historian. He reports that he is not on any treatment at this time. I am unsure of who his established oncologist is. Most recent PET scan done 11/24/2023 consistent with progression of disease with new scattered metastatic disease throughout the thorax. Decrease in size of the oropharynx uptake along the right lateral tongue compared to prior; however, there is increasing right lateral neck activity with increasing lymph node size. Patient reportedly presented to the emergency department yesterday afternoon in acute respiratory distress. He was hypoxic. He was placed on BiPAP. Chest x- ray demonstrating new bibasilar opacities, right greater than left. Chronic hyperinflation consistent with COPD. CBC: WBC count 19.1, hemoglobin 15.7, hematocrit 45.8, platelets 315. CMP: Sodium 125, potassium 4, chloride 90, serum bicarb 20, BUN 13, creatinine 0.78, glucose 115. Lactic 4.8 and down to 3.1. Magnesium critically low at 0.8. EKG consistent with regular, rapid narrow complex tachycardia with a rate of 150 bpm. Serial troponins elevated at 0.51 and 0.47 respectively. Patient was started on heparin infusion per protocol. D-dimer also elevated. Given patient's history of malignancy, would recommend ruling out PE. Patient is currently being evaluated on the cardiac floor. He is on BiPAP with settings 14/6 and FiO2 of 50%. Respiratory rate is 19. Tidal volumes in the 600s. He is lethargic. I did order an ABG which has a PaO2 of 99, pCO2 of 41, pH of 7.41. He is a poor historian, and does not offer much in formation for HPI. Reporting some substernal chest pain nonradiating. Will not elaborate further. No particular coughing. No stridor. No significant adventitious lung sounds. Afebrile. He was negative for influenza A/B, RSV, COVID. He is empirically started on azithromycin and Rocephin for community- acquired pneumonia. Normal saline infusing at 130 mL/h. IV heparin continues per protocol. Prognosis certainly guarded. Progress note dated January 06, 2024. 53-year-old male with history of severe COPD. FEV1 is 36% of predicted. The patient was seen in consultation yesterday, with acute hypoxemic respiratory failure, being maintained on BiPAP. Chest x-ray suggested bibasilar airspace opacities, possibly consistent with underlying pneumonia. He has a history of other medical problems including laryngeal carcinoma, lung cancer, chronic and ongoing tobacco dependence, and alcoholism, to name a few. Currently, the patient is on nasal oxygen. He is at 4 L. He feels like his breathing is improved. Laboratory data includes a white count 13.8, hemoglobin 10.7, hematocrit 32.3, and a platelet count of 214,000. Sodium 131, potassium 4.5, chlorides 97, CO2 29, BUN 13, creatinine 0.46. Glucose is 106. Magnesium is 1.7. Progress note dated January 07, 2024. 53-year-old male seen today in room 350. Currently, the patient is on O2, by nasal cannula at 4 L. Saturations are 99%. He did use a BiPAP on and off last night, with settings of 10/6, and 50%. He is not receiving any IV fluids. He is currently on azithromycin, and Rocephin. His Solu-Medrol is changed to prednisone, and his formoterol and budesonide, are switched to Symbicort. Microbiology is currently negative. Progress note dated January 08, 2024. The patient is seen in room 350. He continues on O2 at 4 L. He is getting saline at 20 cc an hour. He continues on Rocephin. All in all, the patient is doing reasonably well. Previously he was on azithromycin and Rocephin. No new labs today. 01/09/2024, I am seeing the patient for a follow-up. The patient is resting comfortably in bed. No significant respiratory distress. He remains on oxygen 4 L of oxygen by nasal cannula. The patient is known to have advanced COPD 36% predicted. Was being treated for lower lobe pneumonia/bilateral. The patient is also known to have stage III non-small cell lung cancer treated with concurre nt chemoradiation therapy followed by durvalumab. He began to develop increased soreness and pain in the mouth with progressive odynophagia. This led to progressive difficulty and painful swallowing of both solids and liquids. He was initially referred to urgent care and received antibiotics, which did not relieve the pain. He was eventually referred to Dr. 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 He did have a PET/CT performed on 02/02/2023, which noted 2.6 x 3.7 cm right base of tongue lesion involving the right tongue, right glossotonsillar sulcus and thickening along the midline tongue and lingual surface of the epiglottis. The mass was FDG avid at 21.6 with the thickening of the epiglottis noted to be FDG avid with SUV 12.9. Right cervical lymph nodes at levels 2 3 and 4 were noted to be FDG avid, with the largest at level 2 with an SUV of 8.5 measuring 2.3 cm. Left cervical lymphadenopathy at levels 2 3 and 4 were also noted with the largest being at level 2 measuring 1.4 cm with an SUV of 3.6. There was subtle nodularity within the right lung base with surrounding groundglass opacification measuring up to 5 mm and SUV of 2.8. He completed 6 cycles of cisplatin on 04/20/2023 and RT on 05/24/2023. At his last clinic f/u patient reported he has been experiencing progressive right jaw pain when chewing along with swelling in the right neck over the last 2 months. PET/CT on 12/08/2023 noted small focus of uptake in the right submental region along with right cervical lymphadenopathy, bilateral subcentimeter lung nodules, and bilateral hilar lymphadenopathy concerning for disease recurrence. Given his prior history with stage III lung cancer, it is not clear if the lung nodules and hilar lymphadenopathy represent recurrence of his squamous cell carcinoma of the tongue or previous lung cancer. Noted the CTA during this current admission showed no evidence of any pulmonary embolism. There was debris's in the right mainstem bronchus concerning for aspiration. He remains on broad-spectrum antibiotics. Procalcitonin level at time of admission was quite elevated. The patient also has a PEG tube for enteral feeding and nutritional support. On today's blood work, his white cell count is at 6.5 with a hemoglobin 12.9 and platelet count of 232. BUN is 15 with a creatinine of 0.6 and a sodium levels at 133. Rest of the LFTs are all within normal limits. He looks quite cachectic. He carries a body mass index of 16.5. 01/10/2024, the patient is being seen for a follow-up. The patient is doing well with no specific complaints. Remains on 4 L of oxygen by nasal cannula. Repeat chest x-ray was done today and the chest x-ray shows some stable bilateral lower lobe pulm infiltrates although some interval improvement in aeration of the lung bases was noted specially on the right. He continues to be on enteral feeding for nutritional support. He is n.p.o. for now. Obvious causative 6.5 with a hemoglobin 12.9. The patient completed a course of IV Rocephin and is currently on no antibiotic coverage. He is on Symbicort. Is also on DuoNeb the regimen is on the clock. Limited cough and congestion is present. No other significant events overnight. 01/11/2024, the patient is doing well. No significant respiratory difficulties. He was on 4 L and I wean the patient down to 2 L O2 nasal cannula. Limited cough and congestion. No shortness of breath. No chest pain. Continues to receive enteral feeding for nutritional support. Hemodynamically stable. Labs show a WBC count of 7.8, heme of 13.3 and platelet count of 267. Electrolytes are normal. BUN is 15 with a creatinine of 0.5. Rest of the LFTs are normal. Objective - Vital Signs Vital signs: Vital Signs Temp 97.9 F 01/11/24 03:42 Pulse 82 01/11/24 07:52 Resp 18 01/11/24 03:42 BP 120/81 01/11/24 03:42 Pulse Ox 97 01/11/24 07:40 FiO2 50 01/05/24 00:08 Intake & Output 01/10/24 01/11/24 01/11/24 18:59 06:59 18:59 Output Total 1750 Balance -1750 Weight 56.2 kg Output: Urine 1750 Other: Voiding Method Toilet Toilet Urinal Urinal - Exam No acute distress, oriented 3. Currently on 4 L nasal cannula. HEENT examination is grossly unremarkable. Mucous membranes are moist. No oral lesions. Neck supple. Full range of motion. No adenopathy thyromegaly or neck vein distention. Cardiovascular examination reveals regular rhythm rate. S1-S2 normal. No S3 or S4. No discernible murmur noted. Lungs reveal scattered rhonchi. No expiratory wheezes or crackles. Breath sounds equal. Breath sounds are diminished throughout. Abdomen soft bowel sounds are heard. No masses or tenderness. The patient has a PEG tube in place for enteral feeding and nutritional support. Extremities are intact. No cyanosis clubbing or edema. Skin is without rash or lesion. Neurologic examination is brief but nonfocal. - Labs CBC & Chem 7: 01/11/24 06:12 01/11/24 06:12 Labs: Abnormal Lab Results - Last 24 Hours (Table) 01/10/24 01/10/24 01/10/24 Range/Units 11:33 16:47 23:02 Lymphocytes # (1.0-4.8) k/uL Sodium (137-145) mmol/L Potassium (3.5-5.1) mmol/L Chloride (98-107) mmol/L Carbon Dioxide (22-30) mmol/L Creatinine (0.66-1.25) mg/dL POC Glucose (mg/dL) 144 H 144 H 133 H (70-110) mg/dL Total Protein (6.3-8.2) g/dL 01/11/24 01/11/24 01/11/24 Range/Units 05:43 06:12 06:12 Lymphocytes # 0.4 L (1.0-4.8) k/uL Sodium 135 L (137-145) mmol/L Potassium 3.3 L (3.5-5.1) mmol/L Chloride 93 L (98-107) mmol/L Carbon Dioxide 37 H (22-30) mmol/L Creatinine 0.57 L (0.66-1.25) mg/dL POC Glucose (mg/dL) 112 H (70-110) mg/dL Total Protein 6.0 L (6.3-8.2) g/dL Assessment and Plan Plan: Acute hypoxemic respiratory failure, with bibasilar airspace opacities, right greater than left, concerning for community-acquired/aspiration pneumonia. Note that his CT of the chest also shows small right-sided pleural effusion, moderate emphysema and due to the presence of debris's in the right mainstem bronchus, aspiration pneumonia suspected. There is also thickening through the right hilum which could potentially represent posttreatment changes versus persistent/recurrent neoplasm. Repeat chest x-ray was done today and the patient's chest x-ray shows stable/improved infiltration of the lung bases. The patient completed the course of antibiotics. Currently on 4 L of O2 nasal cannula. Also, the procalcitonin level is improving. Elevated troponins, rule out non-ST elevation OH. Severe hypomagnesemia, Treated Hyponatremia, possible SIADH, treated Laryngeal cancer, with disease progression and metastasis to the lungs and pulmonary hilum. History of lung cancer, previously diagnosed back in 2019, status post chemo/radiation. Severe chronic obstructive pulmonary disease, with an FEV1 36% of predicted. Chronic ongoing tobacco dependence. History of alcoholism. History of COVID/RSV. Seizure disorder. History of hyperlipidemia. History of CVA/TIA. Plan: Titrate oxygen flow to maintain saturation above 90% currently on 2 L O2 nasal cannula Aspiration precautions Swallow evaluation, high risk for aspiration Completed the course of antibiotics Repeat procalcitonin level in a.m. shows that the level is improving Repeat chest x-ray shows stable, improving infiltrates in the lung base bilaterally and the patient completed antibiotic course. Continue enteral feeding for nutritional support Oncology on the case Will continue to follow, clinically stable, no active respiratory issues for now.
[2024-01-11 15:52] VITALS: PULSE 78
== END 2024-01-11 17:04 | disposition home health service (06) | DRG 137 ==
LOC: EC 16:51 → 3SCARD 21:06
PROVIDERS: ADMIT Hospitalist; ATTEND Hospitalist
PROC: 5A09357 Assistance with Respiratory Ventilation, Less than 24 Consecutive Hours, Continuous Positive Airway Pressure (ICD-10-PCS; 2024-01-04)
PROC: F00ZHZZ Bedside Swallowing and Oral Function Assessment (ICD-10-PCS; 2024-01-06)
PROC: 3E0G76Z Introduction of Nutritional Substance into Upper GI, Via Natural or Artificial Opening (ICD-10-PCS; 2024-01-07)
PROC: 0DH63UZ Insertion of Feeding Device into Stomach, Percutaneous Approach (ICD-10-PCS; principal; 2024-01-07 07:30)
DX: J69.0 Pneumonitis due to inhalation of food and vomit (principal); C78.00 Secondary malignant neoplasm of unspecified lung; E78.5 Hyperlipidemia, unspecified; E83.42 Hypomagnesemia; E43 Unspecified severe protein-calorie malnutrition; Z68.1 Body mass index [BMI] 19.9 or less, adult; R64 Cachexia; E87.1 Hypo-osmolality and hyponatremia; G40.909 Epilepsy, unspecified, not intractable, without status epilepticus; J44.1 Chronic obstructive pulmonary disease with (acute) exacerbation; J96.01 Acute respiratory failure with hypoxia; C01 Malignant neoplasm of base of tongue; I21.A1 Myocardial infarction type 2; R13.10 Dysphagia, unspecified; I27.20 Pulmonary hypertension, unspecified; J96.21 Acute and chronic respiratory failure with hypoxia; J43.2 Centrilobular emphysema; F17.210 Nicotine dependence, cigarettes, uncomplicated; Z56.0 Unemployment, unspecified; Z79.899 Other long term (current) drug therapy; Z85.118 Personal history of other malignant neoplasm of bronchus and lung; Z85.21 Personal history of malignant neoplasm of larynx; Z86.73 Personal history of transient ischemic attack (TIA), and cerebral infarction without residual deficits; Z92.21 Personal history of antineoplastic chemotherapy; Z86.16 Personal history of COVID-19; Z92.3 Personal history of irradiation
CPT/HCPCS: 36415; 36600; 43246; 71045; 71275; 74230; 80048; 80053; 82803; 82805; 83605; 83735; 84145; 84484; 85025; 85379; 85610; 85730; 87040; 87636; 93005; 93306; 94640; 94660; 94760; 96365; 96366; 96367; 96368; 96375; 99291

== ENCOUNTER 2024-01-14 21:18 | Emergency (ER) | payer OTHER ==
[2024-01-14 21:22] VITALS: TEMP 98.2
[2024-01-14] MEDS: SODIUM CHLORIDE 0.9% 1,000 ML IV ONE (21:56)
[2024-01-14 22:14] LABS: Basophils % (A) 0 %; Eosinophils # (A) 0.1 k/uL (0-0.7); Eosinophils % (A) 1 %; HCT 41.7 % (39.0-53.0); HGB 13.5 gm/dL (13.0-17.5); Lymphocytes # (A) 0.4 k/uL (1.0-4.8); Lymphocytes % (A) 3 %; MCH 29.3 pg (25.0-35.0); MCHC 32.4 g/dL (31.0-37.0); MCV 90.4 fL (80.0-100.0); Mean Platelet Volume 7.3; Monocytes # (A) 0.7 k/uL (0-1.0); Monocytes % (A) 6 %; Neutrophils # (A) 9.6 k/uL (1.3-7.7); Neutrophils % (A) 89 %; Platelet Count 304 k/uL (150-450); RBC 4.62 m/uL (4.30-5.90); RDW 13.1 % (11.5-15.5); WBC 10.8 k/uL (3.8-10.6)
[2024-01-14] MEDS: METOCLOPRAMIDE 5 MG/ML 2 ML VIAL IVP STA (22:25)
[2024-01-14 22:26] LABS: ALT 33 U/L (4-49); AST 30 U/L (17-59); African American GFR (CKD) >90 (>60 ml/min/1.73 sqM); Albumin 4.2 g/dL (3.5-5.0); Alkaline Phosphatase 88 U/L (38-126); Anion Gap 2 mmol/L; Blood Urea Nitrogen 20 mg/dL (9-20); Calcium 10.1 mg/dL (8.4-10.2); Carbon Dioxide 37 mmol/L (22-30); Chloride 98 mmol/L (98-107); Glucose 97 mg/dL (74-99); Non-African American GFR(CKD) >90 (>60 ml/min/1.73 sqM); Sodium 137 mmol/L (137-145); Total Bilirubin 0.8 mg/dL (0.2-1.3); Total Protein 6.9 g/dL (6.3-8.2)
[2024-01-14] MEDS: MORPHINE SULFATE 4 MG/ML SYRINGE IV STA (23:12)
[2024-01-14 23:17] VITALS: RESP 18
--- NOTE | 2024-01-14 23:27 | ED ---
General Adult HPI - General Chief complaint: Recheck/Abnormal Lab/Rx Stated complaint: Post op pain Time Seen by Provider: 01/14/24 21:32 Source: patient Mode of arrival: ambulatory Limitations: no limitations - History of Present Illness Initial comments: This patient is a 53-year-old man who presents with 2 complaints. The first complaint is that he had a bowel movement at home today and then developed sharp severe stabbing pain at the site of a PEG tube that had been placed on Tuesday. The patient did not note any other changes related. He has not had any bleeding from the site. He has not had change in urination or bowel movements. He does note that he did have to strain with his bowel movement. The pain has improved somewhat from the onset but remains at the site. The patient second complaint is that he has had days of severe whole head headache which she had before leaving the hospital and has continued. He denies fever or chills. No neck stiffness. No neurologic symptoms. Location: head, abdomen Radiation: non-radiation Quality: aching Consistency: constant Improves with: none Worsens with: none Associated Symptoms: denies other symptoms Treatments Prior to Arrival: none - Related Data Home Medications Medication Instructions Recorded Confirmed Lacosamide [Vimpat] 150 mg PO BID 08/20/20 01/20/24 Atorvastatin Calcium [Lipitor] 40 mg PO HS 04/28/23 01/20/24 Ibuprofen [Motrin] 800 mg PO TID PRN 04/28/23 01/20/24 Baclofen [Lioresal] 10 mg PO TID PRN 01/04/24 01/20/24 Lidocaine Viscous 2% [Xylocaine 10 - 15 ml MUCOUS MEM ACHS PRN 01/04/24 01/20/24 Viscous] Albuterol Nebulized [Ventolin 2.5 mg INHALATION RT-TID 01/19/24 01/20/24 Nebulized] levETIRAcetam [Keppra Oral 1,000 mg PO BID 01/19/24 01/20/24 Solution] oxyCODONE-APAP 7.5-325MG [Percocet 1 tab PO Q6H 01/19/24 01/20/24 7.5-325 mg] predniSONE [Deltasone] 40 mg PO DAILY 01/19/24 01/20/24 Previous Rx's Medication Instructions Recorded Potassium Chloride ER [K-Dur 20] 20 meq PO DAILY 7 Days #7 tab 01/19/24 Allergies Allergy/AdvReac Type Severity Reaction Status Date / Time No Known Allergies Allergy Verified 01/20/24 13:55 Review of Systems ROS Statement: Those systems with pertinent positive or pertinent negative responses have been documented in the HPI. ROS Other: All systems not noted in ROS Statement are negative. Constitutional: Denies: fever, chills, weakness Eyes: Denies: eye pain, vision change ENT: Denies: hearing loss, congestion Respiratory: Denies: cough, dyspnea Cardiovascular: Denies: chest pain, palpitations, syncope Gastrointestinal: Reports: as per HPI, abdominal pain. Denies: nausea, vomiting, diarrhea, constipation Genitourinary: Denies: dysuria, hematuria Musculoskeletal: Denies: back pain Skin: Denies: rash Neurological: Reports: headache. Denies: weakness, numbness, confusion Past Medical History Past Medical History: Cancer, COPD, CVA/TIA, Seizure Disorder Additional Past Medical History / Comment(s): TIA summer 2019-no residual effects, lung cancer 2019-had radiation & chemo which is finished, immunotherapy every 2 weeks, last seizure approx. 8 months ago History of Any Multi-Drug Resistant Organisms: None Reported Additional Past Surgical History / Comment(s): mediport left side, brain surg. for dermoid cysts >20 yrs. ago, throat cancer, lung cancer, seizure disorder Past Anesthesia/Blood Transfusion Reactions: No Reported Reaction Past Psychological History: No Psychological Hx Reported Smoking Status: Current every day smoker Past Alcohol Use History: Heavy Past Drug Use History: Marijuana General Exam Limitations: no limitations General appearance: alert, in no apparent distress Head exam: Present: atraumatic, normocephalic Eye exam: Present: normal appearance, PERRL, EOMI. Absent: scleral icterus, conjunctival injection, nystagmus Neck exam: Present: normal inspection, full ROM. Absent: tenderness, meningismus Respiratory exam: Present: normal lung sounds bilaterally. Absent: respiratory distress, wheezes, rales, rhonchi, stridor, accessory muscle use Cardiovascular Exam: Present: regular rate, normal rhythm, normal heart sounds. Absent: systolic murmur, diastolic murmur, rubs, gallop GI/Abdominal exam: Present: soft, other (PEG tube in the left upper quadrant wi th normal appearance.). Absent: distended, tenderness, guarding, rebound, rigid, mass Extremities exam: Present: normal inspection, normal capillary refill. Absent: pedal edema, calf tenderness Back exam: Present: normal inspection. Absent: CVA tenderness (R), CVA tenderness (L) Neurological exam: Present: alert Skin exam: Present: warm, dry, intact, normal color. Absent: rash Course Vital Signs 01/14/24 01/14/24 01/15/24 21:19 23:16 03:40 Temperature 98.2 F Pulse Rate 95 86 84 Respiratory 17 18 18 Rate Blood Pressure 118/82 111/78 130/84 O2 Sat by Pulse 92 L 97 Oximetry - Reevaluation(s) Reevaluation #1: 01/15/24 03:[address] findings with the patient. He states that he has had a rectal lump that he refers to as a polyp for years and it is not causing him problems currently. He does not want this addressed. We did discuss following up with surgery to have this reevaluated. Patient will return here if there is any pain or enlargement of this. Medical Decision Making - Medical Decision Making The patient had abdominal x-ray that I interpreted as negative for free air, obstruction. The patient had CT of the abdomen and pelvis that I interpreted as showing a perianal cystic structure. There is no free air or obstruction. The patient had CT scan of the brain that I interpreted as negative for acute bony injury, no acute intracranial hemorrhage, no mass effect Was pt. sent in by a medical professional or institution (LINDA Kumar, [facility] [employer], urgent care, hospital, or penitentiary...) When possible be specific @ -[No] Did you speak to anyone other than the patient for history (EMS, parent, family, police, friend...)? What history was obtained from this source @ -[No] Did you review nursing and triage notes (agree or disagree)? Why? @ -[I reviewed and agree with nursing and triage notes] Were old charts reviewed (outside hosp., previous admission, EMS record, old EKG, old radiological studies, urgent care reports/EKG's, penitentiary records)? Report findings @ -[No old charts were reviewed] Differential Diagnosis (chest pain, altered mental status, abdominal pain women, abdominal pain men, vaginal bleeding, weakness, fever, dyspnea, syncope, headache, dizziness, GI bleed, back pain, seizure, CVA, palpatations, mental health, musculoskeletal)? @ -[Differential Abdominal Pain Men: Appendicitis, cholecystitis, diverticulosis, ischemic bowel, pancreatitis, hepatitis, UTI, gastroenteritis, AAA, incarcerated hernia, bowel obstruction, constipation, inflammatory bowel, hepatitis, peptic ulcer disease, splenic infarction, perforated viscus, testicular torsion, this is not meant to be an all-inclusive list EKG interpreted by me (3pts min.). @ -[As above] X-rays interpreted by me (1pt min.). @ -[I interpreted as above CT interpreted by me (1pt min.). @ -[I interpreted as above U/S interpreted by me (1pt. min.). @ -[None done] What testing was considered but not performed or refused? (CT, X-rays, U/S, labs)? Why? @ -[None] What meds were considered but not given or refused? Why? @ -[None] Did you discuss the management of the patient with other professionals (joseph velez i.eDevin Kumar, PA, [employer], lab, RT, psych nurse, clinical social work aide, certified histologic technician, teacher, fare enforcement officer, corrections caseworker)? Give summary @ -[No] Was smoking cessation discussed for >3mins.? @ -[No] Was critical care preformed (if so, how long)? @ -[No] Were there social determinants of health that impacted care today? How? (Homelessness, low income, unemployed, alcoholism, drug addiction, transportation, low edu. Level, literacy, decrease access to med. care, retirement, rehab)? @ -[No] Was there de-escalation of care discussed even if they declined (Discuss DNR or withdrawal of care, Hospice)? DNR status @ -[No] What co-morbidities impacted this encounter? (DM, HTN, Smoking, COPD, CAD, Cancer, CVA, ARF, Chemo, Hep., AIDS, mental health diagnosis, sleep apnea, morbid obesity)? @ -[None] Was patient admitted / discharged? Hospital course, mention meds given and route, prescriptions, significant lab abnormalities, going to OR and other pertinent info. @ -[Patient is feeling that he wants to go home when he is reevaluated following studies. We discussed the CT finding and the possibility of etiology such as abscess or malignancy but the patient does not want this to be addressed today. He states he will follow-up. We discussed appropriate further care as well as return parameters. Undiagnosed new problem with uncertain prognosis? @ -[No] Drug Therapy requiring intensive monitoring for toxicity (Heparin, Nitro, Insulin, Cardizem)? @ -[No] Were any procedures done? @ -[No] Diagnosis/symptom? @ -[Postoperative pain Perianal cyst, probably chronic Acute, or Chronic, or Acute on Chronic? @ -[default] Uncomplicated (without systemic symptoms) or Complicated (systemic symptoms)? @ -[Uncomplicated Side effects of treatment? @ -[No] Exacerbation, Progression, or Severe Exacerbation? @ -[No] Poses a threat to life or bodily function? How? (Chest pain, USA, NC, pneumonia, PE, COPD, DKA, ARF, appy, cholecystitis, CVA, Diverticulitis, Homicidal, Suicidal, threat to staff... and all critical care pts) @ -[Requires further evaluation - Lab Data Result diagrams: 01/14/24 22:03 01/14/24 22:03 Lab Results 01/14/24 01/14/24 01/14/24 Range/Units 22:03 22:03 22:03 WBC 10.8 H (3.8-10.6) k/uL RBC 4.62 (4.30-5.90) m/uL Hgb 13.5 (13.0-17.5) gm/dL Hct 41.7 (39.0-53.0) % MCV 90.4 (80.0-100.0) fL MCH 29.3 (25.0-35.0) pg MCHC 32.4 (31.0-37.0) g/dL RDW 13.1 (11.5-15.5) % Plt Count 304 (150-450) k/uL MPV 7.3 Neutrophils % 89 % Lymphocytes % 3 % Monocytes % 6 % Eosinophils % 1 % Basophils % 0 % Neutrophils # 9.6 H (1.3-7.7) k/uL Lymphocytes # 0.4 L (1.0-4.8) k/uL Monocytes # 0.7 (0-1.0) k/uL Eosinophils # 0.1 (0-0.7) k/uL Basophils # 0.0 (0-0.2) k/uL Sodium 137 (137-145) mmol/L Potassium 4.0 (3.5-5.1) mmol/L Chloride 98 (98-107) mmol/L Carbon Dioxide 37 H (22-30) mmol/L Anion Gap 2 mmol/L BUN 20 (9-20) mg/dL Creatinine 0.63 L (0.66-1.25) mg/dL Est GFR (CKD-EPI)AfAm >90 (>60 ml/min/1.73 sqM) Est GFR (CKD-EPI)NonAf >90 (>60 ml/min/1.73 sqM) Glucose 97 (74-99) mg/dL Plasma Lactic Acid Carlton 0.7 (0.7-2.0) mmol/L Calcium 10.1 (8.4-10.2) mg/dL Total Bilirubin 0.8 (0.2-1.3) mg/dL AST 30 (17-59) U/L ALT 33 (4-49) U/L Alkaline Phosphatase 88 (38-126) U/L C-Reactive Protein 8.0 H (<1.0) mg/dL Total Protein 6.9 (6.3-8.2) g/dL Albumin 4.2 (3.5-5.0) g/dL Disposition Clinical Impression: Post-operative pain, Cyst Disposition: HOME SELF-CARE Condition: Fair Instructions (If sedation given, give patient instructions): How to Use and Care for Your PEG Tube (ED) Additional Instructions: As we discussed, follow-up with your surgeon to have the cyst on the buttock reevaluated Is patient prescribed a controlled substance at d/c from ED?: Yes When asked, does pt state using other controlled substances?: No If prescribed controlled substance>3 days was MAPS reviewed?: Prescribed <3 Days If opioid is for acute pain is fill amount 7 days or less?: Yes If Rx opioid, was Start Talking consent form obtained?: Yes Referrals: Ambika Barragan DO [Primary Care Provider] - 1-2 days Ulises Osborne MD [STAFF PHYSICIAN] - 1-2 days
[2024-01-14] MEDS: HYDROmorphone 1 MG/ML 1 ML SYRINGE IVP STA (23:36)
--- NOTE | 2024-01-15 01:55 | XR ---
EXAM: XR Abdomen, 1 View CLINICAL HISTORY: ITS.REASON XR Reason: PEG tube exam TECHNIQUE: Frontal supine view of the abdomen/pelvis. COMPARISON: 01/15/2024. FINDINGS: Lower thorax: Minimal blunting of the left CP angle possibly on the basis of small left pleural effusion. Gastrointestinal tract: Nonspecific bowel gas pattern. No dilation. Bones/joints: Unremarkable. No acute fracture. Tubes, lines and devices: A PEG tube is noted in place with its distal tip at the gastric fundus. Contrast material has been injected through the PEG tube and feels the stomach. Other findings: No evidence of extravasation. Probable COPD. IMPRESSION: 1. PEG tube is noted in place and is in good position as discussed above. 2. Contrast material has been injected through the PEG tube. 3. No evidence of extravasation. 4. Nonspecific bowel gas pattern.
--- NOTE | 2024-01-15 02:00 | CT ---
EXAM: CT Abdomen and Pelvis Without Intravenous Contrast CLINICAL HISTORY: ITS.REASON CT Reason: abdominal pain TECHNIQUE: Axial computed tomography images of the abdomen and pelvis without intravenous contrast. CTDI is 5.8 mGy and DLP is 396.2 mGy-cm. This CT exam was performed using one or more of the following dose reduction techniques: automated exposure control, adjustment of the mA and/or kV according to patient size, and/or use of iterative reconstruction technique. COMPARISON: KUB study 01/06/2024. Chest x-ray study of 01/10/2024. FINDINGS: Limitations: Limited of age of the viscera due to lack of intravenous contrast administration. Lung bases: Located posterior medially at the left lower lobe there is a 3.7 x 2.8 cm mass lesion at the left lower lobe. Differential etiologies include metastatic disease although atypical pneumonia could have a similar appearance. Best seen on series 204 image 6, located posterior laterally in the right middle lobe, there is a 0.6 cm subpleural nodule which should be followed based on the Fleischner Society guidelines. Located centrally within the left lower lobe as best seen on series 204 image 20 is a 1 cm spiculated noncalcified nodule. Noncalcified nodules are also noted at the left lung base the largest of which is seen on series 204 image 24 and measures 1.3 cm in extent. COPD. Heart: Heart is normal in size. ABDOMEN: Liver: Fatty liver is noted. Gallbladder and bile ducts: Unremarkable. No ductal dilation. No gallstones. Pancreas: See below. Spleen: Spleen is normal in contour. Adrenals: The adrenal glands, the head, body, tail of the pancreas are unremarkable. Kidneys and ureters: Bilateral subcentimeter nonobstructing renal calculi are noted the largest of which measures approximate 0.5 cm in the mid pole region of the right kidney. No hydronephrosis. Stomach and bowel: Moderate quantity of stool throughout the colon. No mucosal thickening. No bowel obstruction. PELVIS: Appendix: No findings to suggest acute appendicitis. Bladder: Unremarkable. No stones. Reproductive: Unremarkable as visualized. ABDOMEN and PELVIS: Intraperitoneal space: Unremarkable. No free air. No significant fluid collection. Bones/joints: No acute fracture. No dislocation. No spondylolysis. Soft tissues: Best seen on series 301 image 147 and located posteriorly at the subcutaneous tissues about the left anal region is a 3. 9 cm cystic structure of uncertain etiology. Differential etiologies include abscess collection. Clinical correlation is necessary as this finding is nonspecific. Moderate anasarca. Ischiorectal fat is clean. Vasculature: Atherosclerotic disease of the abdominal aorta without change in caliber. Lymph nodes: Unremarkable. No pelvic or inguinal lymphadenopathy. Tubes, lines and devices: A PEG tube is noted in place with its distal tip at the body of the stomach, in good position. IMPRESSION: 1. COPD. 2. Mass lesion posterior medially at the left lower lobe worrisome for neoplasm. 3. Indeterminate lung nodules near the lung bases as detailed above. Dedicated CT imaging of the chest the PET imaging are advised for further assessment. Correlation with history is necessary. These findings are nonspecific. 4. Fatty liver. 5. No gallstones. 6. Subcentimeter nonobstructing renal calculi without hydronephrosis. 7. Anasarca. 8. No bowel obstruction.
--- NOTE | 2024-01-15 02:18 | CT ---
EXAM: CT Head Without Intravenous Contrast CLINICAL HISTORY: ITS.REASON CT Reason: WHOL TECHNIQUE: Axial computed tomography images of the head/brain without intravenous contrast. CTDI is 49.2 mGy and DLP is 1168.4 mGy-cm. This CT exam was performed using one or more of the following dose reduction techniques: automated exposure control, adjustment of the mA and/or kV according to patient size, and/or use of iterative reconstruction technique. COMPARISON: No relevant prior studies available. FINDINGS: 1. Status post craniotomy with pneumocephalus 2. Resection cavity in the left inferior frontal lobe with 12 mm calcified lesion. 3. Right frontal encephalomalacia. 4. No herniation or midline shift. IMPRESSION: 1. Status post craniotomy with pneumocephalus 2. Resection cavity in the left inferior frontal lobe with 12 mm calcified lesion. 3. Right frontal encephalomalacia. 4. No herniation or midline shift.
[2024-01-15] MEDS: MORPHINE SULFATE 4 MG/ML SYRINGE IV STA (03:34)
[2024-01-15 03:42] VITALS: BP 130/84; PULSE 84
== END 2024-01-15 03:42 | disposition home or self-care (01) ==
LOC: EC 21:18
CPT/HCPCS: 36415; 70450; 74018; 74176; 80053; 83605; 85025; 86140; 96361; 96374; 96375; 96376; 99284

== ENCOUNTER → 2024-01-18 | Outpatient (CLI) | payer OTHER ==
--- NOTE | 2024-01-18 12:56 | MR ---
EXAMINATION TYPE: MR brain wo/w con DATE OF EXAM: 01/18/2024 12:39 PM COMPARISON: CT brain 01/15/2024 HISTORY: Migraines, lung and throat cancer. CONTRAST: Patient received 5 mL intravenous Gadavist gadolinium contrast. Multiplanar and multispin-echo imaging of the brain was performed . Pre and post contrast enhanced i mages are obtained. The ventricles, basal cisterns and sulci overlying the cerebral convexities are mildly enlarged. There is evidence of mild periventricular white matter ischemic demyelination. Postoperative encephalomalacia bilateral frontal lobes. Again noted is calcified lesion left frontal lobe as well as multiple foci of air compatible with encephalomalacia given patient's postoperative state. Tiny subcortical focus of enhancement is difficult to exclude on image 117 [id number] sequence 601 wi thin the right frontal lobe measuring 2.4 mm. No definite pathologic enhancement at the sites of post operative encephalomalacia. No additional abnormal areas of enhancement are seen with certainty at th is time. Remote deep white matter insults are also noted. No acute edema is seen on diffusion weighted imaging. There is no evidence for midline shift or mass effect. Acute intracranial hemorrhage or extra-axial collection is not evident. The paranasal sinuses and mastoid air cells are well-aerated. IMPRESSION: 1.Postoperative encephalomalacia bilateral frontal lobes. Again noted is calcified lesion left fronta l lobe as well as multiple foci of air compatible with encephalomalacia given patient's postoperative state. No evidence for pathologic enhancement at the resection site. 2.Tiny subcortical focus of enhancement is difficult to exclude on image 117 175 sequence 601 within the right frontal lobe measuring 2.4 mm. This could simply reflect a vessel however tiny micronodule is difficult to exclude. Appropriate follow-up advised. [facility], , 01/18/2024 12:54 PM
== END | disposition home or self-care (01) ==
LOC: RADMRIMAIN 11:24
PROVIDERS: ATTEND Internal Medicine
DX: C10.9 Malignant neoplasm of oropharynx, unspecified (principal); C34.90 Malignant neoplasm of unspecified part of unspecified bronchus or lung; G93.89 Other specified disorders of brain
CPT/HCPCS: 70553

== ENCOUNTER 2024-01-19 11:17 | Emergency (ER) | payer OTHER ==
[2024-01-19 11:29] VITALS: BP 132/83; RESP 22; TEMP 98.2
[2024-01-19] MEDS: SODIUM CHLORIDE 0.9% 1,000 ML IV ONE (11:48)
[2024-01-19] MEDS: HYDROmorphone 1 MG/ML 1 ML SYRINGE IVP STA ×2 (11:49→15:22)
--- NOTE | 2024-01-19 11:50 | ED ---
General Adult HPI - General Chief complaint: Altered Mental Status Stated complaint: AMS Time Seen by Provider: 01/19/24 11:20 Source: patient, EMS, RN notes reviewed, old records reviewed Mode of arrival: EMS Limitations: altered mental status - History of Present Illness Initial comments: This is a 53-year-old male who has a past medical history significant for lung cancer with metastatic disease to the throat. Patient states he is already gone for chemoradiation and he believes or cannot start immunotherapy. Today physical therapy came to the house to work with him but he was too weak to do anything and then he started staring off in space and was significantly altered according to the daughter and physical therapist so they wanted him come to the hospital to be evaluated. Patient states he never was unconscious he was always awake but so weak that he could not participate in any physical therapy so he refused. States he has a headache but he has had the headache for the last few weeks and nothing seems to help with the headache. Patient denies any new chest pain or back pain. Patient has any abdominal pain patient has any nausea or vomiting. - Related Data Home Medications Medication Instructions Recorded Confirmed Lacosamide [Vimpat] 150 mg PO BID 08/20/20 01/19/24 Atorvastatin Calcium [Lipitor] 40 mg PO HS 04/28/23 01/19/24 Ibuprofen [Motrin] 800 mg PO TID PRN 04/28/23 01/19/24 Baclofen [Lioresal] 10 mg PO TID PRN 01/04/24 01/19/24 Lidocaine Viscous 2% [Xylocaine 10 - 15 ml MUCOUS MEM ACHS PRN 01/04/24 01/19/24 Viscous] Albuterol Nebulized [Ventolin 2.5 mg INHALATION RT-TID 01/19/24 01/19/24 Nebulized] levETIRAcetam [Keppra Oral 1,000 mg PO BID 01/19/24 01/19/24 Solution] oxyCODONE-APAP 7.5-325MG [Percocet 1 tab PO Q6H 01/19/24 01/19/24 7.5-325 mg] predniSONE [Deltasone] 40 mg PO DAILY 01/19/24 01/19/24 Previous Rx's Medication Instructions Recorded Potassium Chloride ER [K-Dur 20] 20 meq PO DAILY 7 Days #7 tab 01/19/24 Allergies Allergy/AdvReac Type Severity Reaction Status Date / Time No Known Allergies Allergy Verified 01/19/24 14:43 Review of Systems ROS Statement: Those systems with pertinent positive or pertinent negative responses have been documented in the HPI. ROS Other: All systems not noted in ROS Statement are negative. Past Medical History Past Medical History: Cancer, COPD, CVA/TIA, Seizure Disorder Additional Past Medical History / Comment(s): TIA summer 2019-no residual effects, lung cancer 2019-had radiation & chemo which is finished, immunotherapy every 2 weeks, last seizure approx. 8 months ago History of Any Multi-Drug Resistant Organisms: None Reported Additional Past Surgical History / Comment(s): mediport left side, brain surg. for dermoid cysts >20 yrs. ago, throat cancer, lung cancer, seizure disorder Past Anesthesia/Blood Transfusion Reactions: No Reported Reaction Past Psychological History: No Psychological Hx Reported Smoking Status: Current every day smoker Past Alcohol Use History: None Reported Past Drug Use History: Marijuana General Exam - General Exam Comments Initial Comments: GENERAL: Patient is well-developed and well-nourished. Patient is nontoxic and well- hydrated and is in mild distress. ENT: Neck is soft and supple. No significant lymphadenopathy is noted. Oropharynx is clear. Moist mucous membranes. Neck has full range of motion without eliciting any pain. EYES: The sclera were anicteric and conjunctiva were pink and moist. Extraocular movements were intact and pupils were equal round and reactive to light. Eyelids were unremarkable. PULMONARY: Unlabored respirations. Good breath sounds bilaterally. No audible rales rhonchi or wheezing was noted. CARDIOVASCULAR: There is a regular rate and rhythm without any murmurs gallops or rubs. ABDOMEN: Soft and nontender with normal bowel sounds. SKIN: Skin is clear with no lesions or rashes and otherwise unremarkable. NEUROLOGIC: Patient is alert and oriented x3. Cranial nerves II through XII are grossly intact. Motor and sensory are also intact. Normal speech, volume and content. Symmetrical smile. MUSCULOSKELETAL: Normal extremities with adequate strength and full range of motion. Patient has edema of his feet 1+ bilaterally LYMPHATICS: No significant lymphadenopathy is noted PSYCHIATRIC: Normal psychiatric evaluation. Limitations: altered mental status Course Vital Signs 01/19/24 11:20 Temperature 98.2 F Pulse Rate 80 Respiratory 22 Rate Blood Pressure 132/83 O2 Sat by Pulse 99 Oximetry Medical Decision Making - Medical Decision Making EKG is interpreted by myself. EKG shows a sinus rhythm at 61 bpm AR was 152 QRS is 106 QT interval 351 QTc is 355. Patient's EKG shows no ST segment ovation or depression. Was pt. sent in by a medical professional or institution (LINDA Kumar, REGISTERED NURSE, urgent care, hospital, or half-way...) When possible be specific @ -No Did you speak to anyone other than the patient for history (EMS, parent, family, police, friend...)? What history was obtained from this source @ -Daughter gave quite a bit of the history Did you review nursing and triage notes (agree or disagree)? Why? @ -I reviewed and agree with nursing and triage notes Were old charts reviewed (outside hosp., previous admission, EMS record, old EKG, old radiological studies, urgent care reports/EKG's, half-way records)? Report findings @ -No old charts were reviewed Differential Diagnosis? @ -Differential Altered Mental Status: Hypoglycemia, DKA, hypercapnia, ETOH, overdose, CO poisoning, trauma, myxedema coma, HTN encephalopathy, infection, encephalitis, psychosis, intercranial hemorrhage, hepatic encephalopathy, meningitis, CVA, this is not meant to be an all-inclusive list EKG interpreted by me (3pts min.). @ -As above X-rays interpreted by me (1pt min.). @ -Chest x-ray shows no acute abnormality CT interpreted by me (1pt min.). @ -CT scan shows no acute abnormality U/S interpreted by me (1pt. min.). @ -None done What testing was considered but not performed or refused? (CT, X-rays, U/S, labs)? Why? @ -None What meds were considered but not given or refused? Why? @ -None Did you discuss the management of the patient with other professionals (dilip palumbo i.e. LINDA Kumar, REGISTERED NURSE, lab, RT, psych nurse, social services, printer maintainer, teacher, chief business officer, pillowcase cleaner)? Give summary @ -No Was smoking cessation discussed for >3mins.? @ -No Was critical care preformed (if so, how long)? @ -No Were there social determinants of health that impacted care today? How? (Homelessness, low income, unemployed, alcoholism, drug addiction, transportation, low edu. Level, literacy, decrease access to med. care, intermediate, rehab)? @ -No Was there de-escalation of care discussed even if they declined (Discuss DNR or withdrawal of care, Hospice)? DNR status @ -No What co-morbidities impacted this encounter? (DM, HTN, Smoking, COPD, CAD, Cancer, CVA, ARF, Chemo, Hep., AIDS, mental health diagnosis, sleep apnea, morbid obesity)? @ -None Was patient admitted / discharged? Hospital course, mention meds given and route, prescriptions, significant lab abnormalities, going to OR and other pertinent info. @ -Patient's potassium was low patient will be given 40 mill equivalents of potassium via the PEG tube and 10 mEq IV. Family wanted to discuss hospice care with the hospice nurse and that will be done prior to discharge Undiagnosed new problem with uncertain prognosis? @ -No Drug Therapy requiring intensive monitoring for toxicity (Heparin, Nitro, Insulin, Cardizem)? @ -No Were any procedures done? @ -No Diagnosis/symptom? @ -Hypokalemia Acute, or Chronic, or Acute on Chronic? @ -Acute Uncomplicated (without systemic symptoms) or Complicated (systemic symptoms)? @ -Uncomplicated Side effects of treatment? @ -No Exacerbation, Progression, or Severe Exacerbation? @ -No Poses a threat to life or bodily function? How? (Chest pain, [place], [place], pneumonia, PE, COPD, DKA, ARF, appy, cholecystitis, CVA, Diverticulitis, Homicidal, Suicidal, threat to staff... and all critical care pts) @ -No Diagnosis/symptom? @ -History of lung cancer with metastatic disease Acute, or Chronic, or Acute on Chronic? @ -Acute Uncomplicated (without systemic symptoms) or Complicated (systemic symptoms)? @ -Complicated Side effects of treatment? @ -None Exacerbation, Progression, or Severe Exacerbation] @ -No Poses a threat to life or bodily function? @ -No - Lab Data Result diagrams: 01/19/24 11:41 01/19/24 11:41 Lab Results 01/19/24 01/19/24 Range/Units 11:41 11:41 WBC 5.1 (3.8-10.6) k/uL RBC 3.94 L (4.30-5.90) m/uL Hgb 11.8 L (13.0-17.5) gm/dL Hct 35.1 L (39.0-53.0) % MCV 89.1 (80.0-100.0) fL MCH 29.9 (25.0-35.0) pg MCHC 33.5 (31.0-37.0) g/dL RDW 13.5 (11.5-15.5) % Plt Count 284 (150-450) k/uL MPV 7.6 Neutrophils % 94 % Lymphocytes % 4 % Monocytes % 2 % Eosinophils % 0 % Basophils % 0 % Neutrophils # 4.8 (1.3-7.7) k/uL Lymphocytes # 0.2 L (1.0-4.8) k/uL Monocytes # 0.1 (0-1.0) k/uL Eosinophils # 0.0 (0-0.7) k/uL Basophils # 0.0 (0-0.2) k/uL Sodium 142 (137-145) mmol/L Potassium 3.0 L (3.5-5.1) mmol/L Chloride 102 (98-107) mmol/L Carbon Dioxide 38 H (22-30) mmol/L Anion Gap 2 mmol/L BUN 21 H (9-20) mg/dL Creatinine 0.60 L (0.66-1.25) mg/dL Est GFR (CKD-EPI)AfAm >90 (>60 ml/min/1.73 sqM) Est GFR (CKD-EPI)NonAf >90 (>60 ml/min/1.73 sqM) Glucose 149 H (74-99) mg/dL Calcium 9.5 (8.4-10.2) mg/dL Total Bilirubin 0.4 (0.2-1.3) mg/dL AST 35 (17-59) U/L ALT 38 (4-49) U/L Alkaline Phosphatase 99 (38-126) U/L Total Protein 6.2 L (6.3-8.2) g/dL Albumin 3.5 (3.5-5.0) g/dL Disposition Clinical Impression: History of lung cancer, Hypokalemia Disposition: HOME SELF-CARE Condition: Good Instructions (If sedation given, give patient instructions): Hypokalemia (ED) Prescriptions: Potassium Chloride ER [K-Dur 20] 20 meq PO DAILY 7 Days #7 tab Is patient prescribed a controlled substance at d/c from ED?: No Referrals: Ambika Barragan DO [Primary Care Provider] - 1-2 days
[2024-01-19 12:01] LABS: Basophils % (A) 0 %; Eosinophils % (A) 0 %; HCT 35.1 % (39.0-53.0); HGB 11.8 gm/dL (13.0-17.5); Lymphocytes # (A) 0.2 k/uL (1.0-4.8); Lymphocytes % (A) 4 %; MCH 29.9 pg (25.0-35.0); MCHC 33.5 g/dL (31.0-37.0); MCV 89.1 fL (80.0-100.0); Mean Platelet Volume 7.6; Monocytes # (A) 0.1 k/uL (0-1.0); Monocytes % (A) 2 %; Neutrophils # (A) 4.8 k/uL (1.3-7.7); Neutrophils % (A) 94 %; Platelet Count 284 k/uL (150-450); RBC 3.94 m/uL (4.30-5.90); RDW 13.5 % (11.5-15.5); WBC 5.1 k/uL (3.8-10.6)
[2024-01-19 12:12] LABS: ALT 38 U/L (4-49); AST 35 U/L (17-59); African American GFR (CKD) >90 (>60 ml/min/1.73 sqM); Albumin 3.5 g/dL (3.5-5.0); Alkaline Phosphatase 99 U/L (38-126); Anion Gap 2 mmol/L; Blood Urea Nitrogen 21 mg/dL (9-20); Calcium 9.5 mg/dL (8.4-10.2); Carbon Dioxide 38 mmol/L (22-30); Chloride 102 mmol/L (98-107); Glucose 149 mg/dL (74-99); Non-African American GFR(CKD) >90 (>60 ml/min/1.73 sqM); Sodium 142 mmol/L (137-145); Total Bilirubin 0.4 mg/dL (0.2-1.3); Total Protein 6.2 g/dL (6.3-8.2)
--- NOTE | 2024-01-19 12:56 | CT ---
EXAMINATION TYPE: CT brain wo con CT DLP: 1165.4 mGycm, Automated exposure control for dose reduction was used. DATE OF EXAM: 01/19/2024 12:38 PM COMPARISON: CT brain 01/15/2024, MRI brain 01/18/24 CLINICAL INDICATION:Male, 53 years old with history of Headache and altered mental status, Migraine/A MS, lung and throat cancer TECHNIQUE: Brain: Multiple axial CT images of the brain were obtained without IV contrast. . Coronal and sagitta l reformats reviewed. FINDINGS: Brain: Extra-axial spaces: No abnormal extra-axial fluid collections. Ventricular system: Within normal limits Cerebral parenchyma: Stable resection cavity within the left inferior frontal lobe with 1.4 cm calcif ied lesion redemonstrated. Similar small hyperdense material within the parenchyma anterior and super ior to this in the left frontal lobe parenchyma (series 201, image 38). Right frontal encephalomalaci a redemonstrated. Mildly decreased pneumocephalus. The pride-white junction is well differentiated. Sc attered hypoattenuating areas are seen within the periventricular white matter. Cerebellum: Unremarkable. Mass effect: No evidence of midline shift. Intracranial vasculature: unremarkable Soft tissues: Normal. Calvarium/osseous structures: No depressed skull fracture. Postsurgical changes of the bilateral fron thelma lobe from craniotomy. Incidental incomplete fusion of the posterior arch of C1. Paranasal sinuses and mastoid air cells: Stable 1.9 cm right inferior maxillary sinus probable mucous retention cysts additional minimal right maxillary sinus mucosal thickening. Remaining paranasal sin uses are clear. Mastoid air cells are clear. Nasal septal deviation to the right with spurring. Visualized orbits: Orbital contents are intact. IMPRESSION: 1. Postoperative encephalomalacia in the bilateral frontal lobes redemonstrated with unchanged calcif ied left frontal lobe lesion with marginal decrease in pneumocephalus from prior exams. Trace anterio r left frontal lobe parenchymal hemorrhage is retrospectively unchanged. 2. Nonspecific white matter changes, likely secondary to chronic small vessel ischemic disease. [facility], , 01/19/2024 12:53 PM
--- NOTE | 2024-01-19 13:05 | XR ---
EXAMINATION TYPE: XR chest 2V DATE OF EXAM: 01/19/2024 12:26 PM CLINICAL INDICATION: Male, 53 years old with history of altered mental status; COMPARISON: Chest radiographs from 01/10/2024 TECHNIQUE: XR chest 2V Frontal view of the chest. FINDINGS: Lungs/Pleura: Prominent interstitial lung markings are seen scattered throughout the lungs with ines ening of the diaphragm and increased lucency of the lung apices. No evidence of focal consolidation, pneumothorax or pleural effusion. Pulmonary vascularity: Unremarkable. Heart/mediastinum: Cardiomediastinal silhouette is unremarkable. Musculoskeletal: No acute osseous pathology. Stable bony lesion in the proximal right humerus. Correl ate for any enchondroma. Other findings: None Lines/Tubes: [id number] projecting over the left hemithorax with distal tip at the cavoatrial junction. IMPRESSION: 1. No acute cardiopulmonary disease process. 2. COPD changes. [facility], , 01/19/2024 1:02 PM
[2024-01-19] MEDS: POTASSIUM CHLORIDE 10 MEQ in WATER FOR INJECTION 1 100ML.BAG IVPB STA (13:51)
[2024-01-19] MEDS: POTASSIUM CHLORIDE ER 20 MEQ TAB.ER PO STA ×2 (13:56→15:24)
[2024-01-19] MEDS: KETOROLAC 15 MG/ML 1 ML VIAL IVP STA (15:22)
[2024-01-19] MEDS: IPRATROPIUM-ALBUTEROL 3 ML NEB INHALATION STA (15:32)
[2024-01-19 15:53] VITALS: PULSE 85
== END 2024-01-19 16:28 | disposition home or self-care (01) ==
LOC: EC 11:17
DX: R41.82 Altered mental status, unspecified
CPT/HCPCS: 36415; 70450; 71046; 80053; 85025; 93005; 94640; 96361; 96365; 96375; 96376; 99285

== ENCOUNTER 2024-01-20 04:49 | Emergency (ER) | payer OTHER ==
[2024-01-20 04:57] VITALS: RESP 18; TEMP 98.1
--- NOTE | 2024-01-20 06:03 | ED ---
General Adult HPI - General Chief complaint: Headache Stated complaint: Headache Time Seen by Provider: 01/20/24 05:35 Source: patient Mode of arrival: EMS Limitations: no limitations - History of Present Illness Initial comments: Patient is a 53-year-old with a past medical history of lung cancer with metastatic disease to the throat presenting today for headache. Patient presented yesterday for the same. States headache has been ongoing on and off for the last few weeks. States headache today similar to yesterday. Has been trying ibuprofen at home however cannot control the pain. States since waiting in the emergency room his headache has improved somewhat spontaneously. Endorsed nausea but no vomiting. States that his neck feels stiff however states it is chronically stiff. No fevers. States he has a bad memory. No vomiting, new numbness or weakness. States that sometimes when he gets these headaches his vision goes in and out however no vision changes currently. - Related Data Home Medications Medication Instructions Recorded Confirmed Lacosamide [Vimpat] 150 mg PO BID 08/20/20 01/20/24 Atorvastatin Calcium [Lipitor] 40 mg PO HS 04/28/23 01/20/24 Ibuprofen [Motrin] 800 mg PO TID PRN 04/28/23 01/20/24 Baclofen [Lioresal] 10 mg PO TID PRN 01/04/24 01/20/24 Lidocaine Viscous 2% [Xylocaine 10 - 15 ml MUCOUS MEM ACHS PRN 01/04/24 01/20/24 Viscous] Albuterol Nebulized [Ventolin 2.5 mg INHALATION RT-TID 01/19/24 01/20/24 Nebulized] levETIRAcetam [Keppra Oral 1,000 mg PO BID 01/19/24 01/20/24 Solution] oxyCODONE-APAP 7.5-325MG [Percocet 1 tab PO Q6H 01/19/24 01/20/24 7.5-325 mg] predniSONE [Deltasone] 40 mg PO DAILY 01/19/24 01/20/24 Previous Rx's Medication Instructions Recorded Potassium Chloride ER [K-Dur 20] 20 meq PO DAILY 7 Days #7 tab 01/19/24 Allergies Allergy/AdvReac Type Severity Reaction Status Date / Time No Known Allergies Allergy Verified 01/20/24 13:55 Review of Systems ROS Statement: Those systems with pertinent positive or pertinent negative responses have been documented in the HPI. ROS Other: All systems not noted in ROS Statement are negative. Past Medical History Past Medical History: Cancer, COPD, CVA/TIA, Seizure Disorder Additional Past Medical History / Comment(s): TIA summer 2019-no residual effects, lung cancer 2019-had radiation & chemo which is finished, immunotherapy every 2 weeks, last seizure approx. 8 months ago History of Any Multi-Drug Resistant Organisms: None Reported Additional Past Surgical History / Comment(s): mediport left side, brain surg. for dermoid cysts >20 yrs. ago, throat cancer, lung cancer, seizure disorder Past Anesthesia/Blood Transfusion Reactions: No Reported Reaction Past Psychological History: No Psychological Hx Reported Smoking Status: Former smoker Past Alcohol Use History: None Reported Past Drug Use History: Marijuana General Exam - General Exam Comments Initial Comments: PE: CONSTITUTIONAL: [no apparent distress, chronically ill-appearing SKIN: Warm, dry, no jaundice, hives or petechiae EYES: Pupils are equally round, extraocular movements intact without nystagmus, clear conjunctiva, non-icteric sclera HENT: Normocephalic, atraumatic, dry mucus membranes, oropharynx clear without exudates NECK: , Full range of motion, normal appearance PULMONARY: Clear to auscultation without wheezes, rhonchi, or rales, normal excursion, no accessory muscle use and no stridor CARDIOVASCULAR: Regular rate, rhythm, normal S1 and S2. No appreciated murmurs, rubs or gallops. Strong radial pulses with intact distal perfusion. No lower extremity edema GASTROINTESTINAL: Soft, active bowel sounds throughout, non-tender, non-dis tended, no palpable masses, no rebound or guarding. No hepatosplenomegaly MUSCULOSKELETAL: Extremities have no gross deformity, no edema, redness, or swelling. No calf swelling NEUROLOGIC: [_a/o x 3, GCS 15, normal mentation and speech. Moves all extremities x 4 without motor or sensory deficit, no facial droop, extraocular movements intact, visual callahan grossly intact in all 4 quadrants, equal strength in all 4 extremities, sensation to intact in all 4 extremities, normal finger-nose testing, no focal neurologic deficits PSYCHIATRIC:_normal mood and affect, thought process is clear and linear Limitations: no limitations Course Vital Signs 01/20/24 01/20/24 01/20/24 04:52 04:57 07:46 Temperature 98.1 F Pulse Rate 63 88 Respiratory 18 18 Rate Blood Pressure 138/90 138/88 O2 Sat by Pulse 97 Oximetry 01/20/24 08:47 Temperature Pulse Rate 65 Respiratory 18 Rate Blood Pressure 149/95 O2 Sat by Pulse 98 Oximetry Medical Decision Making - Medical Decision Making Was pt. sent in by a medical professional or institution (, PA, DESIGN ANALYST, urgent care, hospital, or retirement...) When possible be specific @ -No Did you speak to anyone other than the patient for history (EMS, parent, family, police, friend...)? What history was obtained from this source @ -No Did you review nursing and triage notes (agree or disagree)? Why? @ -I reviewed and agree with nursing and triage notes Were old charts reviewed (outside hosp., previous admission, EMS record, old EKG, old radiological studies, urgent care reports/EKG's, retirement records)? Report findings @Old charts were reviewed, patient seen in the emergency department yesterday for headache and altered mental status,CT brain performed at that time showed postoperative encephalomalacia in the bilateral frontal lobes with unchanged calcified left frontal lobe lesion with marginal decrease in pneumocephalus from prior exams, trace anterior left frontal lobe parenchymal hemorrhages retrospectively unchanged, nonspecific white matter changes likely secondary to chronic small vessel ischemic disease; 1 day prior to this on January 17 patient also had an MRI brain performed which showed similar findings in addition to a possible micronodule in the right frontal lobe advising follow-up. Patient ultimately discharged home from the emergency department to follow-up with hospice Differential Diagnosis (chest pain, altered mental status, abdominal pain women, abdominal pain men, vaginal bleeding, weakness, fever, dyspnea, syncope, headache, dizziness, GI bleed, back pain, seizure, CVA, palpatations, mental health, musculoskeletal)? @Differential Headache: Migraine, tension, cluster,intercranial hemorrhage, sinusitis, this is not meant to be an all-inclusive list. I have very low suspicion for intracranial hemorrhage given patient states headache is chronic gradual in onset, and imaging yesterday showed no evidence of acute intracranial hemorrhage patient has no focal neurologic deficits do not feel further imaging of the brain warranted at this point given very recent imaging yesterday and the day before EKG interpreted by me (3pts min.). @ -As above X-rays interpreted by me (1pt min.). @ -None done CT interpreted by me (1pt min.). @ -None done U/S interpreted by me (1pt. min.). @ -None done What testing was considered but not performed or refused? (CT, X-rays, U/S, labs)? Why? @ -CT brain was considered however as noted above patient had imaging CT brain yesterday and MRI brain the day before that, symptoms have not changed in quality patient has no focal neurologic deficits do not feel repeat imaging indicated at this point; Patient nontoxic appearing, afebrile, labs performed yesterday significant for K of 3, otherwise reassuring, no leukopenia or leukocytosis do not feel repeat labs indicated What meds were considered but not given or refused? Why? @ -None Did you discuss the management of the patient with other professionals (professionals i.e. , PA, DESIGN ANALYST, lab, RT, psych nurse, social worker school, sap architect, teacher, public health service officer, field nurse case manager)? Give summary @ -No Was smoking cessation discussed for >3mins.? @ -No Was critical care preformed (if so, how long)? @ -No Were there social determinants of health that impacted care today? How? (Homelessness, low income, unemployed, alcoholism, drug addiction, transportation, low edu. Level, literacy, decrease access to med. care, retirement, rehab)? @ -No Was there de-escalation of care discussed even if they declined (Discuss DNR or withdrawal of care, Hospice)? @ -No What co-morbidities impacted this encounter? (DM, HTN, Smoking, COPD, CAD, Cancer, CVA, ARF, Chemo, Hep., AIDS, mental health diagnosis, sleep apnea, morbid obesity)? @ -Cancer Was patient admitted / discharged? Hospital course, mention meds given and route, prescriptions, significant lab abnormalities, going to OR and other pertinent info. @ -Ddopreatge-52-wldb-old male past medical history of lung cancer with metastases to the throat presenting today for chronic headache. On assessment patient is chronically ill-appearing but in no acute distress. He has no focal neurologic deficits on exam. Discussed with patient plan for Toradol, Tylenol, Benadryl, Decadron, Reglan IV fluids and Dilaudid and reassessment. Patient is agreeable with POC. On reassessment patient states headache has improved and he is ready for discharged. In my medical judgment there is currently no evidence of an immediate life- threatening or surgical condition. Discharge is therefore indicated at this time. Discharge treatment instructions, follow up instructions, and appropriate emergency department return precautions were discussed with the patient and/or medical decision maker. Patient and/or medical decision maker expressed understanding of and agreed with the treatment plan, follow up instructions, and emergency department return precaution. All patient's and/or medical decision maker's questions were answered. The patient was advised that a small risk still exists that a serious condition could develop and was therefore instructed to return to the ED for any changes in symptoms, persistent symptoms, inability to obtain proper follow-up or for any further concerns. Patient received verbal and written instructions for this condition. Undiagnosed new problem with uncertain prognosis? @ -No Drug Therapy requiring intensive monitoring for toxicity (Heparin, Nitro, Insulin, Cardizem)? @ -No Were any procedures done? @ -No Diagnosis/symptom? @ -Headache Acute, or Chronic, or Acute on Chronic? @ -Chronic Uncomplicated (without systemic symptoms) or Complicated (systemic symptoms)? @Uncomplicated Side effects of treatment? @ -No Exacerbation, Progression, or Severe Exacerbation? @ -No Poses a threat to life or bodily function? How? (Chest pain, [place], [place], pneumonia, PE, COPD, DKA, ARF, appy, cholecystitis, CVA, Diverticulitis, Homicidal, Suicidal, threat to staff... and all critical care pts) @ -No Disposition Clinical Impression: Headache Disposition: HOME SELF-CARE Condition: Stable Instructions (If sedation given, give patient instructions): Acute Headache (ED) Additional Instructions: Every disease is a spectrum and a small chance still exists that a serious condition could develop, for this reason, please monitor yourself closely for new, changing or worsening symptoms, symptoms that persist beyond 48 hours, new numbness, weakness, slurred speech, changes in vision fever, inability to tolerate/keep down fluids or your medications, inability to follow up with outpatient providers as instructed and should you experience these symptoms or should you have any further concerns for your wellbeing please return to the ED or call 911 immediately. PLEASE call your primary care physician as soon as possible to arrange / discuss plan for followup appointment. Appointment in the next 1-3 days is strongly encouraged if possible. PLEASE let us know here before you leave if there is anything further we can do to be of any assistance. Take care and feel Better! Is patient prescribed a controlled substance at d/c from ED?: No Referrals: Ambika Barragan DO [Primary Care Provider] - 1-2 days
[2024-01-20] MEDS: SODIUM CHLORIDE 0.9% 1,000 ML IV ONE (06:29)
[2024-01-20] MEDS: KETOROLAC 15 MG/ML 1 ML VIAL IVP STA (06:31)
[2024-01-20] MEDS: HYDROmorphone 1 MG/ML 1 ML SYRINGE IVP STA (06:33)
[2024-01-20] MEDS: diphenhydrAMINE 50 MG/ML 1 ML VIAL IVP STA (06:37)
[2024-01-20] MEDS: DEXAMETHASONE SOD PHOSPHATE 10 MG/ML 1 ML VIAL IVP STA (06:39)
[2024-01-20] MEDS: METOCLOPRAMIDE 5 MG/ML 2 ML VIAL IVP STA (06:41)
[2024-01-20] MEDS: ACETAMINOPHEN TAB 500 MG TAB PO STA (06:45)
[2024-01-20 08:48] VITALS: BP 149/95; PULSE 65
== END 2024-01-20 08:48 | disposition home or self-care (01) ==
LOC: EC 04:49
CPT/HCPCS: 96361; 96374; 96375; 99284

== ENCOUNTER 2024-01-20 12:10 | Emergency (ER) | payer OTHER ==
[2024-01-20 12:14] VITALS: TEMP 97.5
[2024-01-20 12:57] VITALS: BP 135/85; PULSE 69; RESP 18
[2024-01-20] MEDS: HYDROmorphone 1 MG/ML 1 ML SYRINGE IVP STA ×2 (13:03→15:27)
--- NOTE | 2024-01-20 13:05 | ED ---
General Adult HPI - General Chief complaint: Shortness of Breath Stated complaint: SOB Time Seen by Provider: 01/20/24 12:25 Source: patient, RN notes reviewed, old records reviewed Mode of arrival: wheelchair Limitations: no limitations - History of Present Illness Initial comments: Is a 53-year-old male who presents to the emergency department after having been in the emergency room yesterday and again this morning. Patient states to me that he is here because of the headache he does state he is a little bit short of breath but that is not the major reason he is here he is here because he has chronic headaches. Denies any fever chills. Patient denies any chest pain or palpitations. Patient states hospice talk to him yesterday but he does not know what the outcome was - Related Data Home Medications Medication Instructions Recorded Confirmed Lacosamide [Vimpat] 150 mg PO BID 08/20/20 01/20/24 Atorvastatin Calcium [Lipitor] 40 mg PO HS 04/28/23 01/20/24 Ibuprofen [Motrin] 800 mg PO TID PRN 04/28/23 01/20/24 Baclofen [Lioresal] 10 mg PO TID PRN 01/04/24 01/20/24 Lidocaine Viscous 2% [Xylocaine 10 - 15 ml MUCOUS MEM ACHS PRN 01/04/24 01/20/24 Viscous] Albuterol Nebulized [Ventolin 2.5 mg INHALATION RT-TID 01/19/24 01/20/24 Nebulized] levETIRAcetam [Keppra Oral 1,000 mg PO BID 01/19/24 01/20/24 Solution] oxyCODONE-APAP 7.5-325MG [Percocet 1 tab PO Q6H 01/19/24 01/20/24 7.5-325 mg] predniSONE [Deltasone] 40 mg PO DAILY 01/19/24 01/20/24 Previous Rx's Medication Instructions Recorded Potassium Chloride ER [K-Dur 20] 20 meq PO DAILY 7 Days #7 tab 01/19/24 Allergies Allergy/AdvReac Type Severity Reaction Status Date / Time No Known Allergies Allergy Verified 01/20/24 13:55 Review of Systems ROS Statement: Those systems with pertinent positive or pertinent negative responses have been documented in the HPI. ROS Other: All systems not noted in ROS Statement are negative. Past Medical History Past Medical History: Cancer, COPD, CVA/TIA, Seizure Disorder Additional Past Medical History / Comment(s): TIA summer 2019-no residual effects, lung cancer 2019-had radiation & chemo which is finished, immunotherapy every 2 weeks, last seizure approx. 8 months ago History of Any Multi-Drug Resistant Organisms: None Reported Additional Past Surgical History / Comment(s): mediport left side, brain surg. for dermoid cysts >20 yrs. ago, throat cancer, lung cancer, seizure disorder Past Anesthesia/Blood Transfusion Reactions: No Reported Reaction Past Psychological History: No Psychological Hx Reported Smoking Status: Former smoker Past Alcohol Use History: None Reported Past Drug Use History: Marijuana General Exam - General Exam Comments Initial Comments: GENERAL: Patient is well-developed and well-nourished. Patient is nontoxic and well- hydrated and is in mild distress. ENT: Neck is soft and supple. No significant lymphadenopathy is noted. Oropharynx is clear. Moist mucous membranes. Neck has full range of motion without eliciting any pain. EYES: The sclera were anicteric and conjunctiva were pink and moist. Extraocular movements were intact and pupils were equal round and reactive to light. Eyelids were unremarkable. PULMONARY: Unlabored respirations. Good breath sounds bilaterally. No audible rales rhonchi or wheezing was noted. CARDIOVASCULAR: There is a regular rate and rhythm without any murmurs gallops or rubs. ABDOMEN: Soft and nontender with normal bowel sounds. SKIN: Skin is clear with no lesions or rashes and otherwise unremarkable. NEUROLOGIC: Patient is alert and oriented x3. Cranial nerves II through XII are grossly intact. Motor and sensory are also intact. Normal speech, volume and content. Symmetrical smile. MUSCULOSKELETAL: Normal extremities with adequate strength and full range of motion. No lower extremity swelling or edema. No calf tenderness. LYMPHATICS: No significant lymphadenopathy is noted PSYCHIATRIC: Normal psychiatric evaluation. Limitations: no limitations Course Vital Signs 01/20/24 01/20/24 12:12 12:54 Temperature 97.5 F L Pulse Rate 76 69 Respiratory 20 18 Rate Blood Pressure 132/91 135/85 O2 Sat by Pulse 90 L 97 Oximetry Medical Decision Making - Medical Decision Making Was pt. sent in by a medical professional or institution (, PA, CHIEF ENGINEER'S HELPER, urgent care, hospital, or halfway...) When possible be specific @ -No Did you speak to anyone other than the patient for history (EMS, parent, family, police, friend...)? What history was obtained from this source @ -No Did you review nursing and triage notes (agree or disagree)? Why? @ -I reviewed and agree with nursing and triage notes Were old charts reviewed (outside hosp., previous admission, EMS record, old EKG, old radiological studies, urgent care reports/EKG's, halfway records)? Report findings @ -No old charts were reviewed Differential Diagnosis? @ -Differential Headache: Migraine, tension, cluster, carbon monoxide, central venous thrombosis, pension karma temporal arteritis, acute closure glaucoma, intercranial hemorrhage, mastoiditis, sinusitis, head injury, this is not meant to be an all-inclusive list. EKG interpreted by me (3pts min.). @ -As above X-rays interpreted by me (1pt min.). @ -Chest x-ray shows no acute abnormality CT interpreted by me (1pt min.). @ -None done U/S interpreted by me (1pt. min.). @ -None done What testing was considered but not performed or refused? (CT, X-rays, U/S, labs)? Why? @ -None What meds were considered but not given or refused? Why? @ -None Did you discuss the management of the patient with other professionals (professionals i.e. , PA, CHIEF ENGINEER'S HELPER, lab, RT, psych nurse, psych social worker, electrical experimental mechanic, teacher, professional security officer, telephonic nurse case manager)? Give summary @ -No Was smoking cessation discussed for >3mins.? @ -No Was critical care preformed (if so, how long)? @ -No Were there social determinants of health that impacted care today? How? (Homelessness, low income, unemployed, alcoholism, drug addiction, transportation, low edu. Level, literacy, decrease access to med. care, penitentiary, rehab)? @ -No Was there de-escalation of care discussed even if they declined (Discuss DNR or withdrawal of care, Hospice)? DNR status @ -No What co-morbidities impacted this encounter? (DM, HTN, Smoking, COPD, CAD, Cancer, CVA, ARF, Chemo, Hep., AIDS, mental health diagnosis, sleep apnea, morbid obesity)? @ -None Was patient admitted / discharged? Hospital course, mention meds given and route, prescriptions, significant lab abnormalities, going to OR and other p ertinent info. @ -Patient was given Dilaudid for the headache and it did help with the pain. Patient spoke with hospitalist and he is in agreement with going to the hospice facility Undiagnosed new problem with uncertain prognosis? @ -No Drug Therapy requiring intensive monitoring for toxicity (Heparin, Nitro, Insulin, Cardizem)? @ -No Were any procedures done? @ -No Diagnosis/symptom? @ -Chronic headache Acute, or Chronic, or Acute on Chronic? @ -Chronic Uncomplicated (without systemic symptoms) or Complicated (systemic symptoms)? @ -Uncomplicated Side effects of treatment? @ -No Exacerbation, Progression, or Severe Exacerbation? @ -No Poses a threat to life or bodily function? How? (Chest pain, [place], [place], pneumonia, PE, COPD, DKA, ARF, appy, cholecystitis, CVA, Diverticulitis, Homicidal, Suicidal, threat to staff... and all critical care pts) @ -No Diagnosis/symptom? @ -History of lung cancer with metastatic disease Acute, or Chronic, or Acute on Chronic? @ -Acute Uncomplicated (without systemic symptoms) or Complicated (systemic symptoms)? @ -Complicated Side effects of treatment? @ -None Exacerbation, Progression, or Severe Exacerbation] @ -No Poses a threat to life or bodily function? @ -No Disposition Clinical Impression: Chronic headache, Metastatic lung cancer (metastasis from lung to other site) Disposition: HOME SELF-CARE Is patient prescribed a controlled substance at d/c from ED?: No Referrals: Ambika Barragan DO [Primary Care Provider] - 1-2 days Time of Disposition: 15:14
--- NOTE | 2024-01-20 13:53 | XR ---
EXAMINATION TYPE: XR chest 2V DATE OF EXAM: 01/20/2024 1:23 PM CLINICAL INDICATION: Male, 53 years old with history of Difficulty breathing ; [facility] COMPARISON: Chest radiograph from one day prior. TECHNIQUE: XR chest 2V Frontal view of the chest. FINDINGS: Lungs/Pleura: Similar Scattered subtle reticular and hazy opacities. No evidence of pneumothorax, foc al consolidation or pleural effusion. Pulmonary vascularity: Unremarkable. Heart/mediastinum: Cardiomediastinal silhouette is unremarkable. Musculoskeletal: No acute osseous pathology. Similar bony lesion in the right upper arm. Other findings: None Lines/Tubes: [id number] projecting over the left hemithorax with distal tip at the cavoatrial junction. IMPRESSION: Similar Subtle scattered opacities which may represent an atypical pneumonia. [facility], , 01/20/2024 1:51 PM
[2024-01-20] MEDS: KETOROLAC 15 MG/ML 1 ML VIAL IVP STA (15:25)
[2024-01-20] MEDS: ACETAMINOPHEN TAB 500 MG TAB PO STA (15:26)
== END 2024-01-20 15:56 | disposition home or self-care (01) ==
LOC: EC 12:10
CPT/HCPCS: 71046; 96374; 96375; 96376; 99285